=== PATIENT | female | born 1950 | race Caucasian/White ===

== ENCOUNTER 2021-05-03 21:38 | Emergency (ER) | payer MEDICARE, BC, SELFPAY ==
--- NOTE | ~2021-05-03 | CT_ITS ---
EXAMINATION: CT lumbar spine wo con DATE: 05/03/2021 22:33 INDICATION: Low back pain. Leg weakness. TECHNIQUE: Computed tomography (CT) of the lumbar spine was performed without intravenous contrast. A utomated exposure control and iterative reconstruction technique were employed. Exam dose: 1327.49 m Gy-cm total exam DLP. COMPARISON: None FINDINGS: Thoracic spinal leads are noted. Diffuse osteopenia. There is dextroscoliosis of the lumbar spine. There is prominent anterior wedge burst fracture deformity of L1. No other lumbar spine fracture is evident. There is moderately severe to severe degenerative disc disease throughout the lumbar and lumbosacral spine, particularly severe at L2-3, L3-4, L4-5, with associated mild retrolisthesis at L2-3 and L3-4 and to a greater extent up to 5 mm retrolisthesis at L4-5. No spondylolysis or anterolisthesis. Prominent degenerative change at the apophyseal joints. The sacroiliac joints are intact. IMPRESSION: Diffuse osteopenia Dextroscoliosis Prominent anterior wedge burst fracture deformity of L1 Moderately severe to severe degenerative disc disease of the lumbar and lumbosacral spine with retrol isthesis at several levels, measuring up to 5 mm at L4-5 Reviewed, dictated and finalized at [facility]. Reviewed, dictated and finalized at [facility]. IMPRESSION: Diffuse osteopenia Dextroscoliosis Prominent anterior wedge burst fracture deformity of L1 Moderately severe to severe degenerative disc disease of the lumbar and lumbosa cral spine with retrolisthesis at several levels, measuring up to 5 mm at L4-5
--- NOTE | ~2021-05-03 | XR_ITS ---
XR chest 2V DATE: 05/03/2021 22:01 INDICATION: Fall. Weakness. TECHNIQUE: AP and lateral views COMPARISON: 04/10/2017 AP chest FINDINGS: There is mild infiltrate or atelectasis at the lung bases. The lungs otherwise appear clear . Cardiac megaly. Aortic calcification. Central pulmonary arteries appear prominent suggesting pulmonary hypertension. Lungs appear mildly hy perinflated. Again noted are electrodes in the lower thoracic spinal canal. Diffuse osteopenia. There is severe anterior wedge fracture deformity of an upper lumbar vertebral body approximately. IMPRESSION: Bibasilar infiltrate or atelectasis; consider atelectasis, aspiration pneumonitis or biba silar pneumonia COPD and pulmonary hypertension are suggested Aortic atherosclerosis Very prominent loss of height and anterior wedging of an upper lumbar vertebral body Thoracic spinal electrodes again noted Reviewed, dictated and finalized at [facility]. IMPRESSION: Bibasilar infiltrate or atelectasis; consider atelectasis, aspirati on pneumonitis or bibasilar pneumonia COPD and pulmonary hypertension are suggested Aortic atherosclerosis Very prominent loss of height and anterior wedging of an upper lumbar vertebral body Thoracic spinal electrodes again noted
[2021-05-03 21:37] VITALS: BP 112/55; PULSE 107; RESP 20; TEMP 36.6; O2SAT 97
--- NOTE | 2021-05-03 21:45 | ECG_ITS ---
Measurements Intervals [place] Rate: 106 P: 76 MA: 169 QRS: 19 QRSD: 117 T: 72 QT: 351 QTc: 466 Interpretive Statements SINUS TACHYCARDIA INCOMPLETE LEFT BUNDLE BRANCH BLOCK DELAYED PRECORDIAL R/S TRANSITION LOW QRS VOLTAGE IN LIMB LEADS MINIMAL Q WAVES- INFERIOR LEADS BASELINE ARTIFACT- V6 ABNORMAL ECG Electronically Signed On 05-04-2021 6:56:58 CDT by Sylvester Frye D.O.
[2021-05-03 22:18] LABS: Basophils Percent Auto 0.2 % (0.2-1.2); Eosinophils Percent Auto 0.5 % (0-4.4); Hematocrit 36.5 % (37.0-47.0); Hemoglobin 11.4 g/dL (12.0-15.0); Immature Granulocyte Absolute 0.04 K/mm3 (0.00-0.031); Immature Granulocyte Percent A 0.5 % (0-0.5); Immature Platelet Fraction Pct 8.4 % (0.9-11.2); Lymphocytes Absolute Auto 0.44 K/mm3 (0.9-3.2); Lymphocytes Percent Auto 5.1 % (18.3-44.2); Mean Corpuscular HGB Conc 31.2 g/dl (32-36); Mean Corpuscular Hemoglobin 31.4 pg (26-34); Mean Corpuscular Volume 100.6 fl (80-100); Mean Platelet Volume 11.2 fl (7.4-10.4); Monocytes Percent Auto 11.1 % (2.6-8.5); Neutrophils Absolute Auto 7.2 K/mm3 (1.3-6.7); Neutrophils Percent Auto 82.6 % (45.5-73.1); Platelet Count Result 123 k/mm3 (150-375); Red Blood Count 3.63 M/mm3 (4.2-5.4); Red Cell Distribution Width 11.9 % (11.5-14.5); White Blood Count 8.7 K/mm3 (4.5-10.0)
[2021-05-03] MEDS: HYDROmorphone HCL INJ (*CRX) 1 MG/ML SYR 0.5 MG IV PUSH (22:22)
[2021-05-03 22:27] LABS: Alanine Aminotransferase 12 U/L (4-35); Albumin Level 3.5 g/dL (3.5-5.1); Alkaline Phosphatase 108 U/L (38-126); Anion Gap 5 mmol/L (8-16); Aspartate Amino Transferase 20 U/L (14-36); Bilirubin,Total 0.9 mg/dL (0.2-1.3); Blood Urea Nitrogen 21 mg/dL (7-17); Calcium 9.2 mg/dL (8.4-10.2); Carbon Dioxide 34 mmol/L (22-30); Chloride 97 mmol/L (98-107); Estimated CRCL calculation 55 ml/min; Estimated Glomerular Filt Rate 55; Glucose 379 mg/dL (65-105); Potassium 4.4 mmol/L (3.4-5.0); Sodium 136 mmol/L (137-145)
[2021-05-03 22:31] LABS: Add Urine Microscopic? YES; Appearance Urine Cloudy (Clear); Bacteria Urine Trace /hpf; Bilirubin Urine Negative (Negative); Blood Urine 1+ (Negative); Color Urine Yellow (Yellow); Glucose Urine UA 3+ mg/dL (Negative); Ketones Urine Negative (Negative); Leukocyte Esterase Ur Trace LEU/UL (Negative); Mucus Urine Rare /lpf; Nitrate Urine Negative (Negative); Protein Urine 2+ mg/dL (Negative); Specific Grav Ur 1.016 (1.001-1.035); Squamous Epithelial Cell Urine Many /hpf (Few); WBC Urine 16-20 /hpf
--- NOTE | 2021-05-03 23:42 | ED.GENADULT ---
HPI - General Adult General Chief complaint: Weakness Stated complaint: ground level fall-weakness r leg Time Seen by Provider: 05/03/21 21:54 History of Present Illness HPI narrative: Patient is a 70-year-old female presents the emergency department with chief complaint of weakness. The patient reports she has chronic back pain and has a nerve stimulator in her back and reports over the last several days she has had some worsening pain and sat down on the toilet and felt as though it was very difficult for her to get up. The patient called EMS and normally gets all of her care at [place] [facility] and was transported to our facility. The patient states she has had no bowel or bladder dysfunction denies any paresthesias. Related Data Home Medications Medication Instructions Recorded Confirmed albuterol sulfate 90 mcg/actuation 2 puff INHALATION Q4H PRN gm 10/05/19 09/05/20 aerosol inhaler ascorbate calcium (vitamin C) 500 500 mg PO DAILY 10/05/19 09/05/20 mg tablet aspirin 81 mg tablet,delayed 81 mg PO DAILY 10/05/19 09/05/20 release atorvastatin 80 mg tablet 80 mg PO DAILY 10/05/19 09/05/20 clopidogrel 75 mg tablet 75 mg PO DAILY 10/05/19 09/05/20 cyanocobalamin (vitamin B-12) 500 500 mcg PO DAILY 10/05/19 09/05/20 mcg tablet estradiol 1 gm VAGINAL WEEKLY 10/05/19 09/05/20 fentanyl 75 mcg/hr transdermal 1 patch TRANSDERM Q72H 10/05/19 09/05/20 patch hydrocodone 10 mg-acetaminophen 1 tablet PO Q6H PRN 10/05/19 09/05/20 325 mg tablet metoprolol succinate 25 mg 25 mg PO DAILY 10/05/19 09/05/20 tablet,extended release 24 hr mupirocin 2 % topical ointment 1 applic TOPICAL BID 10/05/19 09/05/20 omeprazole 20 mg capsule,delayed 20 mg PO DAILY 10/05/19 09/05/20 release sennosides 8.6 mg capsule 8.6 mg PO BID PRN 10/05/19 09/05/20 zinc 50 mg tablet 50 mg PO DAILY 10/05/19 09/05/20 furosemide 20 mg tablet 20 mg PO QAM 05/24/20 09/05/20 potassium chloride 20 mEq 20 meq PO DAILY 05/24/20 09/05/20 tablet,extended release Allergies Allergy/AdvReac Type Severity Reaction Status Date / Time cefaclor Allergy Unknown Difficulty Verified 04/07/19 15:22 breathing cephalexin Allergy Unknown Difficulty Verified 04/07/19 15:22 breathing Cephalosporins Allergy Unknown Verified 03/23/12 16:19 clarithromycin Allergy Unknown Verified 03/23/12 16:19 clindamycin Allergy Unknown Verified 03/23/12 16:19 morphine Allergy Unknown Difficulty Verified 04/07/19 15:23 breathing Review of Systems Review of Systems: Narrative: A 10 system review of systems was completed on the patient and is negative except for what is stated in the HPI. Nursing and ancillary documentation was reviewed. [facility] Past Medical History Medical History CHF (congestive heart failure) Decubitus ulcer, buttock Edema, peripheral Peripheral arterial disease Family History Family History Father Family history of arthritis Family history of diabetes mellitus in first degree relative Patient's father is , Onset Age: 78 Diabetes mellitus Mother Family history of coronary artery disease Family history of heart disease in male family member before age 55 Patient's mother is Family history of cardiovascular disease, Onset Age: 60 Grandparent Family history of cardiovascular disease, Onset Age: 88 Sibling Family history of cardiovascular disease, Onset Age: 88 Social History Social History Smoking packs per day: 0.5 Smoking cigarettes per day: 10.0 Years smoked: 50 Smoking pack-years: 25.00 Smoking status: Current every day smoker Tobacco type: cigarettes Smoking end date: 06/12/19 Alcohol intake: never Substance use: never Exam Narrative: Exam Narrative: GENERAL: W
[2021-05-04] MEDS: HYDROmorphone HCL INJ (*CRX) 1 MG/ML SYR 0.5 MG IV PUSH (01:08)
[2021-05-04] MEDS: ONDANSETRON INJ 4 MG/2 ML VIAL IV PUSH (01:08)
[2021-05-04 01:17] VITALS: BP 114/62; PULSE 79; RESP 16; TEMP 36.3; O2SAT 95
== END 2021-05-04 01:19 | disposition home or self-care (01) ==
PROVIDERS: Emergency Provider Emergency Medicine; PCP Family Medicine
DX: M54.5 Low back pain (principal); Z96.82 Presence of neurostimulator; I50.9 Heart failure, unspecified; I73.9 Peripheral vascular disease, unspecified; G89.29 Other chronic pain; F17.210 Nicotine dependence, cigarettes, uncomplicated; Z79.82 Long term (current) use of aspirin; R00.0 Tachycardia, unspecified; I44.7 Left bundle-branch block, unspecified; R94.31 Abnormal electrocardiogram [ECG] [EKG]
CPT/HCPCS: 36415; 71046; 72131; 80053; 81001; 85025; 85055; 87077; 87086; 87088; 87186; 93005; 96374; 96376; 99284; J1170; J2405

== ENCOUNTER 2022-05-21 22:25 | Observation (INO) | payer MEDICARE, BC, SELFPAY ==
--- NOTE | ~2022-05-21 | CT_ITS ---
EXAMINATION: CT hip LT wo con DATE: 05/22/2022 00:52 INDICATION: Left hip pain after fall TECHNIQUE: Computed tomography (CT) of the left hip was performed without intravenous contrast. The d ose-length product was 556.42 mGy-cm. Automated exposure control and iterative reconstruction technCasentric ue were employed. COMPARISON: CT dated 10/15/2017 FINDINGS: There is an acute minimally displaced fracture proximal aspect of the left femur surroundin g the prosthesis. There is a left total hip arthroplasty. No significant soft tissue abnormality. The re is a radiopaque device in the pelvis, possibly a pessary. IMPRESSION: 1. Acute minimally displaced proximal left periprosthetic femoral fracture. Reviewed, dictated and finalized at [facility].
--- NOTE | ~2022-05-21 | CT_ITS ---
EXAMINATION: CT facial bones wo con DATE: 05/22/2022 00:06 INDICATION: Status post fall. Left facial pain. TECHNIQUE: Computed tomography (CT) of the facial bones was performed without intravenous contrast. T he dose-length product was 329.52 mGy-cm. Automated exposure control and iterative reconstruction rosie hnique were employed. COMPARISON: None FINDINGS: No acute maxillofacial fracture. There is left periorbital/frontal scalp hematoma. The pineda ible, pterygoid plates, zygomatic arches, nasal bones and orbits are intact. No evidence for blowout fracture. Lamina papyracea is intact bilaterally. Rightward nasal septal deviation. Temporal mandibul ar joints are symmetric. There is atherosclerosis of the aorta. IMPRESSION: 1. No acute facial fracture. Reviewed, dictated and finalized at [facility].
--- NOTE | ~2022-05-21 | CT_ITS ---
EXAMINATION: CT brain wo con DATE: 05/22/2022 00:05 INDICATION: Status post fall. Altered mental status. TECHNIQUE: Computed tomography (CT) of the head was performed without intravenous contrast. The dose- length product was 605.33 mGy-cm. Automated exposure control and iterative reconstruction technique w ere employed. COMPARISON: No prior studies for comparison. FINDINGS: Mild generalized atrophy. There are scattered mild periventricular and subcortical white ma tter changes, most likely related to small vessel ischemic disease (microangiopathy). There is left p eriorbital/frontal scalp hematoma. No ventriculomegaly or midline shift. Basilar cisterns are patent. No acute intracranial hemorrhage, infarction, mass or mass effect. Paranasal sinuses and mastoids ar e pneumatized. No depressed skull fractures. IMPRESSION: 1. No acute intracranial abnormality. Reviewed, dictated and finalized at location [facility].
--- NOTE | ~2022-05-21 | XR_ITS ---
EXAMINATION: XR hip BI 2V w AP pelvis DATE: 05/22/2022 00:16 INDICATION: Hip pain after fall TECHNIQUE: AP view the pelvis and two views of each hip were obtained. COMPARISON: 04/10/2017 FINDINGS: There are changes of left hip arthroplasty. There is a transverse lucency of the proximal l eft femur at the level of the lesser trochanter. No additional fracture is identified. There is mild osteoarthritis of the right hip. A neurostimulator device projects over the left mid abdomen. IMPRESSION: 1. Acute, nondisplaced periprosthetic fracture of the left femur. Reviewed, dictated and finalized at [facility].
--- NOTE | ~2022-05-21 | XR_ITS ---
EXAMINATION: XR chest 1V portable Exam Date/Time: 05/21/2022 22:36 CDT HISTORY: hypoxia, weakness Comparison: None available. RESULT: Lines, tubes, and devices: Epidural stimulator leads project over the lower thoracic spine. Lungs and pleura: Bibasilar linear scar/atelectasis and senescent change. Cardiomediastinal silhouette: Stable cardiomediastinal silhouette. Other: No acute osseous or upper abdominal finding. IMPRESSION: No acute cardiopulmonary process. Reviewed, dictated and finalized at [facility].
[2022-05-21 22:27] VITALS: BP 97/70; PULSE 86; RESP 20; TEMP 37.3; O2SAT 4
--- NOTE | 2022-05-21 22:30 | ECG_ITS ---
Measurements Intervals [place] Rate: 86 P: 73 LA: 144 QRS: 19 QRSD: 120 T: 78 QT: 397 QTc: 475 Interpretive Statements SINUS RHYTHM CONSIDER LEFT ATRIAL ABNORMALITY INTRAVENTRICULAR CONDUCTION DELAY BORDERLINE ECG Electronically Signed On 05-22-2022 6:15:45 CDT by Sylvester Frye D.O.
[2022-05-21 22:54] LABS: Basophils Percent Auto 0.4 % (0.2-1.2); Eosinophils Absolute Auto 0.1 K/mm3 (0-0.3); Eosinophils Percent Auto 1.5 % (0-4.4); Hematocrit 38.8 % (37.0-47.0); Hemoglobin 11.8 g/dL (12.0-15.0); Immature Granulocyte Absolute 0.02 K/mm3 (0.00-0.031); Immature Granulocyte Percent A 0.3 % (0-0.5); Immature Platelet Fraction Pct 9.3 % (0.9-11.2); Lymphocytes Absolute Auto 1.41 K/mm3 (0.9-3.2); Lymphocytes Percent Auto 20.7 % (18.3-44.2); Mean Corpuscular HGB Conc 30.4 g/dl (32-36); Mean Corpuscular Hemoglobin 30.8 pg (26-34); Mean Corpuscular Volume 101.3 fl (80-100); Monocytes Absolute Auto 0.5 K/mm3 (0.1-0.6); Monocytes Percent Auto 7.4 % (2.6-8.5); Neutrophils Absolute Auto 4.7 K/mm3 (1.3-6.7); Neutrophils Percent Auto 69.7 % (45.5-73.1); Platelet Count Result 121 k/mm3 (150-375); Red Blood Count 3.83 M/mm3 (4.2-5.4); Red Cell Distribution Width 12.6 % (11.5-14.5); White Blood Count 6.8 K/mm3 (4.5-10.0)
[2022-05-21 23:17] VITALS: BP 98/74; PULSE 80; RESP 14; O2SAT 96
[2022-05-21 23:18] LABS: Alanine Aminotransferase 10 U/L (6-35); Albumin Level 3.5 g/dL (3.5-5.1); Alkaline Phosphatase 75 U/L (38-126); Aspartate Amino Transferase 14 U/L (14-36); Bilirubin,Total 0.5 mg/dL (0.2-1.3); Blood Urea Nitrogen 13 mg/dL (7-17); Calcium 8.7 mg/dL (8.4-10.2); Carbon Dioxide > 40 mmol/L (22-30); Chloride 98 mmol/L (98-107); Estimated CRCL calculation 73 ml/min; Estimated Glomerular Filt Rate > 60; Glucose 243 mg/dL (65-110); Potassium 3.9 mmol/L (3.4-5.0); Sodium 138 mmol/L (137-145)
[2022-05-21 23:20] VITALS: O2SAT 93
--- NOTE | 2022-05-21 23:34 | ED.GENADULT ---
HPI - General Adult General Chief complaint: Weakness Stated complaint: WEAKNESS/FALLS Time Seen by Provider: 05/21/22 22:33 History of Present Illness HPI narrative: 71-year-old female presenting to the emergency department for evaluation of worsening generalized weakness and worsening pain after having a ground-level fall last night. Patient is normally on 4 L of oxygen by nasal cannula. Patient does take [place] and fentanyl for chronic pain. states over the course of the last few months that she has had worsening weakness. Patient states that she does not ambulate very much due to her chronic pain. Patient states that she has been sitting more during the days. Patient was walking to the bathroom last night when she tripped over her oxygen cord and fell striking her face. Patient denies any loss of consciousness. Patient states since the fall she still has the same chronic pain but the chronic pain has worsened. Patient 5 [place] daily but has not had pain medications today since being in the emergency room. Patient does have a fentanyl patch in place. Patient has a prior history of left hip arthroplasty. Patient reports he always has pain in left hip but that the pain in left hip is worsened. states due to her increased weakness he is unable to take care of her at home. Patient and family are not opposed to group home placement at this time. Related Data Home Medications Medication Instructions Recorded Confirmed albuterol sulfate 90 mcg/actuation 2 puff inhalation Q4H PRN 10/05/19 05/16/21 aerosol inhaler (Proventil HFA) ascorbate calcium (vitamin C) 500 500 mg PO DAILY 10/05/19 05/16/21 mg tablet aspirin 81 mg tablet,delayed 81 mg PO DAILY 10/05/19 05/16/21 release (Adult Low Dose Aspirin) atorvastatin 80 mg tablet 80 mg PO DAILY 10/05/19 05/16/21 clopidogrel 75 mg tablet 75 mg PO DAILY 10/05/19 05/16/21 cyanocobalamin (vitamin B-12) 500 500 mcg PO DAILY 10/05/19 05/16/21 mcg tablet (Vitamin B-12) estradiol 0.01% (0.1 mg/gram) 1 gm vaginal WEEKLY 10/05/19 05/16/21 vaginal cream fentanyl 75 mcg/hr transdermal 1 patch transdermal Q72H 10/05/19 05/16/21 patch hydrocodone 10 mg-acetaminophen 1 tablet PO Q6H PRN pain 10/05/19 05/16/21 325 mg tablet metoprolol succinate 25 mg 25 mg PO DAILY 10/05/19 05/16/21 tablet,extended release 24 hr mupirocin 2 % topical ointment 1 applic topical BID 10/05/19 05/16/21 sennosides 8.6 mg capsule (senna) 8.6 mg PO BID PRN 10/05/19 05/16/21 zinc 50 mg tablet (Chelated Zinc) 50 mg PO DAILY 10/05/19 05/16/21 potassium chloride 20 mEq 20 meq PO DAILY 05/24/20 05/16/21 tablet,extended release furosemide 20 mg tablet 20 mg PO QAM PRN edema 05/16/21 05/16/21 Allergies Allergy/AdvReac Type Severity Reaction Status Date / Time cefaclor Allergy Unknown Difficulty Verified 04/07/19 15:22 breathing cephalexin Allergy Unknown Difficulty Verified 04/07/19 15:22 breathing Cephalosporins Allergy Unknown Verified 03/23/12 16:19 clarithromycin Allergy Unknown Verified 03/23/12 16:19 clindamycin Allergy Unknown Verified 03/23/12 16:19 morphine Allergy Unknown Difficulty Verified 04/07/19 15:23 breathing Review of Systems Review of Systems: CONSTITUTIONAL: Increased generalized weakness EYES: Denies visual changes, redness, or discharge. ENT: Denies rhinorrhea, congestion, sore throat, or otalgia. CARDIOVASCULAR: Denies chest pain, palpitations, or edema. RESPIRATORY: Denies cough or dyspnea. GASTROINTESTINAL: Denies abdominal pain, nausea, vomiting, or diarrhea. GENITOURINARY: Denies dysuria or hematuria. SKIN: Denies rash or itching. MUSCULOSKELETAL: See HPI NEUROLOGIC: Denies headache, numbness, or weakness. [facility] Past Medical History Medical History (Updated 05/22/22 @ 06:56 by Destin Pacheco MD) BMI 31.0-31.9,adult BMI 32.0-32.9,adult CHF (congestive heart failure) Controlled diabetes mellitus with hyperglycemia, without long-term
[2022-05-22] VITALS (9 sets, daily range): BP systolic 93–113; BP diastolic 52–79; PULSE 85–93; RESP 14–18; TEMP 35.6–36.9; O2SAT 90–94
[2022-05-22 00:29] LABS: Alveolar/Arterial O2 Gradient 115.7 mmHg; Base Excess ABG 8.4 mEq/l (+/-2.0); Fractional Inspired Oxygen 36 %; HCO3 ABG 36.1 mEq/l (22.0-26.0); Oxygen Saturation ABG 90.9 % (95.0-100.0); Oxyhemoglobin 90.2 % THb (90.0-100.0); PO2 ABG 64.2 mmHg (80.0-100.0); PO2 FiO2 Ratio Arterial Blood 1.78 %; Total Hemoglobin 12.6 g/dL (12.0-18.0); pH ABG 7.355 (7.350-7.450)
[2022-05-22 00:30] LABS: Device NASAL CANNULA; Modified Allen's Test Pass; PCO2 ABG 66.2 mmHg (35.0-45.0); Site Drawn RIGHT BRACHIAL
[2022-05-22 01:35] LABS: Appearance Urine Cloudy (Clear); Bilirubin Urine Negative (Negative); Blood Urine Negative (Negative); Color Urine Yellow (Yellow); Glucose Urine UA Trace mg/dL (Negative); Ketones Urine Trace mg/dL (Negative); Leukocyte Esterase Ur 1+ LEU/UL (Negative); Nitrate Urine Positive (Negative); Protein Urine Trace mg/dL (Negative); pH Urine 5.5 (5.0-9.0)
[2022-05-22 01:40] LABS: Bacteria Urine 4+ /hpf; Squamous Epithelial Cell Urine Rare /hpf (Few); WBC Urine 21-30 /hpf
[2022-05-22 01:41] LABS: Add Urine Microscopic? YES
[2022-05-22] MEDS: HYDROcodone/acetaminophen (*CRX) 5-325 MG TABLET 1 TAB PO ×3 (04:07→16:08)
--- NOTE | 2022-05-22 04:15 | PC.NURSE ---
Pt has Fentanyl patch to right upper back used for chronic pain. Pt is aox4 patch will be left on. Per pt and they change patch every 2 1/2 days and it is to be changed this am. Ok per md to keep patch on at this time.
[2022-05-22 04:16] LABS: SARS-CoV-2 RNA PCR Negative
--- NOTE | 2022-05-22 06:08 | ADMGEN ---
0522 This patient, Vanita Parker, was admitted to 3 [facility] Surg Room 322-02. Patient/family oriented to hospital policies and general routines including ID bracelet, bed and alarms, visiting hours, pain management, procedures, bathroom and other care routines, personal items, smoking policy, room service/diet, and visiting hours. Information on how to activate the Rapid Response Team has been discussed. Patient/Family are encouraged to report perceived risks to care and to ask questions if they do not understand what they are told or what they should do.
--- NOTE | 2022-05-22 06:17 | PM.IMHP ---
H&P: HPI History of Present Illness Date/Time: 05/22/22 06:17 Chief Complaint: Fall and weakness Narrative: 71-year-old female with a past medical history of COPD with chronic hypoxic hypercapnic respiratory failure, coronary artery disease, peripheral vascular disease, and chronic pain who presented to the ER via EMS due to weakness and falls. The patient has chronic pain and does not move around very much but this is been more so over the last week. Her reported that the patient's mobility is actually decreased over the last few months. She has been sitting more. She stated that the power when out a couple of days ago. She was trying to ambulate to the bathroom that night and tripped and fell over her oxygen cord and fell striking her face. She did not lose consciousness and did not have any syncopal or near syncopal symptoms. Her pain is aching in nature and worse with activity. She reports that her pain is currently a 6/10 in intensity. Her pain is in the same leg that she has had prior hip arthroplasty. Her pain was worsened. X-ray in the ER demonstrated possible fracture so CT was performed which demonstrated a nondisplaced fracture around the prosthetic. The patient reports chronic shortness of breath. Her shortness of breath is unchanged from baseline. She denies any increased cough. She reports that she quit smoking 3 days ago. She has chronic constipation but denies any recent changes in her bowel movements. She does have a pessary in place but states that she can hold her urine if she concentrates. She thinks that her pessary needs to be adjusted as she is urinating more frequently. She denies any dysuria but is having foul-smelling urine. She thinks that she has foul-smelling urine because she does not know ?what is growing down there.? She denies having any fevers per temperature was slightly elevated when she arrived to the floor at 99.1. She denies any nausea or vomiting. The patient does not know her home medications. Home medication reconciliation is not available for my review at this time. Review of Systems Review of Systems: 12 systems were reviewed with pertinent positives and negatives per HPI. Except as documented in the HPI, all other systems were reviewed and are negative. [facility] Past Medical History Medical History (Updated 05/22/22 @ 08:04 by Maura Velazquez DO) Acquired female bladder prolapse With pessary in place B12 deficiency BMI 31.0-31.9,adult CHF (congestive heart failure) Chronic anxiety Chronic bilateral low back pain Chronic respiratory failure with hypoxia and hypercapnia On home O2 4 L COPD mixed type Coronary artery disease involving iroquois coronary artery of iroquois heart without angina pectoris Decubitus ulcer, buttock Gastro-esophageal reflux disease without esophagitis Major depression, recurrent, chronic Mixed hyperlipidemia Obstructive sleep apnea Peripheral arterial disease Peripheral neuropathy Therapeutic opioid induced constipation Tobacco abuse disorder Type 2 diabetes mellitus without complication, without long-term current use of insulin Vitamin D deficiency Surgical History Surgical History (Updated 05/22/22 @ 07:59 by Maura Velazquez DO) History of carpal tunnel surgery of right wrist History of heart artery stent X4 History of tonsillectomy and adenoidectomy History of total hysterectomy with bilateral salpingo-oophorectomy (BSO) S/P right rotator cuff repair Status post insertion of spinal cord stimulator Status post open reduction with internal fixation of fracture Inter medullary nailing 2016 with subsequent revision with hip replacement in June [address] Whyte at [place] Family History Family History (Updated 05/22/22 @ 07:27 by Maura Velazquez DO) Father Family history of arthritis Family history of diabetes mellitus in first degree relative Diabetes mellitus Mother Family history of coronary artery dise
[2022-05-22] MEDS: CIPROFLOXACIN 400 MG/D5W 200ML 200 ML 200 MG IVPB ×2 (09:48→20:32)
[2022-05-22] MEDS: fentaNYL (*CRX) 50 MCG PATCH TRANSDERM (09:52)
--- NOTE | 2022-05-22 11:12 | PCOTNOTE ---
Needs ortho consult prior to completing OT evaluation.
[2022-05-22 12:41] LABS: Hemoglobin A1C 8.6 % (<5.7)
--- NOTE | 2022-05-22 15:50 | PM.IMPN ---
Progress Note: A&P Assessment and Plan (1) Closed left hip fracture: Code(s): S72.002A - Fracture of unspecified part of neck of left femur, initial encounter for closed fracture Status: Acute Assessment and Plan: Nondisplaced periprosthetic fracture noted on imaging. The on-call surgeon at [place] felt the patient could be treated non operatively and recommended follow-up with Dr. Whyte in 4-6 weeks. He recommended weight-bearing status as tolerated with no active hip abduction. PT/OT consulted Patient will need rehab SNF placement. Care Coordination consulted. Continue fentanyl patch and [place] PRN for pain. (2) Physical deconditioning: Code(s): R53.81 - Other malaise Status: Acute Assessment and Plan: PT and OT consult as discussed above. (3) Contusion of face: Qualifiers: Encounter type: initial encounter Qualified Code(s): S00.83XA - Contusion of other part of head, initial encounter Code(s): S00.83XA - Contusion of other part of head, initial encounter Status: Acute Assessment and Plan: Neuro at baseline. CT head negative. Fall precautions avoid further falls (4) Tobacco abuse disorder: Code(s): Z72.0 - Tobacco use Status: Acute Assessment and Plan: The patient states that she is taking Wellbutrin at home. She quit smoking 3 days ago. Continue to reinforce tobacco cessation. (5) Bacteriuria with pyuria: Code(s): R82.71 - Bacteriuria; R82.81 - Pyuria Status: Acute Assessment and Plan: UA concerning for infection. +suprapubic tenderness. Continue Ciprofloxacin IV BID. Transition to oral if afebrile >48 hours and adjust per urine cultures results. (6) Chronic respiratory failure with hypoxia and hypercapnia: Code(s): J96.11 - Chronic respiratory failure with hypoxia; J96.12 - Chronic respiratory failure with hypercapnia Status: Acute Assessment and Plan: stable. She does have hypercapnia but her pH is compensated. No evidence of acute exacerbation. Continue supplemental home O2 of 4 L. Resume home inhalers. Plan CODE STATUS: FULL CODE Disposition: SNF rehab placement. Estimated LOS: 2 days. Subjective Date/time seen: 05/22/22 15:50 Patient found sleeping. She reports her hip pain is tolerable. No shortness of breath, chest pain, abd pain, N/V/D, or pain with urination. She has chronic lower back pain and constipation. No BM in several days, she reports. Review of Systems Review of Systems: All systems reviewed & are unremarkable except as noted in HPI and below Exam Narrative: Constitutional:? No distress. Well-developed older adult female lying in bed. Mental status/Neuro: Sleeping, arouses easily to voice. Alert. Oriented x3. Follows intermittent commands. Speech clear, unpressured. Pleasant and cooperative. Full strength all extremities 5/5. No focal deficits. No facial droop. Tongue midline. No pronator drift. CN 2-12 grossly intact. HEENT:? Normocephalic. Left temporal hematoma. PERRL 3 mm bilaterally brisk. Moist mucous membranes.? No scleral icterus.? No lymphadenopathy. Neck:?Supple. No carotid bruits or JVD noted Lungs:? Lung sounds clear to auscultation bilaterally. RR regular and unlabored.? No accessory muscle use.?Speaking in full sentences Cardiovascular:? Normal S1-S2 regular rate and rhythm. No murmurs, gallops or rubs. Abdomen:? Soft, obese, and +suprapubic tenderness to palpation.? No palpable masses. Normoactive bowel sounds. Extremities:? Right hip ROM limited due to pain. Moves all other extremities equally with equal strength. No erythema, edema or ecchymosis. Radial and dorsalis pedis pulses +2 bilaterally. Skin:? Fair, warm & dry. No open wounds or rashes. Objective Data Vital Signs Vital Signs: Vital Signs - 24 hr 05/21/22 22:27 05/21/22 23:17 05/21/22 23:17 Temperature 99.1 F Pulse Rate 86 80 80
[2022-05-22 16:35] LABS: Glucose Point of Care 328 mg/dl (65-105)
[2022-05-22] MEDS: TOLNAFTATE 1% POWDER 45 GM BTL 1 APPLIC TOPICAL ×2 (16:55→20:35)
[2022-05-22] MEDS: INSULIN ASPART (*BKC) 100 UNITS/ML SUB-Q (16:57)
[2022-05-23 06:00] VITALS: BP 116/66; PULSE 87; RESP 18; TEMP 36.7; O2SAT 95
[2022-05-23 06:38] LABS: Hematocrit 35.6 % (37.0-47.0); Hemoglobin 10.8 g/dL (12.0-15.0); Immature Platelet Fraction Pct 9.8 % (0.9-11.2); Mean Corpuscular HGB Conc 30.3 g/dl (32-36); Mean Corpuscular Hemoglobin 31.2 pg (26-34); Mean Corpuscular Volume 102.9 fl (80-100); Mean Platelet Volume 11.3 fl (7.4-10.4); Platelet Count Result 101 k/mm3 (150-375); Red Blood Count 3.46 M/mm3 (4.2-5.4); Red Cell Distribution Width 12.6 % (11.5-14.5); White Blood Count 5.9 K/mm3 (4.5-10.0)
[2022-05-23 06:57] LABS: Blood Urea Nitrogen 19 mg/dL (7-17); Calcium 8.4 mg/dL (8.4-10.2); Carbon Dioxide > 40 mmol/L (22-30); Chloride 96 mmol/L (98-107); Estimated CRCL calculation 52 ml/min; Estimated Glomerular Filt Rate 55; Glucose 255 mg/dL (65-110); Sodium 137 mmol/L (137-145)
[2022-05-23 08:00] VITALS: O2SAT 92
[2022-05-23 08:19] LABS: Glucose Point of Care 239 mg/dl (65-105)
[2022-05-23] MEDS: INSULIN ASPART (*BKC) 100 UNITS/ML SUB-Q ×3 (09:02→17:33)
[2022-05-23] MEDS: INSULIN GLARGINE (*BKC) 100 UNITS/ML 10 UNITS SUB-Q (09:02)
[2022-05-23] MEDS: TOLNAFTATE 1% POWDER 45 GM BTL 1 APPLIC TOPICAL (09:08)
[2022-05-23] MEDS: SENNOSIDES 8.6 MG TABLET PO (09:11)
[2022-05-23] MEDS: FAMOTIDINE 20 MG TABLET 40 MG PO (09:11)
[2022-05-23] MEDS: CYANOCOBALAMIN 500 MCG TABLET PO (09:11)
[2022-05-23] MEDS: CLOPIDOGREL BISULFATE 75 MG TABLET PO (09:11)
[2022-05-23] MEDS: ASCORBIC ACID 500 MG TABLET PO (09:11)
[2022-05-23 09:13] VITALS: PULSE 85
[2022-05-23] MEDS: ASPIRIN 81 MG ENTERIC TABLET PO (09:13)
[2022-05-23] MEDS: ESCITALOPRAM OXALATE 10 MG TABLET PO (09:13)
[2022-05-23] MEDS: buPROPion HCL XL (24 HR) 150 MG TABCR 300 MG PO (09:13)
[2022-05-23] MEDS: ATORVASTATIN 40 MG TABLET 80 MG PO (09:13)
[2022-05-23] MEDS: METOPROLOL SUCCINATE EXT REL 25 MG TABCR PO (09:13)
[2022-05-23] MEDS: CIPROFLOXACIN 400 MG/D5W 200ML 200 ML 200 MG IVPB (09:14)
[2022-05-23] MEDS: HYDROcodone/acetaminophen (*CRX) 5-325 MG TABLET 1 TAB PO ×2 (09:26→17:35)
[2022-05-23 11:27] VITALS: O2SAT 94
[2022-05-23 12:04] LABS: Glucose Point of Care 348 mg/dl (65-105)
--- NOTE | 2022-05-23 13:16 | PCOTNOTE ---
Attempted OT treatment, patient declined at this time, despite education and encouragement to participate. Will follow, RN notified.
[2022-05-23 14:00] VITALS: BP 102/68; PULSE 84; RESP 16; TEMP 36.1; O2SAT 94
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
[2022-05-23 17:28] LABS: Glucose Point of Care 280 mg/dl (65-105)
== END 2022-05-23 20:00 ==
LOC: ANHED 23:05 → ANH3MEDSUR 05-22 05:35
PROVIDERS: Admitting Provider Internal Medicine; Emergency Provider Emergency Medicine; PCP Family Medicine; Visit Provider Nurse Practitioner Family
DX: M97.02XA Periprosthetic fracture around internal prosthetic left hip joint, initial encounter (principal); S00.83XA Contusion of other part of head, initial encounter; R53.1 Weakness; W01.0XXA Fall on same level from slipping, tripping and stumbling without subsequent striking against object, initial encounter; N39.0 Urinary tract infection, site not specified; J96.12 Chronic respiratory failure with hypercapnia; J96.11 Chronic respiratory failure with hypoxia; E11.65 Type 2 diabetes mellitus with hyperglycemia; R53.81 Other malaise; E11.51 Type 2 diabetes mellitus with diabetic peripheral angiopathy without gangrene; I25.10 Atherosclerotic heart disease of native coronary artery without angina pectoris; I50.9 Heart failure, unspecified; N81.10 Cystocele, unspecified; Z99.81 Dependence on supplemental oxygen; G89.29 Other chronic pain; M54.50 Low back pain, unspecified; F33.9 Major depressive disorder, recurrent, unspecified; G47.33 Obstructive sleep apnea (adult) (pediatric); E11.42 Type 2 diabetes mellitus with diabetic polyneuropathy; E55.9 Vitamin D deficiency, unspecified; E53.8 Deficiency of other specified B group vitamins; K21.9 Gastro-esophageal reflux disease without esophagitis; F17.210 Nicotine dependence, cigarettes, uncomplicated; Z20.822 Contact with and (suspected) exposure to COVID-19; Z79.891 Long term (current) use of opiate analgesic; Z96.642 Presence of left artificial hip joint; Z79.51 Long term (current) use of inhaled steroids; Z79.82 Long term (current) use of aspirin; Z79.02 Long term (current) use of antithrombotics/antiplatelets; Z95.5 Presence of coronary angioplasty implant and graft; Z96.89 Presence of other specified functional implants; E66.9 Obesity, unspecified; Z68.31 Body mass index [BMI] 31.0-31.9, adult
CPT/HCPCS: 36415; 36600; 51701; 70450; 70486; 71045; 73521; 73700; 80048; 80053; 81001; 82805; 82948; 83036; 85025; 85027; 85055; 87077; 87086; 87186; 93005; 96365; 96366; 97110; 97116; 97161; 97165; 97530; 99285; A9270; C9803; G0378; J0744; J1815; U0003; U0005

== ENCOUNTER 2022-09-04 20:17 | Observation (INO) | payer MEDICARE, BC, SELFPAY ==
[2022-09-04] VITALS (14 sets, daily range): BP systolic 95–110; BP diastolic 48–90; PULSE 104–113; RESP 7–29; TEMP 36.8; O2SAT 88–100
--- NOTE | ~2022-09-04 | XR_ITS ---
EXAMINATION: XR chest 1V portable Exam Date/Time: 09/04/2022 20:43 CDT HISTORY: dyspnea;hx of COPD,4L O2 home use,CHF, smoker Comparison: 05/21/2022. RESULT: Lines, tubes, and devices: Epidural stimulator leads terminating over the mid thoracic spine. Lungs and pleura: Ill-defined patchy areas of groundglass opacity in the mid and lower lungs. Cardiomediastinal silhouette: Stable. Other: No acute osseous or upper abdominal finding. IMPRESSION: Patchy mid and lower lung opacities may reflect edema or infection, including atypical variants. Reviewed, dictated and finalized at location K. IMPRESSION: Patchy mid and lower lung opacities may reflect edema or infection, including a typical variants.
--- NOTE | ~2022-09-04 | CT_ITS ---
EXAMINATION: CT soft tissue neck w con DATE: 09/04/2022 22:40 INDICATION: TECHNIQUE: Computed tomography (CT) of the neck was performed with 75 mL Omnipaque-350 intravenous co ntrast. The dose-length product was 506.31 mGy-cm. COMPARISON: X-ray chest, same date and 05/21/2022 FINDINGS: The thyroid gland is unremarkable. The submandibular and parotid glands are symmetric. There is n o cervical lymphadenopathy. There are no masses identified. The superior mediastinum is unremarka ble. The airway is unremarkable. Parapharyngeal and pre-glottic fat planes are preserved. Calci fied plaque in the bilateral common carotids and carotid bifurcations, without significant stenosis. The orbits are unremarkable. Visualized sinuses and mastoid air cells are well aerated. Calcifie d left upper lobe granuloma. There is cervical spondylosis. IMPRESSION: Unremarkable CT soft tissue neck. Reviewed, dictated and finalized at location K.
--- NOTE | 2022-09-04 20:36 | ECG_ITS ---
Measurements Intervals [place] Rate: 110 P: 62 CO: 145 QRS: -11 QRSD: 117 T: 77 QT: 365 QTc: 496 Interpretive Statements SINUS TACHYCARDIA WITH OCCASIONAL VENTRICULAR PREMATURE COMPLEXES LOW QRS VOLTAGE [QRS DEFLECTION < 0.5/1.0 mV IN LIMB/CHEST LEADS] PATTERN CONSISTENT WITH PULMONARY DISEASE PROBABLE INFERIOR MYOCARDIAL INFARCTION , PROBABLY OLD [35 ms Q WAVE IN II/aVF] ABNORMAL ECG COMPARED TO ECG 05/21/2022 22:36:11 SINUS TACHYCARDIA NOW PRESENT Electronically Signed On 09-05-2022 9:31:33 CDT by Chris Verdugo M.D.
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
[2022-09-04 21:24] LABS: Basophils Percent Auto 0.4 % (0.2-1.2); Eosinophils Absolute Auto 0.1 K/mm3 (0-0.3); Hemoglobin 13.2 g/dL (12.0-15.0); Immature Granulocyte Absolute 0.01 K/mm3 (0.00-0.031); Immature Granulocyte Percent A 0.1 % (0-0.5); Lymphocytes Absolute Auto 1.33 K/mm3 (0.9-3.2); Lymphocytes Percent Auto 19.3 % (18.3-44.2); Mean Corpuscular HGB Conc 30.7 g/dl (32-36); Mean Corpuscular Hemoglobin 31.2 pg (26-34); Mean Corpuscular Volume 101.7 fl (80-100); Mean Platelet Volume 10.4 fl (7.4-10.4); Monocytes Absolute Auto 0.5 K/mm3 (0.1-0.6); Monocytes Percent Auto 7.5 % (2.6-8.5); Neutrophils Absolute Auto 4.9 K/mm3 (1.3-6.7); Neutrophils Percent Auto 71.7 % (45.5-73.1); Platelet Count Result 168 k/mm3 (150-375); Red Blood Count 4.23 M/mm3 (4.2-5.4); Red Cell Distribution Width 12.4 % (11.5-14.5); White Blood Count 6.9 K/mm3 (4.5-10.0)
[2022-09-04] MEDS: SODIUM CHLORIDE 0.9% IV 1,000 ML 999 ML IV CONT (21:39)
[2022-09-04 22:01] LABS: Lactic Acid Reflex 0.8 mmol/L (0.7-2.0)
[2022-09-04 22:20] LABS: Alanine Aminotransferase 12 U/L (6-35); Albumin Level 3.6 g/dL (3.5-5.1); Alkaline Phosphatase 107 U/L (38-126); Anion Gap 6 mmol/L (8-16); Aspartate Amino Transferase 28 U/L (14-36); Bilirubin,Total 0.3 mg/dL (0.2-1.3); Blood Urea Nitrogen 10 mg/dL (7-17); Calcium 9.5 mg/dL (8.4-10.2); Carbon Dioxide 38 mmol/L (22-30); Chloride 94 mmol/L (98-107); Estimated CRCL calculation 85 ml/min; Estimated Glomerular Filt Rate > 60; Glucose 351 mg/dL (65-110); Sodium 138 mmol/L (137-145)
[2022-09-04 22:28] LABS: SARS-CoV-2 RNA PCR Negative
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
[2022-09-05] VITALS (26 sets, daily range): BP systolic 92–144; BP diastolic 46–95; PULSE 86–121; RESP 10–20; TEMP 36.1–36.7; O2SAT 90–100; BMI 36.8
[2022-09-05] MEDS: ALBUTEROL SULFATE NEB 2.5 MG/3 ML INH 5 MG INHALATION ×2 (02:08→08:14)
[2022-09-05] MEDS: IPRATROPIUM BR 0.02% INH SOLN 0.5 MG/2.5 ML VIAL INHALATION ×2 (02:08→08:14)
[2022-09-05] MEDS: AMOXICILLIN/CLAVULANATE K 875-125 MG TAB 1 TABLET PO (02:29)
--- NOTE | 2022-09-05 03:11 | ADMGEN ---
This patient, Vanita Parker, was admitted to 2 Medical Room 260-. Patient/family oriented to hospital policies and general routines including ID bracelet, bed and alarms, visiting hours, pain management, procedures, bathroom and other care routines, personal items, smoking policy, room service/diet, and visiting hours. Information on how to activate the Rapid Response Team has been discussed. Patient/Family are encouraged to report perceived risks to care and to ask questions if they do not understand what they are told or what they should do.
[2022-09-05 08:12] LABS: Glucose Point of Care 321 mg/dl (65-105)
[2022-09-05] MEDS: ENOXAPARIN 40 MG/0.4 ML SYRINGE SUB-Q (08:44)
[2022-09-05] MEDS: NEOMYCIN/POLYMYXIN/BACITRACIN OINTMENT 15 GM TUBE 1 APPLIC TOPICAL ×2 (08:44→12:46)
[2022-09-05] MEDS: METOPROLOL SUCCINATE EXT REL 25 MG TABCR PO (08:45)
[2022-09-05] MEDS: ASCORBIC ACID 500 MG TABLET PO (08:45)
[2022-09-05] MEDS: ATORVASTATIN 40 MG TABLET 80 MG PO (08:45)
[2022-09-05] MEDS: ESCITALOPRAM OXALATE 10 MG TABLET PO (08:45)
[2022-09-05] MEDS: CLOPIDOGREL BISULFATE 75 MG TABLET PO (08:45)
[2022-09-05] MEDS: buPROPion HCL XL (24 HR) 150 MG TABCR 300 MG PO (08:45)
[2022-09-05] MEDS: ASPIRIN 81 MG ENTERIC TABLET PO (08:45)
[2022-09-05] MEDS: INSULIN ASPART (*BKC) 100 UNITS/ML SUB-Q ×3 (08:46→12:44)
[2022-09-05 09:18] LABS: Erythrocyte Sedimentation Rate 22 mm/hr (0-20)
[2022-09-05 11:02] LABS: Glucose Point of Care 193 mg/dl (65-105)
[2022-09-05] MEDS: HYDROcodone/acetaminophen (*CRX) 7.5-325 MG TABLET 1 TAB PO (11:24)
[2022-09-05] MEDS: fentaNYL (*CRX) 75 MCG PATCH TRANSDERM (11:24)
[2022-09-05 12:26] LABS: Glucose Point of Care 173 mg/dl (65-105)
[2022-09-05] MEDS: NICOTINE (*PBKC) 21 MG PATCH 1 PATCH TRANSDERM (12:46)
--- NOTE | 2022-09-05 13:40 | PC.NURSE ---
On 09/05/22, the student, [Rasheeda Almodovar], provided care and completed [facility] documentation on this patient. I have reviewed the student's documentation and agree with the findings.
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
--- NOTE | 2022-09-05 15:23 | PCRCNOTE ---
Window of time for administration has passed. See next scheduled administration.
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
[2022-09-08 21:32] LABS: Pneumococcal Antigen Urine Not Detected (Not Detected)
[2022-09-10 22:54] LABS: Legionella pneumophila Ag Ur Not Detected (Not Detected)
== END 2022-09-05 17:22 | disposition home or self-care (01) ==
LOC: ANHED 23:35 → ANH2MED 09-05 02:35
PROVIDERS: Preventive Medicine Aerospace Medicine; Admitting Provider Internal Medicine; Emergency Provider Emergency Medicine; PCP Family Medicine; Visit Provider Physician Assistant
DX: T20.20XA Burn of second degree of head, face, and neck, unspecified site, initial encounter (principal); T20.24XA Burn of second degree of nose (septum), initial encounter; T20.30XA Burn of third degree of head, face, and neck, unspecified site, initial encounter; W40.1XXA Explosion of explosive gases, initial encounter; I50.9 Heart failure, unspecified; J96.12 Chronic respiratory failure with hypercapnia; J96.11 Chronic respiratory failure with hypoxia; Z99.81 Dependence on supplemental oxygen; J44.9 Chronic obstructive pulmonary disease, unspecified; I25.10 Atherosclerotic heart disease of native coronary artery without angina pectoris; E78.5 Hyperlipidemia, unspecified; Z79.82 Long term (current) use of aspirin; E53.8 Deficiency of other specified B group vitamins; E55.9 Vitamin D deficiency, unspecified; K21.9 Gastro-esophageal reflux disease without esophagitis; I11.0 Hypertensive heart disease with heart failure; F17.210 Nicotine dependence, cigarettes, uncomplicated; M54.50 Low back pain, unspecified; G89.29 Other chronic pain; G47.33 Obstructive sleep apnea (adult) (pediatric); E11.65 Type 2 diabetes mellitus with hyperglycemia; Z20.822 Contact with and (suspected) exposure to COVID-19
CPT/HCPCS: 36415; 70491; 71045; 80053; 82948; 83036; 83605; 85025; 85055; 85652; 86140; 87040; 87147; 87181; 87186; 87449; 87899; 93005; 94640; 96361; 96365; 96366; 96372; 96375; 99285; A9270; C9803; G0378; J1650; J1815; J1956; J3370; J7030; Q9967; U0003; U0005

== ENCOUNTER 2022-09-07 13:33 | Inpatient (IN) | payer MEDICARE, BC, SELFPAY ==
[2022-09-07] VITALS (29 sets, daily range): BP systolic 91–160; BP diastolic 63–105; PULSE 91–110; RESP 11–19; TEMP 36.2–36.6; O2SAT 85–99; BMI 32.7
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
[2022-09-07 15:09] LABS: Basophils Percent Auto 0.4 % (0.2-1.2); Eosinophils Absolute Auto 0.1 K/mm3 (0-0.3); Eosinophils Percent Auto 2.4 % (0-4.4); Hematocrit 41.1 % (37.0-47.0); Hemoglobin 12.4 g/dL (12.0-15.0); Immature Granulocyte Absolute 0.01 K/mm3 (0.00-0.031); Immature Granulocyte Percent A 0.2 % (0-0.5); Immature Platelet Fraction Pct 6.4 % (0.9-11.2); Lymphocytes Absolute Auto 1.05 K/mm3 (0.9-3.2); Lymphocytes Percent Auto 20.6 % (18.3-44.2); Mean Corpuscular HGB Conc 30.2 g/dl (32-36); Mean Corpuscular Hemoglobin 30.8 pg (26-34); Mean Platelet Volume 10.3 fl (7.4-10.4); Monocytes Absolute Auto 0.4 K/mm3 (0.1-0.6); Monocytes Percent Auto 7.5 % (2.6-8.5); Neutrophils Absolute Auto 3.5 K/mm3 (1.3-6.7); Neutrophils Percent Auto 68.9 % (45.5-73.1); Platelet Count Result 164 k/mm3 (150-375); Red Blood Count 4.03 M/mm3 (4.2-5.4); Red Cell Distribution Width 12.7 % (11.5-14.5); White Blood Count 5.1 K/mm3 (4.5-10.0)
[2022-09-07] MEDS: SODIUM CHLORIDE 0.9% IV 1,000 ML 999 ML IV CONT (15:17)
[2022-09-07 15:18] LABS: Alanine Aminotransferase 12 U/L (6-35); Albumin Level 3.6 g/dL (3.5-5.1); Alkaline Phosphatase 87 U/L (38-126); Anion Gap 11 mmol/L (8-16); Aspartate Amino Transferase 17 U/L (14-36); Bilirubin,Total 0.3 mg/dL (0.2-1.3); Blood Urea Nitrogen 8 mg/dL (7-17); Carbon Dioxide 39 mmol/L (22-30); Chloride 93 mmol/L (98-107); Estimated CRCL calculation 85 ml/min; Estimated Glomerular Filt Rate > 60; Glucose 315 mg/dL (65-110); Potassium 3.6 mmol/L (3.4-5.0); Sodium 143 mmol/L (137-145)
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
--- NOTE | 2022-09-07 17:25 | ADMGEN ---
This patient, Vanita Parker, was admitted to Medical Room 251-. Patient/family oriented to hospital policies and general routines including ID bracelet, bed and alarms, visiting hours, pain management, procedures, bathroom and other care routines, personal items, smoking policy, room service/diet, and visiting hours. Information on how to activate the Rapid Response Team has been discussed. Patient/Family are encouraged to report perceived risks to care and to ask questions if they do not understand what they are told or what they should do.
[2022-09-07] MEDS: NICOTINE (*PBKC) 7 MG PATCH 1 PATCH TRANSDERM (20:12)
[2022-09-07] MEDS: ESTRADIOL VAGINAL CREAM 42.5 GM VAGINAL (20:16)
[2022-09-07] MEDS: ERGOCALCIFEROL 50,000 UNITS CAPSULE 50000 UNITS PO (20:18)
[2022-09-07 20:37] LABS: Glucose Point of Care 424 mg/dl (65-105)
[2022-09-07 20:37] LABS: Glucose Point of Care 393 mg/dl (65-105)
[2022-09-07] MEDS: HYDROcodone/acetaminophen (*CRX) 7.5-325 MG TABLET 1 TAB PO (21:23)
[2022-09-07] MEDS: SILVER SULFADIAZINE 1% CR 50 GM JAR (*BKC) 1 APPLIC TOPICAL (22:00)
[2022-09-08] MEDS: HYDROcodone/acetaminophen (*CRX) 7.5-325 MG TABLET 1 TAB PO ×3 (03:05→16:55)
[2022-09-08 05:13] VITALS: BP 124/81; PULSE 101; RESP 18; TEMP 37; O2SAT 91
[2022-09-08 05:29] LABS: Basophils Percent Auto 0.6 % (0.2-1.2); Eosinophils Absolute Auto 0.1 K/mm3 (0-0.3); Eosinophils Percent Auto 2.2 % (0-4.4); Hemoglobin 11.9 g/dL (12.0-15.0); Immature Granulocyte Absolute 0.01 K/mm3 (0.00-0.031); Immature Granulocyte Percent A 0.2 % (0-0.5); Immature Platelet Fraction Pct 7.6 % (0.9-11.2); Lymphocytes Absolute Auto 1.62 K/mm3 (0.9-3.2); Lymphocytes Percent Auto 32.5 % (18.3-44.2); Mean Corpuscular HGB Conc 29.8 g/dl (32-36); Mean Corpuscular Hemoglobin 30.6 pg (26-34); Mean Corpuscular Volume 102.8 fl (80-100); Mean Platelet Volume 10.7 fl (7.4-10.4); Monocytes Absolute Auto 0.4 K/mm3 (0.1-0.6); Monocytes Percent Auto 8.8 % (2.6-8.5); Neutrophils Absolute Auto 2.8 K/mm3 (1.3-6.7); Neutrophils Percent Auto 55.7 % (45.5-73.1); Platelet Count Result 153 k/mm3 (150-375); Red Blood Count 3.89 M/mm3 (4.2-5.4); Red Cell Distribution Width 12.7 % (11.5-14.5)
[2022-09-08 05:35] LABS: Lactic Acid Reflex 0.6 mmol/L (0.7-2.0)
[2022-09-08 05:45] LABS: Alanine Aminotransferase 13 U/L (6-35); Albumin Level 3.2 g/dL (3.5-5.1); Alkaline Phosphatase 85 U/L (38-126); Anion Gap 6 mmol/L (8-16); Aspartate Amino Transferase 20 U/L (14-36); Bilirubin,Total 0.3 mg/dL (0.2-1.3); Blood Urea Nitrogen 10 mg/dL (7-17); Calcium 8.7 mg/dL (8.4-10.2); Carbon Dioxide 38 mmol/L (22-30); Chloride 94 mmol/L (98-107); Estimated CRCL calculation 86 ml/min; Estimated Glomerular Filt Rate > 60; Glucose 301 mg/dL (65-110); Magnesium 1.2 mg/dL (1.6-2.3); Potassium 3.6 mmol/L (3.4-5.0); Sodium 138 mmol/L (137-145)
[2022-09-08 08:00] VITALS: RESP 18; O2SAT 91
[2022-09-08] MEDS: MAGNESIUM SULFATE 3GM/D5W100ML 3 GM/100 ML BAG IVPB (08:13)
[2022-09-08] MEDS: NICOTINE (*PBKC) 7 MG PATCH 1 PATCH TRANSDERM (08:19)
[2022-09-08] MEDS: CLOPIDOGREL BISULFATE 75 MG TABLET PO (08:19)
[2022-09-08 08:20] VITALS: PULSE 66
[2022-09-08] MEDS: METOPROLOL SUCCINATE EXT REL 25 MG TABCR PO (08:20)
[2022-09-08] MEDS: ATORVASTATIN 40 MG TABLET 80 MG PO (08:20)
[2022-09-08] MEDS: ASPIRIN 81 MG ENTERIC TABLET PO (08:22)
[2022-09-08] MEDS: ESCITALOPRAM OXALATE 10 MG TABLET PO (08:22)
[2022-09-08] MEDS: ASCORBIC ACID 500 MG TABLET PO (08:22)
[2022-09-08] MEDS: buPROPion HCL XL (24 HR) 150 MG TABCR 300 MG PO (08:24)
[2022-09-08] MEDS: SILVER SULFADIAZINE 1% CR 50 GM JAR (*BKC) 1 APPLIC TOPICAL ×2 (08:25→20:45)
[2022-09-08 08:34] LABS: Glucose Point of Care 272 mg/dl (65-105)
[2022-09-08] MEDS: INSULIN ASPART (*BKC) 100 UNITS/ML SUB-Q ×5 (08:49→16:54)
[2022-09-08 11:56] LABS: Glucose Point of Care 319 mg/dl (65-105)
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
[2022-09-08 14:29] VITALS: BP 118/49; PULSE 81; RESP 16; TEMP 36.2; O2SAT 91
[2022-09-08 16:52] LABS: Glucose Point of Care 187 mg/dl (65-105)
[2022-09-08 19:17] VITALS: BP 106/51; PULSE 71; RESP 17; TEMP 36; O2SAT 98
[2022-09-08 20:00] VITALS: O2SAT 98
[2022-09-08] MEDS: INSULIN GLARGINE (*BKC) 100 UNITS/ML 14 UNITS SUB-Q (20:45)
[2022-09-08 21:28] LABS: Glucose Point of Care 222 mg/dl (65-105)
--- NOTE | 2022-09-09 | ECHO_ITS ---
Patient Info Name: Vanita Parker Age: 71 years : 1950 Gender: Female Ht: 66 in Wt: 202 lbs BSA: 2.10 m2 HR: 91 bpm BP: 117 / 68 mmHg Heart Rhythm: Sinus Rhythm Technical Quality: Fair Exam Date: 09/09/2022 3:38 PM Exam Location: [facility] Pulmonary Exam Room: [facility] Patient Status: Inpatient Admit Date: 09/07/2022 Staff Ordering Physician: Marietta Jenkins PA-C Attending Provider: Marietta Jenkins PA-C Referring Physician: Alice HOOKS; Exam Type: CA echo doppler color flow Study Info Indications - gram positive bacteremia Complete two-dimensional, color flow and Doppler transthoracic echocardiogram is performed. Summary 1. Complete two-dimensional, color flow and Doppler transthoracic echocardiogram is performed. 2. Technically difficult study with limited views. Regional wall motion assessment limited due to poor endomyocardial border definition in several views. However, suspect inferolateral hypokinesis. 3. Left ventricular chamber dimension is mildly enlarged. 4. Left ventricular systolic function is mildly reduced, estimated at 45-50%. 5. There is mildly increased left ventricular wall thickness. 6. Left ventricular septal wall motion is abnormal with septal motion related to bundle branch block. 7. The left ventricular diastolic function is grade I diastolic dysfunction. 8. There is trace mitral valve regurgitation. 9. There is no aortic valve stenosis. 10. There is trace tricuspid valve regurgitation. 11. Moderate pulmonary hypertension, estimated pulmonary arterial systolic pressure is 49 mmHg. Recommendations * Consider transesophageal echocardiogram if clinically indicated. Left Ventricle Left ventricular chamber dimension is mildly enlarged. Left ventricular systolic function is mildly reduced, estimated at 45-50%. There is mildly increased left ventricular wall thickness. Left ventricular septal wall motion is abnormal with septal motion related to bundle branch block. The left ventricular diastolic function is grade I diastolic dysfunction. Technically difficult study with limited views. Regional wall motion assessment limited due to poor endomyocardial border definition in several views. However, suspect inferolateral hypokinesis. Right Ventricle Right ventricular chamber dimension is normal. Right ventricular systolic function is normal. Left Atria Left atrial chamber dimension is mildly enlarged. Right Atria Right atrial chamber dimension is mildly enlarged. Aortic Valve The aortic valve is not well visualized. There is no aortic valve stenosis. There is no aortic valve regurgitation. Pulmonic Valve The pulmonic valve is not well visualized. Mitral Valve The mitral valve has thickened leaflets. There is trace mitral valve regurgitation. The mitral valve annulus is mildly calcified. Tricuspid Valve The tricuspid valve leaflets are normal. There is trace tricuspid valve regurgitation. Moderate pulmonary hypertension, estimated pulmonary arterial systolic pressure is 49 mmHg. Pericardium/Pleural The pericardium appears normal. There is trivial pericardial effusion. Inferior Vena Cava Normal inferior vena cava with >50% collapse upon inspiration consistent with normal right atrial pressure, 5 mmHg. Aorta The aortic root size at the sinus of Valsalva is normal. There is mild aortic atherosclerosis. Left Ventricular Outflow Tract
[2022-09-09 03:04] VITALS: BP 117/68; PULSE 88; RESP 16; TEMP 36.2; O2SAT 92
[2022-09-09] MEDS: HYDROcodone/acetaminophen (*CRX) 7.5-325 MG TABLET 1 TAB PO ×2 (04:25→10:53)
[2022-09-09 05:54] LABS: Hemoglobin 12.3 g/dL (12.0-15.0); Mean Corpuscular Hemoglobin 31.1 pg (26-34); Mean Corpuscular Volume 103.8 fl (80-100); Mean Platelet Volume 10.3 fl (7.4-10.4); Platelet Count Result 144 k/mm3 (150-375); Red Blood Count 3.95 M/mm3 (4.2-5.4); Red Cell Distribution Width 12.8 % (11.5-14.5); White Blood Count 6.3 K/mm3 (4.5-10.0)
[2022-09-09 06:14] LABS: Blood Urea Nitrogen 11 mg/dL (7-17); Calcium 8.9 mg/dL (8.4-10.2); Carbon Dioxide > 40 mmol/L (22-30); Chloride 92 mmol/L (98-107); Estimated CRCL calculation 66 ml/min; Estimated Glomerular Filt Rate > 60; Glucose 304 mg/dL (65-110); Potassium 4.1 mmol/L (3.4-5.0); Sodium 139 mmol/L (137-145)
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
[2022-09-09 09:21] LABS: Glucose Point of Care 286 mg/dl (65-105)
[2022-09-09 09:30] VITALS: O2SAT 92
[2022-09-09] MEDS: INSULIN ASPART (*BKC) 100 UNITS/ML SUB-Q ×4 (09:30→12:49)
[2022-09-09] MEDS: ATORVASTATIN 40 MG TABLET 80 MG PO (09:31)
[2022-09-09] MEDS: buPROPion HCL XL (24 HR) 150 MG TABCR 300 MG PO (09:31)
[2022-09-09] MEDS: ASCORBIC ACID 500 MG TABLET PO (09:31)
[2022-09-09] MEDS: NICOTINE (*PBKC) 7 MG PATCH 1 PATCH TRANSDERM (09:31)
[2022-09-09 09:32] VITALS: PULSE 77
[2022-09-09] MEDS: METOPROLOL SUCCINATE EXT REL 25 MG TABCR PO (09:32)
[2022-09-09] MEDS: CLOPIDOGREL BISULFATE 75 MG TABLET PO (09:32)
[2022-09-09] MEDS: ASPIRIN 81 MG ENTERIC TABLET PO (09:32)
[2022-09-09] MEDS: SILVER SULFADIAZINE 1% CR 50 GM JAR (*BKC) 1 APPLIC TOPICAL (09:37)
[2022-09-09] MEDS: ESCITALOPRAM OXALATE 10 MG TABLET PO (09:37)
[2022-09-09 12:36] LABS: Glucose Point of Care 276 mg/dl (65-105)
== END 2022-09-09 16:25 | disposition home or self-care (01) | DRG 872 ==
LOC: ANHED 14:27 → ANH2MED 16:42
PROVIDERS: Internal Medicine; Nurse Practitioner; Physician Assistant; Admitting Provider Chiropractor; Emergency Provider Emergency Medicine; PCP Family Medicine; Visit Provider Nurse Practitioner
DX: R78.81 Bacteremia (principal); T20.30XA Burn of third degree of head, face, and neck, unspecified site, initial encounter; F33.9 Major depressive disorder, recurrent, unspecified; J96.11 Chronic respiratory failure with hypoxia; J96.12 Chronic respiratory failure with hypercapnia; L08.89 Other specified local infections of the skin and subcutaneous tissue; T20.24XA Burn of second degree of nose (septum), initial encounter; B95.4 Other streptococcus as the cause of diseases classified elsewhere; X08.8XXD Exposure to other specified smoke, fire and flames, subsequent encounter; E11.65 Type 2 diabetes mellitus with hyperglycemia; M54.42 Lumbago with sciatica, left side; M54.41 Lumbago with sciatica, right side; G89.29 Other chronic pain; J44.9 Chronic obstructive pulmonary disease, unspecified; I25.10 Atherosclerotic heart disease of native coronary artery without angina pectoris; E11.42 Type 2 diabetes mellitus with diabetic polyneuropathy; G47.33 Obstructive sleep apnea (adult) (pediatric); E53.8 Deficiency of other specified B group vitamins; E78.2 Mixed hyperlipidemia; F41.9 Anxiety disorder, unspecified; I50.9 Heart failure, unspecified; K21.9 Gastro-esophageal reflux disease without esophagitis; I73.9 Peripheral vascular disease, unspecified; G25.81 Restless legs syndrome; F17.210 Nicotine dependence, cigarettes, uncomplicated; Z99.81 Dependence on supplemental oxygen; Z79.82 Long term (current) use of aspirin; Z95.5 Presence of coronary angioplasty implant and graft; Z90.710 Acquired absence of both cervix and uterus; Z90.722 Acquired absence of ovaries, bilateral
CPT/HCPCS: 36415; 70491; 71045; 80048; 80053; 82948; 83036; 83605; 83735; 84443; 85025; 85027; 85055; 85652; 86140; 87040; 87086; 87147; 87181; 87186; 87449; 87899; 93005; 93306; 94640; 96361; 96365; 96366; 96372; 96374; 96375; 99285; A9270; C9803; G0378; J1650; J1815; J1956; J3370; J3475; J7030; Q9967; U0003; U0005

== ENCOUNTER 2022-12-01 20:33 | Emergency (ER) | payer MEDICARE, BC, SELFPAY ==
--- NOTE | ~2022-12-01 | XR_ITS ---
EXAMINATION: XR knee LT min 4V DATE: 12/01/2022 21:12 INDICATION: Fall onto the left knee TECHNIQUE: Anteroposterior, 2 oblique and crosstable lateral views of the left knee were obtained COMPARISON: None. FINDINGS: Diffuse osteopenia. Alignment is normal. No fracture. Joint spaces appear normal. Minimal left knee joint effusion without layering lipohemarthrosis. Atherosclerotic calcifications along the popliteal artery. Soft tissues are unremarkable. IMPRESSION: 1. Minimal left knee joint effusion without layering lipohemarthrosis or acute osseous abnormality. Reviewed, dictated and finalized at location [facility]. [employer]
[2022-12-01 20:34] VITALS: BP 160/59; PULSE 81; RESP 18; TEMP 36.4; O2SAT 100
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
== END 2022-12-01 22:28 | disposition home or self-care (01) ==
PROVIDERS: Emergency Provider Physician Assistant; PCP Family Medicine
DX: S89.92XA Unspecified injury of left lower leg, initial encounter (principal); I50.9 Heart failure, unspecified; J96.11 Chronic respiratory failure with hypoxia; J96.12 Chronic respiratory failure with hypercapnia; J44.9 Chronic obstructive pulmonary disease, unspecified; I25.10 Atherosclerotic heart disease of native coronary artery without angina pectoris; E11.51 Type 2 diabetes mellitus with diabetic peripheral angiopathy without gangrene; I73.9 Peripheral vascular disease, unspecified; E11.42 Type 2 diabetes mellitus with diabetic polyneuropathy; E78.2 Mixed hyperlipidemia; K21.9 Gastro-esophageal reflux disease without esophagitis; E53.8 Deficiency of other specified B group vitamins; G25.81 Restless legs syndrome; G47.33 Obstructive sleep apnea (adult) (pediatric); F33.9 Major depressive disorder, recurrent, unspecified; Z95.5 Presence of coronary angioplasty implant and graft; Z96.82 Presence of neurostimulator; Z90.710 Acquired absence of both cervix and uterus; Z90.722 Acquired absence of ovaries, bilateral; Z90.79 Acquired absence of other genital organ(s); F17.210 Nicotine dependence, cigarettes, uncomplicated; Z79.82 Long term (current) use of aspirin; Z79.84 Long term (current) use of oral hypoglycemic drugs; W18.09XA Striking against other object with subsequent fall, initial encounter
CPT/HCPCS: 73564; 99283

== ENCOUNTER 2023-08-06 21:08 | Observation (INO) | payer MEDICARE, BC, SELFPAY ==
--- NOTE | ~2023-08-06 | XR_ITS ---
XR chest 2V DATE: 08/06/2023 23:44 INDICATION: Cough. Weakness. TECHNIQUE: 2 views COMPARISON: 09/04/2022 portable AP chest FINDINGS: Cardiomegaly. Aortic calcification, ectasia. There is mild discoid atelectasis or scarring in the left mid lung. There is mild infiltrate or atele ctasis in the lower lung zones, right greater than left. There is minimal if any pleural effusion. Pulmonary vascularity appears within normal limits. No pneu mothorax. Diffuse osteopenia. Thoracic spinal electrodes. IMPRESSION: Cardiomegaly, aortic atherosclerosis Discoid atelectasis or scarring, left midlung Bilateral lower lung infiltrate or atelectasis, right greater than left Diffuse osteopenia Reviewed, dictated and finalized at location [facility].
--- NOTE | ~2023-08-06 | CT_ITS ---
Non-contrast Head CT History: Debility COMPARISON: 05/22/2022 Technique: Axial non-contrast imaging of the brain was performed. Dose reduction technique was used on this scan by utilizing automated exposure control and iterative reconstruction technique. The dose -length product (DLP) was 605.33 mGy-cm. Findings: There is no evidence of intracranial hemorrhage, mass lesion, or acute infarct. Brain par enchyma appears normal. The ventricles and subarachnoid spaces are normal in size. The calvarium ap pears normal. The visualized paranasal sinuses and mastoid air cells are clear. Impression: No significant abnormality seen. Reviewed, dictated and finalized at location . Impression: No significant abnormality seen.
--- NOTE | ~2023-08-06 | CT_ITS ---
Noncontrast CT scan of the thoracolumbar spine CLINICAL HISTORY: Pain, status post fall TECHNIQUE: Axial noncontrast imaging of the thoracolumbar spine was performed. Sagittal and coronal r eformatted images were constructed. Dose reduction technique was used on this scan by utilizing autom ated exposure control and iterative reconstruction technique. The dose-length product (DLP) was 1579. 34 mGy-cm. COMPARISON: 05/03/2021 Thoracic spine findings: No fracture or subluxation seen in the thoracic spine. Vertebral bodies main tain normal height and alignment. Intervertebral disc spaces in the thoracic spine are relatively wel l-preserved. Intrathecal wire enters at the T11-T12 level, tip at the T9 level. There is focal disc osteophyte complex centrally at the T6-T7 level. Possible mild cord compression a t this level related to this finding. No other areas of canal stenosis or cord compression identified . Paravertebral soft tissues are unremarkable. There is focal consolidation the left lower lobe. There is a 5 mm left upper lobe pulmonary nodule with probable focal central calcification. Lumbar spine findings: Moderate to severe compression fracture deformity of L1 is stable from prior e xam. No acute fracture identified. Grade 1 retrolisthesis of L3 over L4, and of L4 over L5 are presen t, similar to prior exam. There is severe degenerative disc narrowing at L3-L4 and L4-L5. At L1-L2, there is facet arthropathy and probable disc bulge, with probable mild central canal stenos is. Neural foramina are probably preserved. At L2-L3, there is moderate degenerative disc narrowing. There is probable disc bulge and facet arthr opathy. Possible mild central canal stenosis. There is probable moderate left neural foraminal narrow ing. At L3-L4, there is disc bulge and facet arthropathy, with probable moderate to severe spinal canal st enosis. There is probable severe bilateral neural foraminal compromise. At L4-L5, disc bulge and facet arthropathy are present with probable at least moderate central canal stenosis. There is severe bilateral neural foraminal narrowing. At L5-S1, there is disc bulge and facet arthropathy, probable mild central canal stenosis. There is m oderate to severe bilateral neural foraminal narrowing. Paravertebral soft tissues are unremarkable. Impression: No acute fracture or subluxation in the thoracolumbar spine. Chronic moderate to severe compression fracture of L1, unchanged. Grade 1 retrolistheses of L3 over L4, and of L4 over L5, stable from prior exam. Severe degenerative spondylosis of the lumbar spine. Focal central disc ossify complex at T6-T7, with possible mild cord compression at this level. Focal consolidation left lower lobe. Correlate for atelectasis or scarring versus pneumonia. Reviewed, dictated and finalized at [facility]. Impression: No acute fracture or subluxation in the thoracolumbar spine. Chronic moderate to severe compression fracture of L1, unchanged. Grade 1 retrolistheses of L3 over L4, and of L4 over L5, stable from prior exam . Severe degenerative spondylosis of the lumbar spine. Focal central disc ossify complex at T6-T7, with possible mild cord compression at this level. Focal consolidation left lower lobe. Correlate for atelectasis or scarring vers us pneumonia.
--- NOTE | ~2023-08-06 | CT_ITS ---
EXAMINATION: CTA chest PE protocol DATE: 08/07/2023 18:35 INDICATION: Elevated d-dimer. Weakness. History of COPD. TECHNIQUE: Computed tomography angiography (CTA) of the chest was performed with 100 mL Omnipaque-350 intravenous contrast timed to evaluate the pulmonary arteries. Coronal maximum intensity projection 3D-reconstructions were created by the technologist. Automated exposure control and iterative reconst ruction technique were employed. Exam dose: 867.81 mGy-cm total exam DLP. COMPARISON: 08/06/2023 AP and lateral chest FINDINGS: There is diagnostic contrast enhancement of the pulmonary arteries and no evidence of pulmo nary embolism. Cardiomegaly. Coronary artery calcification. There is thoracic aortic and great vessel calcification. No thoracic aortic aneurysm or dissection is detected. No pericardial or pleural effusion. 4.9 mm left apical upper lobe calcified nodule consistent with old granulomatous disease. Approximately 7.8 mm anteromedial right upper lobe lung nodule with attenuation up to 160 Hounsfield units, likely a calcified pulmonary granuloma. Mild to moderate emphysematous changes of the lungs. Prominent discoid atelectasis and/or scarring right upper and to a greater extent right lower lobes. Mild discoid atelectasis or scarring at the lingula. There is patchy consolidating left lower lobe infiltrate and prominent dependent left lower lobe disc oid atelectasis or scarring. Prominent degenerative disc disease in the lower cervical spine. There is osteopenia. Prominent burst fracture of L1. IMPRESSION: No evidence of pulmonary embolism Mild to moderate emphysematous changes of the lungs Patchy left lower lobe consolidating infiltrates suggesting pneumonia. Scattered bilateral discoid atelectasis and/or scarring Reviewed, dictated and finalized at Location [facility]. Reviewed, dictated and finalized at location A.
--- NOTE | ~2023-08-06 | CT_ITS ---
Noncontrast CT scan of the cervical spine Technique: Multiple contiguous axial [address] images of the cervical spine were obtained and rec onstructed in 2D sagittal and coronal planes on the acquisition scanner. Dose reduction technique was used on this scan by utilizing automated exposure control, adjustment of the mA and/or kV according to patient size. The dose-length product (DLP) was 357.75 mGy-cm. Clinical History: Pain Findings: No fractures or dislocations. There are moderate to advanced degenerative disc changes at C5-C6 and C6-C7, with mild degenerative disc changes in the remaining cervical levels. There is proba ble left neural foraminal narrowing at C3-C4, small left foraminal disc osteophyte complex present. T here is mild disc osteophyte complex and mild facet hypertrophy at C4-C5, with probable bilateral el ral foraminal narrowing. Probable mild canal stenosis at this level. At C5-C6, there is disc osteophyte complex with mild canal stenosis and bilateral neural foraminal na rrowing. At C6-C7, there is disc osteophyte complex. Neural foramina are probably preserved. No prevertebral soft tissue swelling. Impression: No fracture or subluxation of the cervical spine. Moderate degenerative spondylosis, as above. Reviewed, dictated and finalized at location . Impression: No fracture or subluxation of the cervical spine. Moderate degenerative spondylosis, as above.
--- NOTE | ~2023-08-06 | XR_ITS ---
AP views of the pelvis Clinical history: Pain COMPARISON: 05/21/2022 Findings: No acute fracture or dislocation is seen. Osseous alignment is anatomic. Left hip arthropla sty is in place. No hardware complication is evident. Right hip joint space is preserved. Neurostimul ator device noted. Soft tissues are unremarkable. Impression: No acute abnormality. Left hip arthroplasty in place. Reviewed, dictated and finalized at location . Impression: No acute abnormality. Left hip arthroplasty in place.
[2023-08-06 21:08] VITALS: BP 140/63; PULSE 86; RESP 18; TEMP 36.9; O2SAT 94
--- NOTE | 2023-08-06 23:28 | ECG_ITS ---
Measurements Intervals [place] Rate: 87 P: 86 ME: 169 QRS: -21 QRSD: 124 T: 71 QT: 390 QTc: 469 Interpretive Statements SINUS RHYTHM INCOMPLETE LEFT BUNDLE BRANCH BLOCK INFERIOR INFARCT, AGE INDETERMINATE BORDERLINE ST-T WAVE ABNORMALITY- HIGH LATERAL LEADS BASELINE ARTIFACT- I, II, AVR, AVL, V5 ABNORMAL ECG COMPARED TO ECG 09/04/2022 20:43:50 SINUS RHYTHM NOW PRESENT Electronically Signed On 08-07-2023 6:39:32 CDT by Sylvester Frye D.O.
[2023-08-07] VITALS (28 sets, daily range): BP systolic 106–146; BP diastolic 45–102; PULSE 77–97; RESP 15–19; TEMP 35.6–36.4; O2SAT 90–99; BMI 32.3
[2023-08-07 00:20] LABS: Basophils Percent Auto 0.3 % (0.2-1.2); Eosinophils Absolute Auto 0.1 K/mm3 (0-0.3); Eosinophils Percent Auto 1.7 % (0-4.4); Hematocrit 38.6 % (37.0-47.0); Hemoglobin 11.9 g/dL (12.0-15.0); Immature Granulocyte Absolute 0.03 K/mm3 (0.00-0.031); Immature Granulocyte Percent A 0.4 % (0-0.5); Immature Platelet Fraction Pct 9.5 % (0.9-11.2); Lymphocytes Absolute Auto 1.29 K/mm3 (0.9-3.2); Lymphocytes Percent Auto 18.6 % (18.3-44.2); Mean Corpuscular HGB Conc 30.8 g/dl (32-36); Mean Corpuscular Hemoglobin 31.3 pg (26-34); Mean Corpuscular Volume 101.6 fl (80-100); Mean Platelet Volume 11.3 fl (7.4-10.4); Monocytes Absolute Auto 0.5 K/mm3 (0.1-0.6); Monocytes Percent Auto 7.6 % (2.6-8.5); Neutrophils Percent Auto 71.4 % (45.5-73.1); Platelet Count Result 132 k/mm3 (150-375)
--- NOTE | 2023-08-07 00:25 | ED.FALL ---
HPI - Fall General Chief Complaint: Fall Stated Complaint: FALLS, WEAKNESS, HIP & SHOULDER PAIN Time Seen by Provider: 08/06/23 23:37 Source: patient and family () Limitations: no limitations History of Present Illness HPI Narrative: Patient is a 72-year-old female present to the emergency department accompanied by her for a fall that occurred 4 to 5 days ago. Patient notes that she was walking back to her bed after going to the bathroom in the morning time and is unsure as to what occurred but she hit her buttocks and has been having pain in her mid and lower back ever since in addition to a drastic decline in her functional ability including decreased balance, decreased ambulation, inability to dress herself or cook for herself or perform all of her actives of daily living. Patient notes that she typically uses a walker or cane to ambulate. Patient states that she has had frequent falls over the past couple months. Patient denies having any evaluation since the injury and notes that nothing drastically got worse rather was getting better prompting her to seek evaluation. Patient has not tried thing for the pain outside of her home medications. Patient is doing extensive history of multiple fractures of her left hip for which she has had a prosthetic placed and again had another fracture which is being managed medically. Patient denies history of blood clots patient denies urinary incontinence, stool incontinence, shortness of breath, focal numbness or weakness, headache, confusion, abdominal pain, nausea, vomiting, diarrhea, constipation, melena, hematochezia, cough, fever, history of IV drug use. Patient does admit to some left-sided chest discomfort that radiates to her left arm has been ongoing since the fall as well. Patient does not know how she fell but admits to tripping over her oxygen in the past for which she wears 4 L nasal cannula at all times of the day. Patient is unsure if she had a loss of consciousness. Related Data Home Medications Medication Instructions Recorded Confirmed aspirin 81 mg tablet,delayed 81 mg PO DAILY 10/05/19 02/17/23 release (Adult Low Dose Aspirin) atorvastatin 80 mg tablet 80 mg PO DAILY 10/05/19 02/17/23 clopidogrel 75 mg tablet 75 mg PO DAILY 10/05/19 02/17/23 estradiol 0.01% (0.1 mg/gram) 1 gm vaginal WEEKLY 10/05/19 02/17/23 vaginal cream fentanyl 75 mcg/hr transdermal 1 patch transdermal Q72H 10/05/19 02/17/23 patch metoprolol succinate 25 mg 25 mg PO DAILY 10/05/19 02/17/23 tablet,extended release 24 hr calcium carbonate 750 1 tablet PO Q2-4H PRN 03/05/23 mg-simethicone 80 mg chewable tablet ([facility] [facility]) hydrochlorothiazide 12.5 mg capsule 12.5 mg PO DAILY 03/05/23 naloxone 4 mg/actuation nasal 4 mg intranasal Q2M 03/05/23 spray (Narcan) nystatin 100,000 unit/mL oral 1 ml PO DAILY 03/05/23 suspension potassium chloride 20 mEq 20 meq PO DAILY 03/05/23 tablet,extended release sennosides 8.6 mg-docusate sodium 1 tab-cap PO QHS 03/05/23 50 mg tablet (Senna with Docusate Sodium) tiotropium bromide 2.5 2 inh inhalation QAM 03/05/23 mcg/actuation mist for inhalation (Spiriva Respimat) tolnaftate 1 % topical spray powder 1 spray topical DAILY 03/05/23 turmeric 450 mg-turmeric root cap PO 03/05/23 extract 50 mg capsule varenicline 1 mg tablet (Chantix) 1 mg PO BID 03/05/23 Allergies Allergy/AdvReac Type Severity Reaction Status Date / Time cefaclor Allergy Unknown Difficulty Verified 12/01/22 20:38 breathing cephalexin Allergy Unknown Difficulty Verified 12/01/22 20:38 breathing Cephalosporins Allergy Unknown Difficulty Verified 12/01/22 20:38 Breathing clarithromycin Allergy Unknown Difficulty Verified 12/01/22 20:38 Breathing clindamycin Allergy Unknown Difficulty Verified 12/01/22 20:38 Breathing morphine Allergy Unknown Difficulty Verified 12/01/22 20:38 breathing Review of Sy
[2023-08-07 00:37] LABS: Alanine Aminotransferase 12 U/L (6-35); Albumin Level 3.8 g/dL (3.5-5.1); Alkaline Phosphatase 65 U/L (38-126); Aspartate Amino Transferase 17 U/L (14-36); Bilirubin,Total 0.7 mg/dL (0.2-1.3); Blood Urea Nitrogen 15 mg/dL (7-17); Calcium 9.4 mg/dL (8.4-10.2); Carbon Dioxide > 40 mmol/L (22-30); Chloride 95 mmol/L (98-107); Estimated CRCL calculation 58 ml/min; Estimated Glomerular Filt Rate > 60; Glucose 200 mg/dL (65-110); Sodium 137 mmol/L (137-145)
[2023-08-07 00:45] LABS: Appearance Urine Turbid (Clear); Bacteria Urine 4+ /hpf; Bilirubin Urine Negative (Negative); Blood Urine Negative (Negative); Color Urine Yellow (Yellow); Glucose Urine UA 2+ mg/dL (Negative); Ketones Urine Trace mg/dL (Negative); Leukocyte Esterase Ur Negative LEU/UL (Negative); Nitrate Urine Negative (Negative); Non Pathogenic Casts 0-2; Protein Urine Trace mg/dL (Negative); Specific Grav Ur 1.022 (1.001-1.035); Squamous Epithelial Cell Urine Moderate /hpf (Few); WBC Urine 0-5 /hpf; pH Urine 5.5 (5.0-9.0)
[2023-08-07 00:55] LABS: INR 0.9; Prothrombin Time 12.5 Seconds (11.1-14.7)
[2023-08-07 00:56] LABS: Add Urine Microscopic? YES
[2023-08-07 00:56] LABS: Partial Thromboplastin Time 32.5 SECONDS (22.3-36.8)
[2023-08-07 01:01] LABS: Creatine Kinase 36 U/L (30-135); Lipase 25 U/L (23-300); Magnesium 1.3 mg/dL (1.6-2.3)
[2023-08-07 01:02] LABS: D Dimer 1.89 ug/mL (<0.48)
[2023-08-07 01:14] LABS: NT Pro B Type Natriuretic Pept 3590 pg/mL (19.9-100); Troponin I 0.032 ng/mL (0.000-0.034)
[2023-08-07] MEDS: LACTATED RINGERS 1,000 ML 999 ML IV CONT (01:40)
[2023-08-07] MEDS: ACETAMINOPHEN 500 MG TABLET 1000 MG PO (01:41)
[2023-08-07] MEDS: fentaNYL CITRATE INJ (*CRX) 100 MCG/2 ML VIAL 50 MCG IV PUSH (02:34)
[2023-08-07] MEDS: MAGNESIUM SULF 2 GM/WATER 50ML 2 GM/50 ML BAG IVPB (02:35)
[2023-08-07 04:12] LABS: Troponin I 0.034 ng/mL (0.000-0.034)
[2023-08-07] MEDS: fentaNYL CITRATE INJ (*CRX) 100 MCG/2 ML VIAL (04:57)
--- NOTE | 2023-08-07 04:57 | PC.NURSE ---
This RN gave 50mcg of fentanyl per Dr. Pritchard's verbal order read back in order to finish CT scan.
[2023-08-07 05:35] LABS: Thyroid Stimulating Hormone Reflex 0.433 uIU/mL (0.465-4.68)
[2023-08-07 06:07] LABS: Free T4 Free Thyroxine Reflex 1.25 ng/dL (0.78-2.19)
[2023-08-07 07:39] LABS: Total Triiodothyronine (T3) 1.15 NG/ML (0.97-1.69)
[2023-08-07] MEDS: LACTATED RINGERS 1,000 ML 125 ML IV CONT (07:49)
--- NOTE | 2023-08-07 08:11 | PC.NURSE ---
[address] Howell, pt was complaining of 9/[address] Howell ordered PRN Morphine. [address] Howell, stated to him pt has an allergy to Morphine. Fentanyl PRN ordered.
--- NOTE | 2023-08-07 09:48 | ADMGEN ---
This patient, Vanita Parker, was admitted to [facility] Surg Room 306-01. Patient/family oriented to hospital policies and general routines including ID bracelet, bed and alarms, visiting hours, pain management, procedures, bathroom and other care routines, personal items, smoking policy, room service/diet, and visiting hours. Information on how to activate the Rapid Response Team has been discussed. Patient/Family are encouraged to report perceived risks to care and to ask questions if they do not understand what they are told or what they should do.
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
[2023-08-07] MEDS: ATORVASTATIN 40 MG TABLET 80 MG PO (13:52)
[2023-08-07] MEDS: ASPIRIN 81 MG ENTERIC TABLET PO (13:52)
[2023-08-07] MEDS: buPROPion HCL XL (24 HR) 150 MG TABCR 300 MG PO (13:52)
[2023-08-07] MEDS: ESCITALOPRAM OXALATE 10 MG TABLET PO (13:53)
[2023-08-07] MEDS: HYDROcodone/acetaminophen (*CRX) 7.5-325 MG TABLET 1 TAB PO ×2 (13:53→21:37)
[2023-08-07] MEDS: POTASSIUM CHLORIDE 20 MEQ ER TABLET PO (13:53)
[2023-08-07] MEDS: CLOPIDOGREL BISULFATE 75 MG TABLET PO (13:53)
[2023-08-07] MEDS: hydroCHLOROthiazide 12.5 MG CAPSULE PO (13:53)
[2023-08-07] MEDS: METOPROLOL SUCCINATE EXT REL 25 MG TABCR PO (13:54)
[2023-08-07 14:01] LABS: Glucose Point of Care 488 mg/dl (65-105)
--- NOTE | 2023-08-07 14:05 | PC.NURSE ---
Dr Mae notified of glucose 488, will give novolog 15 units sub q x 1
[2023-08-07] MEDS: INSULIN ASPART (*BKC) 100 UNITS/ML 15 UNITS SUB-Q (14:08)
[2023-08-07] MEDS: IPRATROPIUM BR 0.02% INH SOLN 0.5 MG/2.5 ML VIAL INHALATION ×2 (14:45→20:42)
[2023-08-07] MEDS: ALBUTEROL SULFATE NEB 2.5 MG/3 ML INH INHALATION ×2 (14:45→20:42)
--- NOTE | 2023-08-07 15:06 | PCPTNOTE ---
Attempted PT evaluation, pt getting a breathing treatment. Will follow.
--- NOTE | 2023-08-07 15:16 | PCPTNOTE ---
Attempted PT evaluation, pt refused stating she was too tired. Will follow.
--- NOTE | 2023-08-07 16:03 | PCOTNOTE ---
Attempted to see pt. for occupational therapy evaluation. Pt. stated she was too sleepy and has no plans to get out of bed today . Nursing aware. All needs met.
[2023-08-07 17:32] LABS: Glucose Point of Care 120 mg/dl (65-105)
[2023-08-07] MEDS: INSULIN ASPART (*BKC) 100 UNITS/ML 7 UNITS SUB-Q (18:43)
[2023-08-07 20:16] LABS: Glucose Point of Care 146 mg/dl (65-105)
[2023-08-07] MEDS: SENNA/DOCUSATE SODIUM TABLET 1 TAB PO (21:34)
[2023-08-07] MEDS: rOPINIRole HCL 0.5 MG TABLET PO (21:34)
[2023-08-08] VITALS (14 sets, daily range): BP systolic 100–144; BP diastolic 42–67; PULSE 76–88; RESP 16–18; TEMP 36.2–36.6; O2SAT 90–95
[2023-08-08] MEDS: fentaNYL CITRATE INJ (*CRX) 100 MCG/2 ML VIAL 25 MCG IV PUSH (02:00)
[2023-08-08] MEDS: ALBUTEROL SULFATE NEB 2.5 MG/3 ML INH INHALATION ×4 (02:41→21:13)
[2023-08-08] MEDS: IPRATROPIUM BR 0.02% INH SOLN 0.5 MG/2.5 ML VIAL INHALATION ×4 (02:41→21:15)
[2023-08-08] MEDS: HYDROcodone/acetaminophen (*CRX) 7.5-325 MG TABLET 1 TAB PO ×3 (05:53→22:02)
[2023-08-08 07:44] LABS: Glucose Point of Care 243 mg/dl (65-105)
[2023-08-08] MEDS: UMECLIDINIUM BROMIDE 62.5 MCG ELLIPTA 1 PUFF INHALATION (08:19)
[2023-08-08] MEDS: INSULIN ASPART (*BKC) 100 UNITS/ML SUB-Q (08:30)
[2023-08-08] MEDS: INSULIN ASPART (*BKC) 100 UNITS/ML 7 UNITS SUB-Q ×3 (08:30→17:25)
[2023-08-08] MEDS: fentaNYL (*CRX) 75 MCG PATCH TRANSDERM (08:55)
[2023-08-08] MEDS: hydroCHLOROthiazide 12.5 MG CAPSULE PO (08:57)
[2023-08-08] MEDS: metFORMIN HCL XR 500 MG TAB.SR.24H PO (08:58)
[2023-08-08] MEDS: buPROPion HCL XL (24 HR) 150 MG TABCR 300 MG PO (08:58)
[2023-08-08] MEDS: CLOPIDOGREL BISULFATE 75 MG TABLET PO (08:58)
[2023-08-08] MEDS: ESCITALOPRAM OXALATE 10 MG TABLET PO (08:58)
[2023-08-08] MEDS: METOPROLOL SUCCINATE EXT REL 25 MG TABCR PO (08:58)
[2023-08-08] MEDS: ASPIRIN 81 MG ENTERIC TABLET PO (08:58)
[2023-08-08] MEDS: ATORVASTATIN 40 MG TABLET 80 MG PO (08:58)
[2023-08-08] MEDS: POTASSIUM CHLORIDE 20 MEQ ER TABLET PO (08:59)
[2023-08-08] MEDS: DOXYCYCLINE 100 MG/NS 100 ML 100 MG/100 ML BAG IVPB ×2 (10:29→22:03)
[2023-08-08] MEDS: FLUCONAZOLE 150 MG TABLET PO (10:30)
[2023-08-08 11:43] LABS: Glucose Point of Care 180 mg/dl (65-105)
--- NOTE | 2023-08-08 16:21 | PM.IMPN ---
Progress Note: A&P Assessment and Plan (1) Frequent falls: Code(s): R29.6 - Repeated falls Status: Acute (2) Back pain due to injury: Code(s): M54.9 - Dorsalgia, unspecified Status: Acute (3) Chronic bilateral low back pain: Qualifiers: Sciatica presence: with sciatica Sciatica laterality: bilateral sciatica Qualified Code(s): M54.42 - Lumbago with sciatica, left side; M54.41 - Lumbago with sciatica, right side; G89.29 - Other chronic pain Code(s): M54.5 - Low back pain; G89.29 - Other chronic pain Status: Chronic (4) Major depression, recurrent, chronic: Code(s): F33.9 - Major depressive disorder, recurrent, unspecified Status: Acute (5) Restless legs syndrome: Onset Date: ~07/04/22 Code(s): G25.81 - Restless legs syndrome Status: Acute (6) Diabetes mellitus with hyperglycemia, without long-term current use of insulin: Code(s): E11.65 - Type 2 diabetes mellitus with hyperglycemia Status: Chronic (7) Peripheral arterial disease: Code(s): I73.9 - Peripheral vascular disease, unspecified Status: Acute (8) Chronic constipation: Code(s): K59.09 - Other constipation Status: Chronic (9) Vitamin B12 deficiency anemia, unspecified: Qualifiers: Vitamin B12 deficiency anemia type: unspecified B12 deficiency Qualified Code(s): D51.9 - Vitamin B12 deficiency anemia, unspecified Code(s): D51.9 - Vitamin B12 deficiency anemia, unspecified Status: Acute (10) Vitamin D deficiency, unspecified: Code(s): E55.9 - Vitamin D deficiency, unspecified Status: Acute Plan Fall injury 4-5 days prior to presentation sounds mechanical PT OT to see Recurrent falls Chronic respiratory failure home oxygen 4 L 24x7 Chronic low back pain with degenerative disc disease Hypo magnesiumia Type 2 diabetes on insulin Chronic moderate to severe compression fracture of L1 with severe degenerative spondylosis of the lumbar spine Bilateral lower lung infiltrate versus atelectasis WBC count is normal. Will continue with pulmonary toilet as ordered. CTA negative for PE but shows left lower lobe pneumonia doxycycline started Chronic recurrent depression/anxiety Chronic opiate prescription use B12 deficiency Congestive heart failure combined systolic diastolic EF 45-50% with grade 1 diastolic dysfunction 09/07 trace MR and TR with moderate pulmonary hypertension COPD Coronary artery disease status post stents in place History of hip fracture status post hip replacement surgery Restless leg syndrome Peripheral neuropathy Peripheral arterial disease All obstructive sleep apnea DVT prophylaxis Lovenox Code status full code Subjective Date/time seen: 08/08/23 16:21 Interval history: No overnight events working with therapy feeling better as chronic cough Review of Systems Review of Systems: All systems reviewed & are unremarkable except as noted in HPI and below Exam Narrative: CONST: No acute distress. A bit sleepy however able to answer all my questions HENMT: Head is normocephalic and atraumatic. Tacky mucous membranes. No posterior oropharynx erythema. EYES: No conjunctival icterus, injection, or pallor. PERRL. NECK: No meningeal signs. RESP: Able to speak in full sentences. Normal respiratory effort. Coarse breath sound with occasional wheezing CARDIO: Regular rate. Regular rhythm. 2+ DP and radial pulses bilaterally. GI: Nondistended. No tenderness to palpation. Soft. : No CVA tenderness to palpation. SKIN: No rashes or lesions noted on exposed skin. NEURO: Oriented x3. Moves all extremities.? No focal strength deficits.? Sensation intact to light touch throughout. EXTREM/MSK: No pedal edema.? Midline tenderness to palpation of the thoracic and lumbar vertebrae without obvious step-offs or deformities.? No tenderness to palpation of the extremities or obvious deformities. PSYCH:
[2023-08-08 16:31] LABS: Glucose Point of Care 161 mg/dl (65-105)
[2023-08-08] MEDS: SENNA/DOCUSATE SODIUM TABLET 1 TAB PO (22:03)
[2023-08-08] MEDS: rOPINIRole HCL 0.5 MG TABLET PO (22:03)
[2023-08-08 22:08] LABS: Glucose Point of Care 166 mg/dl (65-105)
[2023-08-09] VITALS (10 sets, daily range): BP systolic 122–124; BP diastolic 52–61; PULSE 76–84; RESP 18–20; TEMP 35.7–36.6; O2SAT 90–96
[2023-08-09] MEDS: ALBUTEROL SULFATE NEB 2.5 MG/3 ML INH INHALATION ×3 (03:05→13:40)
[2023-08-09] MEDS: IPRATROPIUM BR 0.02% INH SOLN 0.5 MG/2.5 ML VIAL INHALATION ×3 (03:17→13:40)
[2023-08-09] MEDS: HYDROcodone/acetaminophen (*CRX) 7.5-325 MG TABLET 1 TAB PO ×2 (03:52→12:45)
[2023-08-09 08:17] LABS: Glucose Point of Care 163 mg/dl (65-105)
[2023-08-09] MEDS: UMECLIDINIUM BROMIDE 62.5 MCG ELLIPTA 1 PUFF INHALATION (08:17)
[2023-08-09] MEDS: INSULIN ASPART (*BKC) 100 UNITS/ML 7 UNITS SUB-Q ×2 (08:30→12:28)
[2023-08-09] MEDS: DOXYCYCLINE 100 MG/NS 100 ML 100 MG/100 ML BAG IVPB (08:32)
[2023-08-09] MEDS: buPROPion HCL XL (24 HR) 150 MG TABCR 300 MG PO (08:33)
[2023-08-09] MEDS: CLOPIDOGREL BISULFATE 75 MG TABLET PO (08:33)
[2023-08-09] MEDS: ATORVASTATIN 40 MG TABLET 80 MG PO (08:33)
[2023-08-09] MEDS: POTASSIUM CHLORIDE 20 MEQ ER TABLET PO (08:33)
[2023-08-09] MEDS: metFORMIN HCL XR 500 MG TAB.SR.24H PO (08:33)
[2023-08-09] MEDS: hydroCHLOROthiazide 12.5 MG CAPSULE PO (08:33)
[2023-08-09] MEDS: METOPROLOL SUCCINATE EXT REL 25 MG TABCR PO (08:34)
[2023-08-09] MEDS: ESCITALOPRAM OXALATE 10 MG TABLET PO (08:34)
[2023-08-09] MEDS: ASPIRIN 81 MG ENTERIC TABLET PO (08:34)
[2023-08-09] MEDS: ERGOCALCIFEROL 50,000 UNITS CAPSULE 50000 UNITS PO (08:36)
[2023-08-09 12:02] LABS: Glucose Point of Care 127 mg/dl (65-105)
--- NOTE | 2023-08-09 13:10 | PM.IMPN ---
Progress Note: A&P Assessment and Plan (1) Frequent falls: Code(s): R29.6 - Repeated falls Status: Acute (2) Back pain due to injury: Code(s): M54.9 - Dorsalgia, unspecified Status: Acute (3) Chronic bilateral low back pain: Qualifiers: Sciatica presence: with sciatica Sciatica laterality: bilateral sciatica Qualified Code(s): M54.42 - Lumbago with sciatica, left side; M54.41 - Lumbago with sciatica, right side; G89.29 - Other chronic pain Code(s): M54.5 - Low back pain; G89.29 - Other chronic pain Status: Chronic (4) Major depression, recurrent, chronic: Code(s): F33.9 - Major depressive disorder, recurrent, unspecified Status: Acute (5) Restless legs syndrome: Onset Date: ~07/04/22 Code(s): G25.81 - Restless legs syndrome Status: Acute (6) Diabetes mellitus with hyperglycemia, without long-term current use of insulin: Code(s): E11.65 - Type 2 diabetes mellitus with hyperglycemia Status: Chronic (7) Peripheral arterial disease: Code(s): I73.9 - Peripheral vascular disease, unspecified Status: Acute (8) Chronic constipation: Code(s): K59.09 - Other constipation Status: Chronic (9) Vitamin B12 deficiency anemia, unspecified: Qualifiers: Vitamin B12 deficiency anemia type: unspecified B12 deficiency Qualified Code(s): D51.9 - Vitamin B12 deficiency anemia, unspecified Code(s): D51.9 - Vitamin B12 deficiency anemia, unspecified Status: Acute (10) Vitamin D deficiency, unspecified: Code(s): E55.9 - Vitamin D deficiency, unspecified Status: Acute Plan Fall injury 4-5 days prior to presentation sounds mechanical PT OT to see Recurrent falls Chronic respiratory failure home oxygen 4 L 24x7 Chronic low back pain with degenerative disc disease Hypo magnesiumia Type 2 diabetes on insulin Chronic moderate to severe compression fracture of L1 with severe degenerative spondylosis of the lumbar spine Bilateral lower lung infiltrate versus atelectasis WBC count is normal. Will continue with pulmonary toilet as ordered. CTA negative for PE but shows left lower lobe pneumonia doxycycline started Chronic recurrent depression/anxiety Chronic opiate prescription use B12 deficiency Congestive heart failure combined systolic diastolic EF 45-50% with grade 1 diastolic dysfunction 09/07 trace MR and TR with moderate pulmonary hypertension COPD Coronary artery disease status post stents in place History of hip fracture status post hip replacement surgery Restless leg syndrome Peripheral neuropathy Peripheral arterial disease All obstructive sleep apnea DVT prophylaxis Lovenox Code status full code Subjective Date/time seen: 08/09/23 13:10 Interval history: Feeling better every day cough is getting better. Still weak. Work with therapy. Review of Systems Review of Systems: All systems reviewed & are unremarkable except as noted in HPI and below Exam Narrative: CONST: No acute distress. A bit sleepy however able to answer all my questions HENMT: Head is normocephalic and atraumatic. Tacky mucous membranes. No posterior oropharynx erythema. EYES: No conjunctival icterus, injection, or pallor. PERRL. NECK: No meningeal signs. RESP: Able to speak in full sentences. Normal respiratory effort. Coarse breath sound with occasional wheezing CARDIO: Regular rate. Regular rhythm. 2+ DP and radial pulses bilaterally. GI: Nondistended. No tenderness to palpation. Soft. : No CVA tenderness to palpation. SKIN: No rashes or lesions noted on exposed skin. NEURO: Oriented x3. Moves all extremities.? No focal strength deficits.? Sensation intact to light touch throughout. EXTREM/MSK: No pedal edema.? Midline tenderness to palpation of the thoracic and lumbar vertebrae without obvious step-offs or deformities.? No tenderness to palpation of the extremities or obvious deformities
--- NOTE | 2023-08-09 13:53 | PM.DS ---
DS: Admitting Diagnosis Discharge Date 08/08/2023 Admitting Diagnosis Fall DS: Discharge Diagnosis Discharge Diagnosis (1) Frequent falls: Code(s): R29.6 - Repeated falls Status: Acute (2) Back pain due to injury: Code(s): M54.9 - Dorsalgia, unspecified Status: Acute (3) Chronic bilateral low back pain: Qualifiers: Sciatica presence: with sciatica Sciatica laterality: bilateral sciatica Qualified Code(s): M54.42 - Lumbago with sciatica, left side; M54.41 - Lumbago with sciatica, right side; G89.29 - Other chronic pain Code(s): M54.5 - Low back pain; G89.29 - Other chronic pain Status: Chronic (4) Major depression, recurrent, chronic: Code(s): F33.9 - Major depressive disorder, recurrent, unspecified Status: Acute (5) Restless legs syndrome: Onset Date: ~07/04/22 Code(s): G25.81 - Restless legs syndrome Status: Acute (6) Diabetes mellitus with hyperglycemia, without long-term current use of insulin: Code(s): E11.65 - Type 2 diabetes mellitus with hyperglycemia Status: Chronic (7) Peripheral arterial disease: Code(s): I73.9 - Peripheral vascular disease, unspecified Status: Acute (8) Chronic constipation: Code(s): K59.09 - Other constipation Status: Chronic (9) Vitamin B12 deficiency anemia, unspecified: Qualifiers: Vitamin B12 deficiency anemia type: unspecified B12 deficiency Qualified Code(s): D51.9 - Vitamin B12 deficiency anemia, unspecified Code(s): D51.9 - Vitamin B12 deficiency anemia, unspecified Status: Acute (10) Vitamin D deficiency, unspecified: Code(s): E55.9 - Vitamin D deficiency, unspecified Status: Acute DS: Summary Hospital Course Hospital Course: Fall injury 4-5 days prior to presentation sounds mechanical PT OT to see. Did fairly well. Has chronic back pain. Arrange for home health at discharge Recurrent falls Chronic respiratory failure home oxygen 4 L 24x7 Chronic low back pain with degenerative disc disease Hypomagnesemia Type 2 diabetes on insulin on home doses of insulin Chronic moderate to severe compression fracture of L1 with severe degenerative spondylosis of the lumbar spine Bilateral lower lung infiltrate versus atelectasis WBC count is normal.? Will continue with pulmonary toilet as ordered. CTA is negative for PE but tap positive for left lower lobe pneumonia doxycycline started for pneumonia Chronic recurrent depression/anxiety Chronic opiate prescription use B12 deficiency Congestive heart failure combined systolic diastolic EF 45-50% with grade 1 diastolic dysfunction 09/07 trace MR and TR with moderate pulmonary hypertension COPD Coronary artery disease status post stents in place History of hip fracture status post hip replacement surgery Restless leg syndrome Peripheral neuropathy Peripheral arterial disease All obstructive sleep apnea DVT prophylaxis Lovenox Code status full code Time Spent with Patient Time attestation: Total time spent providing and/or coordinating discharge services: 35 minutes Exam Narrative: CONST: No acute distress. A bit sleepy however able to answer all my questions HENMT: Head is normocephalic and atraumatic. Tacky mucous membranes. No posterior oropharynx erythema. EYES: No conjunctival icterus, injection, or pallor. PERRL. NECK: No meningeal signs. RESP: Able to speak in full sentences. Normal respiratory effort. Coarse breath sound with occasional wheezing CARDIO: Regular rate. Regular rhythm. 2+ DP and radial pulses bilaterally. GI: Nondistended. No tenderness to palpation. Soft. : No CVA tenderness to palpation. SKIN: No rashes or lesions noted on exposed skin. NEURO: Oriented x3. Moves all extremities.? No focal strength deficits.? Sensation intact to light touch throughout. EXTREM/MSK: No pedal edema.? Midline tenderness to palpation of the thoracic and lumbar vertebrae without ob
== END 2023-08-09 16:25 | disposition home health service (06) ==
LOC: ANHED 08-07 06:30 → ANH3MEDSUR 08-07 09:42
PROVIDERS: Family Medicine; Physician Assistant; Admitting Provider Internal Medicine; Emergency Provider Student in an Organized Health Care Education/Training Program; PCP Family Medicine; Visit Provider Internal Medicine
DX: M54.41 Lumbago with sciatica, right side (principal); M54.42 Lumbago with sciatica, left side; W19.XXXA Unspecified fall, initial encounter; K59.09 Other constipation; Z79.82 Long term (current) use of aspirin; I50.9 Heart failure, unspecified; J44.9 Chronic obstructive pulmonary disease, unspecified; I25.10 Atherosclerotic heart disease of native coronary artery without angina pectoris; K21.9 Gastro-esophageal reflux disease without esophagitis; E78.5 Hyperlipidemia, unspecified; E55.9 Vitamin D deficiency, unspecified; F17.210 Nicotine dependence, cigarettes, uncomplicated; E53.8 Deficiency of other specified B group vitamins; G89.29 Other chronic pain; F33.9 Major depressive disorder, recurrent, unspecified; G25.81 Restless legs syndrome; E11.65 Type 2 diabetes mellitus with hyperglycemia; I73.9 Peripheral vascular disease, unspecified; R29.6 Repeated falls; Z79.4 Long term (current) use of insulin
CPT/HCPCS: 36415; 70450; 71046; 71275; 72125; 72128; 72131; 72170; 80053; 81001; 82550; 82948; 83690; 83735; 83880; 84439; 84443; 84480; 84484; 85025; 85055; 85380; 85610; 85730; 93005; 94640; 96361; 96365; 96375; 96376; 97161; 97165; 97530; 99285; A9270; G0378; J1815; J3010; J3475; J7120; Q9967

== ENCOUNTER 2024-01-03 12:52 | Inpatient (IN) | payer MEDICARE, BC, SELFPAY ==
[2024-01-03] VITALS (63 sets, daily range): BP systolic 78–159; BP diastolic 43–126; PULSE 110–226; RESP 10–33; TEMP 36.5–38; O2SAT 86–100
--- NOTE | ~2024-01-03 | XR_ITS ---
EXAMINATION: XR chest 1V portable INDICATION: Respiratory failure TECHNIQUE: Portable AP chest at 0910 hours COMPARISON: 01/06/2024 FINDINGS: Cardiomegaly is noted. There is a mild diffuse interstitial pattern with no significant jay nge. There is a small right pleural effusion. No pneumothorax is identified. Bibasilar airspace opaci ties persist without significant change. IMPRESSION: 1. Cardiomegaly with stable pulmonary edema. 2. Stable bibasilar airspace opacities, consistent with atelectasis versus pneumonia. 3. Small right pleural effusion, stable. Reviewed, dictated and finalized at location B. IMINER IMPRESSION: 1. Cardiomegaly with stable pulmonary edema. 2. Stable bibasilar airspace opacities, consistent with atelectasis versus pneu monia. 3. Small right pleural effusion, stable.
--- NOTE | ~2024-01-03 | CT_ITS ---
EXAMINATION: CT brain wo con DATE: 01/03/2024 14:45 INDICATION: trauma . TECHNIQUE: Computed tomography (CT) of the head was performed without intravenous contrast. The mA wa s adjusted according to patient size. Iterative reconstruction technique was employed. The dose-lengt h product was 605.33 mGy-cm. COMPARISON: 08/07/2023. FINDINGS: No acute intracranial hemorrhage or extra-axial fluid collection. No hydrocephalus, mass, or herniation. No acute ischemic infarct. Unremarkable dural venous sinus attenuation. No acute osseous abnormality. The aerated spaces are clear. Mild atrophy and chronic white matter change. Atherosclerotic intracranial calcification. IMPRESSION: No acute intracranial process. Reviewed, dictated and finalized at location K. GROUND MONITOR
--- NOTE | ~2024-01-03 | CT_ITS ---
CT OF right ankle EXAMINATION: CT ankle RT wo con DATE: 01/03/2024 18:23 INDICATION: Ankle fracture TECHNIQUE: Computed tomography (CT) of the right ankle was performed without intravenous contrast. Au tomated exposure control and iterative reconstruction technique were employed. The dose-length produc t was 412.71 mGy-cm. COMPARISON: X-ray right ankle, same date FINDINGS: Temporary cast material in place. The tibiotalar joint is normally aligned. Oblique nondisplaced [place] r B type fibular fracture. Oblique posterior malleolar fracture, now essentially in anatomic position . Focal 4 mm articular surface gap over the mid tibial plafond, the majority of the gap measures 2 mm . Nondisplaced transverse medial malleolus fracture. Severely decreased mineralization. 2 mm ossific fragment in the posterior and lateral aspect of the tibiotalar joint space. Ankle joint effusion. Ank le soft tissue swelling. The major flexor and extensor tendons are intact. IMPRESSION: Trimalleolar right ankle fracture, likely status post reduction. The tibiotalar joint is aligned. No additional fracture detected. No tibial plafond and articular surface step-off, residual articular surface gap ranging between 2-4 mm. Reviewed, dictated and finalized at location K. URETOR SPECIALIST IMPRESSION: Trimalleolar right ankle fracture, likely status post reduction. The tibiotalar joint is aligned. No additional fracture detected. No tibial plafond and articular surface step-off, residual articular surface ga p ranging between 2-4 mm.
--- NOTE | ~2024-01-03 | XR_ITS ---
EXAMINATION: XR chest 1V portable INDICATION: Respiratory failure TECHNIQUE: Portable AP chest at 0947 hours COMPARISON: 01/03/2024 FINDINGS: Left basilar airspace opacities persist but have improved. There is a small right pleural e ffusion. There are stable airspace opacities of the right lung base. Diffuse interstitial opacities p ersist but have improved. No pneumothorax is identified. Cardiomegaly is noted. IMPRESSION: 1. Stable right and improved left basilar airspace opacities, consistent with atelectasis versus pneu monia. 2. Small right pleural effusion. 3. Cardiomegaly with improving pulmonary edema. Reviewed, dictated and finalized at location L. GRAPH INSPECTOR IMPRESSION: 1. Stable right and improved left basilar airspace opacities, consistent with a telectasis versus pneumonia. 2. Small right pleural effusion. 3. Cardiomegaly with improving pulmonary edema.
--- NOTE | ~2024-01-03 | XR_ITS ---
EXAMINATION: XR surgery orthopedic DATE: 01/05/2024 14:40 DIRECTOR PERIOPERATIVE INDICATION: ORIF RT ANKLE . TECHNIQUE: 5 fluoroscopic images of the right ankle were obtained during ORIF right ankle performed b y the surgeon. I was not present in the operating room. Fluoroscopy exposure time was 1 minute 47.9 s econds. Air Kerma 4.0412 mGy. DAP 0.0801 mGym2. COMPARISON: CT right ankle 01/03/2024 FINDINGS: Screw and plate fixation of the distal fibula and distal posterior tibia. Cannulated screws fix a med ial malleolar fracture. No unexpected radiopaque foreign body. IMPRESSION: Fluoroscopic documentation of right ankle ORIF. Please refer to the operative note for complete proce dural details . Reviewed, dictated and finalized at location K. CTOR PERIOPERATIVE IMPRESSION: Fluoroscopic documentation of right ankle ORIF. Please refer to the operative n ote for complete procedural details .
--- NOTE | ~2024-01-03 | XR_ITS ---
EXAMINATION: XR chest 1V portable Exam Date/Time: 01/03/2024 15:01 DIRECTOR CARDIAC HISTORY: hypoxia, ON BIPAP Comparison: 08/06/2023. RESULT: Lines, tubes, and devices: Stimulator leads project over the lower thoracic spine. Lungs and pleura: Lordotic positioning with leftward rotation. Mild diffuse reticular opacities. Str eaky and patchy bilateral lower lung airspace disease. Cardiomediastinal silhouette: Stable. Other: No acute osseous or upper abdominal finding. IMPRESSION: Mild interstitial edema. Subsegmental bibasilar atelectasis or consolidation. Reviewed, dictated and finalized at location K. CTOR CARDIAC
--- NOTE | ~2024-01-03 | XR_ITS ---
EXAM: XR ankle RT min 3V DATE: 01/03/2024 15:12 HISTORY: ankle pain, FALL . COMPARISON: None available. FINDINGS: Decreased mineralization. Oblique distal fibular fracture extending to the level of the gilbert int line, with posterior angulation. Transverse medial malleolar fracture, possibly also with posteri or angulation. Oblique posterior malleolar fracture with superior displacement resulting in a 5 mm ar ticular surface step-off. The talus is posteriorly displaced relative to the anterior portions of the tibial plafond. Mild plantar enthesopathy. IMPRESSION: Trimalleolar right ankle fracture, with tibiotalar subluxation versus mild posterior disl ocation. The posterior malleolus fragment is superiorly displaced, resulting in an articular surface step-off. Reviewed, dictated and finalized at location K. RAL HISTORY COLLECTIONS CURATOR IMPRESSION: Trimalleolar right ankle fracture, with tibiotalar subluxation vers us mild posterior dislocation. The posterior malleolus fragment is superiorly d isplaced, resulting in an articular surface step-off.
--- NOTE | 2024-01-03 13:07 | ECG_ITS ---
Measurements Intervals [place] Rate: 120 P: 85 MS: 127 QRS: 30 QRSD: 143 T: -62 QT: 399 QTc: 565 Interpretive Statements SINUS TACHYCARDIA INDETERMINATE AXIS RIGHT BUNDLE BRANCH BLOCK [120+ ms QRS DURATION, UPRIGHT V1, 40+ ms S IN I/aVL/V4/V5/V6] NONSPECIFIC T-WAVE ABNORMALITY ABNORMAL ECG COMPARED TO ECG 08/06/2023 23:54:44 INFERIOR Q-WAVES ARE NO LONGER DEMONSTRATED, RIGHT BUNDLE BRANCH BLOCK IS NEW Electronically Signed On 01-03-2024 19:23:36 RECREATION CLERK by Edil Marcelo M.D.
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
[2024-01-03] MEDS: ALBUTEROL SULFATE NEB 2.5 MG/3 ML INH INHALATION (13:15)
--- NOTE | 2024-01-03 13:25 | PCRCNOTE ---
HOLD OFF ON ABG FOR AWHILE DUE TO LOW BLOOD PRESSURE PER DR. PAYTON.
[2024-01-03 13:26] LABS: Basophils Percent Auto 0.5 % (0.2-1.2); Eosinophils Percent Auto 0.3 % (0-4.4); Hematocrit 42.2 % (37.0-47.0); Hemoglobin 11.7 g/dL (12.0-15.0); Immature Granulocyte Absolute 0.05 K/mm3 (0.00-0.031); Immature Granulocyte Percent A 0.6 % (0-0.5); Immature Platelet Fraction Pct 14.7 % (0.9-11.2); Lymphocytes Absolute Auto 1.06 K/mm3 (0.9-3.2); Lymphocytes Percent Auto 13.6 % (18.3-44.2); Mean Corpuscular HGB Conc 27.7 g/dl (32-36); Mean Corpuscular Hemoglobin 30.9 pg (26-34); Mean Corpuscular Volume 111.3 fl (80-100); Monocytes Absolute Auto 0.5 K/mm3 (0.1-0.6); Monocytes Percent Auto 6.4 % (2.6-8.5); Neutrophils Absolute Auto 6.1 K/mm3 (1.3-6.7); Neutrophils Percent Auto 78.6 % (45.5-73.1); Platelet Count Result 146 k/mm3 (150-375); Red Blood Count 3.79 M/mm3 (4.2-5.4); Red Cell Distribution Width 13.8 % (11.5-14.5); White Blood Count 7.8 K/mm3 (4.5-10.0)
[2024-01-03] MEDS: SODIUM CHLORIDE 0.9% IV 1,000 ML 999 ML IV CONT (13:34)
--- NOTE | 2024-01-03 13:36 | PC.NURSE ---
unable to get accurate ekg due to pt having tremors. attempting to warm pt and MD notified
[2024-01-03 13:38] LABS: Alanine Aminotransferase 14 U/L (6-35); Albumin Level 3.9 g/dL (3.5-5.1); Alkaline Phosphatase 101 U/L (38-126); Aspartate Amino Transferase 18 U/L (14-36); Bilirubin,Total 0.9 mg/dL (0.2-1.3); Blood Urea Nitrogen 34 mg/dL (7-17); Calcium 9.5 mg/dL (8.4-10.2); Carbon Dioxide > 40 mmol/L (22-30); Chloride 91 mmol/L (98-107); Estimated CRCL calculation 35 ml/min; Estimated Glomerular Filt Rate 32; Glucose 265 mg/dL (65-110); Potassium 4.8 mmol/L (3.4-5.0); Prothrombin Time 13.1 Seconds (11.1-14.7); Sodium 137 mmol/L (137-145)
[2024-01-03 13:39] LABS: Creatine Kinase 33 U/L (30-135)
[2024-01-03 13:41] LABS: Anisocytosis 1+ (NORMAL); Hypochromasia 1+ (NORMAL)
[2024-01-03 13:42] LABS: Schistocytes None Seen (NORMAL)
[2024-01-03 13:48] LABS: NT Pro B Type Natriuretic Pept 18900 pg/mL (19.9-100)
[2024-01-03 14:02] LABS: Influenza A QL RT-PCR Negative (Negative); Influenza B QL RT-PCR Negative (Negative); RSV RNA, RT-PCR Negative (Negative); SARS-CoV-2 RNA PCR Negative (Negative)
--- NOTE | 2024-01-03 14:56 | PC.NURSE ---
2 more attempts at getting ekg, however the pt still has tremors that is causing artifact. notified
[2024-01-03] MEDS: fentaNYL CITRATE INJ (*CRX) 100 MCG/2 ML VIAL 50 MCG IV PUSH (16:03)
[2024-01-03 16:10] LABS: Appearance Urine Cloudy (Clear); Bacteria Urine 4+ /hpf; Bilirubin Urine Negative (Negative); Blood Urine Negative (Negative); Color Urine Dark Yellow (Yellow); Glucose Urine UA Negative (Negative); Hyaline Casts Urine Present /lpf; Ketones Urine Trace mg/dL (Negative); Leukocyte Esterase Ur 1+ LEU/UL (Negative); Nitrate Urine Negative (Negative); Non Pathogenic Casts >20; Protein Urine 1+ mg/dL (Negative); RBC Urine >100 /hpf (0-2); Specific Grav Ur 1.019 (1.001-1.035); Squamous Epithelial Cell Urine Occasional /hpf (Few); WBC Urine 21-50 /hpf
[2024-01-03 16:14] LABS: Add Urine Microscopic? YES
[2024-01-03] MEDS: FUROSEMIDE INJ 40 MG/4 ML VIAL IV PUSH (17:40)
[2024-01-03] MEDS: levoFLOXacin 750 MG/D5W 150 ML 750 MG/150 ML BAG 100 MG IVPB (17:41)
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
--- NOTE | 2024-01-03 19:20 | PC.NURSE ---
attempted to ween pt off bipap with nasal cannula and pt O2 was 83-87% so MD ordered Bipap back on. pt is now 93% on bipap
[2024-01-03 20:32] LABS: Alveolar/Arterial O2 Gradient 216.8 mmHg; Base Excess ABG 12.4 mEq/l (+/-2.0); Fractional Inspired Oxygen 50 %; HCO3 ABG 40.3 mEq/l (22.0-26.0); Oxygen Content ABG 14.2 %vol (16.0-22.0); Oxygen Saturation ABG 88.8 % (95.0-100.0); Oxyhemoglobin 88.7 % THb (90.0-100.0); PO2 ABG 59.4 mmHg (80.0-100.0); PO2 FiO2 Ratio Arterial Blood 1.19 %; Total Hemoglobin 11.4 g/dL (12.0-18.0); pH ABG 7.369 (7.350-7.450)
[2024-01-03 20:34] LABS: Device BIPAP; Modified Allen's Test Pass; PCO2 ABG 71.4 mmHg (35.0-45.0); Site Drawn RIGHT RADIAL
[2024-01-03 20:35] LABS: Expiratory Pressure 7 cmH2O; Inspiratory Pressure 14 cmH2O
[2024-01-03] MEDS: HYDROcodone/acetaminophen (*CRX) 5-325 MG TABLET 1 TAB PO (20:40)
--- NOTE | 2024-01-03 20:53 | PM.IMHP ---
H&P: HPI History of Present Illness Date/Time: 01/03/24 20:53 Chief Complaint: FALL Narrative: This is a 73-year-old female with past medical history significant for chronic hypoxic and hypercarbic respiratory failure, COPD/emphysema, tobacco dependence, chronic bilateral lower back pain, coronary artery disease, gastroesophageal reflux disease, obstructive sleep apnea patient is on 4 L of oxygen by nasal cannula at home was brought today for evaluation to the emergency room after having a fall most of the history has been obtained from who is at bedside patient is currently on BiPAP. Preliminary workup was significant for ABG pH of 7.4 pCO2 71 PO2 59 EXAMINATION: CT brain wo con DATE: 01/03/2024 14:45 INDICATION: trauma . TECHNIQUE: Computed tomography (CT) of the head was performed without intravenous contrast. The mA was adjusted according to patient size. Iterative reconstruction technique was employed. The dose-length product was 605.33 mGy-cm. COMPARISON: 08/07/2023. FINDINGS: No acute intracranial hemorrhage or extra-axial fluid collection. No hydrocephalus, mass, or herniation. No acute ischemic infarct. Unremarkable dural venous sinus attenuation. No acute osseous abnormality. The? aerated spaces are clear. Mild atrophy and chronic white matter change. Atherosclerotic intracranial calcification. IMPRESSION:? No acute intracranial process. EXAMINATION:? XR chest 1V portable Exam Date/Time:? 01/03/2024 15:01 COCOA ROASTER HISTORY: hypoxia, ON BIPAP ? Comparison:? 08/06/2023. RESULT: Lines, tubes, and devices:? Stimulator leads project over the lower thoracic spine. Lungs and pleura:? Lordotic positioning with leftward rotation. Mild diffuse reticular opacities. Streaky and patchy bilateral lower lung airspace disease. Cardiomediastinal silhouette:? Stable. Other:? No acute osseous or upper abdominal finding. ? IMPRESSION: Mild interstitial edema. Subsegmental bibasilar atelectasis or consolidation. CT OF? right ankle EXAMINATION: CT ankle RT wo con DATE: 01/03/2024 18:23 INDICATION: Ankle fracture TECHNIQUE: Computed tomography (CT) of the right ankle was performed without intravenous contrast. Automated exposure control and iterative reconstruction technique were employed. The dose-length product was 412.71 mGy-cm. COMPARISON: X-ray right ankle, same date FINDINGS: Temporary cast material in place. The tibiotalar joint is normally aligned. Oblique nondisplaced [place] B type fibular fracture. Oblique posterior malleolar fracture, now essentially in anatomic position. Focal 4 mm articular surface gap over the mid tibial plafond, the majority of the gap measures 2 mm. Nondisplaced transverse medial malleolus fracture. Severely decreased mineralization. 2 mm ossific fragment in the posterior and lateral aspect of the tibiotalar joint space. Ankle joint effusion. Ankle soft tissue swelling. The major flexor and extensor tendons are intact. IMPRESSION: Trimalleolar right ankle fracture, likely status post reduction. The tibiotalar joint is aligned. No additional fracture detected. No tibial plafond and articular surface step-off, residual articular surface gap ranging between 2-4 mm. Review of Systems Review of Systems: ROS unobtainable: Yes unobtainable due to medical condition ( on BiPAP) [facility] Past Medical History Medical History (Updated 01/05/24 @ 05:10 by Sg Newell MD) Acquired female bladder prolapse With pessary in place B12 deficiency Bacteriuria with pyuria BMI 31.0-31.9,adult Breast cancer screening by mammogram CHF (congestive heart failure) echo on 09/07/2022 with ejection fraction 45-50% with grade 1 diastolic dysfunction and trace mitral valve regurgitation and tricuspid valve regurgitation with moderate pulmonary hypertension. Chronic anxiety Chronic bilateral low back pain Chronic respiratory failure with hypoxia and hypercapnia On home
[2024-01-03] MEDS: ACETAMINOPHEN 500 MG TABLET 1000 MG PO (22:40)
--- NOTE | 2024-01-03 23:28 | PC.NURSE ---
care and report given to KIRSTEN Castaneda. all questions answered.
[2024-01-04] VITALS (25 sets, daily range): BP systolic 90–132; BP diastolic 58–87; PULSE 110–124; RESP 14–23; TEMP 37.6–37.9; O2SAT 89–100; BMI 38.4
[2024-01-04] MEDS: fentaNYL CITRATE INJ (*CRX) 100 MCG/2 ML VIAL 50 MCG IV PUSH ×2 (00:23→01:55)
--- NOTE | 2024-01-04 00:45 | PC.NURSE ---
This Rn took over care of pt @2176.
[2024-01-04 01:52] LABS: Glucose Point of Care 238 mg/dl (65-105)
--- NOTE | 2024-01-04 02:46 | ADMIMU ---
This patient, Vanita Parker, was admitted to IMU status, and placed in Intensive Care Unit-8. Patient/family oriented to hospital policies and general routines including ID bracelet, bed and alarms, visiting hours, pain management, procedures, bathroom and other care routines, personal items, smoking policy, room service/diet, and visiting hours. Valuables list has been completed. Information on how to activate the Rapid Response Team has been discussed. Patient/Family are encouraged to report perceived risks to care and to ask questions if they do not understand what they are told or what they should do.
[2024-01-04] MEDS: HYDROmorphone HCL INJ (*CRX) 1 MG/ML SYR IV PUSH (05:32)
--- NOTE | 2024-01-04 10:22 | P.PNIM_ITS ---
Progress Note: A&P Assessment and Plan (1) Chronic respiratory failure with hypoxia and hypercapnia: Code(s): J96.11 - Chronic respiratory failure with hypoxia; J96.12 - Chronic respiratory failure with hypercapnia Status: Acute Assessment and Plan: 01/04/24: * Acute on chronic respiratory failure with hypoxia and hypercapnia * Initial pCO2 was 71.4, patient was started on BiPAP * SpO2 86-89 (2) Ankle fracture: Code(s): S82.899A - Other fracture of unspecified lower leg, initial encounter for closed fracture Status: Acute Assessment and Plan: 01/04/24: * Ankle x-ray showing trimalleolar right ankle fracture with tibiotalar subluxation versus mild posterior dislocation, posterior malleolus fragment is superiorly displaced, resulting in an articular surface step off. * Ankle was reduced in the emergency room and splinted * Ankle CT shown trimalleolar right ankle fracture status post reduction, tibiotalar joint is in alignment, no additional fracture detected. No tibial plafond found and articular surface step-off, residual articular step-off gap ranging between 2-4 mm. * Orthopedic surgery was consulted and patient will require an ORIF, will likely go to the OR tomorrow. * Continue with pain control * Continue to ice and elevate as needed (3) UTI (urinary tract infection): Code(s): N39.0 - Urinary tract infection, site not specified Status: Acute Assessment and Plan: 01/04/24: * UA showing 1+ protein, trace ketones, 1+ leukocytes, greater than 100 urine RBCs, 21-50 urine wbc's, 4+ bacteria * Urine culture was obtained and is pending * Currently on Levaquin (4) Acute kidney injury: Code(s): N17.9 - Acute kidney failure, unspecified Status: Acute Assessment and Plan: 01/04/24: * BUN 34, creatinine 1.6, EGFR 32 * Baseline creatinine 0.6-0.8 * Continue to hold nephrotoxic medication * Monitor labs (5) Frequent falls: Code(s): R29.6 - Repeated falls Status: Chronic Assessment and Plan: 01/04/24: * Status post ground level fall the ankle fracture * PT and OT will be ordered (6) CHF (congestive heart failure): Code(s): I50.9 - Heart failure, unspecified Status: Chronic Assessment and Plan: 01/04/24: * ProBNP 53021 * Patient given 40 of Lasix IV in the ER * Medications on hold due to low blood pressure with systolics in the 90s (7) Major depression, recurrent, chronic: Code(s): F33.9 - Major depressive disorder, recurrent, unspecified Status: Chronic Assessment and Plan: 01/04/24: * Restarted on Lexapro (8) Controlled diabetes mellitus with hyperglycemia, without long-term current use of insulin: Qualifiers: Diabetes mellitus type: type 2 Qualified Code(s): E11.65 - Type 2 diabetes mellitus with hyperglycemia Code(s): E11.65 - Type 2 diabetes mellitus with hyperglycemia Status: Acute Assessment and Plan: 01/04/24: * Blood sugars ranging 238-265 * Accu-Cheks ordered a.c. and HS * Low-dose sliding scale insulin ordered * Insulin aspart 15 units subQ t.i.d. with meals ordered * Last hemoglobin A1c was 09/04/2022 and was 11.0, will obtain another hemoglobin A1c today (9) Tobacco use disorder, continuous: Code(s): F17.209 - Nicotine dependence, unspecified, with unspecified nicotine-induced disorders Status: Acute Assessment and Plan: 01/04/24: * Ordered nicotine patch (10) Mixed hyperlipidemia: Code(s): E78.2 - Mixed hyperlipidemia Status: C
--- NOTE | 2024-01-04 10:22 | PM.IMPN ---
Progress Note: A&P Assessment and Plan (1) Chronic respiratory failure with hypoxia and hypercapnia: Code(s): J96.11 - Chronic respiratory failure with hypoxia; J96.12 - Chronic respiratory failure with hypercapnia Status: Acute Assessment and Plan: 01/04/24: Acute on chronic respiratory failure with hypoxia and hypercapnia Initial pCO2 was 71.4, patient was started on BiPAP SpO2 86-89 (2) Ankle fracture: Code(s): S82.899A - Other fracture of unspecified lower leg, initial encounter for closed fracture Status: Acute Assessment and Plan: 01/04/24: Ankle x-ray showing trimalleolar right ankle fracture with tibiotalar subluxation versus mild posterior dislocation, posterior malleolus fragment is superiorly displaced, resulting in an articular surface step off. Ankle was reduced in the emergency room and splinted Ankle CT shown trimalleolar right ankle fracture status post reduction, tibiotalar joint is in alignment, no additional fracture detected. No tibial plafond found and articular surface step-off, residual articular step-off gap ranging between 2-4 mm. Orthopedic surgery was consulted and patient will require an ORIF, will likely go to the OR tomorrow. Continue with pain control Continue to ice and elevate as needed (3) UTI (urinary tract infection): Code(s): N39.0 - Urinary tract infection, site not specified Status: Acute Assessment and Plan: 01/04/24: UA showing 1+ protein, trace ketones, 1+ leukocytes, greater than 100 urine RBCs, 21-50 urine wbc's, 4+ bacteria Urine culture was obtained and is pending Currently on Levaquin (4) Acute kidney injury: Code(s): N17.9 - Acute kidney failure, unspecified Status: Acute Assessment and Plan: 01/04/24: BUN 34, creatinine 1.6, EGFR 32 Baseline creatinine 0.6-0.8 Continue to hold nephrotoxic medication Monitor labs (5) Frequent falls: Code(s): R29.6 - Repeated falls Status: Chronic Assessment and Plan: 01/04/24: Status post ground level fall the ankle fracture PT and OT will be ordered (6) CHF (congestive heart failure): Code(s): I50.9 - Heart failure, unspecified Status: Chronic Assessment and Plan: 01/04/24: ProBNP 52142 Patient given 40 of Lasix IV in the ER Medications on hold due to low blood pressure with systolics in the 90s (7) Major depression, recurrent, chronic: Code(s): F33.9 - Major depressive disorder, recurrent, unspecified Status: Chronic Assessment and Plan: 01/04/24: Restarted on Lexapro (8) Controlled diabetes mellitus with hyperglycemia, without long-term current use of insulin: Qualifiers: Diabetes mellitus type: type 2 Qualified Code(s): E11.65 - Type 2 diabetes mellitus with hyperglycemia Code(s): E11.65 - Type 2 diabetes mellitus with hyperglycemia Status: Acute Assessment and Plan: 01/04/24: Blood sugars ranging 238-265 Accu-Cheks ordered a.c. and HS Low-dose sliding scale insulin ordered Insulin aspart 15 units subQ t.i.d. with meals ordered Last hemoglobin A1c was 09/04/2022 and was 11.0, will obtain another hemoglobin A1c today (9) Tobacco use disorder, continuous: Code(s): F17.209 - Nicotine dependence, unspecified, with unspecified nicotine-induced disorders Status: Acute Assessment and Plan: 01/04/24: Ordered nicotine patch (10) Mixed hyperlipidemia: Code(s): E78.2 - Mixed hyperlipidemia Status: Chronic Assessment and Plan: 01/04/24: Holding aspirin, Plavix, and atorvastatin Time Spent With Patient Time with patient: Greater than 35 minutes Subjective Date/time seen: 01/04/24 10:23 Interval history: This is a 73-year-old female who presented to the hospital on 01/03/2024 for evaluation after a fall. Workup in the hospital included head CT which shown no acute intracranial process. Chest x-ray was done which
[2024-01-04 11:08] LABS: Basophils Percent Auto 0.1 % (0.2-1.2); Eosinophils Percent Auto 0.1 % (0-4.4); Hematocrit 33.9 % (37.0-47.0); Immature Granulocyte Absolute 0.04 K/mm3 (0.00-0.031); Immature Granulocyte Percent A 0.5 % (0-0.5); Immature Platelet Fraction Pct 12.7 % (0.9-11.2); Lymphocytes Absolute Auto 0.64 K/mm3 (0.9-3.2); Lymphocytes Percent Auto 8.3 % (18.3-44.2); Mean Corpuscular HGB Conc 29.5 g/dl (32-36); Mean Corpuscular Hemoglobin 30.8 pg (26-34); Mean Corpuscular Volume 104.3 fl (80-100); Mean Platelet Volume 11.9 fl (7.4-10.4); Monocytes Absolute Auto 0.8 K/mm3 (0.1-0.6); Monocytes Percent Auto 9.8 % (2.6-8.5); Neutrophils Absolute Auto 6.2 K/mm3 (1.3-6.7); Neutrophils Percent Auto 81.2 % (45.5-73.1); Platelet Count Result 116 k/mm3 (150-375); Red Blood Count 3.25 M/mm3 (4.2-5.4); Red Cell Distribution Width 13.9 % (11.5-14.5); White Blood Count 7.7 K/mm3 (4.5-10.0)
[2024-01-04 11:19] LABS: Hemoglobin A1C 6.5 % (<5.7)
[2024-01-04 11:27] LABS: Alanine Aminotransferase 11 U/L (6-35); Albumin Level 3.3 g/dL (3.5-5.1); Alkaline Phosphatase 77 U/L (38-126); Aspartate Amino Transferase 24 U/L (14-36); Bilirubin,Total 0.9 mg/dL (0.2-1.3); Blood Urea Nitrogen 35 mg/dL (7-17); Calcium 9.4 mg/dL (8.4-10.2); Carbon Dioxide > 40 mmol/L (22-30); Chloride 89 mmol/L (98-107); Estimated CRCL calculation 45 ml/min; Estimated Glomerular Filt Rate 49; Glucose 223 mg/dL (65-110); Potassium 4.6 mmol/L (3.4-5.0); Sodium 134 mmol/L (137-145)
[2024-01-04] MEDS: UMECLIDINIUM BROMIDE 62.5 MCG ELLIPTA 1 PUFF INHALATION (11:51)
[2024-01-04] MEDS: NICOTINE (*PBKC) 14 MG PATCH 1 PATCH TRANSDERM (12:36)
[2024-01-04 12:39] LABS: Glucose Point of Care 215 mg/dl (65-105)
[2024-01-04 14:08] LABS: Alveolar/Arterial O2 Gradient 94.9 mmHg; Fractional Inspired Oxygen 30 %; HCO3 ABG 35.3 mEq/l (22.0-26.0); Oxygen Content ABG 14.1 %vol (16.0-22.0); Oxygen Saturation ABG 91.4 % (95.0-100.0); Oxyhemoglobin 90.2 % THb (90.0-100.0); PCO2 ABG 51.1 mmHg (35.0-45.0); PO2 FiO2 Ratio Arterial Blood 1.97 %; Total Hemoglobin 11.1 g/dL (12.0-18.0); pH ABG 7.457 (7.350-7.450)
[2024-01-04 14:10] LABS: Device NON-INVASIVE VENT; Site Drawn LEFT BRACHIAL
[2024-01-04 14:11] LABS: Non-Invasive Expiratory Pressure 7 CMH2O; Non-Invasive Inspiratory Pressure 17 CMH2O; Non-Invasive Vent Rate 18 /MIN
--- NOTE | 2024-01-04 14:51 | PM.PNORT ---
Progress Note: A&P Assessment and Plan (1) Ankle fracture: Code(s): S82.899A - Other fracture of unspecified lower leg, initial encounter for closed fracture Status: Acute Plan Ankle Fracture Right For ORIF tomorrow Subjective Subjective Date/Time Seen: 01/04/24 14:51 Principal diagnosis: Ankle Fracture Right Review of Systems Review of Systems: ROS unobtainable: Yes unobtainable due to medical condition ( on BiPAP) and unobtainable due to mental status Exam Narrative: Splinted Objective Data Vital Signs Vital Signs: Vital Signs - 24 hr 01/03/24 17:15 01/03/24 18:20 01/03/24 15:01 Temperature Pulse Rate 123 H 120 H 112 H Respiratory Rate 19 30 H 18 Blood Pressure 141/89 H Pulse Oximetry 92 93 91 Oxygen Delivery BiPAP BiPAP Oxygen Flow Rate Fraction of Inspired Oxygen 01/03/24 15:06 01/03/24 15:16 01/03/24 15:36 Temperature 98.1 F Pulse Rate 138 H 136 H 121 H Respiratory Rate 16 13 15 Blood Pressure 127/80 157/80 H 146/79 H Pulse Oximetry 93 92 93 Oxygen Delivery Oxygen Flow Rate Fraction of Inspired Oxygen 01/03/24 15:41 01/03/24 15:45 01/03/24 15:57 Temperature 98.2 F 98.3 F 98.4 F Pulse Rate 123 H Respiratory Rate 18 Blood Pressure 130/63 109/97 H Pulse Oximetry Oxygen Delivery Oxygen Flow Rate Fraction of Inspired Oxygen 01/03/24 16:01 01/03/24 16:21 01/03/24 16:27 Temperature 98.4 F 98.6 F 98.7 F Pulse Rate 162 H 124 H Respiratory Rate 27 H 16 16 Blood Pressure 113/74 133/45 L 143/76 H Pulse Oximetry 92 89 L 90 Oxygen Delivery Oxygen Flow Rate Fraction of Inspired Oxygen 01/03/24 17:06 01/03/24 17:17 01/03/24 17:30 Temperature 99.1 F 99.2 F 99.2 F Pulse Rate 120 H 226 H 121 H Respiratory Rate 13 33 H 15 Blood Pressure 108/92 H 114/94 H Pulse Oximetry 88 L 90 92 Oxygen Delivery Oxygen Flow Rate Fraction of Inspired Oxygen 01/03/24 17:36 01/03/24 17:45 02/17/24 18:28 Temperature 99.2 F 99.3 F 99.4 F Pulse Rate 120 H 121 H Respiratory Rate 20 15 Blood Pressure 105/85 Pulse Oximetry 94 91 95 Oxygen Delivery Oxygen Flow Rate Fraction of Inspired Oxygen 01/03/24 18:30 01/03/24 18:45 01/03/24 19:16 Temperature 99.4 F 99.3 F 99.1 F Pulse Rate 119 H 120 H 118 H Respiratory Rate 16 14 15 Blood Pressure 139/71 Pulse Oximetry 93 94 86 L Oxygen Delivery Oxygen Flow Rate Fraction of Inspired Oxygen 01/03/24 19:21 01/03/24 19:31 01/03/24 19:45 Temperature 99.2 F 99.2 F 99.3 F Pulse Rate 117 H 115 H 116 H Respiratory Rate 14 15 16 Blood Pressure 147/66 H 129/98 H Pulse Oximetry 91 92 94 Oxygen Delivery Oxygen Flow Rate Fraction of Inspired Oxygen 01/03/24 19:51 01/03/24 20:00 01/03/24 20:01 Temperature 99.3 F 99.4 F 99.4 F Pulse Rate 117 H 116 H 117 H Respiratory Rate 14 17 19 Blood Pressure Pulse Oximetry 93 90 94 Oxygen Delivery Oxygen Flow Rate Fraction of Inspired Oxygen 01/03/24 20:11 01/03/24 20:15 01/03/24 20:22 Temperature 99.5 F 99.5 F 99.6 F Pulse Rate 116 H 116 H 122 H Respiratory Rate 17 14 Blood Pressure 144/126 H Pulse Oximetry 92 93 90 Oxygen Delivery Oxygen Flow Rate Fraction of Inspired Oxygen 01/03/24 20:30 01/03/24 20:39 01/03/24 21:00 Temperature 99.6 F 99.9 F H Pulse Rate 116 H 117 H 118 H Respiratory Rate 18 20 Blood Pressure Pulse Oximetry 96 96 98 Oxygen Delivery BiPAP Oxygen Flow Rate Fraction of Inspired Oxygen 01/03/24 21:11 01/03/24 21:45 01/03/24 21:59 Temperature 100.0 F H 100.2 F H 100.2 F H Pulse Rate 141 H 115 H 118 H Respiratory Rate 10 L 15 20 Blood Pressure 101/76 110/90 Pulse Oximetry 98 98 100 Oxygen Delivery Oxygen Flow Rate Fraction of Inspired Oxygen 01/03/24 22:11 01/03/24 22:40 01/03/24 22:12 Temperature 100.2 F H 100.2 F H 100.2 F H Pulse Rate 119 H 119 H Respiratory Rate 18 17 Blood Pressure 151/73 H Pulse
[2024-01-04] MEDS: NYSTATIN 100,000 UNITS/ML SUSP 5 ML ORAL.SUSP PO ×2 (17:10→21:10)
[2024-01-04] MEDS: HYDROcodone/acetaminophen (*CRX) 7.5-325 MG TABLET 1 TAB PO (17:10)
[2024-01-04] MEDS: buPROPion HCL XL (24 HR) 150 MG TABCR 300 MG PO (17:12)
[2024-01-04] MEDS: ESCITALOPRAM OXALATE 10 MG TABLET PO (17:12)
[2024-01-04 17:17] LABS: Glucose Point of Care 192 mg/dl (65-105)
[2024-01-04] MEDS: INSULIN ASPART (*BKC) 100 UNITS/ML 15 UNITS SUB-Q (17:19)
[2024-01-04 21:09] LABS: Glucose Point of Care 75 mg/dl (65-105)
[2024-01-04] MEDS: TOLNAFTATE 1% POWDER 45 GM BTL 1 APPLIC TOPICAL (21:10)
[2024-01-05] VITALS (25 sets, daily range): BP systolic 78–97; BP diastolic 55–82; PULSE 97–119; RESP 16–24; TEMP 36.5–37.9; O2SAT 89–100
[2024-01-05 04:01] LABS: Basophils Percent Auto 0.1 % (0.2-1.2); Eosinophils Percent Auto 0.4 % (0-4.4); Hematocrit 35.1 % (37.0-47.0); Hemoglobin 10.5 g/dL (12.0-15.0); Immature Granulocyte Absolute 0.03 K/mm3 (0.00-0.031); Immature Granulocyte Percent A 0.4 % (0-0.5); Immature Platelet Fraction Pct 11.8 % (0.9-11.2); Lymphocytes Absolute Auto 1.03 K/mm3 (0.9-3.2); Lymphocytes Percent Auto 13.3 % (18.3-44.2); Mean Corpuscular HGB Conc 29.9 g/dl (32-36); Mean Corpuscular Hemoglobin 30.4 pg (26-34); Mean Corpuscular Volume 101.7 fl (80-100); Mean Platelet Volume 11.7 fl (7.4-10.4); Monocytes Absolute Auto 0.8 K/mm3 (0.1-0.6); Monocytes Percent Auto 9.7 % (2.6-8.5); Neutrophils Absolute Auto 5.9 K/mm3 (1.3-6.7); Neutrophils Percent Auto 76.1 % (45.5-73.1); Platelet Count Result 129 k/mm3 (150-375); Red Blood Count 3.45 M/mm3 (4.2-5.4); White Blood Count 7.8 K/mm3 (4.5-10.0)
[2024-01-05 04:12] LABS: Alanine Aminotransferase 11 U/L (6-35); Albumin Level 3.2 g/dL (3.5-5.1); Alkaline Phosphatase 78 U/L (38-126); Aspartate Amino Transferase 30 U/L (14-36); Blood Urea Nitrogen 26 mg/dL (7-17); Calcium 9.3 mg/dL (8.4-10.2); Carbon Dioxide > 40 mmol/L (22-30); Chloride 92 mmol/L (98-107); Estimated CRCL calculation 44 ml/min; Estimated Glomerular Filt Rate 49; Glucose 108 mg/dL (65-110); Potassium 3.7 mmol/L (3.4-5.0); Sodium 135 mmol/L (137-145)
--- NOTE | 2024-01-05 07:05 | PM.PNORT ---
Progress Note: A&P Assessment and Plan (1) Bimalleolar fracture of right ankle: Code(s): S82.841A - Displaced bimalleolar fracture of right lower leg, initial encounter for closed fracture Status: Acute Assessment and Plan: Patient has a fairly severely comminuted unstable ankle fracture right. She would benefit from open reduction internal fixation. She is well aware the risks of surgery including the fact of the she is a reasonable chance she will develop arthritis. Fixation will be difficult because location of the fracture particularly posteriorly. I have discussed all these things with her in detail risks benefits limitations and alternatives. Subjective Subjective Date/Time Seen: 01/05/24 07:05 Principal diagnosis: Comminuted right ankle fracture Review of Systems Review of Systems: ROS unobtainable: Yes unobtainable due to medical condition ( on BiPAP) and unobtainable due to mental status Exam Narrative: Patient is in a splint can wiggle her toes. Objective Data Vital Signs Vital Signs: Vital Signs - 24 hr 01/04/24 09:05 01/04/24 08:00 01/04/24 08:00 Temperature 100.1 F H Pulse Rate 116 H 117 H 116 H Respiratory Rate 22 H 20 Blood Pressure 92/63 L Pulse Oximetry 92 92 Oxygen Delivery BiPAP Oxygen Flow Rate Fraction of Inspired Oxygen 01/04/24 10:00 01/04/24 11:41 01/04/24 08:00 Temperature Pulse Rate 113 H 115 H 117 H Respiratory Rate 19 16 Blood Pressure Pulse Oximetry 97 93 Oxygen Delivery BiPAP BiPAP Oxygen Flow Rate 18 Fraction of Inspired Oxygen 40 01/04/24 12:00 01/04/24 12:00 01/04/24 12:00 Temperature 99.8 F H Pulse Rate 110 H 110 H 110 H Respiratory Rate 19 19 Blood Pressure 90/73 L Pulse Oximetry 89 L 89 L Oxygen Delivery BiPAP Oxygen Flow Rate 18 Fraction of Inspired Oxygen 30 01/04/24 14:00 01/04/24 15:25 01/04/24 16:00 Temperature Pulse Rate 112 H 116 H 116 H Respiratory Rate 23 H 16 Blood Pressure Pulse Oximetry 96 94 Oxygen Delivery BiPAP BiPAP Oxygen Flow Rate 18 Fraction of Inspired Oxygen 30 01/04/24 17:00 01/04/24 16:00 01/04/24 16:00 Temperature 100.2 F H Pulse Rate 116 H 118 H Respiratory Rate 16 Blood Pressure 94/66 L Pulse Oximetry 94 94 Oxygen Delivery Nasal Cannula Oxygen Flow Rate 4 Fraction of Inspired Oxygen 01/04/24 17:34 01/04/24 18:00 01/04/24 19:58 Temperature Pulse Rate 112 H 112 H Respiratory Rate 19 Blood Pressure Pulse Oximetry 94 93 Oxygen Delivery Nasal Cannula BiPAP Oxygen Flow Rate 4 Fraction of Inspired Oxygen 01/04/24 20:00 01/04/24 20:00 01/04/24 20:00 Temperature 99.6 F Pulse Rate 110 H 118 H Respiratory Rate 14 Blood Pressure 90/68 L Pulse Oximetry 93 Oxygen Delivery BiPAP Oxygen Flow Rate Fraction of Inspired Oxygen 30 01/04/24 22:00 01/04/24 23:17 01/04/24 23:46 Temperature Pulse Rate 117 H 111 H Respiratory Rate 21 H Blood Pressure Pulse Oximetry 92 Oxygen Delivery BiPAP BiPAP Oxygen Flow Rate Fraction of Inspired Oxygen 30 01/05/24 00:00 01/05/24 00:00 01/05/24 02:00 Temperature 99.9 F H Pulse Rate 102 H 102 H 106 H Respiratory Rate 18 Blood Pressure 93/71 L Pulse Oximetry 93 Oxygen Delivery Oxygen Flow Rate Fraction of Inspired Oxygen 01/05/24 04:00 01/05/24 04:00 01/05/24 04:00 Temperature 100.2 F H Pulse Rate 110 H 110 H Respiratory Rate 24 H Blood Pressure 91/76 L Pulse Oximetry 94 Oxygen Delivery BiPAP Oxygen Flow Rate Fraction of Inspired Oxygen 30 01/05/24 04:00 01/05/24 06:00 Temperature Pulse Rate 118 H 117 H Respiratory Rate 21 H Blood Pressure Pulse Oximetry 92 Oxygen Delivery BiPAP Oxygen Flow Rate Fraction of Inspired Oxygen Intake/Output Intake/Output: Intake & Output 01/02/24 01/03/24 01/04/24 01/05/24 23:59 23:59 23:59 23:59 Intake Total 1150 240 11
[2024-01-05] MEDS: UMECLIDINIUM BROMIDE 62.5 MCG ELLIPTA 1 PUFF INHALATION (07:20)
[2024-01-05 07:36] LABS: Glucose Point of Care 112 mg/dl (65-105)
[2024-01-05] MEDS: NICOTINE (*PBKC) 14 MG PATCH 1 PATCH TRANSDERM (08:46)
[2024-01-05] MEDS: levoFLOXacin 750 MG/D5W 150 ML 750 MG/150 ML BAG 100 MG IVPB (08:46)
[2024-01-05] MEDS: TOLNAFTATE 1% POWDER 45 GM BTL 1 APPLIC TOPICAL ×2 (08:51→20:22)
--- NOTE | 2024-01-05 09:48 | P.PNIM_ITS ---
Progress Note: A&P Assessment and Plan (1) Chronic respiratory failure with hypoxia and hypercapnia: Code(s): J96.11 - Chronic respiratory failure with hypoxia; J96.12 - Chronic respiratory failure with hypercapnia Status: Acute Assessment and Plan: 01/04/24: * Acute on chronic respiratory failure with hypoxia and hypercapnia * Initial pCO2 was 71.4, patient was started on BiPAP * SpO2 86-89 01/05/24: * pCO2 yesterday 51.1 * Continue with Bipap at night due to hypercapnia * Patient normally wears 4L NC at home at all times (2) Ankle fracture: Code(s): S82.899A - Other fracture of unspecified lower leg, initial encounter for closed fracture Status: Acute Assessment and Plan: 01/04/24: * Ankle x-ray showing trimalleolar right ankle fracture with tibiotalar subluxation versus mild posterior dislocation, posterior malleolus fragment is superiorly displaced, resulting in an articular surface step off. * Ankle was reduced in the emergency room and splinted * Ankle CT shown trimalleolar right ankle fracture status post reduction, tibiotalar joint is in alignment, no additional fracture detected. No tibial plafond found and articular surface step-off, residual articular step-off gap ranging between 2-4 mm. * Orthopedic surgery was consulted and patient will require an ORIF, will likely go to the OR tomorrow. * Continue with pain control * Continue to ice and elevate as needed 01/05/24: * Plan for ORIF today at 3 pm, may require vent wean in ICU post op * Continue pain control, tylenol ordered considering low borderline blood pressure. * Continue to ICE and elevate * Ortho following (3) UTI (urinary tract infection): Code(s): N39.0 - Urinary tract infection, site not specified Status: Acute Assessment and Plan: 01/04/24: * UA showing 1+ protein, trace ketones, 1+ leukocytes, greater than 100 urine RBCs, 21-50 urine wbc's, 4+ bacteria * Urine culture was obtained and is pending * Currently on Levaquin 01/05/24: * Urine culture showing E coli on preliminary read * Blood cultures showing no growth to date on preliminary read * Continue with IV Levaquin for today, may switch to oral Levaquin tomorrow after her surgery pending oxygen requirements. (4) Acute kidney injury: Code(s): N17.9 - Acute kidney failure, unspecified Status: Acute Assessment and Plan: 01/04/24: * BUN 34, creatinine 1.6, EGFR 32 * Baseline creatinine 0.6-0.8 * Continue to hold nephrotoxic medication * Monitor labs 01/05/24: * bun 26, Creatinine 1.10 * Continue to trend labs (5) Frequent falls: Code(s): R29.6 - Repeated falls Status: Chronic Assessment and Plan: 01/04/24: * Status post ground level fall the ankle fracture * PT and OT will be ordered 01/05/24: * Continue with current treatment plan * Case management on board for potential discharge needs (6) CHF (congestive heart failure): Code(s): I50.9 - Heart failure, unspecified Status: Chronic Assessment and Plan: 01/04/24: * ProBNP 18519 * Patient given 40 of Lasix IV in the ER * Medications on hold due to low blood pressure with systolics in the 90s 01/05/24: * Blood pressures still running low, continue to hold blood pressure medications at this time. (7) Major depression, recurrent, chronic: Code(s): F33.9 - Major depressive disorder, recurrent, unspecified Status: Chronic Assessment and Plan: 01/04/24: * Restarted on Lexapro 01/05/24: * No cord[place]
--- NOTE | 2024-01-05 09:48 | PM.IMPN ---
Progress Note: A&P Assessment and Plan (1) Chronic respiratory failure with hypoxia and hypercapnia: Code(s): J96.11 - Chronic respiratory failure with hypoxia; J96.12 - Chronic respiratory failure with hypercapnia Status: Acute Assessment and Plan: 01/04/24: Acute on chronic respiratory failure with hypoxia and hypercapnia Initial pCO2 was 71.4, patient was started on BiPAP SpO2 86-89 01/05/24: pCO2 yesterday 51.1 Continue with Bipap at night due to hypercapnia Patient normally wears 4L NC at home at all times (2) Ankle fracture: Code(s): S82.899A - Other fracture of unspecified lower leg, initial encounter for closed fracture Status: Acute Assessment and Plan: 01/04/24: Ankle x-ray showing trimalleolar right ankle fracture with tibiotalar subluxation versus mild posterior dislocation, posterior malleolus fragment is superiorly displaced, resulting in an articular surface step off. Ankle was reduced in the emergency room and splinted Ankle CT shown trimalleolar right ankle fracture status post reduction, tibiotalar joint is in alignment, no additional fracture detected. No tibial plafond found and articular surface step-off, residual articular step-off gap ranging between 2-4 mm. Orthopedic surgery was consulted and patient will require an ORIF, will likely go to the OR tomorrow. Continue with pain control Continue to ice and elevate as needed 01/05/24: Plan for ORIF today at 3 pm, may require vent wean in ICU post op Continue pain control, tylenol ordered considering low borderline blood pressure. Continue to ICE and elevate Ortho following (3) UTI (urinary tract infection): Code(s): N39.0 - Urinary tract infection, site not specified Status: Acute Assessment and Plan: 01/04/24: UA showing 1+ protein, trace ketones, 1+ leukocytes, greater than 100 urine RBCs, 21-50 urine wbc's, 4+ bacteria Urine culture was obtained and is pending Currently on Levaquin 01/05/24: Urine culture showing E coli on preliminary read Blood cultures showing no growth to date on preliminary read Continue with IV Levaquin for today, may switch to oral Levaquin tomorrow after her surgery pending oxygen requirements. (4) Acute kidney injury: Code(s): N17.9 - Acute kidney failure, unspecified Status: Acute Assessment and Plan: 01/04/24: BUN 34, creatinine 1.6, EGFR 32 Baseline creatinine 0.6-0.8 Continue to hold nephrotoxic medication Monitor labs 01/05/24: bun 26, Creatinine 1.10 Continue to trend labs (5) Frequent falls: Code(s): R29.6 - Repeated falls Status: Chronic Assessment and Plan: 01/04/24: Status post ground level fall the ankle fracture PT and OT will be ordered 01/05/24: Continue with current treatment plan Case management on board for potential discharge needs (6) CHF (congestive heart failure): Code(s): I50.9 - Heart failure, unspecified Status: Chronic Assessment and Plan: 01/04/24: ProBNP 16753 Patient given 40 of Lasix IV in the ER Medications on hold due to low blood pressure with systolics in the 90s 01/05/24: Blood pressures still running low, continue to hold blood pressure medications at this time. (7) Major depression, recurrent, chronic: Code(s): F33.9 - Major depressive disorder, recurrent, unspecified Status: Chronic Assessment and Plan: 01/04/24: Restarted on Lexapro 01/05/24: No change to current treatment plan (8) Controlled diabetes mellitus with hyperglycemia, without long-term current use of insulin: Qualifiers: Diabetes mellitus type: type 2 Qualified Code(s): E11.65 - Type 2 diabetes mellitus with hyperglycemia Code(s): E11.65 - Type 2 diabetes mellitus with hyperglycemia Status: Acute Assessment and Plan: 01/04/24: Blood sugars ranging 238-265 Accu-Cheks ordered a.c. and HS Low-dose sliding scale insu
[2024-01-05] MEDS: ACETAMINOPHEN 325 MG TABLET 650 MG PO ×2 (10:24→22:56)
[2024-01-05] MEDS: buPROPion HCL XL (24 HR) 150 MG TABCR 300 MG PO (10:24)
[2024-01-05] MEDS: ESCITALOPRAM OXALATE 10 MG TABLET PO (10:24)
[2024-01-05 11:37] LABS: Glucose Point of Care 142 mg/dl (65-105)
--- NOTE | 2024-01-05 13:15 | PC.NURSE ---
patient to Pre-op via bed with RT and bipap
[2024-01-05] MEDS: LACTATED RINGERS 1,000 ML 30 ML IV CONT ×2 (13:30→16:39)
--- NOTE | 2024-01-05 13:35 | WPDANESEPPF ---
Anes - Initial Pre Proc Eval Procedure: Operation Date: 01/05/24 15:00 Proposed Procedures p Open Reduction Internal Fixation Right Ankle Fracture - Cyrus Qureshi MD Date/Time: 01/05/24 13:35 Surgeon: Galo Amaral MD Pre Op Diagnosis: Ankle Fracture, CHF Patient Data Age: 73 Gender: F Height: 1.57 m Weight: 92.9 kg Last Vital Signs Temp 37.9 C H 01/05/24 04:00 Pulse 106 H 01/05/24 10:10 Resp 24 H 01/05/24 10:10 BP 91/76 L 01/05/24 04:00 Pulse Ox 94 01/05/24 10:10 O2 Del Method BiPAP 01/05/24 10:10 O2 Flow Rate 4 01/04/24 17:34 FiO2 30 01/05/24 04:00 Allergies Allergy/AdvReac Type Severity Reaction Status Date / Time cefaclor Allergy Unknown Difficulty Verified 08/07/23 09:51 breathing cephalexin Allergy Unknown Difficulty Verified 08/07/23 09:51 breathing Cephalosporins Allergy Unknown Difficulty Verified 08/07/23 09:51 Breathing clarithromycin Allergy Unknown Difficulty Verified 08/07/23 09:51 Breathing clindamycin Allergy Unknown Difficulty Verified 08/07/23 09:51 Breathing morphine Allergy Unknown Difficulty Verified 08/07/23 09:51 breathing Home Medications Medication Instructions Recorded Confirmed Type aspirin 81 mg tablet,delayed 81 mg PO DAILY 10/05/19 01/04/24 History release (Adult Low Dose Aspirin) atorvastatin 80 mg tablet 80 mg PO DAILY 10/05/19 01/04/24 History clopidogrel 75 mg tablet 75 mg PO DAILY 10/05/19 01/04/24 History estradiol 0.01% (0.1 mg/gram) 1 gm vaginal WEEKLY 10/05/19 01/04/24 History vaginal cream fentanyl 75 mcg/hr transdermal 1 patch transdermal Q72H 10/05/19 01/04/24 History patch metoprolol succinate 25 mg 25 mg PO DAILY 10/05/19 01/04/24 History tablet,extended release 24 hr hydrocodone 7.5 mg-acetaminophen 1 tablet PO Q6H PRN Pain (Scale 05/23/22 01/04/24 Rx 325 mg tablet Score 7-10) #7 tabs metformin 500 mg tablet,extended 500 mg PO DAILY #10 tabs 05/23/22 01/04/24 Rx release 24 hr cholecalciferol (vitamin D3) 1,250 50,000 unit PO WEEKLY #12 caps 11/29/22 01/04/24 Rx mcg (50,000 unit) capsule hydrochlorothiazide 12.5 mg capsule 12.5 mg PO DAILY 03/05/23 01/04/24 History naloxone 4 mg/actuation nasal 4 mg intranasal PRN PRN (Drug) 03/05/23 01/04/24 History spray (Narcan) Ingestion nystatin 100,000 unit/mL oral 5 ml PO QID 03/05/23 01/04/24 History suspension sennosides 8.6 mg-docusate sodium 1 tab-cap PO QHS PRN Diaper Rash 03/05/23 01/04/24 History 50 mg tablet (Senna with Docusate Sodium) tiotropium bromide 2.5 2 inh inhalation QAM 03/05/23 01/04/24 History mcg/actuation mist for inhalation (Spiriva Respimat) turmeric 450 mg-turmeric root 1 cap PO DAILY 03/05/23 01/04/24 History extract 50 mg capsule varenicline 1 mg tablet (Chantix) 1 mg PO BID 03/05/23 01/04/24 History blood-glucose meter #1 ea 03/26/23 01/04/24 Rx bupropion HCl 300 mg 24 hr tablet, 300 mg PO QAM #90 tabs 03/26/23 01/04/24 Rx extended release (Wellbutrin XL) insulin aspart U-100 100 unit/mL 15 unit (0.15 mL) subcut TID #15 mL 04/16/23 01/04/24 Rx (3 mL) subcutaneous pen (Novolog FlexPen U-100 Insulin aspart) escitalopram oxalate 10 mg tablet 10 mg PO DAILY #90 tabs 04/18/23 01/04/24 Rx ondansetron HCl 4 mg tablet 4 mg PO Q8H PRN nausea and 05/05/23 01/04/24 Rx vomiting #60 tabs fluconazole 150 mg tablet 150 mg PO WEEKLY PRN infection 08/07/23 01/04/24 History doxycycline hyclate 100 mg capsule 100 mg PO BID #14 caps 08/08/23 01/04/24 Rx albuterol sulfate 90 mcg/actuation 2 puff inhalation Q4H PRN Dyspnea 12/31/23 01/04/24 Rx aerosol inhaler #8.5 grams Laboratory Tests 01/04/24 01/04/24 01/04/24 14:02 17:15 21:05 WBC RBC Hgb Hct MCV MCH MCHC RDW Plt Count MPV Immature Gran % (Auto) Neut % (Auto) Lymph
--- NOTE | 2024-01-05 14:08 | WPDHPUPDATE1 ---
History and Physical Update Update Date/Time: 01/05/24 14:08 History and Physical has been reviewed, including an updated exam of the patient. There are NO changes in the patient's condition. Risks, benefits, and alternatives have been discussed and questions answered. Patient agrees to proceed with procedure.
[2024-01-05] MEDS: ceFAZolin 2 GM/D5W 50 ML 2 GM/50 ML BAG IVPB (14:34)
--- NOTE | 2024-01-05 15:44 | SUR.OPER ---
MEDIAL ANKLE START 15:44.
--- NOTE | 2024-01-05 16:05 | W.PM.PROC2 ---
Procedure Note - Detailed Date of Procedure 01/05/24 Pre-op Diagnosis Trimalleolar Ankle Fracture, CHF Post-op Diagnosis Same Procedure Performed Open Reduction, Internal Fixation all 3 componenets Surgeon Cyrus Qureshi MD Anesthesia General Indications Fracture Displaced Description of Procedure Patient brought to operating room #5. A general anesthetic was administered. She was placed prone is fairly prepped and draped in usual manner. Posterolateral portal incision was made. Dissection carried down through the skin. Patient attempting protect the sural nerve blunt dissection was carried down between the flexor hallucis longus peroneal tendons. The posterior tibia was exposed and a T-plate was placed. This gave excellent fixation of the fracture in the joint was placed this seemed to be restored. At this point went over to the lateral malleolus fracture was identified reduced and held with this the 5 hole plate. This gave good alignment and fixation. Hemostasis obtained, and the wound closed with 2-0 Vicryl and bibi. I then proceeded medially. Longitudinal incision made over the medial malleolus. This dissection carried down to the fracture. The fracture reduced and held with 2 screws 40 millimeters in length 4-0 screws x-rays in the mortise lateral plane demonstrate good alignment the fracture. Screws fasting to be out of the joint. Splint was gently applied after was closed. Patient left the operating room fair condition. Estimated Blood Loss 20 Urine Output 1,000 Drains No Packing No Condition Other (Fair. Patient is an ASA 4 anesthesia risk) Disposition PACU [facility] Billing Surgery - Charge Forward: Surgery Billing (Trimalleolar Ankle Fracture [id number])
--- NOTE | 2024-01-05 16:28 | SUR.OPER ---
PER SURGEON DO NOT TOUCH RIGHT FOOT/MOVE ONLY BY LEG SUPPORT. KEEP RIGHT FOOT ELEVATED. NOTE PLACED ON PATIENT BED IV POLE, NOTE ATTACHED TO ANTERIOR ASPECT OF RIGHT FOOT HARRIS WITH TAPE STATING THE PREVIOUS. [employer] INFORMED ALSO AND AWARE.
[2024-01-05 16:30] LABS: Glucose Point of Care 147 mg/dl (65-105)
[2024-01-05] MEDS: fentaNYL CITRATE INJ (*CRX) 100 MCG/2 ML VIAL 25 MCG IV PUSH (16:40)
[2024-01-05] MEDS: ONDANSETRON INJ 4 MG/2 ML VIAL IV PUSH (16:52)
--- NOTE | 2024-01-05 17:15 | PC.NURSE ---
patient back from surgery on bipap; awake and alert
[2024-01-05] MEDS: ASPIRIN 325 MG ENTERIC TABLET PO (20:22)
[2024-01-05] MEDS: NYSTATIN 100,000 UNITS/ML SUSP 5 ML ORAL.SUSP PO (20:22)
[2024-01-05 20:32] LABS: Glucose Point of Care 194 mg/dl (65-105)
[2024-01-05] MEDS: ceFAZolin 1 GM/NS 50 ML 1 GM/50 ML BAG IVPB (21:14)
[2024-01-06] VITALS (36 sets, daily range): BP systolic 63–116; BP diastolic 46–98; PULSE 85–111; RESP 14–24; TEMP 37.1–37.8; O2SAT 92–100
[2024-01-06 04:38] LABS: Basophils Percent Auto 0.1 % (0.2-1.2); Eosinophils Percent Auto 0.1 % (0-4.4); Hematocrit 36.5 % (37.0-47.0); Immature Granulocyte Absolute 0.04 K/mm3 (0.00-0.031); Immature Granulocyte Percent A 0.5 % (0-0.5); Immature Platelet Fraction Pct 12.3 % (0.9-11.2); Lymphocytes Absolute Auto 0.75 K/mm3 (0.9-3.2); Lymphocytes Percent Auto 9.1 % (18.3-44.2); Mean Corpuscular HGB Conc 30.1 g/dl (32-36); Mean Corpuscular Hemoglobin 30.9 pg (26-34); Mean Corpuscular Volume 102.5 fl (80-100); Mean Platelet Volume 11.5 fl (7.4-10.4); Monocytes Absolute Auto 0.9 K/mm3 (0.1-0.6); Monocytes Percent Auto 10.5 % (2.6-8.5); Neutrophils Absolute Auto 6.6 K/mm3 (1.3-6.7); Neutrophils Percent Auto 79.7 % (45.5-73.1); Platelet Count Result 132 k/mm3 (150-375); Red Blood Count 3.56 M/mm3 (4.2-5.4); White Blood Count 8.2 K/mm3 (4.5-10.0)
[2024-01-06 04:51] LABS: Alanine Aminotransferase 12 U/L (6-35); Albumin Level 3.2 g/dL (3.5-5.1); Alkaline Phosphatase 71 U/L (38-126); Anion Gap 2 mmol/L (8-16); Aspartate Amino Transferase 29 U/L (14-36); Bilirubin,Total 0.9 mg/dL (0.2-1.3); Blood Urea Nitrogen 21 mg/dL (7-17); Calcium 9.2 mg/dL (8.4-10.2); Carbon Dioxide 39 mmol/L (22-30); Chloride 93 mmol/L (98-107); Estimated CRCL calculation 48 ml/min; Estimated Glomerular Filt Rate 55; Glucose 179 mg/dL (65-110); Potassium 4.3 mmol/L (3.4-5.0); Sodium 134 mmol/L (137-145)
[2024-01-06] MEDS: ACETAMINOPHEN 325 MG TABLET 650 MG PO ×2 (05:20→18:58)
[2024-01-06] MEDS: ceFAZolin 1 GM/NS 50 ML 1 GM/50 ML BAG IVPB ×3 (05:22→21:41)
--- NOTE | 2024-01-06 06:49 | PM.PNORT ---
Progress Note: A&P Assessment and Plan (1) Trimalleolar fracture of right ankle: Code(s): S82.851A - Displaced trimalleolar fracture of right lower leg, initial encounter for closed fracture Status: Acute Assessment and Plan: Patient underwent open reduction internal fixation trimalleolar fracture right. This necessitated a posterior exposure because of the subluxation and comminution of the tibia. She is comfortable in the splint at this time. We will mobilize her. She is to be nonweightbearing. Subjective Subjective Date/Time Seen: 01/06/24 06:49 Post Op day: 1 Principal diagnosis: Right trimalleolar ankle fracture. Review of Systems Review of Systems: ROS unobtainable: Yes unobtainable due to medical condition ( on BiPAP) and unobtainable due to mental status Exam Narrative: Comfortable in his splint. Objective Data Vital Signs Vital Signs: Vital Signs - 24 hr 01/05/24 07:20 01/05/24 07:20 01/05/24 10:10 Temperature Pulse Rate 109 H 109 H 106 H Respiratory Rate 20 20 24 H Blood Pressure Pulse Oximetry 92 94 Oxygen Delivery BiPAP BiPAP Oxygen Flow Rate Fraction of Inspired Oxygen 01/05/24 13:15 01/05/24 08:00 01/05/24 13:00 Temperature 100.1 F H 97.7 F Pulse Rate 104 H 110 H 114 H Respiratory Rate 20 17 22 H Blood Pressure 95/75 L 97/65 L Pulse Oximetry 93 92 95 Oxygen Delivery BiPAP BiPAP Oxygen Flow Rate Fraction of Inspired Oxygen 01/05/24 12:00 01/05/24 08:00 01/05/24 08:00 Temperature 100.2 F H Pulse Rate 119 H 107 H Respiratory Rate 20 Blood Pressure 96/70 L Pulse Oximetry 94 92 Oxygen Delivery BiPAP Oxygen Flow Rate Fraction of Inspired Oxygen 01/05/24 10:00 01/05/24 12:00 01/05/24 12:00 Temperature Pulse Rate 118 H 110 H Respiratory Rate Blood Pressure Pulse Oximetry 92 Oxygen Delivery BiPAP Oxygen Flow Rate Fraction of Inspired Oxygen 01/05/24 16:16 01/05/24 16:30 01/05/24 16:45 Temperature 99.5 F Pulse Rate 110 H 109 H 109 H Respiratory Rate 18 20 18 Blood Pressure 84/55 L 78/65 L 95/82 L Pulse Oximetry 92 89 L 96 Oxygen Delivery BiPAP BiPAP BiPAP Oxygen Flow Rate Fraction of Inspired Oxygen 30 30 50 01/05/24 16:25 01/05/24 17:19 01/05/24 17:15 Temperature 99.1 F Pulse Rate 101 H 97 97 Respiratory Rate 22 H 20 Blood Pressure 87/74 L Pulse Oximetry 94 99 Oxygen Delivery BiPAP Oxygen Flow Rate Fraction of Inspired Oxygen 01/05/24 17:15 01/05/24 17:40 01/05/24 18:00 Temperature 97.7 F Pulse Rate 109 H 109 H Respiratory Rate 16 Blood Pressure 85/71 L Pulse Oximetry 100 98 Oxygen Delivery BiPAP Oxygen Flow Rate Fraction of Inspired Oxygen 40 01/05/24 18:40 01/05/24 19:48 01/05/24 20:00 Temperature 98.2 F Pulse Rate 99 102 H Respiratory Rate 16 18 Blood Pressure 92/68 L Pulse Oximetry 98 97 Oxygen Delivery BiPAP BiPAP Oxygen Flow Rate Fraction of Inspired Oxygen 40 01/05/24 20:00 01/05/24 22:00 01/05/24 23:15 Temperature Pulse Rate 101 H 102 H 103 H Respiratory Rate 18 Blood Pressure Pulse Oximetry 98 Oxygen Delivery BiPAP Oxygen Flow Rate Fraction of Inspired Oxygen 01/06/24 00:00 01/06/24 00:00 01/06/24 02:00 Temperature Pulse Rate 102 H 98 Respiratory Rate Blood Pressure Pulse Oximetry 98 Oxygen Delivery BiPAP Oxygen Flow Rate Fraction of Inspired Oxygen 40 01/05/24 22:40 01/06/24 02:26 01/06/24 02:40 Temperature 98.8 F 99.4 F Pulse Rate 101 H 97 101 H Respiratory Rate 19 18 19 Blood Pressure 89/59 L 88/67 L Pulse Oximetry 98 100 97 Oxygen Delivery BiPAP Oxygen Flow Rate Fraction of Inspired Oxygen 01/06/24 04:00 01/06/24 05:40 01/06/24 04:00 Temperature 99.5 F Pulse Rate 96 95 Respiratory Rate 18 Blood Pressure 96/70 L Pulse Oximetry 99 96 Oxygen Delivery Nasal Cannula Oxygen Flow Rate 4 Fraction of Insp
[2024-01-06 07:51] LABS: Glucose Point of Care 147 mg/dl (65-105)
[2024-01-06] MEDS: ASPIRIN 325 MG ENTERIC TABLET PO ×2 (08:45→20:25)
[2024-01-06] MEDS: buPROPion HCL XL (24 HR) 150 MG TABCR 300 MG PO (08:45)
[2024-01-06] MEDS: ESCITALOPRAM OXALATE 10 MG TABLET PO (08:45)
[2024-01-06] MEDS: SENNA/DOCUSATE SODIUM TABLET 2 TAB PO ×2 (08:46→17:27)
[2024-01-06] MEDS: INSULIN ASPART (*BKC) 100 UNITS/ML 15 UNITS SUB-Q ×2 (08:49→16:50)
[2024-01-06] MEDS: TOLNAFTATE 1% POWDER 45 GM BTL 1 APPLIC TOPICAL ×2 (08:49→20:26)
[2024-01-06] MEDS: NICOTINE (*PBKC) 14 MG PATCH 1 PATCH TRANSDERM (08:54)
[2024-01-06] MEDS: NYSTATIN 100,000 UNITS/ML SUSP 5 ML ORAL.SUSP PO ×2 (08:54→20:34)
[2024-01-06] MEDS: UMECLIDINIUM BROMIDE 62.5 MCG ELLIPTA 1 PUFF INHALATION (09:20)
--- NOTE | 2024-01-06 09:25 | P.PNIM_ITS ---
Progress Note: A&P Assessment and Plan (1) UTI (urinary tract infection): Code(s): N39.0 - Urinary tract infection, site not specified Status: Acute (2) Acute kidney injury: Code(s): N17.9 - Acute kidney failure, unspecified Status: Acute (3) Ankle fracture: Code(s): S82.899A - Other fracture of unspecified lower leg, initial encounter for closed fracture Status: Acute (4) Acute on chronic respiratory failure with hypoxia and hypercapnia: Code(s): J96.21 - Acute and chronic respiratory failure with hypoxia; J96.22 - Acute and chronic respiratory failure with hypercapnia Status: Acute Plan (1) Chronic respiratory failure with hypoxia and hypercapnia: ?Code(s): J96.11 - Chronic respiratory failure with hypoxia; J96.12 - Chronic respiratory failure with hypercapnia ?Status:?Acute ?Assessment and Plan: 01/04/24: * Acute on chronic respiratory failure with hypoxia and hypercapnia * Initial pCO2 was 71.4, patient was started on BiPAP * SpO2 86-89 01/05/24: * pCO2 yesterday 51.1 * Continue with Bipap at night due to hypercapnia * Patient normally wears 4L NC at home at all times 01/06 possible due to narcotic meds, superimposed with COPD exacerbation Patient took prednisone at home, given hypotension that is possible secondary to acute adrenal crisis, start hydrocortisone 100 mg q.6 hours IV (2) Ankle fracture: ?Code(s): S82.899A - Other fracture of unspecified lower leg, initial encounter for closed fracture ?Status:?Acute ?Assessment and Plan: 01/04/24: * Ankle x-ray showing trimalleolar right ankle fracture with tibiotalar subluxation versus mild posterior dislocation, posterior malleolus fragment is superiorly displaced, resulting in an articular surface step off. * Ankle was reduced in the emergency room and splinted * Ankle CT shown trimalleolar right ankle fracture status post reduction, tibiotalar joint is in alignment, no additional fracture detected.? No tibial plafond found and articular surface step-off, residual articular step-off gap ranging between 2-4 mm. * Orthopedic surgery was consulted and patient will require an ORIF, will likely go to the OR tomorrow. * Continue with pain control * Continue to ice and elevate as needed 01/05/24: ORIF may require vent wean in ICU post op * Continue pain control, tylenol ordered considering low borderline blood pressure. * Continue to ICE and elevate * Ortho following (3) UTI (urinary tract infection): ?Code(s): N39.0 - Urinary tract infection, site not specified ?Status:?Acute ?Assessment and Plan: 01/04/24: * UA showing 1+ protein, trace ketones, 1+ leukocytes, greater than 100 urine RBCs, 21-50 urine wbc's, 4+ bacteria * Urine culture was obtained and is pending * Currently on Levaquin 01/05/24: * Urine culture showing E coli on preliminary read * Blood cultures showing no growth to date on preliminary read * Continue with IV Levaquin for today, may switch to oral Levaquin tomorrow after her surgery pending oxygen requirements. * (4) Acute kidney injury: ?Code(s): N17.9 - Acute kidney failure, unspecified ?Status:?Acute ?Assessment and Plan: 01/04/24: * BUN 34, creatinine 1.6, EGFR 32 * Baseline creatinine 0.6-0.8 * Continue to hold nephrotoxic medication * Monitor labs 01/05/24: * bun 26, Creatinine 1.10 08/06 continue normal saline IV 100 mL/hour Hypotension Possible acute adrenal crisis superimposed with hypovolemia hypotension Continue normal saline IV, start hy
--- NOTE | 2024-01-06 09:25 | PM.IMPN ---
Progress Note: A&P Assessment and Plan (1) UTI (urinary tract infection): Code(s): N39.0 - Urinary tract infection, site not specified Status: Acute (2) Acute kidney injury: Code(s): N17.9 - Acute kidney failure, unspecified Status: Acute (3) Ankle fracture: Code(s): S82.899A - Other fracture of unspecified lower leg, initial encounter for closed fracture Status: Acute (4) Acute on chronic respiratory failure with hypoxia and hypercapnia: Code(s): J96.21 - Acute and chronic respiratory failure with hypoxia; J96.22 - Acute and chronic respiratory failure with hypercapnia Status: Acute Plan (1) Chronic respiratory failure with hypoxia and hypercapnia: ?Code(s): J96.11 - Chronic respiratory failure with hypoxia; J96.12 - Chronic respiratory failure with hypercapnia ?Status:?Acute ?Assessment and Plan: 01/04/24: Acute on chronic respiratory failure with hypoxia and hypercapnia Initial pCO2 was 71.4, patient was started on BiPAP SpO2 86-89 01/05/24: pCO2 yesterday 51.1 Continue with Bipap at night due to hypercapnia Patient normally wears 4L NC at home at all times 01/06 possible due to narcotic meds, superimposed with COPD exacerbation Patient took prednisone at home, given hypotension that is possible secondary to acute adrenal crisis, start hydrocortisone 100 mg q.6 hours IV (2) Ankle fracture: ?Code(s): S82.899A - Other fracture of unspecified lower leg, initial encounter for closed fracture ?Status:?Acute ?Assessment and Plan: 01/04/24: Ankle x-ray showing trimalleolar right ankle fracture with tibiotalar subluxation versus mild posterior dislocation, posterior malleolus fragment is superiorly displaced, resulting in an articular surface step off. Ankle was reduced in the emergency room and splinted Ankle CT shown trimalleolar right ankle fracture status post reduction, tibiotalar joint is in alignment, no additional fracture detected.? No tibial plafond found and articular surface step-off, residual articular step-off gap ranging between 2-4 mm. Orthopedic surgery was consulted and patient will require an ORIF, will likely go to the OR tomorrow. Continue with pain control Continue to ice and elevate as needed 01/05/24: ORIF may require vent wean in ICU post op Continue pain control, tylenol ordered considering low borderline blood pressure. Continue to ICE and elevate Ortho following (3) UTI (urinary tract infection): ?Code(s): N39.0 - Urinary tract infection, site not specified ?Status:?Acute ?Assessment and Plan: 01/04/24: UA showing 1+ protein, trace ketones, 1+ leukocytes, greater than 100 urine RBCs, 21-50 urine wbc's, 4+ bacteria Urine culture was obtained and is pending Currently on Levaquin 01/05/24: Urine culture showing E coli on preliminary read Blood cultures showing no growth to date on preliminary read Continue with IV Levaquin for today, may switch to oral Levaquin tomorrow after her surgery pending oxygen requirements. (4) Acute kidney injury: ?Code(s): N17.9 - Acute kidney failure, unspecified ?Status:?Acute ?Assessment and Plan: 01/04/24: BUN 34, creatinine 1.6, EGFR 32 Baseline creatinine 0.6-0.8 Continue to hold nephrotoxic medication Monitor labs 01/05/24: bun 26, Creatinine 1.10 08/06 continue normal saline IV 100 mL/hour Hypotension Possible acute adrenal crisis superimposed with hypovolemia hypotension Continue normal saline IV, start hydrocortisone 100 mg q.6 hours IV (5) Frequent falls: ?Code(s): Case management on board for potential discharge needs (6) CHF (congestive heart failure): ?Code(s): I50.9 - Heart failure, unspecified ?Status:?Chronic ?Assessment and Plan: 01/04/24: ProBNP 47726 Patient given 40 of Lasix IV in the ER Medications on hold due to low blood pressure with systolics in the 90s 01/05/24: Blood pressures still
--- NOTE | 2024-01-06 10:29 | WPDANESPN ---
Anes - Prog Note Post-Op Date/Time: 01/06/24 10:29 Cardiovascular status: other (hypotensive) Respiratory status: normal Airway patency: baseline Mental status: baseline Post-Op hydration status: normal Vital Signs: Last Vital Signs Temp 37.6 C H 01/06/24 06:40 Pulse 99 01/06/24 09:21 Resp 14 01/06/24 09:21 BP 89/73 L 01/06/24 06:40 Pulse Ox 97 01/06/24 06:40 O2 Del Method Nasal Cannula 01/06/24 08:30 O2 Flow Rate 4 01/06/24 08:30 FiO2 40 01/06/24 00:00 Pain Score (VAS): 05/26 I/O: Intake & Output 01/05/24 01/06/24 01/06/24 23:59 07:59 15:59 Intake Total 350 200 Output Total 1075 900 Balance -725 -700 Laboratory Tests 01/06/24 04:29 01/06/24 04:29 01/05/24 01/05/24 01/05/24 11:33 16:26 20:18 WBC RBC Hgb Hct MCV MCH MCHC RDW Plt Count MPV Immature Gran % (Auto) Neut % (Auto) Lymph % (Auto) [place] % (Auto) Eos % (Auto) Baso % (Auto) Lymph # (Auto) [place] # (Auto) Eos # (Auto) Baso # (Auto) Abs Immat Gran (auto) Absolute Neuts (auto) Absolute Nucleated RBC Nucleated RBC % % Immature Plt Fraction Sodium Potassium Chloride Carbon Dioxide Anion Gap BUN Creatinine Estim Creat Clear Calc Estimated GFR Glucose POC Capillary Glucose 142 H 147 H 194 H Calcium Total Bilirubin AST ALT Alkaline Phosphatase Total Protein Albumin 01/06/24 01/06/24 04:29 07:49 WBC 8.2 RBC 3.56 L Hgb 11.0 L Hct 36.5 L MCV 102.5 H MCH 30.9 MCHC 30.1 L RDW 14.0 Plt Count 132 L MPV 11.5 H Immature Gran % (Auto) 0.5 Neut % (Auto) 79.7 H Lymph % (Auto) 9.1 L [place] % (Auto) 10.5 H Eos % (Auto) 0.1 Baso % (Auto) 0.1 L Lymph # (Auto) 0.75 L [place] # (Auto) 0.9 H Eos # (Auto) 0.0 Baso # (Auto) 0.0 Abs Immat Gran (auto) 0.04 H Absolute Neuts (auto) 6.6 Absolute Nucleated RBC 0.0 Nucleated RBC % 0.0 % Immature Plt Fraction 12.3 H Sodium 134 L Potassium 4.3 Chloride 93 L Carbon Dioxide 39 H Anion Gap 2 L BUN 21 H Creatinine 1.00 Estim Creat Clear Calc 48 Estimated GFR 55 L Glucose 179 H POC Capillary Glucose 147 H Calcium 9.2 Total Bilirubin 0.9 AST 29 ALT 12 Alkaline Phosphatase 71 Total Protein 6.0 L Albumin 3.2 L Microbiology 01/03/24 15:25 Urine Clean Catch Urine Culture - Final Escherichia Coli Post-procedural complaints: none Patient Feedback: Patient satisfied with anesthetic care.
[2024-01-06] MEDS: SODIUM CHLORIDE 0.9% IV 1,000 ML 100 ML IV CONT ×2 (10:46→22:38)
[2024-01-06] MEDS: HYDROcodone/acetaminophen (*CRX) 5-325 MG TABLET 1 TAB PO (11:11)
[2024-01-06 11:58] LABS: Glucose Point of Care 100 mg/dl (65-105)
[2024-01-06] MEDS: INSULIN ASPART (*BKC) 100 UNITS/ML SUB-Q (16:49)
[2024-01-06 16:59] LABS: Glucose Point of Care 227 mg/dl (65-105)
[2024-01-06] MEDS: HYDROCORTISONE SODIUM SUCCINATE 100 MG/2 ML VIAL IV PUSH ×2 (17:45→22:38)
--- NOTE | 2024-01-06 17:55 | PC.NURSE ---
Pt hypotensive. Asymptomatic. BP 65/47, 58/38 and 78/[address] Srivastava. would like to continue to monitor BP after dose of hydrocortisone just given
[2024-01-06] MEDS: SODIUM CHLORIDE 0.9% IV 1,000 ML 999 ML IV CONT ×2 (20:01→21:00)
[2024-01-06 22:32] LABS: Glucose Point of Care 108 mg/dl (65-105)
[2024-01-07] VITALS (45 sets, daily range): BP systolic 105–150; BP diastolic 58–127; PULSE 88–102; RESP 11–27; TEMP 37.1–37.5; O2SAT 90–100
[2024-01-07] MEDS: ACETAMINOPHEN 325 MG TABLET 650 MG PO (00:47)
[2024-01-07] MEDS: ONDANSETRON INJ 4 MG/2 ML VIAL IV PUSH ×2 (03:23→16:56)
[2024-01-07 04:30] LABS: Basophils Percent Auto 0.1 % (0.2-1.2); Eosinophils Percent Auto 0.1 % (0-4.4); Hematocrit 35.9 % (37.0-47.0); Hemoglobin 10.5 g/dL (12.0-15.0); Immature Granulocyte Absolute 0.05 K/mm3 (0.00-0.031); Immature Granulocyte Percent A 0.7 % (0-0.5); Immature Platelet Fraction Pct 12.7 % (0.9-11.2); Lymphocytes Absolute Auto 0.27 K/mm3 (0.9-3.2); Lymphocytes Percent Auto 3.8 % (18.3-44.2); Mean Corpuscular HGB Conc 29.2 g/dl (32-36); Mean Corpuscular Hemoglobin 30.9 pg (26-34); Mean Corpuscular Volume 105.6 fl (80-100); Mean Platelet Volume 12.2 fl (7.4-10.4); Monocytes Absolute Auto 0.3 K/mm3 (0.1-0.6); Monocytes Percent Auto 4.5 % (2.6-8.5); Neutrophils Absolute Auto 6.4 K/mm3 (1.3-6.7); Neutrophils Percent Auto 90.8 % (45.5-73.1); Platelet Count Result 120 k/mm3 (150-375); Red Cell Distribution Width 14.4 % (11.5-14.5); White Blood Count 7.1 K/mm3 (4.5-10.0)
[2024-01-07 04:40] LABS: Alanine Aminotransferase 9 U/L (6-35); Albumin Level 3.1 g/dL (3.5-5.1); Alkaline Phosphatase 76 U/L (38-126); Anion Gap 3 mmol/L (8-16); Aspartate Amino Transferase 23 U/L (14-36); Bilirubin,Total 0.7 mg/dL (0.2-1.3); Blood Urea Nitrogen 18 mg/dL (7-17); Calcium 8.4 mg/dL (8.4-10.2); Carbon Dioxide 35 mmol/L (22-30); Chloride 98 mmol/L (98-107); Estimated CRCL calculation 53 ml/min; Estimated Glomerular Filt Rate > 60; Glucose 274 mg/dL (65-110); Potassium 3.9 mmol/L (3.4-5.0); Sodium 136 mmol/L (137-145)
[2024-01-07] MEDS: ceFAZolin 1 GM/NS 50 ML 1 GM/50 ML BAG IVPB ×3 (05:12→21:17)
[2024-01-07] MEDS: HYDROCORTISONE SODIUM SUCCINATE 100 MG/2 ML VIAL IV PUSH ×4 (05:12→22:45)
[2024-01-07] MEDS: HYDROcodone/acetaminophen (*CRX) 5-325 MG TABLET 1 TAB PO ×2 (05:27→12:37)
--- NOTE | 2024-01-07 07:45 | P.PNIM_ITS ---
Progress Note: A&P Assessment and Plan (1) UTI (urinary tract infection): Code(s): N39.0 - Urinary tract infection, site not specified Status: Acute (2) Acute kidney injury: Code(s): N17.9 - Acute kidney failure, unspecified Status: Acute (3) Ankle fracture: Code(s): S82.899A - Other fracture of unspecified lower leg, initial encounter for closed fracture Status: Acute (4) Acute on chronic respiratory failure with hypoxia and hypercapnia: Code(s): J96.21 - Acute and chronic respiratory failure with hypoxia; J96.22 - Acute and chronic respiratory failure with hypercapnia Status: Acute Plan Acute on chronic respiratory failure with hypoxia and hypercapnia History of chronic respiratory failure with hypoxia; J96.12 - Chronic respiratory failure with hypercapnia * Initial pCO2 was 71.4, patient was started on BiPAP * SpO2 86-89 01/05/24: * pCO2 yesterday 51.1 * Continue with Bipap at night due to hypercapnia * Patient normally wears 4L NC at home at all times 01/06 possible due to narcotic meds, superimposed with COPD exacerbation Repeat chest x-ray COPD exacerbation Continue home medications Spiriva 1 puff daily Continue umeclidimum 1 puff daily Start DuoNeb scheduled q.6 hours, albuterol nebulizer q.6 hours p.r.n. Hypotension Patient took prednisone at home, given hypotension that is possible secondary to acute adrenal crisis, start hydrocortisone 100 mg q.6 hours IV 01/06 Add midodrine 100 mg t.i.d. p.o. 01/07 (2) Ankle fracture: ?Code(s): S82.899A - Other fracture of unspecified lower leg, initial encounter for closed fracture ?Status:?Acute ?Assessment and Plan: 01/04/24: * Ankle x-ray showing trimalleolar right ankle fracture with tibiotalar subluxation versus mild posterior dislocation, posterior malleolus fragment is superiorly displaced, resulting in an articular surface step off. * Ankle was reduced in the emergency room and splinted * Ankle CT shown trimalleolar right ankle fracture status post reduction, tibiotalar joint is in alignment, no additional fracture detected.? No tibial plafond found and articular surface step-off, residual articular step-off gap ranging between 2-4 mm. * Orthopedic surgery was consulted and patient will require an ORIF, will likely go to the OR tomorrow. * Continue with pain control * Continue to ice and elevate as needed 01/05/24: ORIF may require vent wean in ICU post op * Continue pain control, tylenol ordered considering low borderline blood pressure. * Continue to ICE and elevate * Ortho following (3) UTI (urinary tract infection): ?Code(s): N39.0 - Urinary tract infection, site not specified ?Status:?Acute ?Assessment and Plan: 01/04/24: * UA showing 1+ protein, trace ketones, 1+ leukocytes, greater than 100 urine RBCs, 21-50 urine wbc's, 4+ bacteria * Urine culture was obtained and is pending * Currently on Levaquin 01/05/24: * Urine culture showing E coli on preliminary read * Blood cultures showing no growth to date on preliminary read * Continue with IV Levaquin for today, may switch to oral Levaquin tomorrow after her surgery pending oxygen requirements. 01/06, Levaquin was stopped, patient is on cefazolin 1 g q.8 hours, urine culture grows E coli, resistant to Levaquin (4) Acute kidney injury: ?Code(s): N17.9 - Acute kidney failure, unspecified ?Status:?Acute ?Assessment and Plan: 01/04/24: * BUN 34, creatinine 1.6, EGFR 32 * Baseline creatinine 0.6-0.8 * Continue to hold nephrotoxic m
--- NOTE | 2024-01-07 07:45 | PM.IMPN ---
Progress Note: A&P Assessment and Plan (1) UTI (urinary tract infection): Code(s): N39.0 - Urinary tract infection, site not specified Status: Acute (2) Acute kidney injury: Code(s): N17.9 - Acute kidney failure, unspecified Status: Acute (3) Ankle fracture: Code(s): S82.899A - Other fracture of unspecified lower leg, initial encounter for closed fracture Status: Acute (4) Acute on chronic respiratory failure with hypoxia and hypercapnia: Code(s): J96.21 - Acute and chronic respiratory failure with hypoxia; J96.22 - Acute and chronic respiratory failure with hypercapnia Status: Acute Plan Acute on chronic respiratory failure with hypoxia and hypercapnia History of chronic respiratory failure with hypoxia; J96.12 - Chronic respiratory failure with hypercapnia Initial pCO2 was 71.4, patient was started on BiPAP SpO2 86-89 01/05/24: pCO2 yesterday 51.1 Continue with Bipap at night due to hypercapnia Patient normally wears 4L NC at home at all times 01/06 possible due to narcotic meds, superimposed with COPD exacerbation Repeat chest x-ray COPD exacerbation Continue home medications Spiriva 1 puff daily Continue umeclidimum 1 puff daily Start DuoNeb scheduled q.6 hours, albuterol nebulizer q.6 hours p.r.n. Hypotension Patient took prednisone at home, given hypotension that is possible secondary to acute adrenal crisis, start hydrocortisone 100 mg q.6 hours IV 01/06 Add midodrine 100 mg t.i.d. p.o. 01/07 (2) Ankle fracture: ?Code(s): S82.899A - Other fracture of unspecified lower leg, initial encounter for closed fracture ?Status:?Acute ?Assessment and Plan: 01/04/24: Ankle x-ray showing trimalleolar right ankle fracture with tibiotalar subluxation versus mild posterior dislocation, posterior malleolus fragment is superiorly displaced, resulting in an articular surface step off. Ankle was reduced in the emergency room and splinted Ankle CT shown trimalleolar right ankle fracture status post reduction, tibiotalar joint is in alignment, no additional fracture detected.? No tibial plafond found and articular surface step-off, residual articular step-off gap ranging between 2-4 mm. Orthopedic surgery was consulted and patient will require an ORIF, will likely go to the OR tomorrow. Continue with pain control Continue to ice and elevate as needed 01/05/24: ORIF may require vent wean in ICU post op Continue pain control, tylenol ordered considering low borderline blood pressure. Continue to ICE and elevate Ortho following (3) UTI (urinary tract infection): ?Code(s): N39.0 - Urinary tract infection, site not specified ?Status:?Acute ?Assessment and Plan: 01/04/24: UA showing 1+ protein, trace ketones, 1+ leukocytes, greater than 100 urine RBCs, 21-50 urine wbc's, 4+ bacteria Urine culture was obtained and is pending Currently on Levaquin 01/05/24: Urine culture showing E coli on preliminary read Blood cultures showing no growth to date on preliminary read Continue with IV Levaquin for today, may switch to oral Levaquin tomorrow after her surgery pending oxygen requirements. 01/06, Levaquin was stopped, patient is on cefazolin 1 g q.8 hours, urine culture grows E coli, resistant to Levaquin (4) Acute kidney injury: ?Code(s): N17.9 - Acute kidney failure, unspecified ?Status:?Acute ?Assessment and Plan: 01/04/24: BUN 34, creatinine 1.6, EGFR 32 Baseline creatinine 0.6-0.8 Continue to hold nephrotoxic medication Monitor labs 01/05/24: bun 26, Creatinine 1.10 08/06 continue normal saline IV 100 mL/hour Not resolved (5) Frequent falls: ?Code(s): Case management on board for potential discharge needs (6) CHF (congestive heart failure): ?Code(s): I50.9 - Heart failure, unspecified ?Status:?Chronic ?Assessment and Plan: 01/04/24: ProBNP 39263 Patient given 40 of Lasix IV in the ER Medication
[2024-01-07 07:56] LABS: Glucose Point of Care 265 mg/dl (65-105)
[2024-01-07] MEDS: IPRATROPIUM 0.5 MG/ALBUTEROL SULFATE 2.5 MG AMPUL.NEB 3 ML INHALATION ×3 (08:13→21:00)
[2024-01-07] MEDS: FLUTICASONE/SALMETEROL 45-21 MCG INHALER 1 PUFF 2 PUFF INHALATION ×2 (08:14→21:05)
[2024-01-07] MEDS: UMECLIDINIUM BROMIDE 62.5 MCG ELLIPTA 1 PUFF INHALATION (08:14)
[2024-01-07] MEDS: MIDODRINE HCL 10 MG TABLET PO ×3 (08:26→17:22)
[2024-01-07] MEDS: ESCITALOPRAM OXALATE 10 MG TABLET PO (08:26)
[2024-01-07] MEDS: NICOTINE (*PBKC) 14 MG PATCH 1 PATCH TRANSDERM (08:26)
[2024-01-07] MEDS: NYSTATIN 100,000 UNITS/ML SUSP 5 ML ORAL.SUSP PO ×4 (08:26→21:17)
[2024-01-07] MEDS: ASPIRIN 325 MG ENTERIC TABLET PO ×2 (08:26→21:16)
[2024-01-07] MEDS: HYDROcodone/acetaminophen (*CRX) 7.5-325 MG TABLET 1 TAB PO ×3 (08:26→21:16)
[2024-01-07] MEDS: INSULIN ASPART (*BKC) 100 UNITS/ML 15 UNITS SUB-Q ×3 (08:28→17:25)
[2024-01-07] MEDS: INSULIN ASPART (*BKC) 100 UNITS/ML SUB-Q ×2 (08:29→12:39)
[2024-01-07] MEDS: TOLNAFTATE 1% POWDER 45 GM BTL 1 APPLIC TOPICAL ×2 (08:30→21:17)
[2024-01-07] MEDS: SODIUM CHLORIDE 0.9% IV 1,000 ML 100 ML IV CONT (08:40)
--- NOTE | 2024-01-07 11:41 | P.CDI_ITS ---
CDI Query Clarification Request Documented history of CHF. CHF noted on the assessment and plan. Elevated BNP on 01/03/24 lab work. Patient received Lasix. 01/06/24 chest xray notes pulmonary edema. Please specify type and acuity of heart failure if known. * Acute * Chronic * Acute on Chronic * Unknown * Systolic * Diastolic * Combined Systolic and Diastolic * Unknown <Amelia Ledezma RN - Last Filed: 01/07/24 11:43> Documented history of CHF. CHF noted on the assessment and plan. Elevated BNP on 01/03/24 lab work. Patient received Lasix. 01/06/24 chest xray notes pulmonary edema. Please specify type and acuity of heart failure if known. * Acute * Chronic * Acute on Chronic * Unknown * Systolic * Diastolic * Combined Systolic and Diastolic * Unknown <Joshua Srivastava MD - Last Filed: 01/07/24 17:05> Clarified Diagnosis Clarified Diagnosis: Unknown will order an echo <Joshua Srivastava MD - Last Filed: 01/07/24 17:05>
[2024-01-07 12:36] LABS: Glucose Point of Care 319 mg/dl (65-105)
[2024-01-07] MEDS: SENNA/DOCUSATE SODIUM TABLET 2 TAB PO ×2 (12:36→17:22)
[2024-01-07 16:42] LABS: Glucose Point of Care 186 mg/dl (65-105)
--- NOTE | 2024-01-07 21:49 | ECG_ITS ---
Measurements Intervals [place] Rate: 99 P: 98 [place]: 153 QRS: 74 QRSD: 159 T: 149 QT: 411 QTc: 529 Interpretive Statements SINUS RHYTHM WITH OCCASIONAL VENTRICULAR PREMATURE COMPLEXES WITH OCCASIONAL SUPRAVENTRICULAR PREMATURE COMPLEXES RIGHT BUNDLE BRANCH BLOCK [120+ ms QRS DURATION, UPRIGHT V1, 40+ ms S IN I/aVL/V4/V5/V6] MODERATE T-WAVE ABNORMALITY, CONSIDER LATERAL ISCHEMIA [-0.1+ mV T WAVE IN I/aVL/V5/V6] ABNORMAL ECG COMPARED TO ECG 01/03/2024 18:03:38 HEART RATE HAS DECREASED Electronically Signed On 01-08-2024 12:22:04 AIRPLANE CAPTAIN by Ruslan Pinzon M.D.
[2024-01-07 22:02] LABS: Glucose Point of Care 161 mg/dl (65-105)
[2024-01-07] MEDS: ESTRADIOL VAGINAL CREAM 42.5 GM 1 APPLIC VAGINAL (22:16)
[2024-01-08] VITALS (14 sets, daily range): BP systolic 120–137; BP diastolic 49–97; PULSE 90–108; RESP 12–23; TEMP 37.3–37.4; O2SAT 93–100
--- NOTE | 2024-01-08 | ECHO_ITS ---
Patient Info Name: Vanita Parker Age: 73 years : 1950 Gender: Female Ht: 62 in Wt: 200 lbs BSA: 2.04 m2 HR: 98 bpm Heart Rhythm: Tachycardia, Sinus Rhythm Technical Quality: Good Exam Date: 01/08/2024 9:26 AM Exam Location: Echo Lab Patient Status: Inpatient Admit Date: 01/04/2024 BP unable to obtain due to: IV Staff Ordering Physician: Joshua Srivastava MD Blower Installer: Geeta Tolentino RDCS Attending Provider: Alexsander Amaral MD Exam Type: CA echo doppler color flow Study Info Indications - dizziness Complete two-dimensional, color flow and Doppler transthoracic echocardiogram is performed. Summary 1. Complete two-dimensional, color flow and Doppler transthoracic echocardiogram is performed. 2. Technically difficult study with limited views. 3. Left ventricular chamber dimension is normal. 4. Left ventricular systolic function is mildly reduced, estimated at 45-50% with hypokinesis of the mid and basal inferolateral wall. 5. There is mildly increased left ventricular wall thickness. 6. Left ventricular septal wall motion is abnormal with septal motion related to bundle branch block. 7. The left ventricular diastolic function is grade I diastolic dysfunction. 8. Left atrial chamber dimension is moderately enlarged. 9. There is no aortic valve stenosis. 10. There is trace aortic valve regurgitation. 11. There is mild to moderate mitral valve regurgitation. 12. There is mild tricuspid valve regurgitation. 13. Moderate pulmonary hypertension, estimated pulmonary arterial systolic pressure is 49 mmHg. Left Ventricle Left ventricular chamber dimension is normal. Left ventricular systolic function is mildly reduced, estimated at 45-50% with hypokinesis of the mid and basal inferolateral wall. There is mildly increased left ventricular wall thickness. Left ventricular septal wall motion is abnormal with septal motion related to bundle branch block. The left ventricular diastolic function is grade I diastolic dysfunction. Technically difficult study with limited views. Right Ventricle Right ventricular chamber dimension is normal. Right ventricular systolic function is normal. Left Atria Left atrial chamber dimension is moderately enlarged. Right Atria Right atrial chamber dimension is mildly enlarged. Aortic Valve The aortic valve is probable trileaflet. There is moderate aortic valve sclerosis. There is no aortic valve stenosis. There is trace aortic valve regurgitation. Pulmonic Valve The pulmonic valve is not well visualized. There is trace pulmonic regurgitation. Mitral Valve The mitral valve has thickened leaflets. There is mild to moderate mitral valve regurgitation. The mitral valve annulus is mildly calcified. Tricuspid Valve The tricuspid valve leaflets are normal. There is mild tricuspid valve regurgitation. Moderate pulmonary hypertension, estimated pulmonary arterial systolic pressure is 49 mmHg. Pericardium/Pleural The pericardium appears normal. There is no pericardial effusion. Aorta The aortic root size at the sinus of Valsalva is normal. There is mild aortic atherosclerosis. Left Ventricular Outflow Tract Name Value Normal LVOT 2D LVOT Diameter 2.2 cm LVOT Doppler
[2024-01-08] MEDS: HYDROcodone/acetaminophen (*CRX) 7.5-325 MG TABLET 1 TAB PO ×3 (02:41→20:40)
[2024-01-08] MEDS: IPRATROPIUM 0.5 MG/ALBUTEROL SULFATE 2.5 MG AMPUL.NEB 3 ML INHALATION ×2 (03:08→08:41)
[2024-01-08 04:07] LABS: Basophils Percent Auto 0.1 % (0.2-1.2); Eosinophils Percent Auto 0.1 % (0-4.4); Hematocrit 33.3 % (37.0-47.0); Hemoglobin 9.8 g/dL (12.0-15.0); Immature Granulocyte Absolute 0.08 K/mm3 (0.00-0.031); Immature Granulocyte Percent A 0.9 % (0-0.5); Lymphocytes Percent Auto 2.4 % (18.3-44.2); Mean Corpuscular HGB Conc 29.4 g/dl (32-36); Mean Corpuscular Hemoglobin 30.6 pg (26-34); Mean Corpuscular Volume 104.1 fl (80-100); Mean Platelet Volume 12.1 fl (7.4-10.4); Monocytes Absolute Auto 0.3 K/mm3 (0.1-0.6); Monocytes Percent Auto 3.9 % (2.6-8.5); Neutrophils Absolute Auto 7.9 K/mm3 (1.3-6.7); Neutrophils Percent Auto 92.6 % (45.5-73.1); Platelet Count Result 125 k/mm3 (150-375); Red Cell Distribution Width 14.4 % (11.5-14.5); White Blood Count 8.5 K/mm3 (4.5-10.0)
[2024-01-08 04:30] LABS: Alanine Aminotransferase 8 U/L (6-35); Albumin Level 2.9 g/dL (3.5-5.1); Alkaline Phosphatase 83 U/L (38-126); Anion Gap 3 mmol/L (8-16); Aspartate Amino Transferase 17 U/L (14-36); Bilirubin,Total 0.3 mg/dL (0.2-1.3); Blood Urea Nitrogen 22 mg/dL (7-17); Calcium 8.4 mg/dL (8.4-10.2); Carbon Dioxide 36 mmol/L (22-30); Chloride 96 mmol/L (98-107); Estimated CRCL calculation 53 ml/min; Estimated Glomerular Filt Rate > 60; Glucose 332 mg/dL (65-110); Sodium 135 mmol/L (137-145)
[2024-01-08] MEDS: HYDROCORTISONE SODIUM SUCCINATE 100 MG/2 ML VIAL IV PUSH (05:04)
[2024-01-08] MEDS: ceFAZolin 1 GM/NS 50 ML 1 GM/50 ML BAG IVPB ×2 (05:04→15:57)
[2024-01-08] MEDS: ONDANSETRON INJ 4 MG/2 ML VIAL IV PUSH ×3 (05:54→20:41)
[2024-01-08 07:54] LABS: Glucose Point of Care 339 mg/dl (65-105)
[2024-01-08] MEDS: ESCITALOPRAM OXALATE 10 MG TABLET PO (08:25)
[2024-01-08] MEDS: ASPIRIN 325 MG ENTERIC TABLET PO ×2 (08:25→20:40)
[2024-01-08] MEDS: MIDODRINE HCL 10 MG TABLET PO ×3 (08:25→16:53)
[2024-01-08] MEDS: SENNA/DOCUSATE SODIUM TABLET 2 TAB PO ×2 (08:25→16:53)
[2024-01-08] MEDS: polyethylene glycoL 3350 17 GM POWD.PACK PO (08:25)
[2024-01-08] MEDS: INSULIN ASPART (*BKC) 100 UNITS/ML 15 UNITS SUB-Q ×3 (08:26→16:54)
[2024-01-08] MEDS: NICOTINE (*PBKC) 14 MG PATCH 1 PATCH TRANSDERM (08:26)
[2024-01-08] MEDS: INSULIN ASPART (*BKC) 100 UNITS/ML SUB-Q ×2 (08:26→11:54)
[2024-01-08] MEDS: TOLNAFTATE 1% POWDER 45 GM BTL 1 APPLIC TOPICAL ×2 (08:27→20:49)
[2024-01-08] MEDS: HYDROcodone/acetaminophen (*CRX) 5-325 MG TABLET 2 TAB PO ×2 (08:28→17:02)
[2024-01-08] MEDS: UMECLIDINIUM BROMIDE 62.5 MCG ELLIPTA 1 PUFF INHALATION (08:39)
[2024-01-08] MEDS: FLUTICASONE/SALMETEROL 45-21 MCG INHALER 1 PUFF 2 PUFF INHALATION (08:39)
--- NOTE | 2024-01-08 09:45 | P.PNIM_ITS ---
Progress Note: A&P Assessment and Plan (1) UTI (urinary tract infection): Code(s): N39.0 - Urinary tract infection, site not specified Status: Acute (2) Acute kidney injury: Code(s): N17.9 - Acute kidney failure, unspecified Status: Acute (3) Ankle fracture: Code(s): S82.899A - Other fracture of unspecified lower leg, initial encounter for closed fracture Status: Acute (4) Acute on chronic respiratory failure with hypoxia and hypercapnia: Code(s): J96.21 - Acute and chronic respiratory failure with hypoxia; J96.22 - Acute and chronic respiratory failure with hypercapnia Status: Acute Plan Acute on chronic respiratory failure with hypoxia and hypercapnia History of chronic respiratory failure with hypoxia; J96.12 - Chronic respiratory failure with hypercapnia * Initial pCO2 was 71.4, patient was started on BiPAP * SpO2 86-89 01/05/24: * pCO2 yesterday 51.1 * Continue with Bipap at night due to hypercapnia * Patient normally wears 4L NC at home at all times 01/06 possible due to narcotic meds, superimposed with COPD exacerbation Repeat chest x-ray now on 4 l baselin consult tax director for evaluation treatment, appreciate tax director input COPD exacerbation Continue home medications Spiriva 1 puff daily Continue umeclidimum 1 puff daily Start DuoNeb scheduled q.6 hours, albuterol nebulizer q.6 hours p.r.n. now on 4 l resolved Hypotension Patient took prednisone at home, given hypotension that is possible secondary to acute adrenal crisis, start hydrocortisone 100 mg q.6 hours IV 01/06 Add midodrine 100 mg t.i.d. p.o. 01/07 BP stable dc hydrocortisone today, start fludrocortisone 0.1 mg daily p.o. tomorrow acute chronic systolic heart failure: 01/04/24 * ProBNP 15250 * Patient given 40 of Lasix IV in the ER * Medications on hold due to low blood pressure with systolics in the 90s 01/05/24: * Blood pressures still running low, continue to hold blood pressure medications at this time. 01/08echo report reduced EF 45-50%, hypokinesis of the mid and basal inferior wall CXR suggests cardiomegaly and pulmonary edema, start Lasix 40 mg IV push b.i.d. Consult medical records field technician for evaluation treatment Ankle fracture: ?Code(s): S82.899A - Other fracture of unspecified lower leg, initial encounter for closed fracture ?Status:?Acute ?Assessment and Plan: 01/04/24: * Ankle x-ray showing trimalleolar right ankle fracture with tibiotalar subluxation versus mild posterior dislocation, posterior malleolus fragment is superiorly displaced, resulting in an articular surface step off. * Ankle was reduced in the emergency room and splinted * Ankle CT shown trimalleolar right ankle fracture status post reduction, tibiotalar joint is in alignment, no additional fracture detected.? No tibial plafond found and articular surface step-off, residual articular step-off gap ranging between 2-4 mm. * Orthopedic surgery was consulted and patient will require an ORIF, will likely go to the OR tomorrow. * Continue with pain control * Continue to ice and elevate as needed 01/05/24: ORIF may require vent wean in ICU post op * Continue pain control, tylenol ordered considering low borderline blood pressure. * Continue to ICE and elevate * Ortho following (3) UTI (urinary tract infection): ?Code(s): N39.0 - Urinary tract infection, site not specified ?Status:?Acute ?Assessment and Plan: 01/04/24: * UA showing 1+ protein, trace ketones, 1+ leukocytes, greater than 100 urine
--- NOTE | 2024-01-08 09:45 | PM.IMPN ---
Progress Note: A&P Assessment and Plan (1) UTI (urinary tract infection): Code(s): N39.0 - Urinary tract infection, site not specified Status: Acute (2) Acute kidney injury: Code(s): N17.9 - Acute kidney failure, unspecified Status: Acute (3) Ankle fracture: Code(s): S82.899A - Other fracture of unspecified lower leg, initial encounter for closed fracture Status: Acute (4) Acute on chronic respiratory failure with hypoxia and hypercapnia: Code(s): J96.21 - Acute and chronic respiratory failure with hypoxia; J96.22 - Acute and chronic respiratory failure with hypercapnia Status: Acute Plan Acute on chronic respiratory failure with hypoxia and hypercapnia History of chronic respiratory failure with hypoxia; J96.12 - Chronic respiratory failure with hypercapnia Initial pCO2 was 71.4, patient was started on BiPAP SpO2 86-89 01/05/24: pCO2 yesterday 51.1 Continue with Bipap at night due to hypercapnia Patient normally wears 4L NC at home at all times 01/06 possible due to narcotic meds, superimposed with COPD exacerbation Repeat chest x-ray now on 4 l baselin consult ski tow operator for evaluation treatment, appreciate ski tow operator input COPD exacerbation Continue home medications Spiriva 1 puff daily Continue umeclidimum 1 puff daily Start DuoNeb scheduled q.6 hours, albuterol nebulizer q.6 hours p.r.n. now on 4 l resolved Hypotension Patient took prednisone at home, given hypotension that is possible secondary to acute adrenal crisis, start hydrocortisone 100 mg q.6 hours IV 01/06 Add midodrine 100 mg t.i.d. p.o. 01/07 BP stable dc hydrocortisone today, start fludrocortisone 0.1 mg daily p.o. tomorrow acute chronic systolic heart failure: 01/04/24 ProBNP 54574 Patient given 40 of Lasix IV in the ER Medications on hold due to low blood pressure with systolics in the 90s 01/05/24: Blood pressures still running low, continue to hold blood pressure medications at this time. 01/08echo report reduced EF 45-50%, hypokinesis of the mid and basal inferior wall CXR suggests cardiomegaly and pulmonary edema, start Lasix 40 mg IV push b.i.d. Consult sas developer analyst for evaluation treatment Ankle fracture: ?Code(s): S82.899A - Other fracture of unspecified lower leg, initial encounter for closed fracture ?Status:?Acute ?Assessment and Plan: 01/04/24: Ankle x-ray showing trimalleolar right ankle fracture with tibiotalar subluxation versus mild posterior dislocation, posterior malleolus fragment is superiorly displaced, resulting in an articular surface step off. Ankle was reduced in the emergency room and splinted Ankle CT shown trimalleolar right ankle fracture status post reduction, tibiotalar joint is in alignment, no additional fracture detected.? No tibial plafond found and articular surface step-off, residual articular step-off gap ranging between 2-4 mm. Orthopedic surgery was consulted and patient will require an ORIF, will likely go to the OR tomorrow. Continue with pain control Continue to ice and elevate as needed 01/05/24: ORIF may require vent wean in ICU post op Continue pain control, tylenol ordered considering low borderline blood pressure. Continue to ICE and elevate Ortho following (3) UTI (urinary tract infection): ?Code(s): N39.0 - Urinary tract infection, site not specified ?Status:?Acute ?Assessment and Plan: 01/04/24: UA showing 1+ protein, trace ketones, 1+ leukocytes, greater than 100 urine RBCs, 21-50 urine wbc's, 4+ bacteria Urine culture was obtained and is pending Currently on Levaquin 01/05/24: Urine culture showing E coli on preliminary read Blood cultures showing no growth to date on preliminary read Continue with IV Levaquin for today, may switch to oral Levaquin tomorrow after her surgery pending oxygen requirements. 01/06, Levaquin was stopped, patient is on cefazolin 1 g q.8 hours, urine culture grows E
[2024-01-08 10:32] LABS: Procalcitonin 0.2 ng/mL
[2024-01-08 11:28] LABS: NT Pro B Type Natriuretic Pept 25900 pg/mL (19.9-100)
--- NOTE | 2024-01-08 11:49 | PM.CNPUL ---
Assessment and Plan Assessment and plan (1) COPD (chronic obstructive pulmonary disease): Code(s): J44.9 - Chronic obstructive pulmonary disease, unspecified Status: Acute Assessment and Plan: gold grade 3 group B COPD patient with a history of 108 pack year tobacco use, quit 4 days ago when she was hospitalized, spirometry on 04/10/2021 with an FEV1 is 0.96, 40% predicted, ratio 49%, CT scan on 08/07/2023 with mild to moderate apical predominant centrilobular emphysema. Patient is a been on 4 L nasal cannula oxygen 247 for the last 5 years. Prior to her fall she could walk 100 ft. She has been maintained on Spiriva Respimat. Currently the patient has no wheezing, no change in her phlegm and no change in her shortness of breath and I do not believe she has an active COPD exacerbation. She remains hypoxic but is on her baseline 4 L nasal cannula. The patient has chronic hypercarbic respiratory failure with an admission bicarbonate of greater than 40 and a blood gas on BiPAP 7.37/71/59. Patient has a chest [place] [address]. Echocardiogram has been ordered. Patient is attempting to be diuresed aggressively with Lasix 40 IV b.i.d. but this has been limited by low blood pressure. Agree with as aggressive diuresis as tolerated by patient's cardiac and renal systems per the hospitalist team. Currently she is on Lasix 40 IV b.i.d.. Her weight today is 92.4 with admission weight of 92.9. Plan: Patient is currently on Incruse and Advair. I will discontinue the inhaled corticosteroids an continue the long-acting muscarinic antagonist and long-acting beta agonist and prescribed Anoro Ellipta. She has no evidence of an active COPD exacerbation and I do not see a need for systemic steroids or antibiotics from a pulmonary perspective. Goal saturation 90-94% and wean oxygen accordingly. discussed with Dr. Srivastava, will follow with you (2) Acute on chronic respiratory failure with hypoxia and hypercapnia: Code(s): J96.21 - Acute and chronic respiratory failure with hypoxia; J96.22 - Acute and chronic respiratory failure with hypercapnia Status: Acute Assessment and Plan: Patient with gold grade 3 COPD by PFTs and chronic hypercarbic respiratory failure with a previous blood gas on 05/21/2022 with a pH of 7.36/66/64 on 4 L. Patient is currently admitted with acute on chronic hypercarbic respiratory failure on BiPAP with a pH of 7.37/71/59. Her serum bicarbonate was greater than 40 when she is admitted. The patient has chronic hypercarbic respiratory failure from her COPD and would benefit from noninvasive ventilation to prevent further hospitalization and subsequent durations. The patient could not tolerate BiPAP because the pressure was uncomfortable for her and she has refused BiPAP during this hospitalization. 01/08/24: I placed the patient on BiPAP rate of 18, pressures 14/7 with the inspiratory time of 0.9 and rise of 2 in 40% and she said that this was uncomfortable she could not tolerate the pressures. I then placed her on an AVAPS mode and adjusted the settings to comfort resulting in a rate of 20, tidal volume 500, EPAP 5, minimal inspiratory pressure 6, maximal inspiratory pressure 25, inspiratory time 1.2, rise of 5 and 40% with saturations 100, minute ventilation 10.8 and a peak inspiratory pressure of 9. Plan: The patient will wear noninvasive ventilation with the AVAPS mode and the settings listed above tonight and I will perform an overnight oximetry on 32% and a blood gas prior to removal of the machine in the morning. Plan History of Present Illness History of Present Illness Consult date: 01/08/24 Chief complaint: Ankle Fracture, CHF Narrative: 73-year-old with a history of CHF, hyperlipidemia, peripheral arterial disease, diabetes, depression, chronic back pain with a stimulator, frequent falls, COPD on 4 L nasal cannula oxygen for 5 years. Patient was f
[2024-01-08 12:01] LABS: Glucose Point of Care 279 mg/dl (65-105)
--- NOTE | 2024-01-08 15:37 | PCRCNOTE ---
FAXED NOTES, ORDER, ABG, FACE SHEET TO [facility] AT [facility]. HE WILL DROP OFF ORDER FORM FOR TRILOGY UNIT TO BE SIGNED BY DR LYMAN TODAY. [facility]. AND WILL BE ABLE TO PROVIDE TRILOGY UNIT IF D/C TO FACILITY.
[2024-01-08] MEDS: FUROSEMIDE INJ 40 MG/4 ML VIAL IV PUSH (16:53)
[2024-01-08] MEDS: NITROFURANTOIN MONOHYD MACROCR 100 MG CAP PO (20:41)
[2024-01-08] MEDS: NYSTATIN 100,000 UNITS/ML SUSP 5 ML ORAL.SUSP PO (20:49)
[2024-01-08] MEDS: DEXTROSE 50% 25 GM/50 ML SYRINGE IV PUSH (21:08)
[2024-01-08 22:01] LABS: Hepatitis B Surface Antigen Negative (Negative)
[2024-01-08 22:18] LABS: HIV 1/2 Ab P24 Ag Result Negative (Negative); Hepatitis C Virus Antibody Negative (Negative)
[2024-01-09] VITALS (10 sets, daily range): BP systolic 96–127; BP diastolic 47–99; PULSE 83–102; RESP 11–21; TEMP 37.1–37.7; O2SAT 90–98
[2024-01-09] MEDS: HYDROcodone/acetaminophen (*CRX) 5-325 MG TABLET 2 TAB PO ×3 (02:34→17:56)
[2024-01-09] MEDS: ONDANSETRON INJ 4 MG/2 ML VIAL IV PUSH ×2 (02:35→13:49)
[2024-01-09 02:40] LABS: Glucose Point of Care 40 mg/dl (65-105)
[2024-01-09 02:40] LABS: Glucose Point of Care 49 mg/dl (65-105)
[2024-01-09 02:40] LABS: Glucose Point of Care 73 mg/dl (65-105)
[2024-01-09 02:40] LABS: Glucose Point of Care 191 mg/dl (65-105)
[2024-01-09 02:40] LABS: Glucose Point of Care 131 mg/dl (65-105)
[2024-01-09 05:08] LABS: Alveolar/Arterial O2 Gradient 91.7 mmHg; Base Excess ABG 13.6 mEq/l (+/-2.0); Fractional Inspired Oxygen 32 %; Oxygen Content ABG 15.1 %vol (16.0-22.0); Oxygen Saturation ABG 93.3 % (95.0-100.0); Oxyhemoglobin 92.2 % THb (90.0-100.0); PCO2 ABG 59.8 mmHg (35.0-45.0); PO2 ABG 66.5 mmHg (80.0-100.0); PO2 FiO2 Ratio Arterial Blood 2.08 %; Total Hemoglobin 11.6 g/dL (12.0-18.0); pH ABG 7.443 (7.350-7.450)
[2024-01-09] MEDS: HYDROcodone/acetaminophen (*CRX) 7.5-325 MG TABLET 1 TAB PO ×3 (06:50→20:15)
[2024-01-09 07:07] LABS: Basophils Percent Auto 0.1 % (0.2-1.2); Eosinophils Absolute Auto 0.1 K/mm3 (0-0.3); Eosinophils Percent Auto 1.1 % (0-4.4); Hematocrit 35.7 % (37.0-47.0); Hemoglobin 10.4 g/dL (12.0-15.0); Immature Granulocyte Absolute 0.04 K/mm3 (0.00-0.031); Immature Granulocyte Percent A 0.5 % (0-0.5); Lymphocytes Absolute Auto 1.61 K/mm3 (0.9-3.2); Lymphocytes Percent Auto 18.2 % (18.3-44.2); Mean Corpuscular HGB Conc 29.1 g/dl (32-36); Mean Corpuscular Hemoglobin 30.9 pg (26-34); Mean Corpuscular Volume 105.9 fl (80-100); Mean Platelet Volume 11.6 fl (7.4-10.4); Monocytes Absolute Auto 0.8 K/mm3 (0.1-0.6); Monocytes Percent Auto 8.6 % (2.6-8.5); Neutrophils Absolute Auto 6.3 K/mm3 (1.3-6.7); Neutrophils Percent Auto 71.5 % (45.5-73.1); Platelet Count Result 167 k/mm3 (150-375); Red Blood Count 3.37 M/mm3 (4.2-5.4); Red Cell Distribution Width 14.4 % (11.5-14.5); White Blood Count 8.8 K/mm3 (4.5-10.0)
[2024-01-09] MEDS: UMECLIDINIUM/VILANTEROL 62.5-25 MCG ELLIPTA 1 PUFF INHALATION (07:13)
[2024-01-09 07:18] LABS: Alanine Aminotransferase 6 U/L (6-35); Alkaline Phosphatase 82 U/L (38-126); Aspartate Amino Transferase 16 U/L (14-36); Bilirubin,Total 0.4 mg/dL (0.2-1.3); Blood Urea Nitrogen 23 mg/dL (7-17); Calcium 8.9 mg/dL (8.4-10.2); Carbon Dioxide > 40 mmol/L (22-30); Chloride 97 mmol/L (98-107); Estimated CRCL calculation 49 ml/min; Estimated Glomerular Filt Rate 55; Glucose 208 mg/dL (65-110); Potassium 4.2 mmol/L (3.4-5.0); Sodium 137 mmol/L (137-145)
[2024-01-09 07:31] LABS: Procalcitonin 0.1 ng/mL
[2024-01-09 07:44] LABS: Device NON-INVASIVE VENT
[2024-01-09 07:45] LABS: Non-Invasive Expiratory Pressure 5 CMH2O; Non-Invasive Vent Rate 20 /MIN
--- NOTE | 2024-01-09 07:45 | PM.CNCAR ---
Assessment and Plan Assessment and plan (1) Coronary artery disease: Code(s): I25.10 - Atherosclerotic heart disease of [place] coronary artery without angina pectoris Status: Acute Plan This is a 73-year-old lady reports a history of ischemic heart disease with previous percutaneous revascularization about 9 years ago at [facility]. She apparently follows with a warp picker elsewhere since then but she cannot recall the identity of that physician. We are asked to see her now apparently because of concern about congestive heart failure. She does have mildly reduced LV systolic function by recent echo but is not reporting any symptoms consistent with decompensated heart failure nor does she have any physical exam findings of this. At this time my recommendation would be to gradually wean off her main midodrine which is a truck to be avoided with systolic left ventricular dysfunction. If we can wean off her midodrine we can start some guideline directed medical therapy for systolic LV dysfunction. She was on a modest dose of metoprolol succinate upon admission that plus an ARB hopefully can be started as minimum guideline directed medical therapy for this. I do not believe we are seeing an acute clinical decompensation of heart failure at this time Edil Marcelo MD [facility] History of Present Illness History of Present Illness Consult date/time: 01/09/24 07:45 Reason For Visit: Ankle Fracture, CHF Narrative: This is a 73-year-old woman I am seeing at the request of the hospitalist for the stated reason of congestive heart failure. The patient is unknown to me prior to this encounter. She was admitted to [facility] a week ago after she fell in her home sustaining a ankle fracture. She says that she fell because she tripped over oxygen hoses. She has chronic COPD and is on home oxygen. She was seen by the hospitalist and orthopedic consultants and she had her ankle fracture repaired operatively. She still in the hospital and from what I can see in the chart her chest x-ray has been interpreted as showing some mild interstitial edema and presumably for this reason we are consulted to see her for the diagnosis of congestive heart failure. She is not reporting any orthopnea PND or edema. She is not having any recent ischemic sounding chest pain. She tells me that she has a history of coronary artery disease and about 9 years ago had a percutaneous revascularization procedure with stenting performed at [facility]. She has a warp picker somewhere that follows her case but she at this moment cannot recall the name of that position. In any event she is not reporting any clear-cut cardiac symptoms she was sleeping in bed when I came in the room to see her upon awakening she does not voice any cardiac complaints. Upon admission to the hospital she was on aspirin and a small dose of metoprolol for her coronary disease. She was also on high-dose atorvastatin. Presumably because of problematic hypotension during this hospitalization the beta-alda is not being given and she is now on a rather high dose of midodrine. Her electrocardiogram shows sinus rhythm with atrial ectopics and a right bundle branch block. A recent echocardiogram apparently demonstrates mildly reduced left ventricular systolic function with an estimated ejection fraction of 40-45% and no significant valvular dysfunction. Her COPD seems to be rather severe she has a more than 100 pack-year history of smoking and follows actively with industrial engineering intern as well. Review of Systems Constitutional: Constitutional: Reports body ache(s) Eyes: Eyes: Reports no additional eye complaints ENT: Reports system reviewed and no additional complaints, except as documented Cardiovascular: Cardiovascular: Reports no additional cardiovascular complaints Respiratory: Respiratory: Reports dyspnea Gastrointestinal: Gastrointestinal: Reports no additional gastrointestinal compl
[2024-01-09 07:54] LABS: Glucose Point of Care 201 mg/dl (65-105)
[2024-01-09] MEDS: NITROFURANTOIN MONOHYD MACROCR 100 MG CAP PO ×2 (08:04→20:15)
[2024-01-09] MEDS: ASPIRIN 325 MG ENTERIC TABLET PO ×2 (08:04→20:15)
[2024-01-09] MEDS: FUROSEMIDE INJ 40 MG/4 ML VIAL IV PUSH ×2 (08:04→16:42)
[2024-01-09] MEDS: SENNA/DOCUSATE SODIUM TABLET 2 TAB PO ×2 (08:04→16:42)
[2024-01-09] MEDS: FLUDROCORTISONE ACETATE 0.1 MG TABLET PO (08:04)
[2024-01-09] MEDS: NICOTINE (*PBKC) 14 MG PATCH 1 PATCH TRANSDERM (08:05)
[2024-01-09] MEDS: polyethylene glycoL 3350 17 GM POWD.PACK PO (08:05)
[2024-01-09] MEDS: ESCITALOPRAM OXALATE 10 MG TABLET PO (08:05)
[2024-01-09] MEDS: TOLNAFTATE 1% POWDER 45 GM BTL 1 APPLIC TOPICAL ×2 (08:06→20:15)
[2024-01-09] MEDS: NYSTATIN 100,000 UNITS/ML SUSP 5 ML ORAL.SUSP PO ×4 (08:09→20:15)
[2024-01-09] MEDS: MIDODRINE HCL 2.5 MG TABLET 5 MG PO ×3 (08:09→16:41)
[2024-01-09] MEDS: INSULIN ASPART (*BKC) 100 UNITS/ML 15 UNITS SUB-Q (08:10)
--- NOTE | 2024-01-09 09:10 | P.PNIM_ITS ---
Progress Note: A&P Assessment and Plan (1) UTI (urinary tract infection): Code(s): N39.0 - Urinary tract infection, site not specified Status: Acute (2) Acute kidney injury: Code(s): N17.9 - Acute kidney failure, unspecified Status: Acute (3) Ankle fracture: Code(s): S82.899A - Other fracture of unspecified lower leg, initial encounter for closed fracture Status: Acute (4) Acute on chronic respiratory failure with hypoxia and hypercapnia: Code(s): J96.21 - Acute and chronic respiratory failure with hypoxia; J96.22 - Acute and chronic respiratory failure with hypercapnia Status: Acute Plan Acute on chronic respiratory failure with hypoxia and hypercapnia History of chronic respiratory failure with hypoxia; J96.12 - Chronic respiratory failure with hypercapnia * Initial pCO2 was 71.4, patient was started on BiPAP * SpO2 86-89 01/05/24: * pCO2 yesterday 51.1 * Continue with Bipap at night due to hypercapnia * Patient normally wears 4L NC at home at all times 01/06 possible due to narcotic meds, superimposed with COPD exacerbation Repeat chest x-ray now on 4 l baselin consult tape machine tailer for evaluation treatment, appreciate tape machine tailer input COPD exacerbation Continue home medications Spiriva 1 puff daily Continue umeclidimum 1 puff daily Start DuoNeb scheduled q.6 hours, albuterol nebulizer q.6 hours p.r.n. now on 4 l resolved Hypotension Patient took prednisone at home, given hypotension that is possible secondary to acute adrenal crisis, start hydrocortisone 100 mg q.6 hours IV 01/06 Add midodrine 100 mg t.i.d. p.o. 01/07 BP stable dc hydrocortisone today, start fludrocortisone 0.1 mg daily p.o. tomorrow BP stable decrease midodrine to 5 mg t.i.d. p.o. per development eng acute chronic systolic heart failure: 01/04/24 * ProBNP 13022 * Patient given 40 of Lasix IV in the ER * Medications on hold due to low blood pressure with systolics in the 90s 01/05/24: * Blood pressures still running low, continue to hold blood pressure medications at this time. 01/08echo report reduced EF 45-50%, hypokinesis of the mid and basal inferior wall CXR suggests cardiomegaly and pulmonary edema, start Lasix 40 mg IV push b.i.d. Consult development eng for evaluation treatment Appreciate cardiology consultation, will continue furosemide IV 40 mg b.i.d. today, Ankle fracture: ?Code(s): S82.899A - Other fracture of unspecified lower leg, initial encounter for closed fracture ?Status:?Acute ?Assessment and Plan: 01/04/24: * Ankle x-ray showing trimalleolar right ankle fracture with tibiotalar subluxation versus mild posterior dislocation, posterior malleolus fragment is superiorly displaced, resulting in an articular surface step off. * Ankle was reduced in the emergency room and splinted * Ankle CT shown trimalleolar right ankle fracture status post reduction, tibiotalar joint is in alignment, no additional fracture detected.? No tibial plafond found and articular surface step-off, residual articular step-off gap ranging between 2-4 mm. * Orthopedic surgery was consulted and patient will require an ORIF, will likely go to the OR tomorrow. * Continue with pain control * Continue to ice and elevate as needed 01/05/24: ORIF may require vent wean in ICU post op * Continue pain control, tylenol ordered considering low borderline blood pressure. * Continue to ICE and elevate * Ortho following (3) UTI (urinary tract infection): ?Code(s): N39.0 - Urinary tract infection, site not specif
--- NOTE | 2024-01-09 09:10 | PM.IMPN ---
Progress Note: A&P Assessment and Plan (1) UTI (urinary tract infection): Code(s): N39.0 - Urinary tract infection, site not specified Status: Acute (2) Acute kidney injury: Code(s): N17.9 - Acute kidney failure, unspecified Status: Acute (3) Ankle fracture: Code(s): S82.899A - Other fracture of unspecified lower leg, initial encounter for closed fracture Status: Acute (4) Acute on chronic respiratory failure with hypoxia and hypercapnia: Code(s): J96.21 - Acute and chronic respiratory failure with hypoxia; J96.22 - Acute and chronic respiratory failure with hypercapnia Status: Acute Plan Acute on chronic respiratory failure with hypoxia and hypercapnia History of chronic respiratory failure with hypoxia; J96.12 - Chronic respiratory failure with hypercapnia Initial pCO2 was 71.4, patient was started on BiPAP SpO2 86-89 01/05/24: pCO2 yesterday 51.1 Continue with Bipap at night due to hypercapnia Patient normally wears 4L NC at home at all times 01/06 possible due to narcotic meds, superimposed with COPD exacerbation Repeat chest x-ray now on 4 l baselin consult furnace firer for evaluation treatment, appreciate furnace firer input COPD exacerbation Continue home medications Spiriva 1 puff daily Continue umeclidimum 1 puff daily Start DuoNeb scheduled q.6 hours, albuterol nebulizer q.6 hours p.r.n. now on 4 l resolved Hypotension Patient took prednisone at home, given hypotension that is possible secondary to acute adrenal crisis, start hydrocortisone 100 mg q.6 hours IV 01/06 Add midodrine 100 mg t.i.d. p.o. 01/07 BP stable dc hydrocortisone today, start fludrocortisone 0.1 mg daily p.o. tomorrow BP stable decrease midodrine to 5 mg t.i.d. p.o. per furnace helper acute chronic systolic heart failure: 01/04/24 ProBNP 78257 Patient given 40 of Lasix IV in the ER Medications on hold due to low blood pressure with systolics in the 90s 01/05/24: Blood pressures still running low, continue to hold blood pressure medications at this time. 01/08echo report reduced EF 45-50%, hypokinesis of the mid and basal inferior wall CXR suggests cardiomegaly and pulmonary edema, start Lasix 40 mg IV push b.i.d. Consult furnace helper for evaluation treatment Appreciate cardiology consultation, will continue furosemide IV 40 mg b.i.d. today, Ankle fracture: ?Code(s): S82.899A - Other fracture of unspecified lower leg, initial encounter for closed fracture ?Status:?Acute ?Assessment and Plan: 01/04/24: Ankle x-ray showing trimalleolar right ankle fracture with tibiotalar subluxation versus mild posterior dislocation, posterior malleolus fragment is superiorly displaced, resulting in an articular surface step off. Ankle was reduced in the emergency room and splinted Ankle CT shown trimalleolar right ankle fracture status post reduction, tibiotalar joint is in alignment, no additional fracture detected.? No tibial plafond found and articular surface step-off, residual articular step-off gap ranging between 2-4 mm. Orthopedic surgery was consulted and patient will require an ORIF, will likely go to the OR tomorrow. Continue with pain control Continue to ice and elevate as needed 01/05/24: ORIF may require vent wean in ICU post op Continue pain control, tylenol ordered considering low borderline blood pressure. Continue to ICE and elevate Ortho following (3) UTI (urinary tract infection): ?Code(s): N39.0 - Urinary tract infection, site not specified ?Status:?Acute ?Assessment and Plan: 01/04/24: UA showing 1+ protein, trace ketones, 1+ leukocytes, greater than 100 urine RBCs, 21-50 urine wbc's, 4+ bacteria Urine culture was obtained and is pending Currently on Levaquin 01/05/24: Urine culture showing E coli on preliminary read Blood cultures showing no growth to date on preliminary read Continue with IV Levaquin for today, may switch to oral Le
--- NOTE | 2024-01-09 09:31 | PM.PNPUL ---
Progress Note: A&P Assessment and Plan (1) COPD (chronic obstructive pulmonary disease): Code(s): J44.9 - Chronic obstructive pulmonary disease, unspecified Status: Acute Assessment and Plan: Gold grade 3 group B COPD patient with a history of 108 pack year tobacco use, quit 4 days ago when she was hospitalized, spirometry on 04/10/2021 with an FEV1 is 0.96, 40% predicted, ratio 49%, CT scan on 08/07/2023 with mild to moderate apical predominant centrilobular emphysema. Patient is a been on 4 L nasal cannula oxygen 247 for the last 5 years. Prior to her fall she could walk 100 ft. She has been maintained on Spiriva Respimat. Currently the patient has no wheezing, no change in her phlegm and no change in her shortness of breath and I do not believe she has an active COPD exacerbation. She remains hypoxic but is on her baseline 4 L nasal cannula. The patient has chronic hypercarbic respiratory failure with an admission bicarbonate of greater than 40 and a blood gas on BiPAP 7.37/71/59. Patient has a chest [place] [address]. Echocardiogram has been ordered. Patient is attempting to be diuresed aggressively with Lasix 40 IV b.i.d. but this has been limited by low blood pressure. Agree with as aggressive diuresis as tolerated by patient's cardiac and renal systems per the hospitalist team. Currently she is on Lasix 40 IV b.i.d.. Her weight today is 92.4 with admission weight of 92.9. Plan: Patient is currently on Incruse and Advair. I will discontinue the inhaled corticosteroids an continue the long-acting muscarinic antagonist and long-acting beta agonist and prescribed Anoro Ellipta. She has no evidence of an active COPD exacerbation and I do not see a need for systemic steroids or antibiotics from a pulmonary perspective. Goal saturation 90-94% and wean oxygen accordingly. 01/09/24: overall the patient states she is breathing at her baseline. She has baseline minimal cough and phlegm production. She has no hemoptysis. when I entered the room she was on 4 L nasal cannula she was awake and alert in no respiratory distress and saturations 96%. I decreased her to 3 L nasal cannula and after 6 minutes her saturation was 94%. White blood cell count 8.8, creatinine 1.0. Plan: No wheezing on exam, she is stable on Anoro Ellipta 1 puff q.day. goal saturation 90-94%. From a pulmonary perspective patient is ready to be discharged on these pulmonary medicines: Anoro Ellipta 62.5-25 at 1 puff q.day Rescue albuterol 2 puffs q.4 hours p.r.n. shortness of breath or wheezing. Oxygen at rest and with activity per rehab centers protocol. Currently she is on 3 L nasal cannula at rest with saturations 94%. When she naps or sleeps noninvasive ventilation with AVAPS AE through via med with a rate of 20, tidal volume 500, EPAP minimum 5, EPAP maximum 15, pressure support minimum 6, pressure support maximum 25, maximum pressure 40 and 3 L bleed in. Diuretics per hospitalist team Patient follow-up in the Pulmonary Clinic in 3-4 weeks. I gave her our business card and informed our neurologist. Discussed with Dr. Srivastava, Will sign off, call with questions. (2) Acute on chronic respiratory failure with hypoxia and hypercapnia: Code(s): J96.21 - Acute and chronic respiratory failure with hypoxia; J96.22 - Acute and chronic respiratory failure with hypercapnia Status: Acute Assessment and Plan: Patient with gold grade 3 COPD by PFTs and chronic hypercarbic respiratory failure with a previous blood gas on 05/21/2022 with a pH of 7.36/66/64 on 4 L. Patient is currently admitted with acute on chronic hypercarbic respiratory failure on BiPAP with a pH of 7.37/71/59. Her serum bicarbonate was greater than 40 when she is admitted. The patient has chronic hypercarbic respiratory failure from her COPD and would benefit from noninvasive ventilation to prevent further hospitalization and subsequent durations.
--- NOTE | 2024-01-09 09:46 | PCPTNOTE ---
Attempted PT treatment, pt refused therapy until spouse can be present. RN aware. Will follow.
[2024-01-09 11:37] LABS: Glucose Point of Care 93 mg/dl (65-105)
[2024-01-09 16:53] LABS: Glucose Point of Care 118 mg/dl (65-105)
--- NOTE | 2024-01-09 18:15 | PC.NURSE ---
Received from ICU/8 via bed. Disla draining clear yellow urine.
--- NOTE | 2024-01-09 18:25 | PC.NURSE ---
This patient, Vanita Parker, [facility] at 1810. Personal belongings sent with patient. Report given to Veronica. Appropriate documentation sent with patient.
[2024-01-09] MEDS: CYCLOBENZAPRINE HCL 10 MG TABLET PO (18:45)
[2024-01-09] MEDS: INSULIN ASPART (*BKC) 100 UNITS/ML SUB-Q (20:18)
[2024-01-10] MEDS: HYDROcodone/acetaminophen (*CRX) 5-325 MG TABLET 2 TAB PO ×2 (01:29→08:54)
[2024-01-10] MEDS: HYDROcodone/acetaminophen (*CRX) 5-325 MG TABLET 1 TAB PO ×3 (05:11→16:07)
[2024-01-10 05:24] LABS: Basophils Percent Auto 0.1 % (0.2-1.2); Eosinophils Absolute Auto 0.2 K/mm3 (0-0.3); Eosinophils Percent Auto 2.6 % (0-4.4); Hematocrit 36.1 % (37.0-47.0); Hemoglobin 10.4 g/dL (12.0-15.0); Immature Granulocyte Absolute 0.02 K/mm3 (0.00-0.031); Immature Granulocyte Percent A 0.3 % (0-0.5); Lymphocytes Absolute Auto 1.97 K/mm3 (0.9-3.2); Lymphocytes Percent Auto 27.4 % (18.3-44.2); Mean Corpuscular HGB Conc 28.8 g/dl (32-36); Mean Corpuscular Hemoglobin 30.2 pg (26-34); Mean Corpuscular Volume 104.9 fl (80-100); Mean Platelet Volume 11.6 fl (7.4-10.4); Monocytes Absolute Auto 0.6 K/mm3 (0.1-0.6); Monocytes Percent Auto 8.4 % (2.6-8.5); Neutrophils Absolute Auto 4.4 K/mm3 (1.3-6.7); Neutrophils Percent Auto 61.2 % (45.5-73.1); Platelet Count Result 150 k/mm3 (150-375); Red Blood Count 3.44 M/mm3 (4.2-5.4); Red Cell Distribution Width 13.8 % (11.5-14.5); White Blood Count 7.2 K/mm3 (4.5-10.0)
[2024-01-10 06:00] VITALS: BP 113/52; PULSE 88; RESP 18; TEMP 36.7; O2SAT 96
[2024-01-10 06:19] LABS: Alanine Aminotransferase 6 U/L (6-35); Albumin Level 2.8 g/dL (3.5-5.1); Alkaline Phosphatase 84 U/L (38-126); Aspartate Amino Transferase 17 U/L (14-36); Bilirubin,Total 0.5 mg/dL (0.2-1.3); Blood Urea Nitrogen 27 mg/dL (7-17); Calcium 8.7 mg/dL (8.4-10.2); Carbon Dioxide > 40 mmol/L (22-30); Chloride 92 mmol/L (98-107); Estimated CRCL calculation 45 ml/min; Estimated Glomerular Filt Rate 49; Glucose 196 mg/dL (65-110); Potassium 3.8 mmol/L (3.4-5.0); Sodium 134 mmol/L (137-145)
[2024-01-10 06:25] LABS: Procalcitonin 0.1 ng/mL
[2024-01-10 07:41] LABS: Glucose Point of Care 226 mg/dl (65-105)
--- NOTE | 2024-01-10 08:14 | PM.IMPN ---
Progress Note: A&P Assessment and Plan (1) UTI (urinary tract infection): Code(s): N39.0 - Urinary tract infection, site not specified Status: Acute (2) Acute kidney injury: Code(s): N17.9 - Acute kidney failure, unspecified Status: Acute (3) Ankle fracture: Code(s): S82.899A - Other fracture of unspecified lower leg, initial encounter for closed fracture Status: Acute (4) Acute on chronic respiratory failure with hypoxia and hypercapnia: Code(s): J96.21 - Acute and chronic respiratory failure with hypoxia; J96.22 - Acute and chronic respiratory failure with hypercapnia Status: Acute Plan Acute on chronic respiratory failure with hypoxia and hypercapnia History of chronic respiratory failure with hypoxia; J96.12 - Chronic respiratory failure with hypercapnia Initial pCO2 was 71.4, patient was started on BiPAP SpO2 86-89 01/05/24: pCO2 yesterday 51.1 Continue with Bipap at night due to hypercapnia Patient normally wears 4L NC at home at all times 01/06 possible due to narcotic meds, superimposed with COPD exacerbation Repeat chest x-ray now on 4 l baselin consult pattern generator operator for evaluation treatment, appreciate pattern generator operator input COPD exacerbation Continue home medications Spiriva 1 puff daily Continue umeclidimum 1 puff daily Start DuoNeb scheduled q.6 hours, albuterol nebulizer q.6 hours p.r.n. now on 4 l resolved Hypotension Patient took prednisone at home, given hypotension that is possible secondary to acute adrenal crisis, start hydrocortisone 100 mg q.6 hours IV 01/06 Add midodrine 100 mg t.i.d. p.o. 01/07 BP stable dc hydrocortisone today, start fludrocortisone 0.1 mg daily p.o. tomorrow BP stable decrease midodrine to 5 mg t.i.d. p.o. per steam press tender acute chronic systolic heart failure: 01/04/24 ProBNP 50735 Patient given 40 of Lasix IV in the ER Medications on hold due to low blood pressure with systolics in the 90s 01/05/24: Blood pressures still running low, continue to hold blood pressure medications at this time. 01/08echo report reduced EF 45-50%, hypokinesis of the mid and basal inferior wall CXR suggests cardiomegaly and pulmonary edema, start Lasix 40 mg IV push b.i.d. Consult steam press tender for evaluation treatment Appreciate cardiology consultation, will continue furosemide IV 40 mg b.i.d. today, negative input output 2450 mL in 24 hours, May transition to oral furosemide in 1-2 days Monitor BMP, correct electrolyte disorder accordingly Ankle fracture: ?Code(s): S82.899A - Other fracture of unspecified lower leg, initial encounter for closed fracture ?Status:?Acute ?Assessment and Plan: 01/04/24: Ankle x-ray showing trimalleolar right ankle fracture with tibiotalar subluxation versus mild posterior dislocation, posterior malleolus fragment is superiorly displaced, resulting in an articular surface step off. Ankle was reduced in the emergency room and splinted Ankle CT shown trimalleolar right ankle fracture status post reduction, tibiotalar joint is in alignment, no additional fracture detected.? No tibial plafond found and articular surface step-off, residual articular step-off gap ranging between 2-4 mm. Orthopedic surgery was consulted and patient will require an ORIF, will likely go to the OR tomorrow. Continue with pain control Continue to ice and elevate as needed 01/05/24: ORIF may require vent wean in ICU post op Continue pain control, tylenol ordered considering low borderline blood pressure. Continue to ICE and elevate Ortho following (3) UTI (urinary tract infection): ?Code(s): N39.0 - Urinary tract infection, site not specified ?Status:?Acute ?Assessment and Plan: 01/04/24: UA showing 1+ protein, trace ketones, 1+ leukocytes, greater than 100 urine RBCs, 21-50 urine wbc's, 4+ bacteria Urine culture was obtained and is pending Currently on Levaquin 01/05/24: Urine culture showing E col
[2024-01-10 08:27] LABS: Glucose Point of Care 194 mg/dl (65-105)
[2024-01-10] MEDS: UMECLIDINIUM/VILANTEROL 62.5-25 MCG ELLIPTA 1 PUFF INHALATION (08:28)
[2024-01-10 08:29] VITALS: PULSE 92; RESP 18; O2SAT 94
[2024-01-10] MEDS: SENNA/DOCUSATE SODIUM TABLET 2 TAB PO ×2 (08:53→16:07)
[2024-01-10] MEDS: FLUDROCORTISONE ACETATE 0.1 MG TABLET PO (08:54)
[2024-01-10] MEDS: ESCITALOPRAM OXALATE 10 MG TABLET PO (08:54)
[2024-01-10 08:55] VITALS: O2SAT 72
[2024-01-10] MEDS: MIDODRINE HCL 2.5 MG TABLET 5 MG PO ×3 (08:56→16:07)
[2024-01-10] MEDS: NITROFURANTOIN MONOHYD MACROCR 100 MG CAP PO ×2 (08:56→20:11)
[2024-01-10] MEDS: NICOTINE (*PBKC) 14 MG PATCH 1 PATCH TRANSDERM (08:56)
[2024-01-10] MEDS: ASPIRIN 325 MG ENTERIC TABLET PO ×2 (08:57→20:10)
[2024-01-10] MEDS: polyethylene glycoL 3350 17 GM POWD.PACK PO (08:57)
[2024-01-10] MEDS: FUROSEMIDE INJ 40 MG/4 ML VIAL IV PUSH ×2 (08:57→16:06)
[2024-01-10] MEDS: TOLNAFTATE 1% POWDER 45 GM BTL 1 APPLIC TOPICAL ×2 (09:00→20:11)
[2024-01-10] MEDS: NYSTATIN 100,000 UNITS/ML SUSP 5 ML ORAL.SUSP PO ×4 (09:42→20:10)
[2024-01-10] MEDS: ERGOCALCIFEROL 50,000 UNITS CAPSULE 50000 UNITS PO (09:45)
[2024-01-10 12:46] LABS: Glucose Point of Care 334 mg/dl (65-105)
[2024-01-10] MEDS: ONDANSETRON INJ 4 MG/2 ML VIAL IV PUSH (12:55)
[2024-01-10] MEDS: INSULIN ASPART (*BKC) 100 UNITS/ML SUB-Q ×3 (12:57→21:42)
[2024-01-10 15:09] VITALS: BP 92/80; PULSE 72; RESP 20; TEMP 36.4; O2SAT 98
[2024-01-10 17:29] LABS: Glucose Point of Care 228 mg/dl (65-105)
[2024-01-10 20:09] VITALS: BP 114/64; PULSE 87; RESP 20; TEMP 36.8; O2SAT 95
[2024-01-10] MEDS: HYDROcodone/acetaminophen (*CRX) 7.5-325 MG TABLET 1 TAB PO (20:10)
[2024-01-10] MEDS: CYCLOBENZAPRINE HCL 10 MG TABLET PO (20:11)
[2024-01-10 23:07] LABS: Glucose Point of Care 248 mg/dl (65-105)
[2024-01-11] MEDS: HYDROcodone/acetaminophen (*CRX) 7.5-325 MG TABLET 1 TAB PO ×2 (03:02→12:39)
[2024-01-11 06:06] LABS: Basophils Percent Auto 0.1 % (0.2-1.2); Eosinophils Absolute Auto 0.2 K/mm3 (0-0.3); Eosinophils Percent Auto 2.9 % (0-4.4); Hematocrit 36.2 % (37.0-47.0); Hemoglobin 10.6 g/dL (12.0-15.0); Immature Granulocyte Absolute 0.05 K/mm3 (0.00-0.031); Immature Granulocyte Percent A 0.7 % (0-0.5); Lymphocytes Absolute Auto 1.38 K/mm3 (0.9-3.2); Lymphocytes Percent Auto 19.9 % (18.3-44.2); Mean Corpuscular HGB Conc 29.3 g/dl (32-36); Mean Corpuscular Hemoglobin 30.5 pg (26-34); Mean Corpuscular Volume 104.3 fl (80-100); Mean Platelet Volume 11.4 fl (7.4-10.4); Monocytes Absolute Auto 0.6 K/mm3 (0.1-0.6); Monocytes Percent Auto 8.8 % (2.6-8.5); Neutrophils Absolute Auto 4.7 K/mm3 (1.3-6.7); Neutrophils Percent Auto 67.6 % (45.5-73.1); Platelet Count Result 158 k/mm3 (150-375); Red Blood Count 3.47 M/mm3 (4.2-5.4); Red Cell Distribution Width 13.5 % (11.5-14.5); White Blood Count 6.9 K/mm3 (4.5-10.0)
[2024-01-11 06:26] LABS: Alanine Aminotransferase 6 U/L (6-35); Albumin Level 2.7 g/dL (3.5-5.1); Alkaline Phosphatase 81 U/L (38-126); Aspartate Amino Transferase 14 U/L (14-36); Bilirubin,Total 0.5 mg/dL (0.2-1.3); Blood Urea Nitrogen 22 mg/dL (7-17); Calcium 8.5 mg/dL (8.4-10.2); Carbon Dioxide > 40 mmol/L (22-30); Chloride 89 mmol/L (98-107); Estimated CRCL calculation 55 ml/min; Estimated Glomerular Filt Rate > 60; Glucose 231 mg/dL (65-110); Sodium 135 mmol/L (137-145)
[2024-01-11] MEDS: UMECLIDINIUM/VILANTEROL 62.5-25 MCG ELLIPTA 1 PUFF INHALATION (07:51)
[2024-01-11 07:52] VITALS: PULSE 84; RESP 18; O2SAT 92
[2024-01-11 08:11] LABS: Glucose Point of Care 203 mg/dl (65-105)
[2024-01-11] MEDS: NYSTATIN 100,000 UNITS/ML SUSP 5 ML ORAL.SUSP PO ×4 (08:49→20:26)
[2024-01-11] MEDS: FUROSEMIDE INJ 40 MG/4 ML VIAL IV PUSH (08:49)
[2024-01-11] MEDS: polyethylene glycoL 3350 17 GM POWD.PACK PO (08:49)
[2024-01-11] MEDS: SENNA/DOCUSATE SODIUM TABLET 2 TAB PO ×2 (08:50→16:54)
[2024-01-11] MEDS: MIDODRINE HCL 2.5 MG TABLET 5 MG PO ×2 (08:50→16:53)
[2024-01-11] MEDS: FLUDROCORTISONE ACETATE 0.1 MG TABLET PO (08:50)
[2024-01-11] MEDS: ESCITALOPRAM OXALATE 10 MG TABLET PO (08:51)
[2024-01-11] MEDS: NICOTINE (*PBKC) 14 MG PATCH 1 PATCH TRANSDERM (08:51)
[2024-01-11] MEDS: TOLNAFTATE 1% POWDER 45 GM BTL 1 APPLIC TOPICAL ×2 (08:52→20:25)
[2024-01-11] MEDS: ASPIRIN 325 MG ENTERIC TABLET PO ×2 (08:52→20:26)
[2024-01-11] MEDS: INSULIN ASPART (*BKC) 100 UNITS/ML SUB-Q ×4 (08:54→22:20)
[2024-01-11 08:55] VITALS: O2SAT 94
--- NOTE | 2024-01-11 09:32 | PM.PNCARD ---
Progress Note: A&P Assessment and Plan (1) Labile hypertension: Code(s): R09.89 - Other specified symptoms and signs involving the circulatory and respiratory systems Status: Acute Assessment and Plan: Check orthostatic vital signs which have not been documented. Ambulate with caution to avoid risk for falls and injuries. Patient is asymptomatic. The be cautious with initiating guideline directed medical therapy to ensure BP tolerates without significant orthostasis which would increase risk for falls and injuries could be catastrophic. -PT OT -DVT prophylaxis (2) Cardiomyopathy: Qualifiers: Cardiomyopathy type: ischemic Qualified Code(s): I25.5 - Ischemic cardiomyopathy Code(s): I42.9 - Cardiomyopathy, unspecified Status: Acute Assessment and Plan: EF mildly reduced 45-50%. Clinically, patient is not volume overloaded at this time. Fludrocortisone was added yesterday presumably for hypotension ? Orthostasis, however, orthostatic bowel sounds not been documented. Discontinue fludrocortisone. I would not recommend use of this medication in light of LV dysfunction and attempts with hospitalist service to aggressively diurese as this will only increased risk for heart failure exacerbations of forward. All attempts will be made to reduce and discontinue midodrine continue for now. We need to establish orthostasis for further guidance in this regard. Patient is asymptomatic otherwise. -when able as BP permits, resume Toprol XL 25 mg daily and low-dose ARB losartan 25 mg daily for cardiovascular support. -stop IV Lasix. Change to oral Lasix 40 mg once daily. (3) Acute on chronic respiratory failure with hypoxia and hypercapnia: Code(s): J96.21 - Acute and chronic respiratory failure with hypoxia; J96.22 - Acute and chronic respiratory failure with hypercapnia Status: Acute Assessment and Plan: Appreciate pulmonology involvement and recommendations. Continue supportive care with noninvasive positive-pressure ventilation, bronchodilators with Anoro. (4) Hypokalemia: Code(s): E87.6 - Hypokalemia Status: Acute Assessment and Plan: Potassium reduced 3.0 today. Replete keep ideally around 4.0. Will provide potassium chloride 40 mEq p.o. x1 now. She will likely require additional supplementation but will repeat BMP in a.m.. (5) Coronary artery disease: Qualifiers: Coronary Disease-Associated Artery/Lesion type: [place] artery [place] vs. transplanted heart: [place] heart Associated angina: without angina Qualified Code(s): I25.10 - Atherosclerotic heart disease of [place] coronary artery without angina pectoris Code(s): I25.10 - Atherosclerotic heart disease of [place] coronary artery without angina pectoris Status: Acute Assessment and Plan: Asymptomatic. Continue medical therapy. Continue aspirin 81 mg daily, resume atorvastatin 80 mg daily which she was taking as an outpatient. Ideally resume Toprol XL 25 mg daily with BP permits. Although on her list it is unclear if she was actually taking clopidogrel as an outpatient prior to admission. Subjective Date/time seen: Date of service: 01/11/24 09:32 Follow-up for cardiomyopathy, hypertension Interval history: Patient denies shortness of breath, chest pain, palpitations or dizziness. Patient complained of feeling cold requesting more blankets, wanting to be repositioned. Nursing reports patient planes of feeling hot and cold lower the temperature in the room in increase in the temperature. Review of Systems Constitutional: Constitutional: Reports body ache(s) Eyes: Eyes: Reports no additional eye complaints ENT: Reports system reviewed and no additional complaints, except as documented Cardiovascular: Cardiovascular: Reports no additional cardiovascular complaints and Reports dyspnea Respiratory: Respiratory: Reports dyspnea Gastrointestinal: Gastrointesti
[2024-01-11 10:15] VITALS: PULSE 90; RESP 19; TEMP 36.3; O2SAT 93
[2024-01-11 10:26] LABS: Hypochromasia 1+ (NORMAL); Platelet Estimate Adequate (Adequate); Schistocytes None Seen (NORMAL)
[2024-01-11 11:32] LABS: Glucose Point of Care 290 mg/dl (65-105)
[2024-01-11] MEDS: POTASSIUM CHLORIDE 20 MEQ PACKET (FOR LIQUID) 40 MEQ PO (12:38)
[2024-01-11 13:42] VITALS: BP 119/56; PULSE 80; RESP 18; TEMP 36.9; O2SAT 91
--- NOTE | 2024-01-11 16:39 | PCPTNOTE ---
Patient physical therapy session was not completed on 01/11, will continue per plan of care 01/12.
[2024-01-11] MEDS: HYDROcodone/acetaminophen (*CRX) 5-325 MG TABLET 1 TAB PO ×3 (16:55→23:47)
[2024-01-11 17:23] LABS: Glucose Point of Care 260 mg/dl (65-105)
--- NOTE | 2024-01-11 18:15 | PM.IMPN ---
Progress Note: A&P Assessment and Plan (1) UTI (urinary tract infection): Code(s): N39.0 - Urinary tract infection, site not specified Status: Acute (2) Acute kidney injury: Code(s): N17.9 - Acute kidney failure, unspecified Status: Acute (3) Ankle fracture: Code(s): S82.899A - Other fracture of unspecified lower leg, initial encounter for closed fracture Status: Acute (4) Acute on chronic respiratory failure with hypoxia and hypercapnia: Code(s): J96.21 - Acute and chronic respiratory failure with hypoxia; J96.22 - Acute and chronic respiratory failure with hypercapnia Status: Acute Plan Acute on chronic respiratory failure with hypoxia and hypercapnia History of chronic respiratory failure with hypoxia; J96.12 - Chronic respiratory failure with hypercapnia Initial pCO2 was 71.4, patient was started on BiPAP SpO2 86-89 01/05/24: pCO2 yesterday 51.1 Continue with Bipap at night due to hypercapnia Patient normally wears 4L NC at home at all times 01/06 possible due to narcotic meds, superimposed with COPD exacerbation Repeat chest x-ray now on 4 l baselin consult auto dealer for evaluation treatment, appreciate auto dealer input COPD exacerbation Continue home medications Spiriva 1 puff daily Continue umeclidimum 1 puff daily Start DuoNeb scheduled q.6 hours, albuterol nebulizer q.6 hours p.r.n. now on 4 l resolved Hypotension Patient took prednisone at home, given hypotension that is possible secondary to acute adrenal crisis, start hydrocortisone 100 mg q.6 hours IV 01/06 Added midodrine 10 mg t.i.d. p.o. 01/07 BP stable dc hydrocortisone, started fludrocortisone 0.1 mg daily p.o. tomorrow BP stable decrease midodrine to 5 mg t.i.d. p.o. per bee rancher ... To be slowly tapered down to start cardiac meds Ordered midodrine 5 mg po bid ... Monitor blood pressures and vitals closely acute chronic systolic heart failure: 01/04/24 ProBNP 84565 Patient given 40 of Lasix IV in the ER Medications on hold due to low blood pressure with systolics in the 90s 01/05/24: Blood pressures still running low, continue to hold blood pressure medications at this time. 01/08echo report reduced EF 45-50%, hypokinesis of the mid and basal inferior wall CXR suggests cardiomegaly and pulmonary edema, Appreciate cardiology consultation, will continue furosemide IV 40 mg b.i.d. today, negative input output 2450 mL in 24 hours Cut down to Lasix 40 mg IV daily May transition to oral furosemide in 1-2 days Monitor BMP, correct electrolyte disorder accordingly Ankle fracture: ?Code(s): S82.899A - Other fracture of unspecified lower leg, initial encounter for closed fracture ?Status:?Acute ?Assessment and Plan: 01/04/24: Ankle x-ray showing trimalleolar right ankle fracture with tibiotalar subluxation versus mild posterior dislocation, posterior malleolus fragment is superiorly displaced, resulting in an articular surface step off. Ankle was reduced in the emergency room and splinted Ankle CT shown trimalleolar right ankle fracture status post reduction, tibiotalar joint is in alignment, no additional fracture detected.? No tibial plafond found and articular surface step-off, residual articular step-off gap ranging between 2-4 mm. Orthopedic surgery was consulted and patient will require an ORIF, will likely go to the OR tomorrow. Continue with pain control Continue to ice and elevate as needed 01/05/24: ORIF may require vent wean in ICU post op Continue pain control, tylenol ordered considering low borderline blood pressure. Continue to ICE and elevate Ortho following (3) UTI (urinary tract infection): ?Code(s): N39.0 - Urinary tract infection, site not specified ?Status:?Acute ?Assessment and Plan: 01/04/24: UA showing 1+ protein, trace ketones, 1+ leukocytes, greater than 100 urine RBCs, 21-50 urine wbc's, 4+ bacteria Urine culture was obtai
[2024-01-11 21:23] VITALS: BP 136/65; PULSE 96; RESP 18; TEMP 37.2; O2SAT 91
[2024-01-11] MEDS: ONDANSETRON INJ 4 MG/2 ML VIAL IV PUSH (21:58)
[2024-01-11 22:38] LABS: Glucose Point of Care 301 mg/dl (65-105)
[2024-01-12] MEDS: HYDROmorphone HCL INJ (*CRX) 1 MG/ML SYR 0.5 MG IV PUSH (01:17)
[2024-01-12] MEDS: HYDROcodone/acetaminophen (*CRX) 5-325 MG TABLET 1 TAB PO ×3 (03:18→16:22)
[2024-01-12 04:04] VITALS: BP 110/51; PULSE 90; RESP 20; TEMP 36.9; O2SAT 93
[2024-01-12 05:33] LABS: Basophils Percent Auto 0.1 % (0.2-1.2); Eosinophils Absolute Auto 0.2 K/mm3 (0-0.3); Eosinophils Percent Auto 2.9 % (0-4.4); Hematocrit 34.6 % (37.0-47.0); Hemoglobin 10.1 g/dL (12.0-15.0); Immature Granulocyte Absolute 0.03 K/mm3 (0.00-0.031); Immature Granulocyte Percent A 0.4 % (0-0.5); Lymphocytes Absolute Auto 1.56 K/mm3 (0.9-3.2); Lymphocytes Percent Auto 22.6 % (18.3-44.2); Mean Corpuscular HGB Conc 29.2 g/dl (32-36); Mean Corpuscular Hemoglobin 30.2 pg (26-34); Mean Corpuscular Volume 103.6 fl (80-100); Mean Platelet Volume 11.2 fl (7.4-10.4); Monocytes Absolute Auto 0.7 K/mm3 (0.1-0.6); Monocytes Percent Auto 10.7 % (2.6-8.5); Neutrophils Absolute Auto 4.4 K/mm3 (1.3-6.7); Neutrophils Percent Auto 63.3 % (45.5-73.1); Platelet Count Result 172 k/mm3 (150-375); Red Blood Count 3.34 M/mm3 (4.2-5.4); Red Cell Distribution Width 13.4 % (11.5-14.5); White Blood Count 6.9 K/mm3 (4.5-10.0)
[2024-01-12 05:56] LABS: Albumin Level 2.7 g/dL (3.5-5.1); Alkaline Phosphatase 87 U/L (38-126); Aspartate Amino Transferase 17 U/L (14-36); Bilirubin,Total 0.5 mg/dL (0.2-1.3); Blood Urea Nitrogen 20 mg/dL (7-17); Calcium 8.5 mg/dL (8.4-10.2); Carbon Dioxide > 40 mmol/L (22-30); Chloride 90 mmol/L (98-107); Estimated CRCL calculation 59 ml/min; Estimated Glomerular Filt Rate > 60; Glucose 275 mg/dL (65-110); Sodium 135 mmol/L (137-145)
[2024-01-12 06:01] LABS: Platelet Estimate Adequate (Adequate)
[2024-01-12 06:02] LABS: Anisocytosis 1+ (NORMAL); Hypochromasia 1+ (NORMAL); Macrocytosis 1+ (NORMAL); Schistocytes None Seen (NORMAL)
[2024-01-12 06:12] LABS: Alanine Aminotransferase < 6 U/L (6-35)
--- NOTE | 2024-01-12 07:02 | PM.PNORT ---
Progress Note: A&P Assessment and Plan (1) Trimalleolar fracture of right ankle: Code(s): S82.851A - Displaced trimalleolar fracture of right lower leg, initial encounter for closed fracture Status: Acute Assessment and Plan: Patient is status post open reduction internal fixation right trimalleolar ankle fracture. She is in a splint at this time and is reasonably comfortable. She is having some pain issues particularly with moving. She had very thin bone and a severely comminuted fracture. This puts her at high risk for failure and complications. I have discussed this with her risks benefits limitations and alternatives. I told her we could like to change her to a cast and see how she is progressing. Subjective Subjective Date/Time Seen: 01/12/24 07:02 Principal diagnosis: Trimalleolar Ankle Fx RIGHT Interval history: One week status postop reduction internal fixation of a trimalleolar ankle fracture. Review of Systems Review of Systems: ROS unobtainable: Yes unobtainable due to medical condition ( on BiPAP) and unobtainable due to mental status Exam Narrative: Patient is reasonably comfortable in a splint can wiggle her toes without difficulty. Objective Data Vital Signs Vital Signs: Vital Signs - 24 hr 01/11/24 07:52 01/11/24 07:52 01/11/24 10:15 Temperature 97.3 F L Pulse Rate 84 90 Respiratory Rate 18 19 Blood Pressure Pulse Oximetry 92 93 Oxygen Delivery Nasal Cannula Oxygen Flow Rate 4 01/11/24 13:42 01/11/24 08:55 01/11/24 21:23 Temperature 98.4 F 99 F Pulse Rate 80 96 Respiratory Rate 18 18 Blood Pressure 119/56 L 136/65 Pulse Oximetry 91 94 91 Oxygen Delivery Nasal Cannula Oxygen Flow Rate 4 01/12/24 04:04 Temperature 98.4 F Pulse Rate 90 Respiratory Rate 20 Blood Pressure 110/51 L Pulse Oximetry 93 Oxygen Delivery Oxygen Flow Rate Intake/Output Intake/Output: Intake & Output 01/09/24 01/10/24 01/11/24 01/12/24 23:59 23:59 23:59 23:59 Intake Total 1060 1150 640 350 Output Total 3150 3250 1600 700 Balance -2090 -2100 -960 -350 Meds/Results Medications: Active Medications Generic Name Dose Route Start Last Admin Trade Name Freq PRN Reason Stop Dose Admin Acetaminophen 650 mg 01/05/24 16:55 01/07/24 00:47 Acetaminophen 325 Mg Tablet PO 650 mg Q6H PRN Administration Mild Pain (1-3) or Fever Hydrocodone Bitart/Acetaminophen 1 tab 01/04/24 10:32 01/11/24 12:39 Hydrocodone/Acetaminophen (*Crx) 7.5-325 Mg Tablet PO 1 tab Q6H PRN Administration Pain (Scale Score 7-10) Hydrocodone Bitart/Acetaminophen 1 tab 01/05/24 16:55 01/12/24 06:39 Hydrocodone/Acetaminophen (*Crx) 5-325 Mg Tablet PO 1 tab Q3H PRN Administration Pain Rated 4-6 Hydrocodone Bitart/Acetaminophen 2 tab 01/05/24 16:55 01/10/24 08:54 Hydrocodone/Acetaminophen (*Crx) 5-325 Mg Tablet PO 2 tab Q6H PRN Administration Pain Rated 7-10 Albuterol 2.5 mg 01/07/24 08:01 Albuterol Sulfate Neb 2.5 Mg/3 Ml Inh INHALATION Q6HRT PRN Shortness Of Breath Aspirin 325 mg 01/05/24 21:00 01/11/24 20:26 Aspirin 325 Mg Enteric Tablet PO 325 mg Q12HR BRII Administration Atorvastatin Calcium 80 mg 01/12/24 09:00 Atorvastatin 40 Mg Tablet PO DAILY BRII Bupropion HCl 300 mg 01/04/24 11:00 01/06/24 08:45 Bupropion Hcl Xl (24 Hr) 150 Mg Tabcr PO 300 mg QAM BRII Administration Cyclobenzaprine HCl 10 mg 01/09/24 18:26 01/10/24 20:11 Cyclobenzaprine Hcl 10 Mg Tablet PO 10 mg Q8H PRN Administration Muscle Spasm Dextrose 12.5 gm 01/04/24 10:35 01/08/24 21:08 Dextrose 50% 25 Gm/50 Ml Syringe IV PUSH 12.5 gm PRN PRN Administration Hypoglycemia Protocol Enoxaparin Sodium 40 mg 01/12/24 09:00 Enoxaparin 40 Mg/0.4 Ml Syringe SUB-Q DAILY BRII Ergocalciferol 50,000 units 01/10/24 09:00 01/10/24 09:45 Ergocalciferol 50,000 Units Capsu
[2024-01-12 07:53] VITALS: O2SAT 92
[2024-01-12] MEDS: UMECLIDINIUM/VILANTEROL 62.5-25 MCG ELLIPTA 1 PUFF INHALATION (07:53)
[2024-01-12 08:00] VITALS: O2SAT 92
[2024-01-12 08:35] LABS: Glucose Point of Care 276 mg/dl (65-105)
--- NOTE | 2024-01-12 09:18 | PCNWS ---
Weekly nutritional screen. Patient is tolerating current Heart healthy diet with adequate intake, 25-200% with intakes of Ensure Compact for additional 220 kcal and 9 g protein each. No weight loss reported. No nutritional needs at this time.
--- NOTE | 2024-01-12 09:22 | PCPTNOTE ---
Attempted to see patient for PT, however patient was eating breakfast.
[2024-01-12] MEDS: polyethylene glycoL 3350 17 GM POWD.PACK PO (10:21)
[2024-01-12] MEDS: POTASSIUM CHLORIDE 20 MEQ ER TABLET 40 MEQ PO (10:21)
[2024-01-12] MEDS: KCL 20 MEQ/SW 100 ML 100 ML 50 MEQ IVPB (10:21)
[2024-01-12] MEDS: FUROSEMIDE 40 MG TABLET PO (10:21)
[2024-01-12] MEDS: ENOXAPARIN 40 MG/0.4 ML SYRINGE SUB-Q (10:21)
[2024-01-12] MEDS: NICOTINE (*PBKC) 14 MG PATCH 1 PATCH TRANSDERM (10:21)
[2024-01-12] MEDS: ATORVASTATIN 40 MG TABLET 80 MG PO (10:22)
[2024-01-12] MEDS: MIDODRINE HCL 2.5 MG TABLET 5 MG PO ×2 (10:22→16:23)
[2024-01-12] MEDS: SENNA/DOCUSATE SODIUM TABLET 2 TAB PO ×2 (10:22→16:23)
[2024-01-12] MEDS: ESCITALOPRAM OXALATE 10 MG TABLET PO (10:22)
[2024-01-12] MEDS: ASPIRIN 325 MG ENTERIC TABLET PO ×2 (10:23→20:27)
[2024-01-12] MEDS: INSULIN ASPART (*BKC) 100 UNITS/ML SUB-Q ×3 (10:23→21:35)
[2024-01-12] MEDS: TOLNAFTATE 1% POWDER 45 GM BTL 1 APPLIC TOPICAL ×2 (10:23→20:28)
[2024-01-12] MEDS: HYDROcodone/acetaminophen (*CRX) 7.5-325 MG TABLET 1 TAB PO (10:30)
[2024-01-12] MEDS: SODIUM CHLORIDE 0.9% IV 50 ML BAG IVPB (11:53)
[2024-01-12] MEDS: SODIUM CHLORIDE 0.9% IV 250 ML 40 ML (12:03)
[2024-01-12 12:32] LABS: Glucose Point of Care 262 mg/dl (65-105)
[2024-01-12] MEDS: CYCLOBENZAPRINE HCL 10 MG TABLET PO ×2 (12:40→20:27)
[2024-01-12] MEDS: NYSTATIN 100,000 UNITS/ML SUSP 5 ML ORAL.SUSP PO ×3 (12:48→20:27)
--- NOTE | 2024-01-12 13:07 | PCPTNOTE ---
Attempted to see patient for PT, however patient was eating lunch.
[2024-01-12 14:00] VITALS: BP 94/58; PULSE 102; RESP 16; TEMP 36.6; O2SAT 96
[2024-01-12] MEDS: rOPINIRole HCL 0.5 MG TABLET PO (16:22)
[2024-01-12 17:42] LABS: Glucose Point of Care 167 mg/dl (65-105)
--- NOTE | 2024-01-12 18:30 | PM.IMPN ---
Progress Note: A&P Assessment and Plan (1) UTI (urinary tract infection): Code(s): N39.0 - Urinary tract infection, site not specified Status: Acute (2) Acute kidney injury: Code(s): N17.9 - Acute kidney failure, unspecified Status: Acute (3) Ankle fracture: Code(s): S82.899A - Other fracture of unspecified lower leg, initial encounter for closed fracture Status: Acute (4) Acute on chronic respiratory failure with hypoxia and hypercapnia: Code(s): J96.21 - Acute and chronic respiratory failure with hypoxia; J96.22 - Acute and chronic respiratory failure with hypercapnia Status: Acute Plan Acute on chronic respiratory failure with hypoxia and hypercapnia History of chronic respiratory failure with hypoxia; J96.12 - Chronic respiratory failure with hypercapnia Initial pCO2 was 71.4, patient was started on BiPAP SpO2 86-89 01/05/24: pCO2 yesterday 51.1 Continue with Bipap at night due to hypercapnia Patient normally wears 4L NC at home at all times 01/06 possible due to narcotic meds, superimposed with COPD exacerbation Repeat chest x-ray now on 4 l baselin consult ship mate for evaluation treatment, appreciate ship mate input COPD exacerbation Continue home medications Spiriva 1 puff daily Continue umeclidimum 1 puff daily Start DuoNeb scheduled q.6 hours, albuterol nebulizer q.6 hours p.r.n. now on 4 l resolved Hypotension Patient took prednisone at home, given hypotension that is possible secondary to acute adrenal crisis, start hydrocortisone 100 mg q.6 hours IV 01/06 Added midodrine 10 mg t.i.d. p.o. 01/07 BP stable dc hydrocortisone, started fludrocortisone 0.1 mg daily p.o. tomorrow BP stable decrease midodrine to 5 mg t.i.d. p.o. per control panel assembler ... To be slowly tapered down to start cardiac meds Ordered midodrine 5 mg po bid ... Monitor blood pressures and vitals closely acute chronic systolic heart failure: 01/04/24 ProBNP 77439 Patient given 40 of Lasix IV in the ER Medications on hold due to low blood pressure with systolics in the 90s 01/05/24: Blood pressures still running low, continue to hold blood pressure medications at this time. 01/08echo report reduced EF 45-50%, hypokinesis of the mid and basal inferior wall CXR suggests cardiomegaly and pulmonary edema, Appreciate cardiology consultation, will continue furosemide IV 40 mg b.i.d. today, negative input output 2450 mL in 24 hours 01/11/2024: Cut down to Lasix 40 mg IV daily 01/12/2024: DC IV, switch to Lasix 40 mg oral daily from today Monitor BMP, correct electrolyte disorder accordingly Ankle fracture: ?Code(s): S82.899A - Other fracture of unspecified lower leg, initial encounter for closed fracture ?Status:?Acute ?Assessment and Plan: 01/04/24: Ankle x-ray showing trimalleolar right ankle fracture with tibiotalar subluxation versus mild posterior dislocation, posterior malleolus fragment is superiorly displaced, resulting in an articular surface step off. Ankle was reduced in the emergency room and splinted Ankle CT shown trimalleolar right ankle fracture status post reduction, tibiotalar joint is in alignment, no additional fracture detected.? No tibial plafond found and articular surface step-off, residual articular step-off gap ranging between 2-4 mm. Orthopedic surgery was consulted and patient will require an ORIF, will likely go to the OR tomorrow. Continue with pain control Continue to ice and elevate as needed 01/05/24: ORIF may require vent wean in ICU post op Continue pain control, tylenol ordered considering low borderline blood pressure. Continue to ICE and elevate Ortho following (3) UTI (urinary tract infection): ?Code(s): N39.0 - Urinary tract infection, site not specified ?Status:?Acute ?Assessment and Plan: 01/04/24: UA showing 1+ protein, trace ketones, 1+ leukocytes, greater than 100 urine RBCs, 21-50 urine wbc's, 4+ morena
[2024-01-12] MEDS: HYDROcodone/acetaminophen (*CRX) 5-325 MG TABLET 2 TAB PO (20:27)
[2024-01-12] MEDS: ONDANSETRON INJ 4 MG/2 ML VIAL IV PUSH (20:31)
[2024-01-12 20:53] LABS: Glucose Point of Care 276 mg/dl (65-105)
[2024-01-12 21:08] VITALS: BP 112/60; PULSE 100; RESP 18; TEMP 36.7; O2SAT 96
[2024-01-12 23:09] VITALS: PULSE 96; RESP 22; O2SAT 91
[2024-01-13] MEDS: HYDROcodone/acetaminophen (*CRX) 5-325 MG TABLET 2 TAB PO ×2 (03:09→08:43)
[2024-01-13 05:51] LABS: Basophils Percent Auto 0.2 % (0.2-1.2); Eosinophils Absolute Auto 0.2 K/mm3 (0-0.3); Eosinophils Percent Auto 2.8 % (0-4.4); Hematocrit 35.6 % (37.0-47.0); Hemoglobin 10.1 g/dL (12.0-15.0); Immature Granulocyte Absolute 0.03 K/mm3 (0.00-0.031); Immature Granulocyte Percent A 0.5 % (0-0.5); Lymphocytes Absolute Auto 1.17 K/mm3 (0.9-3.2); Lymphocytes Percent Auto 18.1 % (18.3-44.2); Mean Corpuscular HGB Conc 28.4 g/dl (32-36); Mean Corpuscular Hemoglobin 30.2 pg (26-34); Mean Corpuscular Volume 106.6 fl (80-100); Monocytes Absolute Auto 0.8 K/mm3 (0.1-0.6); Monocytes Percent Auto 11.8 % (2.6-8.5); Neutrophils Absolute Auto 4.3 K/mm3 (1.3-6.7); Neutrophils Percent Auto 66.6 % (45.5-73.1); Platelet Count Result 161 k/mm3 (150-375); Red Blood Count 3.34 M/mm3 (4.2-5.4); Red Cell Distribution Width 13.6 % (11.5-14.5); White Blood Count 6.5 K/mm3 (4.5-10.0)
[2024-01-13 05:58] LABS: Alkaline Phosphatase 92 U/L (38-126); Aspartate Amino Transferase 20 U/L (14-36); Bilirubin,Total 0.5 mg/dL (0.2-1.3); Blood Urea Nitrogen 17 mg/dL (7-17); Calcium 8.7 mg/dL (8.4-10.2); Carbon Dioxide > 40 mmol/L (22-30); Chloride 94 mmol/L (98-107); Estimated CRCL calculation 66 ml/min; Estimated Glomerular Filt Rate > 60; Glucose 291 mg/dL (65-110); Potassium 3.9 mmol/L (3.4-5.0); Sodium 135 mmol/L (137-145)
[2024-01-13 06:09] LABS: Alanine Aminotransferase < 6 U/L (6-35)
[2024-01-13 06:18] VITALS: BP 91/61; PULSE 106; RESP 20; TEMP 36.8; O2SAT 92
[2024-01-13 07:11] LABS: Anisocytosis 1+ (NORMAL); Macrocytosis 1+ (NORMAL); Platelet Estimate Adequate (Adequate); Schistocytes None Seen (NORMAL)
[2024-01-13 07:12] LABS: Hypochromasia 1+ (NORMAL)
[2024-01-13 08:19] LABS: Glucose Point of Care 284 mg/dl (65-105)
[2024-01-13 08:43] VITALS: O2SAT 93
[2024-01-13] MEDS: NICOTINE (*PBKC) 14 MG PATCH 1 PATCH TRANSDERM (08:44)
[2024-01-13] MEDS: ATORVASTATIN 40 MG TABLET 80 MG PO (08:45)
[2024-01-13] MEDS: NYSTATIN 100,000 UNITS/ML SUSP 5 ML ORAL.SUSP PO ×3 (08:45→16:16)
[2024-01-13] MEDS: SENNA/DOCUSATE SODIUM TABLET 2 TAB PO ×2 (08:45→16:16)
[2024-01-13] MEDS: MIDODRINE HCL 2.5 MG TABLET 5 MG PO (08:45)
[2024-01-13] MEDS: ESCITALOPRAM OXALATE 10 MG TABLET PO (08:46)
[2024-01-13] MEDS: polyethylene glycoL 3350 17 GM POWD.PACK PO (08:46)
[2024-01-13] MEDS: ENOXAPARIN 40 MG/0.4 ML SYRINGE SUB-Q (08:46)
[2024-01-13] MEDS: POTASSIUM CHLORIDE 20 MEQ ER TABLET 40 MEQ PO (08:46)
[2024-01-13] MEDS: FUROSEMIDE 40 MG TABLET PO (08:47)
[2024-01-13] MEDS: ASPIRIN 325 MG ENTERIC TABLET PO (08:47)
[2024-01-13] MEDS: INSULIN ASPART (*BKC) 100 UNITS/ML SUB-Q ×2 (08:48→12:08)
[2024-01-13] MEDS: TOLNAFTATE 1% POWDER 45 GM BTL 1 APPLIC TOPICAL (08:48)
--- NOTE | 2024-01-13 09:17 | PCPTNOTE ---
Attempted to see patient for PT, however patient was eating breakfast and asked PT to come back later today.
[2024-01-13] MEDS: UMECLIDINIUM/VILANTEROL 62.5-25 MCG ELLIPTA 1 PUFF INHALATION (09:59)
[2024-01-13 10:00] VITALS: O2SAT 93
--- NOTE | 2024-01-13 10:32 | PCOTNOTE ---
Patient refused to be seen this A.M. Patient verbalized she hasn't slept all night, just leave me be . Patient stated I need rest . Will check back this afternoon.
[2024-01-13 11:20] LABS: Folic Acid 4.6 ng/mL (2.76->20)
[2024-01-13 12:05] LABS: Glucose Point of Care 305 mg/dl (65-105)
--- NOTE | 2024-01-13 12:50 | PM.DS ---
DS: Admitting Diagnosis Discharge Date 01/13/2024: Admitting Diagnosis (1) Acute on chronic respiratory failure with hypoxia and hypercapnia: ?Code(s): J96.21 - Acute and chronic respiratory failure with hypoxia; J96.22 - Acute and chronic respiratory failure with hypercapnia ?Status:?Acute ?Assessment and Plan: Patient is currently on BiPAP at the time of my visit Continue to monitor Supportive care (2) UTI (urinary tract infection): ?Code(s): N39.0 - Urinary tract infection, site not specified ?Status:?Acute ?Assessment and Plan: Started on broad-spectrum antibiotics Await cultures (3) Ankle fracture: ?Code(s): S82.899A - Other fracture of unspecified lower leg, initial encounter for closed fracture ?Status:?Acute ?Assessment and Plan: Status post reduction Orthopedic surgery consult (4) Fall: ?Code(s): W19.XXXA - Unspecified fall, initial encounter ?Status:?Acute ?Assessment and Plan: Mechanical fall at bedside denies loss of consciousness (5) CHF (congestive heart failure): ?Code(s): I50.9 - Heart failure, unspecified ?Status:?Chronic ?Assessment and Plan: Patient with elevation of brain natriuretic peptide Monitor daily intake and output Disla in Gentle diuresis as needed (6) Frequent falls: ?Code(s): R29.6 - Repeated falls ?Status:?Chronic ?Assessment and Plan: PT OT when clinically able to participate (7) Major depression, recurrent, chronic: ?Code(s): F33.9 - Major depressive disorder, recurrent, unspecified ?Status:?Chronic ?Assessment and Plan: Resume home meds (8) Tobacco abuse disorder: ?Code(s): Z72.0 - Tobacco use ?Status:?Chronic ?Assessment and Plan: Nicotine patches (9) Chronic respiratory failure with hypoxia and hypercapnia: ?Code(s): J96.11 - Chronic respiratory failure with hypoxia; J96.12 - Chronic respiratory failure with hypercapnia ?Status:?Acute ?Assessment and Plan: Currently on BiPAP (10) Controlled diabetes mellitus with hyperglycemia, without long-term current use of insulin: ?Qualifiers: ?Diabetes mellitus type:?type 2? Qualified Code(s):?E11.65 - Type 2 diabetes mellitus with hyperglycemia ?Code(s): E11.65 - Type 2 diabetes mellitus with hyperglycemia ?Status:?Acute ?Assessment and Plan: Insulin sliding scale as needed DS: Discharge Diagnosis Discharge Diagnosis (1) Hypokalemia: Code(s): E87.6 - Hypokalemia Status: Acute (2) Labile hypertension: Code(s): R09.89 - Other specified symptoms and signs involving the circulatory and respiratory systems Status: Acute (3) Cardiomyopathy: Qualifiers: Cardiomyopathy type: ischemic Qualified Code(s): I25.5 - Ischemic cardiomyopathy Code(s): I42.9 - Cardiomyopathy, unspecified Status: Acute (4) Coronary artery disease: Qualifiers: Coronary Disease-Associated Artery/Lesion type: [place] artery [place] vs. transplanted heart: [place] heart Associated angina: without angina Qualified Code(s): I25.10 - Atherosclerotic heart disease of [place] coronary artery without angina pectoris Code(s): I25.10 - Atherosclerotic heart disease of [place] coronary artery without angina pectoris Status: Acute (5) COPD (chronic obstructive pulmonary disease): Code(s): J44.9 - Chronic obstructive pulmonary disease, unspecified Status: Acute (6) Trimalleolar fracture of right ankle: Code(s): S82.851A - Displaced trimalleolar fracture of right lower leg, initial encounter for closed fracture Status: Acute (7) Fall: Code(s): W19.XXXA - Unspecified fall, initial encounter Status: Acute (8) Acute on chronic respiratory failure with hypoxia and hypercapnia: Code(s): J96.21 - Acute and chronic respiratory failure with hypoxia; J96.22 - Acute and chronic respiratory failure with hype
[2024-01-13] MEDS: CYANOCOBALAMIN INJ 1,000 MCG/ML VIAL 1000 MCG IM (14:18)
[2024-01-13] MEDS: FOLIC ACID 1 MG TABLET 4 MG PO (14:20)
[2024-01-13 14:55] VITALS: BP 77/53
[2024-01-13 15:00] VITALS: BP 98/48
--- NOTE | 2024-01-13 15:15 | PCOTNOTE ---
Attempted P.M. session with Patient. As entering the room. Patient sleeping, Patient's family member present. EMS came in for Patient to be discharged. Patient having increased difficulty waking up and having a decrease in blood pressure. RN in room. Patient not seen this date.
[2024-01-13] MEDS: SODIUM CHLORIDE 0.9% IV 500 ML 999 ML IV CONT (15:34)
[2024-01-13] MEDS: MIDODRINE HCL 10 MG TABLET PO (16:18)
[2024-01-13 16:40] VITALS: BP 120/61
[2024-01-13 17:35] LABS: Glucose Point of Care 161 mg/dl (65-105)
== END 2024-01-13 17:55 | DRG 492 ==
LOC: ANHED 13:13 → ANHIMU 19:28 → ANHICU 01-04 01:00 → ANH3MED 01-09 18:21
PROVIDERS: Hospitalist; Internal Medicine Pulmonary Disease; Nurse Practitioner Acute Care; Orthopaedic Surgery; Admitting Provider Internal Medicine; Emergency Provider Emergency Medicine; PCP Family Medicine; Visit Provider Family Medicine
PROC: 0QSJ04Z Reposition Right Fibula with Internal Fixation Device, Open Approach (ICD-10-PCS; principal; 2024-01-05 15:00)
DX: S82.851A Displaced trimalleolar fracture of right lower leg, initial encounter for closed fracture (principal); I50.23 Acute on chronic systolic (congestive) heart failure; J96.21 Acute and chronic respiratory failure with hypoxia; J96.22 Acute and chronic respiratory failure with hypercapnia; N39.0 Urinary tract infection, site not specified; F33.9 Major depressive disorder, recurrent, unspecified; N17.9 Acute kidney failure, unspecified; J44.1 Chronic obstructive pulmonary disease with (acute) exacerbation; I25.10 Atherosclerotic heart disease of native coronary artery without angina pectoris; I95.9 Hypotension, unspecified; E78.5 Hyperlipidemia, unspecified; E53.8 Deficiency of other specified B group vitamins; E55.9 Vitamin D deficiency, unspecified; E87.6 Hypokalemia; E11.42 Type 2 diabetes mellitus with diabetic polyneuropathy; E11.65 Type 2 diabetes mellitus with hyperglycemia; E11.51 Type 2 diabetes mellitus with diabetic peripheral angiopathy without gangrene; K59.03 Drug induced constipation; K21.9 Gastro-esophageal reflux disease without esophagitis; T40.2X5A Adverse effect of other opioids, initial encounter; N81.10 Cystocele, unspecified; Z20.822 Contact with and (suspected) exposure to COVID-19; M54.41 Lumbago with sciatica, right side; M54.42 Lumbago with sciatica, left side; G89.29 Other chronic pain; G25.81 Restless legs syndrome; G47.33 Obstructive sleep apnea (adult) (pediatric); R29.6 Repeated falls; F41.9 Anxiety disorder, unspecified; F17.210 Nicotine dependence, cigarettes, uncomplicated; W19.XXXA Unspecified fall, initial encounter; Z96.649 Presence of unspecified artificial hip joint; Z99.81 Dependence on supplemental oxygen; Z79.02 Long term (current) use of antithrombotics/antiplatelets; Z79.82 Long term (current) use of aspirin; Z95.5 Presence of coronary angioplasty implant and graft; Z96.82 Presence of neurostimulator
CPT/HCPCS: 36415; 36600; 70450; 71045; 73610; 73700; 80053; 81001; 82550; 82607; 82746; 82805; 82948; 83036; 83880; 84145; 85025; 85055; 85610; 85730; 86703; 86803; 87040; 87086; 87186; 87340; 87637; 93005; 93306; 94002; 94003; 94640; 94762; 96361; 96365; 96375; 96376; 97110; 97161; 97166; 97530; 99199; 99285; A9270; C1713; C1769; G0378; G0432; J0330; J0690; J1170; J1650; J1720; J1815; J1940; J1956; J2371; J2405; J2704; J3010; J3420; J3480; J7030; J7040; J7050; J7120

== ENCOUNTER 2024-05-14 18:26 | Inpatient (IN) | payer MEDICARE, BC, SELFPAY ==
[2024-05-14] VITALS (11 sets, daily range): BP systolic 109–118; BP diastolic 51–59; PULSE 102–114; RESP 14–21; TEMP 36.5; O2SAT 90–100; BMI 30.1
--- NOTE | ~2024-05-14 | XR_ITS ---
XR chest 2V Ordering provider: Meghan Crain MD History: 73 years Female with . Increasing SOB . Comparison: January 07, 2024 FINDINGS: MEDIASTINUM: The cardiac silhouette is slightly enlarged. Congestive floyd. LUNGS: No pneumothorax. Bilateral prominent markings with interstitial changes. Opacity is seen in the posterior costophrenic angle which may indicate atelectasis. Minimal pleural e ffusion cannot be excluded. OTHER: No free air under the diaphragm. Spinal stimulator is noted. Degenerative spine. IMPRESSION: Opacity is seen in the posterior costophrenic angle which may indicate atelectasis. Minimal pleural e ffusion cannot be excluded. Highly suggestive cardiac decompensation with pulmonary edema versus pneumonitis. Reviewed, dictated and finalized at location A. IMPRESSION: Opacity is seen in the posterior costophrenic angle which may indicate atelecta sis. Minimal pleural effusion cannot be excluded. Highly suggestive cardiac decompensation with pulmonary edema versus pneumoniti s.
--- NOTE | ~2024-05-14 | XR_ITS ---
XR chest 1V portable Ordering provider: Edil Mercer MD History: 73 years Female with . COPD, CHF . Comparison: May 14, 2024 FINDINGS: MEDIASTINUM: The cardiac silhouette is moderately enlarged. Congestive floyd. LUNGS: No effusion or pneumothorax. Bibasilar opacification more on the right side which may indicate atelectasis versus pneumonia. Prominent markings with interstitial changes are also noted which may indicate cardiac decompensation and pulmonary edema. OTHER: No free air under the diaphragm. IMPRESSION: Bibasilar opacification more on the right side suggestive of atelectasis versus pneumonia. Underlying pulmonary edema is not excluded. Reviewed, dictated and finalized at location A.
--- NOTE | 2024-05-14 18:40 | ECG_ITS ---
Test Date: 2024-05-14 20:31:49 Measurements Intervals [place] Rate: 110 P: 80 DE: 124 QRS: -79 QRSD: 157 T: 87 QT: 421 QTc: 570 Interpretive Statements SINUS TACHYCARDIA POSSIBLE LEFT ATRIAL ENLARGEMENT [-0.1mV P WAVE IN V1/V2] RIGHT BUNDLE BRANCH BLOCK [120+ ms QRS DURATION, UPRIGHT V1, 40+ ms S IN I/aVL/V4/V5/V6] LEFT ANTERIOR FASCICULAR BLOCK [QRS AXIS <= -45, QR IN I, RS IN II] INFERIOR MYOCARDIAL INFARCTION , OF INDETERMINATE AGE [40+ ms Q WAVE AND/OR ST/T ABNORMALITY IN II/aVF] Compared to ECG 05/14/2024 18:32:25 No significant changes Electronically Signed On 05-15-2024 11:19:07 CDT by Vijay Pinedo M.D.
[2024-05-14 18:55] LABS: Basophils Percent Auto 0.4 % (0.2-1.2); Eosinophils Absolute Auto 0.1 K/mm3 (0-0.3); Eosinophils Percent Auto 1.4 % (0-4.4); Hematocrit 37.7 % (37.0-47.0); Hemoglobin 11.2 g/dL (12.0-15.0); Immature Granulocyte Absolute 0.03 K/mm3 (0.00-0.031); Immature Granulocyte Percent A 0.4 % (0-0.5); Lymphocytes Absolute Auto 1.91 K/mm3 (0.9-3.2); Lymphocytes Percent Auto 24.1 % (18.3-44.2); Mean Corpuscular HGB Conc 29.7 g/dl (32-36); Mean Corpuscular Hemoglobin 31.2 pg (26-34); Monocytes Absolute Auto 0.6 K/mm3 (0.1-0.6); Monocytes Percent Auto 7.2 % (2.6-8.5); Neutrophils Absolute Auto 5.3 K/mm3 (1.3-6.7); Neutrophils Percent Auto 66.5 % (45.5-73.1); Platelet Count Result 125 k/mm3 (150-375); Red Blood Count 3.59 M/mm3 (4.2-5.4); Red Cell Distribution Width 13.1 % (11.5-14.5); White Blood Count 7.9 K/mm3 (4.5-10.0)
[2024-05-14 19:08] LABS: Alanine Aminotransferase 10 U/L (6-35); Albumin Level 3.6 g/dL (3.5-5.1); Alkaline Phosphatase 72 U/L (38-126); Aspartate Amino Transferase 19 U/L (14-36); Bilirubin,Total 0.5 mg/dL (0.2-1.3); Blood Urea Nitrogen 18 mg/dL (7-17); Calcium 9.4 mg/dL (8.4-10.2); Carbon Dioxide > 40 mmol/L (22-30); Chloride 94 mmol/L (98-107); Estimated CRCL calculation 80 ml/min; Estimated Glomerular Filt Rate > 60; Glucose 203 mg/dL (65-110); Sodium 140 mmol/L (137-145)
[2024-05-14 19:18] LABS: Hypochromasia 1+; Platelet Estimate Decreased (Adequate); Schistocytes None Seen
[2024-05-14 19:51] LABS: Magnesium 1.2 mg/dL (1.6-2.3)
[2024-05-14 19:59] LABS: Prothrombin Time 13.1 Seconds (11.1-14.7)
[2024-05-14 20:00] LABS: Partial Thromboplastin Time 32.4 Seconds (22.3-36.8)
[2024-05-14 20:02] LABS: Alveolar/Arterial O2 Gradient 110.8 mmHg; Base Excess ABG 7.8 mEq/l (+/-2.0); Fractional Inspired Oxygen 36 %; HCO3 ABG 35.4 mEq/l (22.0-26.0); Oxygen Content ABG 14.6 %vol (16.0-22.0); Oxyhemoglobin 90.3 % THb (90.0-100.0); PO2 ABG 68.3 mmHg (80.0-100.0); Total Hemoglobin 11.5 g/dL (12.0-18.0); pH ABG 7.342 (7.350-7.450)
[2024-05-14 20:04] LABS: Device NASAL CANNULA; Modified Allen's Test Pass; PCO2 ABG 66.9 mmHg (35.0-45.0); Site Drawn RIGHT RADIAL
[2024-05-14 20:06] LABS: NT Pro B Type Natriuretic Pept 7270 pg/mL (19.9-100); Troponin I 0.066 ng/mL (0.000-0.034)
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
[2024-05-14 20:33] LABS: Appearance Urine Clear (Clear); Bacteria Urine 4+ /hpf; Bilirubin Urine Negative (Negative); Blood Urine Negative (Negative); Color Urine Yellow (Yellow); Glucose Urine UA Negative (Negative); Ketones Urine Negative (Negative); Leukocyte Esterase Ur Trace LEU/UL (Negative); Nitrate Urine Positive (Negative); Non Pathogenic Casts 0-2; Protein Urine Trace mg/dL (Negative); RBC Urine 0-2 /hpf (0-2); Specific Grav Ur 1.019 (1.001-1.035); Squamous Epithelial Cell Urine None Seen /hpf (Few); WBC Urine 0-5 /hpf (0-3)
[2024-05-14 20:36] LABS: Add Urine Microscopic? YES
[2024-05-14 20:37] LABS: Lactic Acid Reflex 0.9 mmol/L (0.7-2.0)
[2024-05-14] MEDS: ASPIRIN 81 MG CHEWABLE TABLET 324 MG PO (21:03)
[2024-05-14] MEDS: FUROSEMIDE INJ 40 MG/4 ML VIAL IV PUSH (21:04)
[2024-05-14] MEDS: HYDROcodone/acetaminophen (*CRX) 5-325 MG TABLET 1 TAB PO (21:05)
[2024-05-14] MEDS: methylPREDNISolone SOD SUCC 125 MG VIAL IV PUSH (21:05)
[2024-05-14 21:42] LABS: Influenza A QL RT-PCR Negative (Negative); Influenza B QL RT-PCR Negative (Negative); RSV RNA, RT-PCR Negative (Negative); SARS-CoV-2 RNA PCR Negative (Negative)
--- NOTE | 2024-05-14 21:50 | ECG_ITS ---
Test Date: 2024-05-14 18:32:25 Measurements Intervals [place] Rate: 114 P: 109 CA: 132 QRS: -78 QRSD: 152 T: 82 QT: 418 QTc: 577 Interpretive Statements SINUS TACHYCARDIA POSSIBLE LEFT ATRIAL ENLARGEMENT [-0.1mV P WAVE IN V1/V2] RIGHT BUNDLE BRANCH BLOCK [120+ ms QRS DURATION, UPRIGHT V1, 40+ ms S IN I/aVL/V4/V5/V6] LEFT ANTERIOR FASCICULAR BLOCK [QRS AXIS <= -45, QR IN I, RS IN II] INFERIOR MYOCARDIAL INFARCTION , OF INDETERMINATE AGE [40+ ms Q WAVE AND/OR ST/T ABNORMALITY IN II/aVF] No previous ECG available for comparison Electronically Signed On 05-15-2024 11:08:51 CDT by Vijay Pinedo M.D.
[2024-05-15] VITALS (24 sets, daily range): BP systolic 100–125; BP diastolic 52–65; PULSE 106–123; RESP 20–22; TEMP 36.4–36.8; O2SAT 91–100
[2024-05-15 00:27] LABS: Troponin I 0.079 ng/mL (0.000-0.034)
--- NOTE | 2024-05-15 00:31 | PC.NURSE ---
Patient arrived to 206-2 on Bipap, RN attempted to complete admission process. Patient stated she couldn't do this with the bipap on and wanted a break. RN educated patient on reason why the bipap was ordered and the importance of wearing it continuously. Patient was taken off bipap at put on 4L NC (home amount) while RN went through admission questions... patient became increasingly frustrated with RNs standard questions and asked what do you HAVE to do tonight as she was done with me asking questions. RN did a physical assessment to which the patient asked how many of these do I have to have? to which the RN explained the RNs each need to do their own assessments to determine a baseline of the patient and to see if things improve or decline during a shift. Patient asked for pain medication, RN explained that med list needed to be updated, patient refused to go through med list and stated [facility] gave you a list, just go off of that. Patient has called out numerous times requesting her meds, RN explained that the Dr has not ordered meds yet and as soon as they are available they will be brought to her. Patient responded this is what I hate about this hospital. Patient still also has not put back on the bipap, stating she isn't refusing to wear it but feels fine on the NC.
[2024-05-15] MEDS: buPROPion HCL XL (24 HR) 150 MG TABCR 300 MG PO ×2 (01:06→22:06)
[2024-05-15] MEDS: HYDROcodone/acetaminophen (*CRX) 5-325 MG TABLET 1 TAB PO ×6 (01:07→22:09)
[2024-05-15] MEDS: NICOTINE (*PBKC) 21 MG PATCH 1 PATCH TRANSDERM ×2 (02:56→09:13)
[2024-05-15 04:48] LABS: Troponin I 0.077 ng/mL (0.000-0.034)
[2024-05-15] MEDS: methylPREDNISolone SOD SUCC 125 MG VIAL 60 MG IV PUSH ×3 (05:07→22:07)
[2024-05-15] MEDS: UMECLIDINIUM/VILANTEROL 62.5-25 MCG ELLIPTA 1 PUFF INHALATION (08:39)
[2024-05-15] MEDS: IPRATROPIUM 0.5 MG/ALBUTEROL SULFATE 2.5 MG AMPUL.NEB 3 ML INHALATION ×3 (08:39→19:50)
--- NOTE | 2024-05-15 08:39 | ADMGEN ---
This patient, Vanita Parker, was admitted to IMU Room 206-02 on 05/14/24 at 2235. Patient/family oriented to hospital policies and general routines including ID bracelet, bed and alarms, visiting hours, pain management, procedures, bathroom and other care routines, personal items, smoking policy, room service/diet, and visiting hours. Information on how to activate the Rapid Response Team has been discussed. Patient/Family are encouraged to report perceived risks to care and to ask questions if they do not understand what they are told or what they should do.
[2024-05-15] MEDS: DULoxetine HCL 30 MG CAPSULE.DR PO (09:12)
[2024-05-15] MEDS: DOCUSATE SODIUM 100 MG CAPSULE PO (09:13)
[2024-05-15] MEDS: ATORVASTATIN 40 MG TABLET 80 MG PO (09:13)
[2024-05-15] MEDS: CLOPIDOGREL BISULFATE 75 MG TABLET PO (09:13)
[2024-05-15] MEDS: FUROSEMIDE INJ 40 MG/4 ML VIAL IV PUSH ×2 (09:14→22:06)
[2024-05-15] MEDS: ASPIRIN 325 MG ENTERIC TABLET PO ×2 (09:19→22:06)
[2024-05-15] MEDS: FOLIC ACID 1 MG TABLET PO (09:19)
[2024-05-15] MEDS: MIDODRINE HCL 2.5 MG TABLET 5 MG PO (09:19)
[2024-05-15 13:44] LABS: Alveolar/Arterial O2 Gradient 155.6 mmHg; Base Excess ABG 16.8 mEq/l (+/-2.0); Carboxyhemoglobin 1.4 % THb (0-2.0); Fractional Inspired Oxygen 40 %; HCO3 ABG 43.7 mEq/l (22.0-26.0); Methemoglobin ABG 0.3 %THb (0-1.5); Oxygen Content ABG 14.7 %vol (16.0-22.0); Oxygen Saturation ABG 88.8 % (95.0-100.0); Oxyhemoglobin 89.4 % THb (90.0-100.0); PO2 ABG 55.1 mmHg (80.0-100.0); PO2 FiO2 Ratio Arterial Blood 1.38 %; Reduced Hemoglobin 8.9 %THb (0-5.0); Total Hemoglobin 11.7 g/dL (12.0-18.0); pH ABG 7.447 (7.350-7.450)
[2024-05-15 13:46] LABS: Device NASAL CANNULA; Site Drawn RIGHT BRACHIAL
--- NOTE | 2024-05-15 13:47 | PCRCNOTE ---
ABG late due to patient was a hard stick.
[2024-05-15 13:52] LABS: PCO2 ABG 64.8 mmHg (35.0-45.0)
--- NOTE | 2024-05-15 14:02 | PM.IMPN ---
Progress Note: A&P Assessment and Plan (1) Acute hypercapnic respiratory failure: Code(s): J96.02 - Acute respiratory failure with hypercapnia Status: Acute (2) CHF (congestive heart failure): Code(s): I50.9 - Heart failure, unspecified Status: Acute (3) Elevated troponin: Code(s): R79.89 - Other specified abnormal findings of blood chemistry Status: Acute Plan 73-year-old female with PMH chronic hypoxic and hypercarbic respiratory failure, COPD, active tobacco abuse, chronic bilateral lower back pain dependent on opioid use (has a spinal pain pump but does not work anymore, follows with a pain medicine PA), CAD status post PCI remotely at [place], chronic macrocytic anemia, obstructive sleep apnea noninvasive ventilator at nighttime 4 L of oxygen via nasal cannula. She lives at home with the continues to smoke. History is taken from the [facility] as well. She was recently discharged from [facility] in fall found to have a trimalleolar right ankle fracture, status post open reduction internal fixation of all 3 components. Patient went to [facility] and then [place] and then home with home health and was recently discharged from home therapy. She presents again [place] [facility] with complaint of shortness of breath and also has been noted the patient not to be acting right. ER demonstrated pCO2 66.9 pH is 7.34 along with slightly elevated troponin. Patient was given IV magnesium Solu-Medrol in Lasix as a chest x-ray demonstrated some findings concerning for CHF. Patient was placed on BiPAP and admitted on 05/14/2024. # acute on chronic hypercarbic and hypoxic respiratory failure due to advanced stage COPD and active tobacco abuse # DARRICK -status: Acute on chronic, severe, improved -placed on BiPAP on admission. 05/15 she is back on her usual 4 L and breathing at her baseline. -repeat ABG pH 7.4, pCO2 64.8, bicarb 43.7. She has chronic respiratory acidosis which is now fully compensated with metabolic alkalosis in spite of pCO2 being 65. She is a chronic retainer. - is bringing in her home BiPAP to be used tonight and assess response. Pulmonology consult -patient has not been wearing the BiPAP at night, compliance encouraged. Located on the risk of deterioration with noncompliance. Greater than 3 minutes spent on tobacco cessation Education -received IV magnesium in the ER. Continue Solu-Medrol 60 mg IV t.i.d., scheduled DuoNebs, start azithromycin, she has a new white sputum production. -quad viral screen on 05/14 24 negative # elevated troponin # CAD status post PCI remotely at [place] -status: Mild, resolved -peaked at 0.079. Denies chest pain. Likely demand ischemia due to her respiratory impairment. No acute ischemia identified an EKG. -continue [employer] aspirin and Plavix # congestive heart failure with borderline reduced ejection fraction -status: Acute decompensation, mild. -presented with shortness of breath and pulmonary edema. Have contributed to her acute on chronic respiratory failure. She has also not been wearing the noninvasive ventilator at night. -continue Lasix 40 mg IV b.i.d. started on admission. -low salt diet, strict intake/output, daily weights -she is on midodrine. This was started on the last admission. It was supposed to be weaned off. Will discontinue midodrine and attempt to institute GDMT # chronic back pain with opioid dependence # recent fracture and open reduction and repair right ankle -status: chronic -patient has been on decades of fentanyl, [place], Flexeril. She has a spinal pain pump as well but reports that does not work. Pain medicine team told her to continue oral medications, patient reports fentanyl and [place] has been decreased recently. They would like to stay on the current regimen while understanding the risk of deterioration and cardiac arrest. -patient believe she is not at her baseline. Consult PT OT # [id number] francie
[2024-05-15] MEDS: CYCLOBENZAPRINE HCL 10 MG TABLET PO (16:19)
[2024-05-15 18:00] LABS: Glucose Point of Care 449 mg/dl (65-105)
[2024-05-15] MEDS: acetaZOLAMIDE SODIUM FOR INJ 500 MG VIAL 250 MG IV PUSH (18:17)
[2024-05-15] MEDS: INSULIN ASPART (*BKC) 100 UNITS/ML SUB-Q (18:17)
[2024-05-15 20:00] LABS: Glucose Point of Care 484 mg/dl (65-105)
[2024-05-15 21:39] LABS: Glucose Point of Care 489 mg/dl (65-105)
[2024-05-15] MEDS: rOPINIRole HCL 0.5 MG TABLET PO (22:07)
[2024-05-15] MEDS: SENNA/DOCUSATE SODIUM TABLET 1 TAB PO (22:09)
[2024-05-16] VITALS (27 sets, daily range): BP systolic 110–138; BP diastolic 56–103; PULSE 101–114; RESP 16–22; TEMP 36.2–37.1; O2SAT 94–100
[2024-05-16] MEDS: INSULIN ASPART (*BKC) 100 UNITS/ML 12 UNITS SUB-Q (00:21)
[2024-05-16] MEDS: IPRATROPIUM 0.5 MG/ALBUTEROL SULFATE 2.5 MG AMPUL.NEB 3 ML INHALATION ×4 (02:08→19:55)
[2024-05-16] MEDS: HYDROcodone/acetaminophen (*CRX) 5-325 MG TABLET 1 TAB PO ×3 (02:10→21:02)
[2024-05-16 03:41] LABS: Glucose Point of Care 379 mg/dl (65-105)
[2024-05-16 04:34] LABS: Hematocrit 36.6 % (37.0-47.0); Hemoglobin 11.1 g/dL (12.0-15.0); Mean Corpuscular HGB Conc 30.3 g/dl (32-36); Mean Corpuscular Hemoglobin 30.7 pg (26-34); Mean Corpuscular Volume 101.1 fl (80-100); Mean Platelet Volume 11.9 fl (7.4-10.4); Platelet Count Result 120 k/mm3 (150-375); Red Blood Count 3.62 M/mm3 (4.2-5.4); Red Cell Distribution Width 13.3 % (11.5-14.5); White Blood Count 5.9 K/mm3 (4.5-10.0)
[2024-05-16 04:54] LABS: Hemoglobin A1C 6.9 % (<5.7)
[2024-05-16 05:02] LABS: Blood Urea Nitrogen 24 mg/dL (7-17); Calcium 9.3 mg/dL (8.4-10.2); Carbon Dioxide > 40 mmol/L (22-30); Chloride 90 mmol/L (98-107); Estimated CRCL calculation 44 ml/min; Estimated Glomerular Filt Rate 49; Glucose 390 mg/dL (65-110); Magnesium 1.1 mg/dL (1.6-2.3); Potassium 3.7 mmol/L (3.4-5.0); Sodium 137 mmol/L (137-145)
[2024-05-16 05:11] LABS: Alveolar/Arterial O2 Gradient 78.8 mmHg; Carboxyhemoglobin 1.2 % THb (0-2.0); Fractional Inspired Oxygen 36 %; HCO3 ABG 45.4 mEq/l (22.0-26.0); Methemoglobin ABG 0.3 %THb (0-1.5); Oxygen Content ABG 15.6 %vol (16.0-22.0); Oxygen Saturation ABG 96.1 % (95.0-100.0); Oxyhemoglobin 95.2 % THb (90.0-100.0); PO2 ABG 88.1 mmHg (80.0-100.0); PO2 FiO2 Ratio Arterial Blood 2.45 %; Reduced Hemoglobin 3.3 %THb (0-5.0); Total Hemoglobin 11.6 g/dL (12.0-18.0); pH ABG 7.386 (7.350-7.450)
[2024-05-16 05:13] LABS: Device NASAL CANNULA; Modified Allen's Test Pass; PCO2 ABG 77.4 mmHg (35.0-45.0); Site Drawn RIGHT RADIAL
--- NOTE | 2024-05-16 05:14 | PCRCNOTE ---
Placed Pt on home cpap unit @ 0210 with a 4 L bleed in, pt was off @ 0300. ABG obtain @0500 on a 4L NC.
[2024-05-16] MEDS: methylPREDNISolone SOD SUCC 125 MG VIAL 60 MG IV PUSH (05:56)
[2024-05-16] MEDS: INSULIN ASPART (*BKC) 100 UNITS/ML 10 UNITS SUB-Q (06:00)
[2024-05-16 07:45] LABS: Glucose Point of Care 358 mg/dl (65-105)
[2024-05-16] MEDS: UMECLIDINIUM/VILANTEROL 62.5-25 MCG ELLIPTA 1 PUFF INHALATION (08:26)
[2024-05-16] MEDS: INSULIN ASPART (*BKC) 100 UNITS/ML SUB-Q ×4 (08:48→21:04)
[2024-05-16] MEDS: FOLIC ACID 1 MG TABLET PO (08:50)
[2024-05-16] MEDS: fentaNYL (*CRX) 50 MCG PATCH TRANSDERM (08:50)
[2024-05-16] MEDS: DULoxetine HCL 30 MG CAPSULE.DR PO (08:50)
[2024-05-16] MEDS: DOCUSATE SODIUM 100 MG CAPSULE PO (08:50)
[2024-05-16] MEDS: ATORVASTATIN 40 MG TABLET 80 MG PO (08:50)
[2024-05-16] MEDS: ASPIRIN 325 MG ENTERIC TABLET PO ×2 (08:50→21:03)
[2024-05-16] MEDS: CLOPIDOGREL BISULFATE 75 MG TABLET PO (08:50)
[2024-05-16] MEDS: FUROSEMIDE INJ 40 MG/4 ML VIAL IV PUSH (08:50)
[2024-05-16] MEDS: NICOTINE (*PBKC) 21 MG PATCH 1 PATCH TRANSDERM (08:51)
--- NOTE | 2024-05-16 09:54 | PC.NURSE ---
05/15/242134-Pt states that she is tired and is ready to go on the BIPAP. PT placed on the hospital BIPAP (AVAPS mode). RT called to assess if Pt's home trilogy unit is set up and ready to use. 2141-RT, Pacheco states that her home unit is set up, but is glitching when turned on. Stating that her home unit screen is flickering and would not stay on. 2219-Pt pulled off BIPAP stating, I don't like this and I'm not going to be able to wear it. Pt placed back on her home O2 setting of 4L NC. 0-Pt placed back on hospital unit BIPAP (AVAPS). Per MD reports, Pt to be on home trilogy unit overnight and reassess ABG in AM. This RN assessed Pt's home trilogy unit and was able to turn unit on without any malfunction.0210-Pt placed on her home trilogy unit. SPO2 on trilogy unit ranging 90-91%. 0220-Pt's SPO2 decreasing to 82-84% on trilogy unit. RT called to assess Pt. RT bled in O2 4L to Pt's home trilogy unit w/SPO2 increasing to 92-94%. 0300-Pt pulled off trilogy unit mask and is refusing to put trilogy unit or the hospital issued BIPAP back on. Placed Pt back on O2 4L NC as per her home setting. Risks and benefits explained and Pt re-educated on the importance of the BIPAP/trilogy units, elevated CO2 levels, and the risk of if the CO2 level gets too high. Pt continues to refuse BIPAP. Discussed the option of DNR and hospice care with the Pt if treatment continues to be refused and unwanted. Reiterated on the risk of or possibly needing intubated if CO2 levels become too critical and Pt were to decompensate. Code status remains the same at this time.
--- NOTE | 2024-05-16 11:28 | PM.IMPN ---
Progress Note: A&P Assessment and Plan (1) Acute hypercapnic respiratory failure: Code(s): J96.02 - Acute respiratory failure with hypercapnia Status: Acute (2) CHF (congestive heart failure): Code(s): I50.9 - Heart failure, unspecified Status: Acute (3) Elevated troponin: Code(s): R79.89 - Other specified abnormal findings of blood chemistry Status: Acute (4) Hypomagnesemia: Code(s): E83.42 - Hypomagnesemia Status: Acute Plan 73-year-old female with PMH chronic hypoxic and hypercarbic respiratory failure, COPD, active tobacco abuse, chronic bilateral lower back pain dependent on opioid use (has a spinal pain pump but does not work anymore, follows with a pain medicine PA), CAD status post PCI remotely at [place], chronic macrocytic anemia, obstructive sleep apnea on noninvasive ventilator at nighttime with 4 L of oxygen. She lives at home with the , she continues to smoke. History is taken from the [facility] as well. She was recently discharged from [facility] in December for a fall, found to have a trimalleolar right ankle fracture, status post open reduction internal fixation of all 3 components. Patient went to [facility] and then [place] and then home with home health and was recently discharged from home therapy. She presents again [place] ER with complaint of shortness of breath and also has been noted the patient not to be acting right. ER demonstrated pCO2 66.9 pH is 7.34 along with slightly elevated troponin. Patient was given IV magnesium Solu-Medrol in Lasix as a chest x-ray demonstrated some findings concerning for CHF. Patient was placed on BiPAP and admitted on 05/14/2024. # acute on chronic hypercarbic and hypoxic respiratory failure due to advanced stage COPD and active tobacco abuse # DARRICK # noncompliant -status: Acute on chronic, severe, symptomatology improved, pCO2 worsening -placed on BiPAP on admission. 05/15 she is back on her usual 4 L and breathing at her baseline. On the night of 05/15 there is some question about malfunctioning of her home PAP machine. Patient also reportedly refused oxygen and noninvasive ventilator at night. Repeat ABG now with pCO2 77. Compliance encouraged. Order placed for AVAPS mode throughout the day and night. ABG in the morning. Pulmonology consulted. Of note, she is a chronic retainer. -status post acetazolamide 250 mg x 1 on 05/15/2024 -Educated on the risk of deterioration with noncompliance. Greater than 3 minutes spent on tobacco cessation Education -received IV magnesium in the ER. Solu-Medrol changed to prednisone on 05/16/2024 (blood sugars very high), scheduled DuoNebs -quad viral screen on 05/14 24 negative # hypo magnesemia -replace with 4 g rider, recheck in the a.m. # elevated troponin # CAD status post PCI remotely at [place] -status: Mild, resolved -peaked at 0.079. Denies chest pain. Likely demand ischemia due to her respiratory impairment. No acute ischemia identified an EKG. -continue [employer] aspirin and Plavix # congestive heart failure with borderline reduced ejection fraction -status: Acute decompensation, mild and improving -presented with shortness of breath and pulmonary edema. contributed to her acute on chronic respiratory failure. She has also not been wearing the noninvasive ventilator at night. -Lasix 40 mg IV b.i.d. started on admission, changed to 40 mg IV q.a.m. on 05/16 -low salt diet, strict intake/output, daily weights -she is on midodrine. This was started on the last admission. It was supposed to be weaned off. Discontinued midodrine, continue to monitor blood pressure and institute GDMT if BP allows. # chronic back pain with opioid dependence # recent fracture and open reduction and repair right ankle -status: chronic -patient has been on decades of fentanyl, [place], Flexeril. She has a spinal pain pump as well but reports that does not work. Pain medicine team told her to con
[2024-05-16 12:24] LABS: Glucose Point of Care 336 mg/dl (65-105)
[2024-05-16] MEDS: MAGNESIUM SULF 4 GM/WATER100ML 4 GM/100 ML BAG IVPB (12:26)
[2024-05-16] MEDS: INSULIN GLARGINE (*BKC) 100 UNITS/ML 10 UNITS SUB-Q (12:26)
[2024-05-16 16:43] LABS: Glucose Point of Care 295 mg/dl (65-105)
--- NOTE | 2024-05-16 17:10 | PCRCNOTE ---
At [address] pt on BIPAP. Pt refused and told therapist to go away!
[2024-05-16 20:54] LABS: Glucose Point of Care 255 mg/dl (65-105)
[2024-05-16] MEDS: buPROPion HCL XL (24 HR) 150 MG TABCR 300 MG PO (21:03)
[2024-05-16] MEDS: rOPINIRole HCL 0.5 MG TABLET PO (21:03)
[2024-05-17] VITALS (24 sets, daily range): BP systolic 90–131; BP diastolic 49–90; PULSE 100–113; RESP 18–20; TEMP 36–36.6; O2SAT 92–100
[2024-05-17] MEDS: IPRATROPIUM 0.5 MG/ALBUTEROL SULFATE 2.5 MG AMPUL.NEB 3 ML INHALATION ×4 (01:59→21:12)
[2024-05-17 05:16] LABS: Alveolar/Arterial O2 Gradient 95.2 mmHg; Base Excess ABG 14.2 mEq/l (+/-2.0); Carboxyhemoglobin 0.8 % THb (0-2.0); Fractional Inspired Oxygen 36 %; HCO3 ABG 43.6 mEq/l (22.0-26.0); Methemoglobin ABG 0.3 %THb (0-1.5); Oxygen Content ABG 15.2 %vol (16.0-22.0); Oxygen Saturation ABG 89.5 % (95.0-100.0); Oxyhemoglobin 90.5 % THb (90.0-100.0); PO2 ABG 63.6 mmHg (80.0-100.0); PO2 FiO2 Ratio Arterial Blood 1.77 %; Reduced Hemoglobin 8.4 %THb (0-5.0); Total Hemoglobin 11.9 g/dL (12.0-18.0); pH ABG 7.331 (7.350-7.450)
[2024-05-17 05:18] LABS: Device NASAL CANNULA; Modified Allen's Test Pass; PCO2 ABG 84.4 mmHg (35.0-45.0); Site Drawn RIGHT RADIAL
[2024-05-17 06:13] LABS: Blood Urea Nitrogen 34 mg/dL (7-17); Calcium 9.4 mg/dL (8.4-10.2); Carbon Dioxide > 40 mmol/L (22-30); Chloride 91 mmol/L (98-107); Estimated CRCL calculation 35 ml/min; Estimated Glomerular Filt Rate 37; Glucose 338 mg/dL (65-110); Magnesium 2.1 mg/dL (1.6-2.3); Potassium 3.6 mmol/L (3.4-5.0); Sodium 139 mmol/L (137-145)
--- NOTE | 2024-05-17 06:51 | PM.IMPN ---
Progress Note: A&P Assessment and Plan (1) Acute on chronic respiratory failure with hypoxia and hypercapnia: Code(s): J96.21 - Acute and chronic respiratory failure with hypoxia; J96.22 - Acute and chronic respiratory failure with hypercapnia Status: Acute Assessment and Plan: Chronic hypoxic and hypercarbic respiratory failure on 4L NC baseline throughout the day and BIPAP at night. Of note, she is a chronic retainer. Patient presented to ED for shortness of breath and not acting right. Patient was placed on BiPAP on admission. She received IV mag in the ER. On 05/15 she was back on her usual 4 L and breathing at her baseline. - Patient has reportedly refused oxygen and noninvasive ventilator over night. Repeat ABG this am showed pH 7.331, CO2 84.4, O2 63.6, HCO3 43.6 with patient on NC - Order placed for AVAPS mode throughout the day and night. -status post acetazolamide 250 mg x 1 on 05/15/2024 - Compliance continues to be encouraged. Educated on the risk of deterioration with noncompliance. Greater than 3 minutes spent on tobacco cessation - Solu-Medrol changed to prednisone on 05/16/2024 (blood sugars very high) - Continue scheduled DuoNebs -Quad viral screen on 05/14 24 negative - Pulmonology consulted. (2) CHF (congestive heart failure): Code(s): I50.9 - Heart failure, unspecified Status: Chronic Assessment and Plan: Patient presented with shortness of breath and pulmonary edema on chest XR. Which further contributed to her acute on chronic respiratory failure. - BNP: 7270 - EKG: sinus tach - Chest XR: Opacity is seen in the posterior costophrenic angle which may indicate atelectasis. Highly suggestive cardiac decompensation with pulmonary edema versus pneumonitis. - Echo 01/08/24: LVEF 45-50% with grade I diastolic dysfunction and moderate pulmonary hypertension -Lasix 40 mg IV b.i.d. started on admission, changed to 40 mg IV q.a.m. on 05/16 -She was on midodrine. This was started on the last admission. It was supposed to be weaned off. Discontinued midodrine, continue to monitor blood pressure and institute GDMT if BP allows. - Monitor vital signs, I&Os, BUN/creatinine, daily weights, neuro status and patient is a fall risk - Monitor serum electrolytes, Keep serum Potassium>4 and serum Magnesium>2 and CBC - Continue low salt diet (3) Elevated troponin: Code(s): R79.89 - Other specified abnormal findings of blood chemistry Status: Acute Assessment and Plan: - Peaked at 0.079. - Denies chest pain. Likely demand ischemia due to her respiratory impairment. No acute ischemia identified an EKG. -Continue [employer] aspirin and Plavix (4) Diabetes mellitus with hyperglycemia, without long-term current use of insulin: Code(s): E11.65 - Type 2 diabetes mellitus with hyperglycemia Status: Chronic Assessment and Plan: - hypoglycemia protocol - POC blood glucose ACHS - home medication - metformin - correct regimen ordered - mod dose TIDWM and HS - on 05/16/2024 blood sugars very high. Decrease Solu-Medrol to prednisone. Given 1 time dose insulin Lantus 10 units. - A1C 6.9 Subjective Date/time seen: 05/17/24 06:51 Interval history: 73-year-old female with PMH chronic hypoxic and hypercarbic respiratory failure, COPD, active tobacco abuse, chronic bilateral lower back pain dependent on opioid use (has a spinal pain pump but does not work anymore, follows with a pain medicine PA), CAD status post PCI remotely at [place], chronic macrocytic anemia, obstructive sleep apnea on noninvasive ventilator at nighttime with 4 L of oxygen presents to the hospital for shortness of breath and not acting right. Review of Systems Review of Systems: All systems reviewed & are unremarkable except as noted in HPI and below Exam Narrative: AF General: well nourished, well-developed female in no acute respiratory distress who is nontoxic appearing, lying semi recumbent in be
[2024-05-17] MEDS: HYDROcodone/acetaminophen (*CRX) 5-325 MG TABLET 1 TAB PO ×3 (07:26→21:03)
[2024-05-17] MEDS: UMECLIDINIUM/VILANTEROL 62.5-25 MCG ELLIPTA 1 PUFF INHALATION (08:29)
[2024-05-17 08:48] LABS: Glucose Point of Care 389 mg/dl (65-105)
[2024-05-17] MEDS: INSULIN ASPART (*BKC) 100 UNITS/ML SUB-Q ×3 (08:54→21:14)
[2024-05-17] MEDS: FUROSEMIDE INJ 40 MG/4 ML VIAL IV PUSH (08:55)
[2024-05-17] MEDS: predniSONE 20 MG TABLET 40 MG PO (08:55)
[2024-05-17] MEDS: DULoxetine HCL 30 MG CAPSULE.DR PO (08:55)
[2024-05-17] MEDS: DOCUSATE SODIUM 100 MG CAPSULE PO (08:55)
[2024-05-17] MEDS: FOLIC ACID 1 MG TABLET PO (08:55)
[2024-05-17] MEDS: ATORVASTATIN 40 MG TABLET 80 MG PO (08:55)
[2024-05-17] MEDS: ASPIRIN 325 MG ENTERIC TABLET PO ×2 (08:56→21:03)
[2024-05-17] MEDS: CLOPIDOGREL BISULFATE 75 MG TABLET PO (08:56)
[2024-05-17] MEDS: NICOTINE (*PBKC) 21 MG PATCH 1 PATCH TRANSDERM (08:56)
[2024-05-17 10:28] LABS: NT Pro B Type Natriuretic Pept 8720 pg/mL (19.9-100)
--- NOTE | 2024-05-17 10:49 | PM.CNPUL ---
Assessment and Plan Assessment and plan (1) COPD (chronic obstructive pulmonary disease): Code(s): J44.9 - Chronic obstructive pulmonary disease, unspecified Status: Acute Assessment and Plan: Patient with a history of 108 pack year tobacco use, quit 4 days ago when she was hospitalized, spirometry on 04/10/2021 with an FEV1 is 0.96, 40% predicted, ratio 49%, CT scan on 08/07/2023 with mild to moderate apical predominant centrilobular emphysema. Patient is a been on 4 L nasal cannula oxygen / for the last 5 years. Prior to her fall she could walk 100 ft. she was admitted on 01/08/2024 with chronic hypercarbic respiratory failure and initiated on home noninvasive ventilator with an AVAPS AE mode through via [employer]. She required 3 L bleed in at night. She was called by our staff for follow-up but declined. Currently the patient is mid with COPD exacerbation with increasing shortness of breath, hypoxemia, change in color of her phlegm. 05/17/24: Overall the patient has improved. She states that she has 40% back to her baseline. She still has more shortness of breath, her cough is the same and her phlegm is moeller compared to normal which is clearing moeller. Her creatinine is 1.4. She is afebrile. When I entered the room she was on 4 L nasal cannula saturations 98%. I decreased her to 3 L and her saturation was 93%. BNP today is 8720. Her weight is 79.9 with admission weight of 84.6. Overall she is 290 mL positive since admission on Lasix 40 IV q.day. Plan: Patient has no wheezing today. Continue prednisone, day 4 of steroids. I will discontinue her DuoNebs and place her on her home Anoro Ellipta. She has no infectious complaints and I do not feel a need for antibiotics at this point. Goal saturation 90-94%. Currently she is on [address] Prater, will follow with you. (2) Acute on chronic respiratory failure with hypoxia and hypercapnia: Code(s): J96.21 - Acute and chronic respiratory failure with hypoxia; J96.22 - Acute and chronic respiratory failure with hypercapnia Status: Acute Assessment and Plan: The patient has chronic hypercarbic respiratory failure from her COPD On 01/09/24: Patient wore the hospital noninvasive ventilator with the AVAPS mode with AVAPS AE setting rate of 20, tidal volume 500, EPAP 5, minimal inspiratory pressure 6, maximal inspiratory pressure 25, inspiratory time 1.2, rise of 5 and 40% and did well with a fullface mask. Patient had an overnight oximetry on these settings with recording duration of 6 hours and 30 minutes. Average saturation 94%. Low saturation 88%. Time with saturation less than or equal to 88% was 1 minute. Oxygen desaturation index 4.6. Patient had a blood gas prior to removal of the mask with a pH of 7.44/60/67. These settings provide adequate ventilation and oxygenation Discharge 01/13/2024: When she naps or sleeps noninvasive ventilation with AVAPS AE through via [employer] with a rate of 20, tidal volume 500, EPAP minimum 5, EPAP maximum 15, pressure support minimum 6, pressure support maximum 25, maximum pressure 40 and 3 L bleed in. 05/17/24: The patient tells me she has been noncompliant with her home noninvasive ventilator. The patient states she wore her home noninvasive ventilator TT V -VATS -AE through via [employer] last night but could only tolerate it for few hours. ABG off the ventilator for 3 or 4 hours on 4 L nasal cannula was 7.33/84/64. Plan: I will obtain a download from her [employer], via [employer]. I will continue her home noninvasive ventilator with 3 L bleed in [facility] And check an overnight oximetry and an ABG prior to removal on these settings. History of Present Illness History of Present Illness Consult date: 05/17/24 Chief complaint: acute hypoxic resp failure, chf, copd, hypomagnese Narrative: 05/17/2024: This is a new pulmonary consult for COPD with hypoxemic and hypercarbic respiratory failure.
[2024-05-17 12:38] LABS: Glucose Point of Care 279 mg/dl (65-105)
--- NOTE | 2024-05-17 13:03 | PCOTNOTE ---
Attempted OT evaluation this afternoon. Patient declining any/all activity stating she needs a pain pill and that she's too tired. RN notified and aware. Will continue to attempt.
[2024-05-17] MEDS: CYCLOBENZAPRINE HCL 10 MG TABLET PO (15:26)
[2024-05-17 16:28] LABS: Glucose Point of Care 183 mg/dl (65-105)
--- NOTE | 2024-05-17 18:07 | PM.IMPN ---
Progress Note: A&P Assessment and Plan (1) Acute on chronic respiratory failure with hypoxia and hypercapnia: Code(s): J96.21 - Acute and chronic respiratory failure with hypoxia; J96.22 - Acute and chronic respiratory failure with hypercapnia Status: Acute Assessment and Plan: The patient has chronic hypercarbic respiratory failure from her COPD On 01/09/24: Patient wore the hospital noninvasive ventilator with the AVAPS mode with AVAPS AE setting rate of 20, tidal volume 500, EPAP 5, minimal inspiratory pressure 6, maximal inspiratory pressure 25, inspiratory time 1.2, rise of 5 and 40% and did well with a fullface mask. Patient had an overnight oximetry on these settings with recording duration of 6 hours and 30 minutes. Average saturation 94%. Low saturation 88%. Time with saturation less than or equal to 88% was 1 minute. Oxygen desaturation index 4.6. Patient had a blood gas prior to removal of the mask with a pH of 7.44/60/67. These settings provide adequate ventilation and oxygenation Discharge 01/13/2024: When she naps or sleeps noninvasive ventilation with AVAPS AE through via [employer] with a rate of 20, tidal volume 500, EPAP minimum 5, EPAP maximum 15, pressure support minimum 6, pressure support maximum 25, maximum pressure 40 and 3 L bleed in. 05/17/24: The patient tells me she has been noncompliant with her home noninvasive ventilator. The patient states she wore her home noninvasive ventilator TT V -VATS -AE through via med last night but could only tolerate it for few hours. ABG off the ventilator for 3 or 4 hours on 4 L nasal cannula was 7.33/84/64. Plan: I will obtain a download from her [employer], via [employer]. I will continue her home noninvasive ventilator with 3 L bleed in [facility] And check an overnight oximetry and an ABG prior to removal on these settings. (2) CHF (congestive heart failure): Code(s): I50.9 - Heart failure, unspecified Status: Chronic (3) Elevated troponin: Code(s): R79.89 - Other specified abnormal findings of blood chemistry Status: Acute (4) Diabetes mellitus with hyperglycemia, without long-term current use of insulin: Code(s): E11.65 - Type 2 diabetes mellitus with hyperglycemia Status: Chronic (5) COPD (chronic obstructive pulmonary disease): Code(s): J44.9 - Chronic obstructive pulmonary disease, unspecified Status: Acute Plan Assessment and Plan (1) Acute hypercapnic respiratory failure: Code(s): J96.02 - Acute respiratory failure with hypercapnia Status: Acute (2) CHF (congestive heart failure): Code(s): I50.9 - Heart failure, unspecified Status: Acute (3) Elevated troponin: Code(s): R79.89 - Other specified abnormal findings of blood chemistry Status: Acute (4) Hypomagnesemia: Code(s): E83.42 - Hypomagnesemia Status: Acute Plan 73-year-old female with PMH chronic hypoxic and hypercarbic respiratory failure, COPD, active tobacco abuse, chronic bilateral lower back pain dependent on opioid use (has a spinal pain pump but does not work anymore, follows with a pain medicine PA), CAD status post PCI remotely at [facility], chronic macrocytic anemia, obstructive sleep apnea on noninvasive ventilator at nighttime with 4 L of oxygen. She lives at home with the , she continues to smoke. History is taken from the [facility] as well. She was recently discharged from [facility] in December for a fall, found to have a trimalleolar right ankle fracture, status post open reduction internal fixation of all 3 components. Patient went to [facility] and then [place] and then home with home health and was recently discharged from home therapy. She presents again [place] [facility] with complaint of shortness of breath and also has been noted the patient not to be acting right. ER demonstrated pCO2 66.9 pH is 7.34 along with slightly elevated troponin. Patient was given
[2024-05-17] MEDS: buPROPion HCL XL (24 HR) 150 MG TABCR 300 MG PO (21:03)
[2024-05-17] MEDS: rOPINIRole HCL 0.5 MG TABLET PO (21:03)
--- NOTE | 2024-05-17 21:23 | PCRCNOTE ---
Patient refused Apnea link stated she is not a good candidate she can only where her home cpap unit for an hour at a time and she has to take it off.
[2024-05-17 21:26] LABS: Glucose Point of Care 350 mg/dl (65-105)
[2024-05-17 21:45] LABS: Glucose Point of Care 363 mg/dl (65-105)
[2024-05-18] VITALS (17 sets, daily range): BP systolic 101–114; BP diastolic 44–71; PULSE 97–120; RESP 12–20; TEMP 36.2–36.9; O2SAT 90–98
[2024-05-18] MEDS: IPRATROPIUM 0.5 MG/ALBUTEROL SULFATE 2.5 MG AMPUL.NEB 3 ML INHALATION (01:58)
[2024-05-18 04:41] LABS: Basophils Percent Auto 0.1 % (0.2-1.2); Eosinophils Percent Auto 0.4 % (0-4.4); Hematocrit 36.8 % (37.0-47.0); Immature Granulocyte Absolute 0.03 K/mm3 (0.00-0.031); Immature Granulocyte Percent A 0.4 % (0-0.5); Immature Platelet Fraction Pct 12.9 % (0.9-11.2); Lymphocytes Absolute Auto 0.99 K/mm3 (0.9-3.2); Lymphocytes Percent Auto 13.8 % (18.3-44.2); Mean Corpuscular HGB Conc 29.9 g/dl (32-36); Mean Corpuscular Volume 103.7 fl (80-100); Mean Platelet Volume 12.4 fl (7.4-10.4); Monocytes Absolute Auto 0.4 K/mm3 (0.1-0.6); Monocytes Percent Auto 5.6 % (2.6-8.5); Neutrophils Absolute Auto 5.7 K/mm3 (1.3-6.7); Neutrophils Percent Auto 79.7 % (45.5-73.1); Platelet Count Result 135 k/mm3 (150-375); Red Blood Count 3.55 M/mm3 (4.2-5.4); Red Cell Distribution Width 13.4 % (11.5-14.5); White Blood Count 7.2 K/mm3 (4.5-10.0)
[2024-05-18 05:05] LABS: Alanine Aminotransferase 11 U/L (6-35); Albumin Level 3.5 g/dL (3.5-5.1); Alkaline Phosphatase 87 U/L (38-126); Aspartate Amino Transferase 16 U/L (14-36); Bilirubin,Total 0.5 mg/dL (0.2-1.3); Blood Urea Nitrogen 40 mg/dL (7-17); Calcium 9.5 mg/dL (8.4-10.2); Carbon Dioxide > 40 mmol/L (22-30); Chloride 92 mmol/L (98-107); Estimated CRCL calculation 41 ml/min; Estimated Glomerular Filt Rate 44; Glucose 323 mg/dL (65-110); Potassium 4.2 mmol/L (3.4-5.0); Sodium 135 mmol/L (137-145)
[2024-05-18 05:41] LABS: Ovalocytes 1+; Platelet Estimate Slightly Decreased (Adequate); Stomatocytes 1+
[2024-05-18 05:42] LABS: Schistocytes None Seen
[2024-05-18 05:44] LABS: Base Excess ABG 9.9 mEq/l (+/-2.0); Fractional Inspired Oxygen 36 %; HCO3 ABG 37.8 mEq/l (22.0-26.0); Oxygen Saturation ABG 89.7 % (95.0-100.0); Oxyhemoglobin 90.3 % THb (90.0-100.0); PO2 ABG 61.8 mmHg (80.0-100.0); PO2 FiO2 Ratio Arterial Blood 1.72 %; Total Hemoglobin 11.8 g/dL (12.0-18.0); pH ABG 7.352 (7.350-7.450)
[2024-05-18 05:45] LABS: Device NASAL CANNULA; Modified Allen's Test Pass; PCO2 ABG 69.7 mmHg (35.0-45.0); Site Drawn RIGHT RADIAL
--- NOTE | 2024-05-18 05:46 | PCRCNOTE ---
ABG obtain on 4L, Pt put home cpap unit right before obtain ABG then after collecting ABG pt took off.
[2024-05-18 07:44] LABS: Glucose Point of Care 329 mg/dl (65-105)
[2024-05-18] MEDS: UMECLIDINIUM/VILANTEROL 62.5-25 MCG ELLIPTA 1 PUFF INHALATION (08:20)
[2024-05-18] MEDS: FOLIC ACID 1 MG TABLET PO (09:01)
[2024-05-18] MEDS: predniSONE 20 MG TABLET 40 MG PO (09:01)
[2024-05-18] MEDS: CLOPIDOGREL BISULFATE 75 MG TABLET PO (09:01)
[2024-05-18] MEDS: DOCUSATE SODIUM 100 MG CAPSULE PO (09:01)
[2024-05-18] MEDS: ASPIRIN 325 MG ENTERIC TABLET PO ×2 (09:01→20:07)
[2024-05-18] MEDS: INSULIN ASPART (*BKC) 100 UNITS/ML SUB-Q ×3 (09:01→20:11)
[2024-05-18] MEDS: DULoxetine HCL 30 MG CAPSULE.DR PO (09:01)
[2024-05-18] MEDS: NICOTINE (*PBKC) 21 MG PATCH 1 PATCH TRANSDERM (09:02)
[2024-05-18] MEDS: FUROSEMIDE INJ 40 MG/4 ML VIAL IV PUSH (09:02)
[2024-05-18] MEDS: ATORVASTATIN 40 MG TABLET 80 MG PO (09:02)
--- NOTE | 2024-05-18 09:03 | PM.PNPUL ---
Progress Note: A&P Assessment and Plan (1) COPD (chronic obstructive pulmonary disease): Code(s): J44.9 - Chronic obstructive pulmonary disease, unspecified Status: Acute Assessment and Plan: Patient with a history of 108 pack year tobacco use, quit 4 days ago when she was hospitalized, spirometry on 04/10/2021 with an FEV1 is 0.96, 40% predicted, ratio 49%, CT scan on 08/07/2023 with mild to moderate apical predominant centrilobular emphysema. Patient is a been on 4 L nasal cannula oxygen /7 for the last 5 years. Prior to her fall she could walk 100 ft. she was admitted on 01/08/2024 with chronic hypercarbic respiratory failure and initiated on home noninvasive ventilator with an AVAPS AE mode through via [employer]. She required 3 L bleed in at night. She was called by our staff for follow-up but declined. Currently the patient is with COPD exacerbation with increasing shortness of breath, hypoxemia, change in color of her phlegm. she continues to smoke approximately 1 pack per day. 05/17/24: Overall the patient has improved. She states that she has 40% back to her baseline. She still has more shortness of breath, her cough is the same and her phlegm is moeller compared to normal which is clearing moeller. Her creatinine is 1.4. She is afebrile. When I entered the room she was on 4 L nasal cannula saturations 98%. I decreased her to 3 L and her saturation was 93%. BNP today is 8720. Her weight is 79.9 with admission weight of 84.6. Overall she is 290 mL positive since admission on Lasix 40 IV q.day. Plan: Patient has no wheezing today. Continue prednisone, day 4 of steroids. I will discontinue her DuoNebs and place her on her home Anoro Ellipta. She has no infectious complaints and I do not feel a need for antibiotics at this point. Goal saturation 90-94%. Currently she is on 3 L. 05/18/24: Patient continues to slowly improve. She tells me she is 55% back to her normal. She has no shortness of breath at rest. She is afebrile. White blood cell count 7.2, creatinine 1.20. When I entered the room she was on 1.5 L nasal cannula saturations 88% and I increased her to 2 L nasal cannula her saturations were 91%. Her weight today seems to be an air at 61.5. Cumulative she is +570 mL since admission. ABG was done this morning on 4 L off of the BiPAP with a pH of 7.35/70/62. Plan: She has received 5 days of steroids and will discontinue today. Smoking cessation counseling was provided From a pulmonary perspective patient is ready to be discharged on these pulmonary medications: Anoro Ellipta 62.5-25 at 1 puff q.day Rescue albuterol 2 puffs q.4 hours p.r.n. shortness of breath or wheezing. oxygen at rest and with activity per rehabilitation center. Currently she is on 2 L with saturations 91% at rest. When she naps or sleeps: Noninvasive ventilation through via med with primary settings: breath rate: auto, target volume 400, EPAP minimum 5, EPAP maximum 8, P insp 8, P insp max 20, pressure support 8, maximum pressure 15 and 3 L bleed in. Follow-up in the Pulmonary Clinic in 4 weeks. I gave her our business card and informed our package wrapper. Discussed with Dr. Irwin, will follow with you. (2) Acute on chronic respiratory failure with hypoxia and hypercapnia: Code(s): J96.21 - Acute and chronic respiratory failure with hypoxia; J96.22 - Acute and chronic respiratory failure with hypercapnia Status: Acute Assessment and Plan: The patient has chronic hypercarbic respiratory failure from her COPD On 01/09/24: Patient wore the hospital noninvasive ventilator with the AVAPS mode with AVAPS AE setting rate of 20, tidal volume 500, EPAP 5, minimal inspiratory pressure 6, maximal inspiratory pressure 25, inspiratory time 1.2, rise of 5 and 40% and did well with a fullface mask. Patient had an overnight oximetry on these settings with recording duration of 6 hours and 30 minutes. Average saturation 94
[2024-05-18 11:23] LABS: Glucose Point of Care 218 mg/dl (65-105)
--- NOTE | 2024-05-18 11:48 | PM.IMPN ---
Progress Note: A&P Assessment and Plan (1) Acute on chronic respiratory failure with hypoxia and hypercapnia: Code(s): J96.21 - Acute and chronic respiratory failure with hypoxia; J96.22 - Acute and chronic respiratory failure with hypercapnia Status: Acute Assessment and Plan: The patient has chronic hypercarbic respiratory failure from her COPD will obtain a download from her [employer], via [employer]. I will continue her home noninvasive ventilator with 3 L bleed in tonight And check an overnight oximetry and an ABG prior to removal on these settings. (2) CHF (congestive heart failure): Code(s): I50.9 - Heart failure, unspecified Status: Chronic (3) Elevated troponin: Code(s): R79.89 - Other specified abnormal findings of blood chemistry Status: Acute (4) Diabetes mellitus with hyperglycemia, without long-term current use of insulin: Code(s): E11.65 - Type 2 diabetes mellitus with hyperglycemia Status: Chronic (5) COPD (chronic obstructive pulmonary disease): Code(s): J44.9 - Chronic obstructive pulmonary disease, unspecified Status: Acute Plan Assessment and Plan (1) Acute hypercapnic respiratory failure: Code(s): J96.02 - Acute respiratory failure with hypercapnia Status: Acute (2) CHF (congestive heart failure): Code(s): I50.9 - Heart failure, unspecified Status: Acute (3) Elevated troponin: Code(s): R79.89 - Other specified abnormal findings of blood chemistry Status: Acute (4) Hypomagnesemia: Code(s): E83.42 - Hypomagnesemia Status: Acute Plan Vanita [facility] is a 73-year-old female with PMH chronic hypoxic and hypercarbic respiratory failure, COPD, active tobacco abuse, chronic bilateral lower back pain dependent on opioid use (has a spinal pain pump but does not work anymore, follows with a pain medicine PA), CAD status post PCI remotely at [place], chronic macrocytic anemia, obstructive sleep apnea on noninvasive ventilator at nighttime with 4 L of oxygen. She lives at home with the , she continues to smoke. History is taken from the [facility] as well. She was recently discharged from [facility] in December for a fall, found to have a trimalleolar right ankle fracture, status post open reduction internal fixation of all 3 components. Patient went to [facility] and then [place] and then home with home health and was recently discharged from home therapy. She presents again [place] [facility] with complaint of shortness of breath and also has been noted the patient not to be acting right. ER demonstrated pCO2 66.9 pH is 7.34 along with slightly elevated troponin. Patient was given IV magnesium Solu-Medrol in Lasix as a chest x-ray demonstrated some findings concerning for CHF. Patient was placed on BiPAP and admitted on 05/14/2024. Acute and principal conditions Acute on chronic hypercarbic and hypoxic respiratory failure due to advanced stage COPD and active tobacco abuse DARRICK Noncompliant with nightly CPAP -status: Acute on chronic, severe, symptomatology improved, pCO2 worsening -placed on BiPAP on admission. 05/15 she is back on her usual 4 L and breathing at her baseline. On the night of 05/15 there is some question about malfunctioning of her home PAP machine. Patient also reportedly refused oxygen and noninvasive ventilator at night. Repeat ABG now with pCO2 77. Compliance encouraged. Order placed for AVAPS mode throughout the day and night. ABG in the morning. Pulmonology consulted. Of note, she is a chronic retainer. -status post acetazolamide 250 mg x 1 on 05/15/2024 -Educated on the risk of deterioration with noncompliance. Greater than 3 minutes spent on tobacco cessation Education -received IV magnesium in the ER. Solu-Medrol changed to prednisone on 05/16/2024 (blood sugars very high), scheduled DuoNebs -quad viral screen on 05/14 24 negative 05/17/24: Continue diuresis, DuoNebs
[2024-05-18] MEDS: ENOXAPARIN 40 MG/0.4 ML SYRINGE SUB-Q (12:30)
[2024-05-18 15:40] LABS: Glucose Point of Care 113 mg/dl (65-105)
[2024-05-18] MEDS: HYDROcodone/acetaminophen (*CRX) 5-325 MG TABLET 1 TAB PO (17:42)
[2024-05-18] MEDS: SENNA/DOCUSATE SODIUM TABLET 1 TAB PO (17:43)
--- NOTE | 2024-05-18 17:46 | PC.NURSE ---
This patient, Vanita [facility], was transferred to [facility] on 05/18/24 at 1746. Personal belongings sent with patient. Report given to Amber Caraballo. Appropriate documentation sent with patient.
--- NOTE | 2024-05-18 17:50 | PC.NURSE ---
This patient, Vanita [facility], was received from [[id number]] on 05/18/24 at 1823. Patient/family oriented to unit policies and routines
[2024-05-18 19:53] LABS: Glucose Point of Care 385 mg/dl (65-105)
[2024-05-18] MEDS: buPROPion HCL XL (24 HR) 150 MG TABCR 300 MG PO (20:07)
[2024-05-18] MEDS: rOPINIRole HCL 0.5 MG TABLET PO (20:07)
[2024-05-19] VITALS (9 sets, daily range): BP systolic 96–105; BP diastolic 44–67; PULSE 103–109; RESP 16–18; TEMP 36.4–37.1; O2SAT 93–99
[2024-05-19] MEDS: HYDROcodone/acetaminophen (*CRX) 5-325 MG TABLET 1 TAB PO ×3 (01:37→22:03)
[2024-05-19 04:34] LABS: Alveolar/Arterial O2 Gradient 59.4 mmHg; Base Excess ABG 12.7 mEq/l (+/-2.0); Fractional Inspired Oxygen 32 %; HCO3 ABG 40.2 mEq/l (22.0-26.0); Oxygen Saturation ABG 96.5 % (95.0-100.0); Oxyhemoglobin 95.6 % THb (90.0-100.0); PO2 ABG 89.9 mmHg (80.0-100.0); PO2 FiO2 Ratio Arterial Blood 2.81 %; Total Hemoglobin 11.8 g/dL (12.0-18.0); pH ABG 7.393 (7.350-7.450)
[2024-05-19 04:43] LABS: PCO2 ABG 67.4 mmHg (35.0-45.0); Site Drawn RIGHT RADIAL
[2024-05-19 04:44] LABS: Device OTHER DEVICE; Modified Allen's Test Pass
[2024-05-19 06:29] LABS: Basophils Percent Auto 0.4 % (0.2-1.2); Eosinophils Absolute Auto 0.1 K/mm3 (0-0.3); Eosinophils Percent Auto 1.2 % (0-4.4); Hematocrit 37.8 % (37.0-47.0); Hemoglobin 11.5 g/dL (12.0-15.0); Immature Granulocyte Absolute 0.02 K/mm3 (0.00-0.031); Immature Granulocyte Percent A 0.3 % (0-0.5); Immature Platelet Fraction Pct 13.2 % (0.9-11.2); Lymphocytes Absolute Auto 2.18 K/mm3 (0.9-3.2); Lymphocytes Percent Auto 28.2 % (18.3-44.2); Mean Corpuscular HGB Conc 30.4 g/dl (32-36); Mean Corpuscular Volume 101.9 fl (80-100); Mean Platelet Volume 12.2 fl (7.4-10.4); Monocytes Absolute Auto 0.6 K/mm3 (0.1-0.6); Monocytes Percent Auto 7.6 % (2.6-8.5); Neutrophils Absolute Auto 4.8 K/mm3 (1.3-6.7); Neutrophils Percent Auto 62.3 % (45.5-73.1); Platelet Count Result 141 k/mm3 (150-375); Red Blood Count 3.71 M/mm3 (4.2-5.4); Red Cell Distribution Width 13.6 % (11.5-14.5); White Blood Count 7.7 K/mm3 (4.5-10.0)
[2024-05-19 06:33] LABS: Alanine Aminotransferase 14 U/L (6-35); Albumin Level 3.6 g/dL (3.5-5.1); Alkaline Phosphatase 76 U/L (38-126); Aspartate Amino Transferase 19 U/L (14-36); Bilirubin,Total 0.5 mg/dL (0.2-1.3); Blood Urea Nitrogen 42 mg/dL (7-17); Calcium 9.5 mg/dL (8.4-10.2); Carbon Dioxide > 40 mmol/L (22-30); Chloride 94 mmol/L (98-107); Estimated CRCL calculation 41 ml/min; Estimated Glomerular Filt Rate 44; Glucose 213 mg/dL (65-110); Potassium 4.1 mmol/L (3.4-5.0); Sodium 137 mmol/L (137-145)
[2024-05-19] MEDS: UMECLIDINIUM/VILANTEROL 62.5-25 MCG ELLIPTA 1 PUFF INHALATION (07:12)
[2024-05-19 07:45] LABS: Glucose Point of Care 200 mg/dl (65-105)
[2024-05-19 07:55] LABS: NT Pro B Type Natriuretic Pept 9200 pg/mL (19.9-100)
--- NOTE | 2024-05-19 08:25 | PM.PNPUL ---
Progress Note: A&P Assessment and Plan (1) COPD (chronic obstructive pulmonary disease): Code(s): J44.9 - Chronic obstructive pulmonary disease, unspecified Status: Acute Assessment and Plan: Patient with a history of 108 pack year tobacco use, quit 4 days ago when she was hospitalized, spirometry on 04/10/2021 with an FEV1 is 0.96, 40% predicted, ratio 49%, CT scan on 08/07/2023 with mild to moderate apical predominant centrilobular emphysema. Patient is a been on 4 L nasal cannula oxygen /7 for the last 5 years. Prior to her fall she could walk 100 ft. she was admitted on 01/08/2024 with chronic hypercarbic respiratory failure and initiated on home noninvasive ventilator with an AVAPS AE mode through via [employer]. She required 3 L bleed in at night. She was called by our staff for follow-up but declined. Currently the patient is with COPD exacerbation with increasing shortness of breath, hypoxemia, change in color of her phlegm. she continues to smoke approximately 1 pack per day. 05/17/24: Overall the patient has improved. She states that she has 40% back to her baseline. She still has more shortness of breath, her cough is the same and her phlegm is moeller compared to normal which is clearing moeller. Her creatinine is 1.4. She is afebrile. When I entered the room she was on 4 L nasal cannula saturations 98%. I decreased her to 3 L and her saturation was 93%. BNP today is 8720. Her weight is 79.9 with admission weight of 84.6. Overall she is 290 mL positive since admission on Lasix 40 IV q.day. Plan: Patient has no wheezing today. Continue prednisone, day 4 of steroids. I will discontinue her DuoNebs and place her on her home Anoro Ellipta. She has no infectious complaints and I do not feel a need for antibiotics at this point. Goal saturation 90-94%. Currently she is on 3 L. 05/18/24: Patient continues to slowly improve. She tells me she is 55% back to her normal. She has no shortness of breath at rest. She is afebrile. White blood cell count 7.2, creatinine 1.20. When I entered the room she was on 1.5 L nasal cannula saturations 88% and I increased her to 2 L nasal cannula her saturations were 91%. Her weight today seems to be an air at 61.5. Cumulative she is +570 mL since admission. ABG was done this morning on 4 L off of the BiPAP with a pH of 7.35/70/62. Plan: She has received 5 days of steroids and will discontinue today. Smoking cessation counseling was provided 05/19/24: overall the patient states she is breathing back at her baseline. Currently she is on 3 L nasal cannula saturations 98%. She is afebrile. White blood cell count 7.7, creatinine 1.20. currently she is on 3 L nasal cannula saturations 98%. Her weight today is 80.4, BNP is 9200 on Lasix 40 IV, aggressive diuresis limited by soft blood pressures. From a pulmonary perspective patient is ready to be discharged on these pulmonary medications: Anoro Ellipta 62.5-25 at 1 puff q.day Rescue albuterol 2 puffs q.4 hours p.r.n. shortness of breath or wheezing. oxygen at rest and with activity per rehabilitation center. Currently she is on 3 L with saturations 98% at rest. When she naps or sleeps: Noninvasive ventilation through via med with primary settings: ROBSON. mode: T TV-VAPS-AE Primary settings: breath rate 16, target volume 350, EPAP minimum 5, EPAP maximum 6, PS 4, PS max 8 with 4 L NC under her mask. Follow-up in the Pulmonary Clinic in 4 weeks. I gave her our business card and informed our core microarchitect. Discussed with Dr. Amaral, will follow with you. (2) Acute on chronic respiratory failure with hypoxia and hypercapnia: Code(s): J96.21 - Acute and chronic respiratory failure with hypoxia; J96.22 - Acute and chronic respiratory failure with hypercapnia Status: Acute Assessment and Plan: The patient has chronic hypercarbic respiratory failure from her COPD On 01/09/24: Patient wore the hospital n
[2024-05-19] MEDS: fentaNYL (*CRX) 50 MCG PATCH TRANSDERM (08:31)
[2024-05-19] MEDS: NICOTINE (*PBKC) 21 MG PATCH 1 PATCH TRANSDERM (08:41)
[2024-05-19] MEDS: FUROSEMIDE INJ 40 MG/4 ML VIAL IV PUSH (08:42)
[2024-05-19] MEDS: DOCUSATE SODIUM 100 MG CAPSULE PO (08:42)
[2024-05-19] MEDS: DULoxetine HCL 30 MG CAPSULE.DR PO (08:42)
[2024-05-19] MEDS: ASPIRIN 325 MG ENTERIC TABLET PO (08:42)
[2024-05-19] MEDS: FOLIC ACID 1 MG TABLET PO (08:42)
[2024-05-19] MEDS: ENOXAPARIN 40 MG/0.4 ML SYRINGE SUB-Q (08:42)
[2024-05-19] MEDS: ATORVASTATIN 40 MG TABLET 80 MG PO (08:42)
[2024-05-19] MEDS: CLOPIDOGREL BISULFATE 75 MG TABLET PO (08:42)
--- NOTE | 2024-05-19 10:09 | PM.DS ---
DS: Admitting Diagnosis Discharge Date 05/19/24 Admitting Diagnosis Shortness of breath DS: Discharge Diagnosis Discharge Diagnosis (1) Acute on chronic respiratory failure with hypoxia and hypercapnia: Code(s): J96.21 - Acute and chronic respiratory failure with hypoxia; J96.22 - Acute and chronic respiratory failure with hypercapnia Status: Acute (2) CHF (congestive heart failure): Code(s): I50.9 - Heart failure, unspecified Status: Chronic (3) Elevated troponin: Code(s): R79.89 - Other specified abnormal findings of blood chemistry Status: Acute (4) Diabetes mellitus with hyperglycemia, without long-term current use of insulin: Code(s): E11.65 - Type 2 diabetes mellitus with hyperglycemia Status: Chronic (5) COPD (chronic obstructive pulmonary disease): Code(s): J44.9 - Chronic obstructive pulmonary disease, unspecified Status: Acute DS: Summary Hospital Course Reason for hospitalization: 73yo female with COPD, chronic respiratory failure and ongoing tobacco use here for shortness of breath. Please see H&P for details. Hospital Course: [facility] found to have a trimalleolar right ankle fracture, status post open reduction internal fixation of all 3 components. Patient went to [facility] and then [place] and then home with home health and was recently discharged from home therapy. She presents again [facility] ER with complaint of shortness of breath and also has been noted the patient not to be acting right. ER demonstrated pCO2 66.9 pH is 7.34 along with slightly elevated troponin. Patient was given IV magnesium, Solu-Medrol and Lasix. CXR demonstrated some findings concerning for CHF. Patient was placed on BiPAP and admitted on 05/14/2024. She became more awake and alert. ABG improved and at discharge was 7.39/67/90 on 3L. She ws refusing treatment at time and the benefits of medical compliance discussed. She has bee using her noninvasive machine at night in small blocks of time. Pulmonary consulted. Medications adjusted. Acute on chronic CHF noted. BNP 7270. She was started on Lasix IV. She is on midodrine. This was started on the last admission. It was supposed to be weaned off. We discontinued midodrine with SBP 90-100 range. Echo in Fe showing EF 45-50% with hypokinesis and Grade I diastolic dysfunction and moderate pulmonary HTN. We held off on starting GDMT at this time due to soft BP. Lasix dose not increased due to the same reason and that her CHF flare related to noncompliance possibly. She had clinical improvement and was able to be discharged on 05/19/24 Status at Discharge Cognitive/behavioral status at discharge: stable Time Spent with Patient Time attestation: Total time spent providing and/or coordinating discharge services: 36 minutes Time spent: Greater than 30 minutes Exam Narrative: AF 98.7 96/67 106 18 95% 3L Gen - NARD Chest - distant but clear breath sounds CV - RRR S1/S2 Abd - Soft, NT/ND, Positive BS Ext - No pedal edema Psych - Nml mood and affect Skin - Warm and dry DS: Data Data Completed and Pending Labs on day of discharge: Labs from last 24 hours 05/19/24 05/19/24 05/19/24 07:35 06:00 05:59 WBC 7.7 RBC 3.71 L Hgb 11.5 L Hct 37.8 MCV 101.9 H MCH 31.0 MCHC 30.4 L RDW 13.6 Plt Count 141 L MPV 12.2 H Immature Gran % (Auto) 0.3 Neut % (Auto) 62.3 Lymph % (Auto) 28.2 [place] % (Auto) 7.6 Eos % (Auto) 1.2 Baso % (Auto) 0.4 Lymph # (Auto) 2.18 [place] # (Auto) 0.6 Eos # (Auto) 0.1 Baso # (Auto) 0.0 Abs Immat Gran (auto) 0.02 Absolute Neuts (auto) 4.8 Absolute Nucleated RBC 0.000 Nucleated RBC % 0.0 % Immature Plt Fraction 13.2 H Puncture Site ABG pH ABG pCO2 ABG pO2 ABG PO2/FiO2 Ratio ABG HCO3 ABG O2 Saturation ABG O2 Content ABG
[2024-05-19 11:36] LABS: Glucose Point of Care 245 mg/dl (65-105)
[2024-05-19] MEDS: INSULIN ASPART (*BKC) 100 UNITS/ML SUB-Q ×3 (11:45→21:55)
[2024-05-19] MEDS: SENNA/DOCUSATE SODIUM TABLET 1 TAB PO (11:45)
[2024-05-19 16:45] LABS: Glucose Point of Care 231 mg/dl (65-105)
[2024-05-19] MEDS: MIDODRINE HCL 2.5 MG TABLET 5 MG PO (18:24)
[2024-05-19] MEDS: buPROPion HCL XL (24 HR) 150 MG TABCR 300 MG PO (21:55)
[2024-05-19] MEDS: rOPINIRole HCL 0.5 MG TABLET PO (21:55)
[2024-05-19 22:06] LABS: Glucose Point of Care 254 mg/dl (65-105)
[2024-05-20 06:00] VITALS: BP 110/60; PULSE 91; RESP 18; TEMP 36.3; O2SAT 98
[2024-05-20 06:58] LABS: Basophils Percent Auto 0.4 % (0.2-1.2); Eosinophils Absolute Auto 0.3 K/mm3 (0-0.3); Eosinophils Percent Auto 3.4 % (0-4.4); Hematocrit 38.9 % (37.0-47.0); Hemoglobin 11.5 g/dL (12.0-15.0); Immature Granulocyte Absolute 0.04 K/mm3 (0.00-0.031); Immature Granulocyte Percent A 0.5 % (0-0.5); Lymphocytes Absolute Auto 2.74 K/mm3 (0.9-3.2); Lymphocytes Percent Auto 34.9 % (18.3-44.2); Mean Corpuscular HGB Conc 29.6 g/dl (32-36); Mean Corpuscular Hemoglobin 30.8 pg (26-34); Mean Corpuscular Volume 104.3 fl (80-100); Mean Platelet Volume 12.4 fl (7.4-10.4); Monocytes Absolute Auto 0.6 K/mm3 (0.1-0.6); Neutrophils Absolute Auto 4.2 K/mm3 (1.3-6.7); Neutrophils Percent Auto 53.8 % (45.5-73.1); Platelet Count Result 126 k/mm3 (150-375); Red Blood Count 3.73 M/mm3 (4.2-5.4); Red Cell Distribution Width 13.5 % (11.5-14.5); White Blood Count 7.9 K/mm3 (4.5-10.0)
[2024-05-20 07:09] LABS: Alanine Aminotransferase 17 U/L (6-35); Albumin Level 3.3 g/dL (3.5-5.1); Alkaline Phosphatase 84 U/L (38-126); Aspartate Amino Transferase 22 U/L (14-36); Bilirubin,Total 0.6 mg/dL (0.2-1.3); Blood Urea Nitrogen 37 mg/dL (7-17); Calcium 9.1 mg/dL (8.4-10.2); Carbon Dioxide > 40 mmol/L (22-30); Chloride 96 mmol/L (98-107); Estimated CRCL calculation 41 ml/min; Estimated Glomerular Filt Rate 44; Glucose 218 mg/dL (65-110); Potassium 3.8 mmol/L (3.4-5.0); Sodium 138 mmol/L (137-145)
[2024-05-20 07:44] LABS: Hypochromasia 1+; Platelet Estimate Decreased (Adequate); Schistocytes None Seen
[2024-05-20 08:00] VITALS: O2SAT 95
[2024-05-20 08:10] LABS: Glucose Point of Care 204 mg/dl (65-105)
[2024-05-20 08:20] VITALS: O2SAT 98
[2024-05-20] MEDS: UMECLIDINIUM/VILANTEROL 62.5-25 MCG ELLIPTA 1 PUFF INHALATION (08:20)
[2024-05-20] MEDS: ENOXAPARIN 40 MG/0.4 ML SYRINGE SUB-Q (09:16)
[2024-05-20] MEDS: MIDODRINE HCL 2.5 MG TABLET 5 MG PO (09:16)
[2024-05-20] MEDS: DOCUSATE SODIUM 100 MG CAPSULE PO (09:16)
[2024-05-20] MEDS: ATORVASTATIN 40 MG TABLET 80 MG PO (09:16)
[2024-05-20] MEDS: CLOPIDOGREL BISULFATE 75 MG TABLET PO (09:17)
[2024-05-20] MEDS: CYCLOBENZAPRINE HCL 10 MG TABLET PO (09:17)
[2024-05-20] MEDS: ASPIRIN 81 MG CHEWABLE TABLET PO (09:17)
[2024-05-20] MEDS: HYDROcodone/acetaminophen (*CRX) 5-325 MG TABLET 1 TAB PO (09:17)
[2024-05-20] MEDS: FUROSEMIDE 40 MG TABLET PO (09:17)
[2024-05-20] MEDS: DULoxetine HCL 30 MG CAPSULE.DR PO (09:17)
[2024-05-20] MEDS: NICOTINE (*PBKC) 21 MG PATCH 1 PATCH TRANSDERM (09:18)
[2024-05-20] MEDS: INSULIN ASPART (*BKC) 100 UNITS/ML SUB-Q ×2 (09:21→11:33)
[2024-05-20] MEDS: FOLIC ACID 1 MG TABLET PO (09:30)
--- NOTE | 2024-05-20 10:18 | PM.PNPUL ---
Progress Note: A&P Assessment and Plan (1) COPD (chronic obstructive pulmonary disease): Code(s): J44.9 - Chronic obstructive pulmonary disease, unspecified Status: Acute Assessment and Plan: Patient with a history of 108 pack year tobacco use, quit 4 days ago when she was hospitalized, spirometry on 04/10/2021 with an FEV1 is 0.96, 40% predicted, ratio 49%, CT scan on 08/07/2023 with mild to moderate apical predominant centrilobular emphysema. Patient is a been on 4 L nasal cannula oxygen /7 for the last 5 years. Prior to her fall she could walk 100 ft. she was admitted on 01/08/2024 with chronic hypercarbic respiratory failure and initiated on home noninvasive ventilator with an AVAPS AE mode through via [employer] She required 3 L bleed in at night. She was called by our staff for follow-up but declined. Currently the patient is with COPD exacerbation with increasing shortness of breath, hypoxemia, change in color of her phlegm. she continues to smoke approximately 1 pack per day. 05/17/24: Overall the patient has improved. She states that she has 40% back to her baseline. She still has more shortness of breath, her cough is the same and her phlegm is moeller compared to normal which is clearing moeller. Her creatinine is 1.4. She is afebrile. When I entered the room she was on 4 L nasal cannula saturations 98%. I decreased her to 3 L and her saturation was 93%. BNP today is 8720. Her weight is 79.9 with admission weight of 84.6. Overall she is 290 mL positive since admission on Lasix 40 IV q.day. Plan: Patient has no wheezing today. Continue prednisone, day 4 of steroids. I will discontinue her DuoNebs and place her on her home Anoro Ellipta. She has no infectious complaints and I do not feel a need for antibiotics at this point. Goal saturation 90-94%. Currently she is on 3 L. 05/18/24: Patient continues to slowly improve. She tells me she is 55% back to her normal. She has no shortness of breath at rest. She is afebrile. White blood cell count 7.2, creatinine 1.20. When I entered the room she was on 1.5 L nasal cannula saturations 88% and I increased her to 2 L nasal cannula her saturations were 91%. Her weight today seems to be an air at 61.5. Cumulative she is +570 mL since admission. ABG was done this morning on 4 L off of the BiPAP with a pH of 7.35/70/62. Plan: She has received 5 days of steroids and will discontinue today. Smoking cessation counseling was provided 05/19/24: overall the patient states she is breathing back at her baseline. Currently she is on 3 L nasal cannula saturations 98%. She is afebrile. White blood cell count 7.7, creatinine 1.20. currently she is on 3 L nasal cannula saturations 98%. Her weight today is 80.4, BNP is 9200 on Lasix 40 IV, aggressive diuresis limited by soft blood pressures. 05/20/24: patient is currently breathing at her baseline. She is on 3 L nasal cannula saturations 98%. She is afebrile with white blood cell count is 7.9, creatinine of 1.20. Her weight today is 80 kilos. patient tells me yesterday she stood up and pivoted 3 times on her ankle. From a pulmonary perspective patient is ready to be discharged on these pulmonary medications: Anoro Ellipta 62.5-25 at 1 puff q.day Rescue albuterol 2 puffs q.4 hours p.r.n. shortness of breath or wheezing. oxygen at rest and with activity per rehabilitation center. Currently she is on 3 L with saturations 98% at rest. When she naps or sleeps: Noninvasive ventilation through via med with primary settings: [place]. mode: T [id number] Primary settings: breath rate 16, target volume 350, EPAP minimum 5, EPAP maximum 6, PS 4, PS max 8 with 4 L NC under her mask. Follow-up in the Pulmonary Clinic in 4 weeks. I gave her our business card and informed our kitchen food server. Discussed with Dr. Amaral, will sign off, call with questions. (2) Acute on chronic respiratory failure with hypoxia and hypercapnia:
[2024-05-20 11:29] LABS: Glucose Point of Care 206 mg/dl (65-105)
[2024-05-20 14:00] VITALS: BP 110/64; PULSE 99; RESP 12; TEMP 36.1; O2SAT 98
--- NOTE | 2024-05-20 14:00 | PM.DS ---
DS: Admitting Diagnosis Discharge Date 05/20/24 Admitting Diagnosis Shortness of breath DS: Discharge Diagnosis Discharge Diagnosis (1) Acute on chronic respiratory failure with hypoxia and hypercapnia: Code(s): J96.21 - Acute and chronic respiratory failure with hypoxia; J96.22 - Acute and chronic respiratory failure with hypercapnia Status: Acute (2) CHF (congestive heart failure): Code(s): I50.9 - Heart failure, unspecified Status: Chronic (3) Elevated troponin: Code(s): R79.89 - Other specified abnormal findings of blood chemistry Status: Acute (4) Diabetes mellitus with hyperglycemia, without long-term current use of insulin: Code(s): E11.65 - Type 2 diabetes mellitus with hyperglycemia Status: Chronic (5) COPD (chronic obstructive pulmonary disease): Code(s): J44.9 - Chronic obstructive pulmonary disease, unspecified Status: Acute DS: Summary Hospital Course Reason for hospitalization: 73yo female with COPD, chronic respiratory failure and ongoing tobacco use here for shortness of breath. Please see H&P for details. Hospital Course: Patient was recently discharged from [facility] in December for a fall found to have a trimalleolar right ankle fracture, status post open reduction internal fixation of all 3 components. Patient went to [facility] [place] and then [place] and then home with home health and was recently discharged from home therapy. She presents again [place] ER with complaint of shortness of breath and also has been noted the patient not to be acting right. ER demonstrated pCO2 66.9 pH is 7.34 along with slightly elevated troponin. Patient was given IV magnesium, Solu-Medrol and Lasix. CXR demonstrated some findings concerning for CHF. Patient was placed on BiPAP and admitted on 05/14/2024. She became more awake and alert. ABG improved and at discharge was 7.39/67/90 on 3L. She ws refusing treatment at time and the benefits of medical compliance discussed. She has bee using her noninvasive machine at night in small blocks of time. Pulmonary consulted. Medications adjusted. Acute on chronic CHF noted. BNP 7270. She was started on Lasix IV. She is on midodrine. This was started on the last admission. It was supposed to be weaned off. We discontinued midodrine with SBP 90-100 range. Echo in Fe showing EF 45-50% with hypokinesis and Grade I diastolic dysfunction and moderate pulmonary HTN. We held off on starting GDMT at this time due to soft BP. Lasix dose not increased due to the same reason and that her CHF flare related to noncompliance possibly. Her discharge was held on May 19. Her systolic blood pressure was in the 90's due to holding her midodrine so this was resumed. Blood pressure improved. She also had an Apnea link on 4Liters the night prior to discharge showing no significant hypoxia. She was accepted at the facility. She had clinical improvement and was able to be discharged on 05/20/24. Status at Discharge Cognitive/behavioral status at discharge: stable Time Spent with Patient Time attestation: Total time spent providing and/or coordinating discharge services: 34 minutes Time spent: Greater than 30 minutes Exam Narrative: AF 997.3 110/60 91 18 98% 3L Gen - NARD Chest - scattered inspiratory rhonchi o/w distant BS CV - RRR S1/S2 Abd - Soft, NT/ND, Positive BS Ext - No pedal edema Psych - Nml mood and affect Skin - Warm and dry DS: Data Data Completed and Pending Labs on day of discharge: Labs from last 24 hours 05/20/24 05/20/24 05/20/24 11:23 08:03 05:54 WBC 7.9 RBC 3.73 L Hgb 11.5 L Hct 38.9 MCV 104.3 H MCH 30.8 MCHC 29.6 L RDW 13.5 Plt Count 126 L MPV 12.4 H Immature Gran % (Auto) 0.5 Neut % (Auto) 53.8 Lymph % (Auto) 34.9 [place] % (Auto) 7.0 Eos % (Auto) 3.4 Baso % (Auto) 0.4 Lymph # (Auto) 2.74 [place] # (Auto) 0.6 Eos # (Auto) 0.3 Baso #
--- NOTE | 2024-05-28 07:36 | PC.NURSE ---
ALpha AT- PI*MS- nml. Dr. Amaral aware.
== END 2024-05-20 15:46 | DRG 291 ==
LOC: ANHED 20:22 → ANHIMU 21:52 → ANH3MEDSUR 05-19 10:30 → ANHIMU 05-24 11:23
PROVIDERS: Emergency Medicine; General Practice; Internal Medicine; Internal Medicine Pulmonary Disease; Student in an Organized Health Care Education/Training Program; Admitting Provider Internal Medicine; Emergency Provider Emergency Medicine; PCP Family Medicine; Visit Provider Internal Medicine
DX: I50.23 Acute on chronic systolic (congestive) heart failure (principal); J96.21 Acute and chronic respiratory failure with hypoxia; J96.22 Acute and chronic respiratory failure with hypercapnia; F33.8 Other recurrent depressive disorders; I24.89 Other forms of acute ischemic heart disease; I25.10 Atherosclerotic heart disease of native coronary artery without angina pectoris; J44.9 Chronic obstructive pulmonary disease, unspecified; E11.51 Type 2 diabetes mellitus with diabetic peripheral angiopathy without gangrene; E11.42 Type 2 diabetes mellitus with diabetic polyneuropathy; E83.42 Hypomagnesemia; E53.8 Deficiency of other specified B group vitamins; E78.5 Hyperlipidemia, unspecified; E55.9 Vitamin D deficiency, unspecified; K21.9 Gastro-esophageal reflux disease without esophagitis; K59.03 Drug induced constipation; T40.2X5A Adverse effect of other opioids, initial encounter; N81.10 Cystocele, unspecified; M75.02 Adhesive capsulitis of left shoulder; M54.59 Other low back pain; G89.29 Other chronic pain; G47.33 Obstructive sleep apnea (adult) (pediatric); G25.81 Restless legs syndrome; R29.6 Repeated falls; F17.210 Nicotine dependence, cigarettes, uncomplicated; F41.9 Anxiety disorder, unspecified; Z20.822 Contact with and (suspected) exposure to COVID-19; Z96.649 Presence of unspecified artificial hip joint; Z95.5 Presence of coronary angioplasty implant and graft; Z99.81 Dependence on supplemental oxygen; Z79.02 Long term (current) use of antithrombotics/antiplatelets; Z79.82 Long term (current) use of aspirin; Z79.4 Long term (current) use of insulin; Z91.199 Patient's noncompliance with other medical treatment and regimen due to unspecified reason
CPT/HCPCS: 36415; 36600; 71045; 71046; 80048; 80053; 81001; 82104; 82375; 82805; 82948; 83036; 83050; 83605; 83735; 83880; 84145; 84484; 85025; 85027; 85055; 85610; 85730; 87637; 93005; 94002; 94003; 94640; 94762; 96374; 96375; 97110; 97161; 97166; 97530; 97535; 99285; A9270; G0378; J1120; J1650; J1815; J1940; J2060; J2919; J3475; J7512

== ENCOUNTER 2024-06-01 12:12 | Inpatient (IN) | payer MEDICARE, BC, SELFPAY ==
[2024-06-01] VITALS (11 sets, daily range): BP systolic 91–116; BP diastolic 42–66; PULSE 67–116; RESP 11–20; TEMP 36.4–36.7; O2SAT 93–98; BMI 29.3
--- NOTE | ~2024-06-01 | XR_ITS ---
EXAMINATION: XR chest 2V DATE: 06/01/2024 13:52 INDICATION: Shortness of breath TECHNIQUE: frontal and lateral views of the chest were obtained. COMPARISON: Chest radiograph dated 05/17/2024 FINDINGS: Airspace opacities in bilateral mid and lower lung zones which includes scattered linear and bandlike discoid atelectasis/scarring as well as a small right pleural effusion. Subtle increased interstitia l pattern in the lower lungs consistent with mild pulmonary edema. Superimposed pneumonia not excluda ble. Cardiomegaly. Spinal stimulator leads project over the posterior aspect of the central canal the lower thoracic spine. IMPRESSION: 1. Likely congestive heart failure with cardiomegaly, mild pulmonary edema and small right pleural ef fusions. 2. Airspace opacities in the bilateral mid and lower lung zones which includes scattered discoid atel ectasis/scarring and could not exclude superimposed pneumonia. Reviewed, dictated and finalized at location A. IMPRESSION: 1. Likely congestive heart failure with cardiomegaly, mild pulmonary edema and small right pleural effusions. 2. Airspace opacities in the bilateral mid and lower lung zones which includes scattered discoid atelectasis/scarring and could not exclude superimposed pneum onia.
--- NOTE | ~2024-06-01 | US_ITS ---
US renal BI Ordering provider: Alexsander Amaral MD History: . FENG . Comparison: None. Technique: Ultrasound bilateral kidneys. Findings: RIGHT KIDNEY: Measures 1.6x 4.6x 4.8 cm in length which is normal in size. No renal cysts. No renal m ass or visualized echogenic stones. Otherwise, normal echotexture and contour. No hydronephrosis. Nor mal renal cortical thickness. LEFT KIDNEY: Measures 10.7x 4.9x 4.7 cm in length which is normal in size. No renal cysts. No renal m ass or visualized echogenic stones. Otherwise, normal echotexture and contour. No hydronephrosis. Nor mal renal cortical thickness. BLADDER: Debris is seen in the bladder. Ureteral jets were not seen bilaterally. IMPRESSION: Debris is seen in the bladder. Clinical evaluation for cystitis is advised. Otherwise, Normal study. Reviewed, dictated and finalized at location A. IMPRESSION: Debris is seen in the bladder. Clinical evaluation for cystitis is advised. Bob espana, Normal study.
--- NOTE | ~2024-06-01 | XR_ITS ---
Portable chest x-ray Comparison: 06/01/2024 Clinical History: CHF Findings: Probable minimal pleural effusions with moderate pulmonary edema pattern present. Stable l inear scarring at the left lung base and left midlung. Cardiomediastinal silhouette is stable. Bones and soft tissues are unremarkable. Impression: Probable moderate pulmonary edema pattern with minimal pleural effusions. Stable probable scarring at the left midlung and left lung base. Reviewed, dictated and finalized at location . Impression: Probable moderate pulmonary edema pattern with minimal pleural effusions. Stable probable scarring at the left midlung and left lung base.
--- NOTE | 2024-06-01 12:28 | ECG_ITS ---
Test Date: 2024-06-01 12:38:26 Measurements Intervals [place] Rate: 115 P: 0 IA: 0 QRS: -64 QRSD: 163 T: 93 QT: 417 QTc: 577 Interpretive Statements SINUS TACHYCARDIA LEFT AXIS DEVIATION RIGHT BUNDLE BRANCH BLOCK INFERIOR INFARCT, AGE INDETERMINATE ABNORMAL ECG Compared to ECG 05/14/2024 20:31:49 NO SIGNIFICANT CHANGE Electronically Signed On 06-01-2024 12:43:04 CDT by Sylvester Frye D.O.
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
[2024-06-01] MEDS: METOPROLOL TARTRATE INJ 5 MG/5 ML VIAL IV PUSH (13:15)
[2024-06-01 13:20] LABS: Alanine Aminotransferase 13 U/L (6-35); Albumin Level 3.8 g/dL (3.5-5.1); Alkaline Phosphatase 112 U/L (38-126); Anion Gap 5 mmol/L (4-12); Aspartate Amino Transferase 20 U/L (14-36); Bilirubin,Total 0.6 mg/dL (0.2-1.3); Blood Urea Nitrogen 31 mg/dL (7-17); Calcium 9.4 mg/dL (8.4-10.2); Carbon Dioxide 39 mmol/L (22-30); Chloride 95 mmol/L (98-107); Estimated CRCL calculation 46 ml/min; Estimated Glomerular Filt Rate 44; Glucose 98 mg/dL (65-110); Potassium 5.3 mmol/L (3.4-5.0); Sodium 139 mmol/L (137-145)
[2024-06-01 13:22] LABS: Basophils Percent Auto 0.4 % (0.2-1.2); Eosinophils Absolute Auto 0.1 K/mm3 (0-0.3); Eosinophils Percent Auto 2.1 % (0-4.4); Hematocrit 35.3 % (37.0-47.0); Hemoglobin 10.1 g/dL (12.0-15.0); Immature Granulocyte Absolute 0.01 K/mm3 (0.00-0.031); Immature Granulocyte Percent A 0.2 % (0-0.5); Lymphocytes Absolute Auto 0.88 K/mm3 (0.9-3.2); Lymphocytes Percent Auto 18.5 % (18.3-44.2); Mean Corpuscular HGB Conc 28.6 g/dl (32-36); Mean Corpuscular Hemoglobin 30.7 pg (26-34); Mean Corpuscular Volume 107.3 fl (80-100); Mean Platelet Volume 12.1 fl (7.4-10.4); Monocytes Absolute Auto 0.3 K/mm3 (0.1-0.6); Monocytes Percent Auto 6.3 % (2.6-8.5); Neutrophils Absolute Auto 3.4 K/mm3 (1.3-6.7); Neutrophils Percent Auto 72.5 % (45.5-73.1); Platelet Count Result 114 k/mm3 (150-375); Red Blood Count 3.29 M/mm3 (4.2-5.4); Red Cell Distribution Width 13.3 % (11.5-14.5); White Blood Count 4.8 K/mm3 (4.5-10.0)
[2024-06-01 13:28] LABS: NT Pro B Type Natriuretic Pept 8050 pg/mL (19.9-100)
[2024-06-01 13:35] LABS: Fractional Inspired Oxygen 36 %; HCO3 VBG 32.5 mEq/l (24.0-30.0); PO2 VBG 42.9 mmHg (35.0-45.0); pH VBG 7.328 (7.300-7.400)
[2024-06-01 13:37] LABS: Anisocytosis 1+; Hypochromasia 1+; Macrocytosis 1+ (NORMAL); Platelet Estimate Decreased (Adequate); Schistocytes None Seen
[2024-06-01 13:38] LABS: PCO2 VBG 63.3 mmHg (42.0-48.0)
[2024-06-01 13:39] LABS: Device NASAL CANNULA
[2024-06-01] MEDS: FUROSEMIDE INJ 40 MG/4 ML VIAL IV PUSH (13:58)
--- NOTE | 2024-06-01 15:18 | ADMGEN ---
This patient, Vanita Parker, was admitted to IMU Room 231-01. Patient/family oriented to hospital policies and general routines including ID bracelet, bed and alarms, visiting hours, pain management, procedures, bathroom and other care routines, personal items, smoking policy, room service/diet, and visiting hours. Information on how to activate the Rapid Response Team has been discussed. Patient/Family are encouraged to report perceived risks to care and to ask questions if they do not understand what they are told or what they should do.
--- NOTE | 2024-06-01 15:40 | PM.IMHP ---
H&P: HPI History of Present Illness Date/Time: 06/01/24 15:40 Chief Complaint: Increasing oxygen requirement. Narrative: This is a 73-year-old female with chronic hypoxic and hypercapnic respiratory failure, chronic obstructive pulmonary disease, sleep apnea, heart failure with mid-range ejection fraction and diastolic dysfunction, coronary artery disease with history of stents, type 2 diabetes mellitus, deep venous thrombosis, chronic kidney disease stage 3, chronic macrocytic anemia, B12 deficiency, depression, anxiety, chronic low back pain on chronic opioid therapy, restless leg syndrome, peripheral neuropathy, and occasional medical noncompliance who presented to the emergency department via EMS from [facility] for evaluation of increasing oxygen requirements. She is a fair historian and seems to suffer from some memory loss and thus some of the following is supplemented via a review of her EMR. She was admitted to the hospitalist service at the end of April with acute on chronic respiratory failure and CHF exacerbation. Blood pressures were soft during that stay and guideline directed medical therapy was not initiated. Lasix dose was not increased for the same reason and she was eventually started back on midodrine due to ongoing soft pressures. She was discharged to [facility] on 05/20/2024 where she has been participating in rehab and by all counts doing well. This morning she had increasing oxygen requirements and was sent in for evaluation. The patient tells me that she began to feel increasingly short of breath the last several days and that she was started on levofloxacin for suspected pneumonia. With further questioning she does endorse a cough which has been intermittently productive of dark green/brown phlegm. She is otherwise feeling okay and denies fever, chills, sweats, sinus congestion, sore throat, chest and pleuritic pain, nausea, vomiting, and diarrhea. In the ED: She was afebrile on arrival. Blood pressures have been at the lower range of normal, in the mid to upper 90s to 110s systolic. She was tachycardic on arrival and was given 5 mg IV Lopressor with improvement. Labs are significant for WBC count of 4.8, stable hemoglobin of 10.1, platelet 114, potassium 5.3, chloride 95, carbon dioxide 39, BUN 31, creatinine 1.20, proBNP 8050. Chest x-ray showed likely congestive heart failure with cardiomegaly, mild pulmonary edema, and small right pleural effusions and airspace opacities in the bilateral mid and lower lung zones including scattered discoid atelectasis/scarring; radiologist could not exclude superimposed pneumonia. In addition to the metoprolol she was given 40 mg IV furosemide and she is being admitted in this setting for further diuresis. Review of Systems Review of Systems: 12 systems were reviewed and are negative except for as per HPI. FOR[facility]LY [facility], [facility] Past Medical History Medical History (Updated 06/01/24 @ 21:36 by Carmina Chisholm PA-C) Acquired female bladder prolapse With pessary in place Anemia Macrocytic with a hemoglobin range of 9 to 10. B12 deficiency Bimalleolar fracture of right ankle (12/2023) Chronic anxiety Chronic bilateral low back pain Chronic kidney disease, stage 3 Chronic respiratory failure with hypoxia and hypercapnia On home O2 4 L COPD mixed type Coronary artery disease involving [place] coronary artery of [place] heart without angina pectoris Gastro-esophageal reflux disease without esophagitis Heart failure with mid-range ejection fraction Echocardiogram in December 2023 showed mild reduced LV systolic function with an EF of 45 to 50% with hypokinesis of the mid and basal inferolateral wall and grade 1 diastolic dysfunction. History of fracture of right ankle Major depression, recurrent, chronic Mixed hyperlipidemia Obstructive sleep apnea Peripheral arterial disease Peripheral neuropathy Restless legs syndrome (07/04/22) Therapeutic opioid induced constipation Tobacco abuse disorder
[2024-06-01 17:04] LABS: Glucose Point of Care 80 mg/dl (65-105)
[2024-06-01 19:34] LABS: Blood Urea Nitrogen 30 mg/dL (7-17); Calcium 9.2 mg/dL (8.4-10.2); Carbon Dioxide > 40 mmol/L (22-30); Chloride 95 mmol/L (98-107); Estimated CRCL calculation 38 ml/min; Estimated Glomerular Filt Rate 40; Glucose 128 mg/dL (65-110); Potassium 4.7 mmol/L (3.4-5.0); Sodium 139 mmol/L (137-145)
[2024-06-01 20:16] LABS: Glucose Point of Care 142 mg/dl (65-105)
[2024-06-01] MEDS: NICOTINE (*PBKC) 21 MG PATCH 1 PATCH TRANSDERM (21:06)
[2024-06-01] MEDS: rOPINIRole HCL 0.5 MG TABLET PO (21:09)
[2024-06-01] MEDS: buPROPion HCL XL (24 HR) 150 MG TABCR 300 MG PO (21:10)
[2024-06-01] MEDS: HYDROcodone/acetaminophen (*CRX) 5-325 MG TABLET 0.5 TAB PO (21:10)
[2024-06-01] MEDS: levoFLOXacin 750 MG TABLET PO (21:11)
[2024-06-01] MEDS: FUROSEMIDE INJ 40 MG/4 ML VIAL 30 MG IV PUSH (21:11)
[2024-06-02] VITALS (12 sets, daily range): BP systolic 101–115; BP diastolic 42–59; PULSE 77–107; RESP 18–22; TEMP 35.7–36.6; O2SAT 94–99; BMI 30.2
[2024-06-02 04:28] LABS: Hematocrit 32.7 % (37.0-47.0); Hemoglobin 9.6 g/dL (12.0-15.0); Immature Platelet Fraction Pct 12.2 % (0.9-11.2); Mean Corpuscular HGB Conc 29.4 g/dl (32-36); Mean Corpuscular Hemoglobin 31.1 pg (26-34); Mean Corpuscular Volume 105.8 fl (80-100); Mean Platelet Volume 11.8 fl (7.4-10.4); Platelet Count Result 113 k/mm3 (150-375); Red Blood Count 3.09 M/mm3 (4.2-5.4); Red Cell Distribution Width 13.3 % (11.5-14.5); White Blood Count 4.7 K/mm3 (4.5-10.0)
[2024-06-02 04:36] LABS: Sodium 139 mmol/L (137-145)
[2024-06-02 04:41] LABS: Blood Urea Nitrogen 30 mg/dL (7-17); Calcium 9.3 mg/dL (8.4-10.2); Carbon Dioxide > 40 mmol/L (22-30); Chloride 94 mmol/L (98-107); Estimated CRCL calculation 38 ml/min; Estimated Glomerular Filt Rate 40; Glucose 150 mg/dL (65-110); Magnesium 1.1 mg/dL (1.6-2.3); Potassium 4.4 mmol/L (3.4-5.0)
[2024-06-02] MEDS: MIDODRINE HCL 2.5 MG TABLET 10 MG PO ×2 (06:11→16:30)
[2024-06-02] MEDS: UMECLIDINIUM/VILANTEROL 62.5-25 MCG ELLIPTA 1 PUFF INHALATION (07:21)
[2024-06-02] MEDS: ENOXAPARIN 40 MG/0.4 ML SYRINGE SUB-Q (08:56)
[2024-06-02] MEDS: ATORVASTATIN 40 MG TABLET 80 MG PO (08:56)
[2024-06-02] MEDS: ASPIRIN 81 MG CHEWABLE TABLET PO (08:56)
[2024-06-02] MEDS: CYANOCOBALAMIN 1,000 MCG TABLET 1000 MCG PO (08:56)
[2024-06-02] MEDS: FUROSEMIDE INJ 40 MG/4 ML VIAL 30 MG IV PUSH ×2 (08:56→20:06)
[2024-06-02] MEDS: DOCUSATE SODIUM 100 MG CAPSULE PO (08:57)
[2024-06-02] MEDS: DULoxetine HCL 30 MG CAPSULE.DR PO (08:57)
[2024-06-02] MEDS: CLOPIDOGREL BISULFATE 75 MG TABLET PO (08:57)
[2024-06-02] MEDS: FOLIC ACID 1 MG TABLET PO (08:57)
[2024-06-02] MEDS: NICOTINE (*PBKC) 21 MG PATCH 1 PATCH TRANSDERM (09:00)
[2024-06-02] MEDS: INSULIN GLARGINE (*BKC) 100 UNITS/ML 7 UNITS SUB-Q (09:00)
[2024-06-02 11:53] LABS: Glucose Point of Care 128 mg/dl (65-105)
[2024-06-02] MEDS: HYDROcodone/acetaminophen (*CRX) 5-325 MG TABLET 0.5 TAB PO ×2 (12:57→20:07)
--- NOTE | 2024-06-02 14:03 | PM.IMPN ---
Progress Note: A&P Assessment and Plan (1) Acute exacerbation of congestive heart failure: Code(s): I50.9 - Heart failure, unspecified Status: Acute (2) Acute on chronic respiratory failure with hypoxia and hypercapnia: Code(s): J96.21 - Acute and chronic respiratory failure with hypoxia; J96.22 - Acute and chronic respiratory failure with hypercapnia Status: Acute (3) Hyperkalemia: Code(s): E87.5 - Hyperkalemia Status: Acute (4) Hypotension: Code(s): I95.9 - Hypotension, unspecified Status: Acute (5) Chronic kidney disease, stage 3: Code(s): N18.30 - Chronic kidney disease, stage 3 unspecified Status: Acute (6) COPD mixed type: Code(s): J44.9 - Chronic obstructive pulmonary disease, unspecified Status: Acute (7) Type 2 diabetes mellitus: Code(s): E11.9 - Type 2 diabetes mellitus without complications Status: Acute (8) Chronic bilateral low back pain: Qualifiers: Sciatica presence: with sciatica Sciatica laterality: bilateral sciatica Qualified Code(s): M54.42 - Lumbago with sciatica, left side; M54.41 - Lumbago with sciatica, right side; G89.29 - Other chronic pain Code(s): M54.5 - Low back pain; G89.29 - Other chronic pain Status: Chronic (9) Restless legs syndrome: Onset Date: 07/04/22 Code(s): G25.81 - Restless legs syndrome Status: Acute (10) Chronic anemia: Code(s): D64.9 - Anemia, unspecified Status: Acute (11) Obstructive sleep apnea: Code(s): G47.33 - Obstructive sleep apnea (adult) (pediatric) Status: Acute Plan The patient presented to the emergency department for evaluation of increasing oxygen requirements after being diagnosed with pneumonia couple of days ago as detailed in HPI. Labs, imaging, EKG, and all reports were personally reviewed. Preliminary workup in the ED shows findings suggestive of acute on chronic congestive heart failure exacerbation with elevated proBNP and pulmonary edema noted on chest x-ray. Continue levofloxacin for possible pneumonia. She will be judiciously diuresed with close monitoring of volume status, renal function, electrolytes, and blood pressures. Continue midodrine due to ongoing soft blood pressures. May need to consider Lasix drip depending on her blood pressures. Potassium is a bit high but should improve with diuresis. Repeat BMP has been ordered this evening to ensure that potassium is improving. CPAP will be provided for the patient to use while hospitalized. Her chronic anemia and renal failure stable on review of previous labs. No evidence to suggest acute COPD exacerbation. She has chronic hypercapnia and is compensated. Her home medications will be reviewed and resumed as appropriate. Findings and treatment plan were discussed with the patient. Questions were solicited and answered to satisfaction. The patient's medical management will be taken over by the hospitalist team in a.m. 06/02/24 -patient feeling better. Chest x-ray was consistent with CHF exacerbation. Pneumonia seems less likely but she was on antibiotics on admission and was continued on Levaquin here. White count is normal and has remained normal. No fevers. Patient has chronic hypotension. She seems to be tolerating the IV Lasix well. Continue midodrine. Start PT and OT. Replace magnesium. DVT prophylax -Lovenox Code status -full Subjective Date/time seen: 06/02/24 14:03 Interval history: 73yo female with chronic hypoxic and hypercapnic respiratory failure, chronic obstructive pulmonary disease, sleep apnea, heart failure with mid-range ejection fraction and diastolic dysfunction, coronary artery disease with history of stents, type 2 diabetes mellitus, deep venous thrombosis, chronic kidney disease stage 3, chronic macrocytic anemia, B12 deficiency, depression, anxiety, chronic low back pain on chronic opioid therapy, restless leg syndrome, per
[2024-06-02] MEDS: INSULIN ASPART (*BKC) 100 UNITS/ML SUB-Q (16:29)
[2024-06-02 16:46] LABS: Glucose Point of Care 205 mg/dl (65-105)
[2024-06-02] MEDS: MAGNESIUM SULF 2 GM/WATER 50ML 2 GM/50 ML BAG IVPB (19:59)
[2024-06-02] MEDS: rOPINIRole HCL 0.5 MG TABLET PO (20:05)
[2024-06-02] MEDS: buPROPion HCL XL (24 HR) 150 MG TABCR 300 MG PO (20:06)
[2024-06-02 22:32] LABS: Glucose Point of Care 132 mg/dl (65-105)
[2024-06-03] VITALS (14 sets, daily range): BP systolic 96–131; BP diastolic 52–73; PULSE 75–108; RESP 12–19; TEMP 36.3–36.8; O2SAT 87–100
[2024-06-03] MEDS: HYDROcodone/acetaminophen (*CRX) 5-325 MG TABLET 0.5 TAB PO ×3 (04:01→22:16)
[2024-06-03 04:56] LABS: Basophils Percent Auto 0.5 % (0.2-1.2); Eosinophils Absolute Auto 0.2 K/mm3 (0-0.3); Eosinophils Percent Auto 3.1 % (0-4.4); Hematocrit 33.9 % (37.0-47.0); Hemoglobin 10.1 g/dL (12.0-15.0); Immature Granulocyte Absolute 0.01 K/mm3 (0.00-0.031); Immature Granulocyte Percent A 0.2 % (0-0.5); Lymphocytes Percent Auto 29.1 % (18.3-44.2); Mean Corpuscular HGB Conc 29.8 g/dl (32-36); Mean Corpuscular Hemoglobin 31.2 pg (26-34); Mean Corpuscular Volume 104.6 fl (80-100); Mean Platelet Volume 12.1 fl (7.4-10.4); Monocytes Absolute Auto 0.5 K/mm3 (0.1-0.6); Monocytes Percent Auto 9.1 % (2.6-8.5); Neutrophils Absolute Auto 3.2 K/mm3 (1.3-6.7); Platelet Count Result 108 k/mm3 (150-375); Red Blood Count 3.24 M/mm3 (4.2-5.4); Red Cell Distribution Width 13.4 % (11.5-14.5); White Blood Count 5.5 K/mm3 (4.5-10.0)
[2024-06-03 05:35] LABS: Hypochromasia 1+; Macrocytosis 1+ (NORMAL); Platelet Estimate Decreased (Adequate); Schistocytes None Seen
[2024-06-03 05:43] LABS: Albumin Level 3.4 g/dL (3.5-5.1); Blood Urea Nitrogen 26 mg/dL (7-17); Calcium 9.2 mg/dL (8.4-10.2); Carbon Dioxide > 40 mmol/L (22-30); Chloride 90 mmol/L (98-107); Estimated CRCL calculation 39 ml/min; Estimated Glomerular Filt Rate 40; Glucose 116 mg/dL (65-110); Magnesium 1.3 mg/dL (1.6-2.3); Phosphorus 3.6 mg/dL (2.5-4.5); Potassium 3.6 mmol/L (3.4-5.0); Sodium 138 mmol/L (137-145)
[2024-06-03] MEDS: MIDODRINE HCL 2.5 MG TABLET 10 MG PO ×2 (06:47→15:51)
[2024-06-03 06:56] LABS: Glucose Point of Care 120 mg/dl (65-105)
[2024-06-03] MEDS: UMECLIDINIUM/VILANTEROL 62.5-25 MCG ELLIPTA 1 PUFF INHALATION (07:50)
[2024-06-03] MEDS: ACETAMINOPHEN 325 MG TABLET 650 MG PO (09:17)
[2024-06-03] MEDS: fentaNYL (*CRX) 50 MCG PATCH TRANSDERM (09:18)
[2024-06-03] MEDS: ENOXAPARIN 40 MG/0.4 ML SYRINGE SUB-Q (09:18)
[2024-06-03] MEDS: NICOTINE (*PBKC) 21 MG PATCH 1 PATCH TRANSDERM (09:18)
[2024-06-03] MEDS: CLOPIDOGREL BISULFATE 75 MG TABLET PO (09:18)
[2024-06-03] MEDS: FOLIC ACID 1 MG TABLET PO (09:19)
[2024-06-03] MEDS: DOCUSATE SODIUM 100 MG CAPSULE PO (09:19)
[2024-06-03] MEDS: DULoxetine HCL 30 MG CAPSULE.DR PO (09:19)
[2024-06-03] MEDS: FUROSEMIDE INJ 40 MG/4 ML VIAL 30 MG IV PUSH (09:19)
[2024-06-03] MEDS: ATORVASTATIN 40 MG TABLET 80 MG PO (09:19)
[2024-06-03] MEDS: CYANOCOBALAMIN 1,000 MCG TABLET 1000 MCG PO (09:19)
[2024-06-03] MEDS: ASPIRIN 81 MG CHEWABLE TABLET PO (09:19)
[2024-06-03] MEDS: MAGNESIUM SULF 2 GM/WATER 50ML 2 GM/50 ML BAG IVPB (09:20)
[2024-06-03] MEDS: INSULIN GLARGINE (*BKC) 100 UNITS/ML 7 UNITS SUB-Q (09:36)
[2024-06-03 10:08] LABS: Folic Acid > 20.0 ng/mL (2.76->20); Vitamin B12 > 1000.0 pg/mL (239-931)
[2024-06-03] MEDS: INSULIN ASPART (*BKC) 100 UNITS/ML SUB-Q (11:46)
--- NOTE | 2024-06-03 11:59 | PCPTNOTE ---
On 06/03/24, the student, [Camelia Bowers], provided care and completed [facility] documentation on this patient. I have reviewed the student's documentation and agree with the findings.
[2024-06-03 12:26] LABS: Glucose Point of Care 291 mg/dl (65-105)
--- NOTE | 2024-06-03 14:09 | PM.IMPN ---
Progress Note: A&P Assessment and Plan (1) Acute exacerbation of congestive heart failure: Code(s): I50.9 - Heart failure, unspecified Status: Acute Assessment and Plan: Patient presents with SOB. BNP 8050. CXR showing likely CHF with cardiomegaly, mild pulmonary edema and small right pleural effusions. (2) Pneumonia: Code(s): J18.9 - Pneumonia, unspecified organism Status: Acute Assessment and Plan: Patient presents on abx (Lavaquin) for PNA. CXR here showing airspace opacities in the bilateral mid and lower lung zones which includes scattered discoid atelectasis/scarring and could not exclude superimposed pneumonia. WBC was normal. Continue Levaquin to complete a course. Check MRSA nasal swab. Speech therapy to evaluate at bedside. (3) Acute on chronic respiratory failure with hypoxia and hypercapnia: Code(s): J96.21 - Acute and chronic respiratory failure with hypoxia; J96.22 - Acute and chronic respiratory failure with hypercapnia Status: Acute Assessment and Plan: Patient with chronic resp failure with hypercarbia in the 60-70 range with normal pH. She is mostly intolerant to BiPAP. Also with chronic hypoxia on 4L/min NC. By EMS, she had increasing oxygen requirements and was more confused. Treated in the field and had improvement on presentation here. Stable on 4L O2 but still feels SOB Add neb treatments. (4) Hyperkalemia: Code(s): E87.5 - Hyperkalemia Status: Acute Assessment and Plan: Mild hyperkalemia on admisison. Potassium better and dropping due to lasix Replace with low dose. Mag level low so this will be replaced as well. (5) Hypotension: Code(s): I95.9 - Hypotension, unspecified Status: Acute Assessment and Plan: Midodrine held last admission but BP became soft so this was resumed. BP still soft but tolerating lasix IV. No recent TSH and no cortisol level so will check Add Jose Luis navas. Follow (6) Chronic kidney disease, stage 3: Code(s): N18.30 - Chronic kidney disease, stage 3 unspecified Status: Acute Assessment and Plan: Cr normal earlier this year. Now elevated at 1.1-1.3 range and stable. Will check renal US. On lasix so electrolytes not helpful. (7) COPD mixed type: Code(s): J44.9 - Chronic obstructive pulmonary disease, unspecified Status: Acute Assessment and Plan: As above Encourage BiPAP use. Check ABG in the morning. Add bronchodilators. Consider CT chest. Consider steoids. (8) Type 2 diabetes mellitus: Code(s): E11.9 - Type 2 diabetes mellitus without complications Status: Acute Assessment and Plan: A1c 6.9 in April. The patient's blood glucose was reviewed on 06/03 Glucose remains well controlled. Continue AccuCheks covering with sliding scale. Hypoglycemia protocol available as needed. Continue to follow (9) Chronic bilateral low back pain: Qualifiers: Sciatica presence: with sciatica Sciatica laterality: bilateral sciatica Qualified Code(s): M54.42 - Lumbago with sciatica, left side; M54.41 - Lumbago with sciatica, right side; G89.29 - Other chronic pain Code(s): M54.5 - Low back pain; G89.29 - Other chronic pain Status: Chronic Assessment and Plan: On chronic Fentanyl for this. May be affecting her BP. Follow (10) Chronic anemia: Code(s): D64.9 - Anemia, unspecified Status: Acute Assessment and Plan: Hgb low but stable in the 9-10 range. Anemia is macrocytic B12/folate normal. No ashlie blood loss. Platelet count noted. and chronically low. On lovenox but will hold and check anti-plt ab. Check iron studies. Follow (11) Obstructive sleep apnea: Code(s): G47.33 - Obstructive sleep apnea (adult) (pediatric) Status: Acute Assessment and Plan: as above Plan DVT prophylax - scd Code status -full Subjectiv
[2024-06-03] MEDS: POTASSIUM CHLORIDE 20 MEQ ER TABLET PO (15:50)
[2024-06-03] MEDS: FUROSEMIDE INJ 40 MG/4 ML VIAL IV PUSH (15:50)
[2024-06-03 16:22] LABS: Glucose Point of Care 52 mg/dl (65-105)
[2024-06-03 16:22] LABS: Glucose Point of Care 55 mg/dl (65-105)
[2024-06-03 16:43] LABS: Glucose Point of Care 78 mg/dl (65-105)
--- NOTE | 2024-06-03 18:00 | PC.NURSE ---
This patient, Vanita Parker, was transferred to [facility] on 06/03/24 at 1800. Personal belongings sent with patient. Report given to Marilyn. Appropriate documentation sent with patient.
[2024-06-03 20:44] LABS: Glucose Point of Care 97 mg/dl (65-105)
[2024-06-03] MEDS: buPROPion HCL XL (24 HR) 150 MG TABCR 300 MG PO (20:50)
[2024-06-03] MEDS: rOPINIRole HCL 0.5 MG TABLET PO (20:50)
[2024-06-03] MEDS: levoFLOXacin 750 MG TABLET PO (20:50)
[2024-06-03] MEDS: IPRATROPIUM 0.5 MG/ALBUTEROL SULFATE 2.5 MG AMPUL.NEB 3 ML INHALATION (21:26)
[2024-06-04] VITALS (9 sets, daily range): BP systolic 101–118; BP diastolic 46–78; PULSE 90–111; RESP 18; TEMP 36–36.2; O2SAT 92–100
[2024-06-04] MEDS: IPRATROPIUM 0.5 MG/ALBUTEROL SULFATE 2.5 MG AMPUL.NEB 3 ML INHALATION ×2 (02:35→13:50)
[2024-06-04] MEDS: HYDROcodone/acetaminophen (*CRX) 5-325 MG TABLET 0.5 TAB PO ×3 (03:40→13:45)
[2024-06-04] MEDS: MIDODRINE HCL 2.5 MG TABLET 10 MG PO (06:23)
[2024-06-04 06:26] LABS: Basophils Percent Auto 0.8 % (0.2-1.2); Eosinophils Absolute Auto 0.2 K/mm3 (0-0.3); Hematocrit 32.7 % (37.0-47.0); Hemoglobin 9.9 g/dL (12.0-15.0); Immature Granulocyte Absolute 0.02 K/mm3 (0.00-0.031); Immature Granulocyte Percent A 0.4 % (0-0.5); Lymphocytes Absolute Auto 1.66 K/mm3 (0.9-3.2); Lymphocytes Percent Auto 31.4 % (18.3-44.2); Mean Corpuscular HGB Conc 30.3 g/dl (32-36); Mean Corpuscular Hemoglobin 31.5 pg (26-34); Mean Corpuscular Volume 104.1 fl (80-100); Mean Platelet Volume 12.3 fl (7.4-10.4); Monocytes Absolute Auto 0.5 K/mm3 (0.1-0.6); Monocytes Percent Auto 8.9 % (2.6-8.5); Neutrophils Absolute Auto 2.9 K/mm3 (1.3-6.7); Neutrophils Percent Auto 55.5 % (45.5-73.1); Platelet Count Result 129 k/mm3 (150-375); Red Blood Count 3.14 M/mm3 (4.2-5.4); Red Cell Distribution Width 13.6 % (11.5-14.5); White Blood Count 5.3 K/mm3 (4.5-10.0)
[2024-06-04 06:44] LABS: Albumin Level 3.4 g/dL (3.5-5.1); Blood Urea Nitrogen 27 mg/dL (7-17); Calcium 9.1 mg/dL (8.4-10.2); Carbon Dioxide > 40 mmol/L (22-30); Chloride 88 mmol/L (98-107); Estimated CRCL calculation 45 ml/min; Estimated Glomerular Filt Rate 49; Glucose 88 mg/dL (65-110); Magnesium 1.5 mg/dL (1.6-2.3); Phosphorus 3.6 mg/dL (2.5-4.5); Sodium 136 mmol/L (137-145)
[2024-06-04 06:48] LABS: Iron 71 ug/dL (37-170)
[2024-06-04 06:57] LABS: Percent Iron Saturation 23 % (20-50)
[2024-06-04 07:42] LABS: Glucose Point of Care 96 mg/dl (65-105)
[2024-06-04] MEDS: NICOTINE (*PBKC) 21 MG PATCH 1 PATCH TRANSDERM (08:42)
[2024-06-04] MEDS: FOLIC ACID 1 MG TABLET PO (08:42)
[2024-06-04] MEDS: DOCUSATE SODIUM 100 MG CAPSULE PO (08:42)
[2024-06-04] MEDS: DULoxetine HCL 30 MG CAPSULE.DR PO (08:42)
[2024-06-04] MEDS: CYANOCOBALAMIN 1,000 MCG TABLET 1000 MCG PO (08:42)
[2024-06-04] MEDS: ASPIRIN 81 MG CHEWABLE TABLET PO (08:42)
[2024-06-04] MEDS: CLOPIDOGREL BISULFATE 75 MG TABLET PO (08:42)
[2024-06-04] MEDS: MAGNESIUM SULF 2 GM/WATER 50ML 2 GM/50 ML BAG IVPB (08:43)
[2024-06-04] MEDS: acetaZOLAMIDE SODIUM FOR INJ 500 MG VIAL 250 MG IV PUSH (08:55)
[2024-06-04] MEDS: ATORVASTATIN 40 MG TABLET 80 MG PO (08:55)
[2024-06-04] MEDS: INSULIN GLARGINE (*BKC) 100 UNITS/ML SUB-Q (09:06)
--- NOTE | 2024-06-04 09:23 | PCSTNOTE ---
Please refer to the Bedside Swallow Evaluation in the EMR. Please note, silent aspiration cannot be ruled out at bedside.
[2024-06-04 11:43] LABS: Glucose Point of Care 251 mg/dl (65-105)
[2024-06-04] MEDS: INSULIN ASPART (*BKC) 100 UNITS/ML SUB-Q (11:50)
--- NOTE | 2024-06-04 13:32 | PM.DS ---
DS: Admitting Diagnosis Discharge Date 06/04/24 Admitting Diagnosis Hypoxia DS: Discharge Diagnosis Discharge Diagnosis (1) Acute exacerbation of congestive heart failure: Code(s): I50.9 - Heart failure, unspecified Status: Acute (2) Pneumonia: Code(s): J18.9 - Pneumonia, unspecified organism Status: Acute (3) Acute on chronic respiratory failure with hypoxia and hypercapnia: Code(s): J96.21 - Acute and chronic respiratory failure with hypoxia; J96.22 - Acute and chronic respiratory failure with hypercapnia Status: Acute (4) Hyperkalemia: Code(s): E87.5 - Hyperkalemia Status: Acute (5) Hypotension: Code(s): I95.9 - Hypotension, unspecified Status: Acute (6) Chronic kidney disease, stage 3: Code(s): N18.30 - Chronic kidney disease, stage 3 unspecified Status: Acute (7) COPD mixed type: Code(s): J44.9 - Chronic obstructive pulmonary disease, unspecified Status: Acute (8) Type 2 diabetes mellitus: Code(s): E11.9 - Type 2 diabetes mellitus without complications Status: Acute (9) Chronic bilateral low back pain: Qualifiers: Sciatica presence: with sciatica Sciatica laterality: bilateral sciatica Qualified Code(s): M54.42 - Lumbago with sciatica, left side; M54.41 - Lumbago with sciatica, right side; G89.29 - Other chronic pain Code(s): M54.5 - Low back pain; G89.29 - Other chronic pain Status: Chronic (10) Chronic anemia: Code(s): D64.9 - Anemia, unspecified Status: Acute (11) Obstructive sleep apnea: Code(s): G47.33 - Obstructive sleep apnea (adult) (pediatric) Status: Acute DS: Summary Hospital Course Reason for hospitalization: 73yo female with chronic hypoxic and hypercapnic respiratory failure, COPD, DARRICK, CHF with mid-range EF and diastolic dysfunction, CAD with history of stents, DM, DVTs, CKD stage 3, chronic macrocytic anemia, B12 deficiency, depression, anxiety, chronic low back pain on chronic opioid therapy, restless leg syndrome, peripheral neuropathy, and occasional medical noncompliance who presented to the emergency department via EMS from [facility] for evaluation of increasing oxygen requirements. Please see H&P for details. Hospital Course: Patient presents with SOB and hypoxia. BNP 8050. CXR showing likely CHF with cardiomegaly, mild pulmonary edema and small right pleural effusions. She was treated with IV Lasix as her blood pressure tolerated. Patient with chronic resp failure with hypercarbia in the 60-70 range with normal pH. She is mostly intolerant to BiPAP. Also with chronic hypoxia on 4L/min NC. By EMS, she had increasing oxygen requirements and was more confused. Treated in the field and had improvement on presentation here. Patient presented on abx (Lavaquin) for PNA. CXR here showing airspace opacities in the bilateral mid and lower lung zones which includes scattered discoid atelectasis/scarring and could not exclude superimposed pneumonia. WBC was normal. She completed a course of Levaquin. Speech therapy evaluated the patient but thee were no issues. Mild hyperkalemia on admission. Potassium better and dropping due to lasix. Patient has a chronic hypotension. Midodrine held last admission but BP became soft so this was resumed. BP still soft but tolerated IV Lasix. TSH and cortisol level normal. We added Jose Luis hose. Cr normal earlier this year. Now elevated at 1.1-1.3 range and stable. Renal US with debris in the bladder. No urinary symptoms and just finishing antibiotics. We encouraged BiPAP use. A1c 6.9 in April. The patient's blood glucose was monitored with AccuCheks covering with sliding scale. Hypoglycemia protocol was available as needed. patient with chronic anemia with Hgb low but stable in the 9-10 range. Anemia is macrocytic. B12/folate normal. No ashlie blood loss. Platelet count noted and chronically low. Iron studies okay except ferritin
[2024-06-09 19:44] LABS: Platelet Antibody, Direct IgG NEGATIVE (NEGATIVE)
[2024-06-10 14:23] LABS: Heparin Induced Platelet Antib Negative (Negative)
--- NOTE | 2024-06-15 09:48 | PC.NURSE ---
Heparin induced plt Ab is negative. Plt Ab IgG is negative. Dr. Munir desir.
== END 2024-06-04 16:45 | DRG 291 ==
LOC: ANHED 13:53 → ANHIMU 14:15 → ANH3MEDSUR 06-03 18:08
PROVIDERS: Physician Assistant; Admitting Provider Internal Medicine; Emergency Provider Emergency Medicine; PCP Family Medicine; Visit Provider Internal Medicine
DX: I50.33 Acute on chronic diastolic (congestive) heart failure (principal); J18.9 Pneumonia, unspecified organism; J44.0 Chronic obstructive pulmonary disease with (acute) lower respiratory infection; J96.12 Chronic respiratory failure with hypercapnia; J96.11 Chronic respiratory failure with hypoxia; E87.5 Hyperkalemia; I95.9 Hypotension, unspecified; E11.22 Type 2 diabetes mellitus with diabetic chronic kidney disease; N18.30 Chronic kidney disease, stage 3 unspecified; G47.33 Obstructive sleep apnea (adult) (pediatric); D53.9 Nutritional anemia, unspecified; E53.8 Deficiency of other specified B group vitamins; F32.A Depression, unspecified; I25.10 Atherosclerotic heart disease of native coronary artery without angina pectoris; F41.9 Anxiety disorder, unspecified; G25.81 Restless legs syndrome; E11.42 Type 2 diabetes mellitus with diabetic polyneuropathy; K21.9 Gastro-esophageal reflux disease without esophagitis; M54.41 Lumbago with sciatica, right side; M54.42 Lumbago with sciatica, left side; G89.29 Other chronic pain; Z95.5 Presence of coronary angioplasty implant and graft; Z86.718 Personal history of other venous thrombosis and embolism; Z91.199 Patient's noncompliance with other medical treatment and regimen due to unspecified reason; Z99.81 Dependence on supplemental oxygen; Z87.891 Personal history of nicotine dependence
CPT/HCPCS: 36415; 71045; 71046; 76775; 80048; 80053; 80069; 82533; 82607; 82728; 82746; 82803; 82948; 83540; 83550; 83735; 83880; 83921; 84443; 85025; 85027; 85055; 86022; 86023; 92610; 93005; 94640; 96374; 96375; 97110; 97161; 97165; 97530; 99285; A9270; G0378; J1120; J1650; J1815; J1940; J3475

== ENCOUNTER 2024-06-19 22:36 | Emergency (ER) | payer MEDICARE, BC, SELFPAY ==
--- NOTE | ~2024-06-19 | XR_ITS ---
Portable chest x-ray Comparison: 06/03/2024 Clinical History: Shortness of breath Findings: Minimal right pleural effusion present, with hazy right basilar airspace disease. Left varun g essentially clear. Cardiomediastinal silhouette is stable. Bones and soft tissues are unremarkable . Impression: Minimal right pleural effusion with bibasilar pulmonary edema/atelectasis versus pneumonia. Correlate clinically. Reviewed, dictated and finalized at location . Impression: Minimal right pleural effusion with bibasilar pulmonary edema/atelectasis versu s pneumonia. Correlate clinically.
--- NOTE | 2024-06-19 22:46 | ED.SOB ---
HPI - SOB/Dyspnea General Chief Complaint: Shortness of Breath/Dyspnea Stated Complaint: SOB Time Seen by Provider: 06/19/24 22:45 Source: patient and EMS Mode of arrival: ambulatory Limitations: no limitations History of Present Illness HPI Narrative: 73-year-old female with a history diabetes, chronic low BP, CHF,, DARRICK, CKD, chronic hypoxic respiratory failure on 4 L of O2 was recently admitted to the hospital from 05/17/2024 to 2023 to [facility] for acute on chronic hypoxic hypercarbic respiratory failure secondary to bibasilar infiltrates / COPD/CHF. The patient is transferred from residential for -- worsening shortness of breath since 640 this evening. Cough with mucoid sputum Denied chest pain. No fever or chills. EMS noted her oxygen saturation to be 83% on 4 L of O2. They increased her FiO2 to 6 liters/minute. The patient received a DuoNeb treatment. MD elicited complaint: shortness of breath and cough Pertinent past history: COPD and congestive heart failure Onset (ago): hour(s) (4 hours) Timing: constant Relieving factors: rest Known history of: COPD and congestive heart failure Associated symptoms: cough Related Data Home oxygen amount: 4 liters Home Medications Medication Instructions Recorded Confirmed naloxone 4 mg/actuation nasal 4 mg intranasal PRN PRN (Drug) 03/05/23 06/01/24 spray (Narcan) Ingestion sennosides 8.6 mg-docusate sodium 1 tab-cap PO QHS PRN Diaper Rash 03/05/23 06/01/24 50 mg tablet (Senna with Docusate Sodium) docusate sodium 100 mg capsule 100 mg PO DAILY 02/03/24 06/01/24 glucagon 1 mg injection kit 1 mg IM PRN PRN Hypoglycemia 06/01/24 06/01/24 midodrine 5 mg tablet 10 mg PO BIDAC 06/01/24 06/01/24 Allergies Allergy/AdvReac Type Severity Reaction Status Date / Time cefaclor Allergy Unknown Difficulty Verified 06/11/24 07:43 breathing cephalexin Allergy Unknown Difficulty Verified 06/11/24 07:43 breathing Cephalosporins Allergy Unknown Difficulty Verified 06/11/24 07:43 Breathing clarithromycin Allergy Unknown Difficulty Verified 06/11/24 07:43 Breathing clindamycin Allergy Unknown Difficulty Verified 06/11/24 07:43 Breathing morphine Allergy Unknown Difficulty Verified 06/11/24 07:43 breathing Review of Systems Review of Systems: All systems reviewed & are unremarkable except as noted in HPI and below Constitutional: Constitutional: Reports as per HPI and Reports no additional constitutional complaints Eyes: Eyes: Reports as per HPI and Reports no additional eye complaints ENT: Reports system reviewed and no additional complaints, except as documented and Reports as per HPI Cardiovascular: Cardiovascular: Reports as per HPI and Reports no additional cardiovascular complaints Respiratory: Respiratory: Reports as per HPI, Reports no additional respiratory complaints, Reports cough and Reports dyspnea Gastrointestinal: Gastrointestinal: Reports as per HPI and Reports no additional gastrointestinal complaints Genitourinary: Genitourinary: Reports no additional female genitourinary complaints and Reports as per HPI Musculoskeletal: Musculoskeletal: Reports no additional musculoskeletal complaints and Reports back pain Integumentary/Breasts: Skin/Breast: Reports system reviewed and no additional complaints, except as docu Comments: Multiple cutaneous macular / erythematous lesions. Neurologic: Reports system reviewed and no additional complaints, except as documented and Reports as per HPI Psychiatric: Psychiatric: Reports no additional psychiatric complaints and Reports as per HPI Endocrine: Endocrine: Reports no additional endocrine complaints and Reports as per HPI Hematologic/Lymphatic: Hematologic/Lymphatic: Reports no additional hematologic/lymphatic complaints and Reports as per HPI Allergic/Immunologic: Allergic/Immunologic: Reports no additional allergic/immunologic complaints and Reports as per HPI
[2024-06-19 22:48] VITALS: BP 98/56; PULSE 122; RESP 23; TEMP 36.2; O2SAT 95
--- NOTE | 2024-06-19 22:53 | ECG_ITS ---
Test Date: 2024-06-19 22:48:42 Measurements Intervals [place] Rate: 122 P: -48 KS: 232 QRS: -75 QRSD: 154 T: 98 QT: 372 QTc: 532 Interpretive Statements SINUS TACHYCARDIA HE FIRST-DEGREE AV BLOCK RIGHT BUNDLE BRANCH BLOCK LEFT AXIS DEVIATION CONSIDER PREVIOUS INFERIOR INFARCTION ABNORMAL ECG Compared to ECG 06/01/2024 12:38:26 NO DIFFERENCE Electronically Signed On 06-20-2024 09:14:24 CDT by Edil Marcelo M.D.
--- NOTE | 2024-06-19 22:58 | PC.NURSE ---
covid test administered & given to Arcelia CORRIAGN
--- NOTE | 2024-06-19 23:02 | PC.NURSE ---
xray and lab has been to the bedside. ekg has been completed
--- NOTE | 2024-06-19 23:08 | PC.NURSE ---
patient keeps leaning to her right side. patient reports that she has chronic neck pain and that her leaning to the right is normal. it is a position of comfort for her
[2024-06-19 23:11] LABS: Base Excess ABG 4.7 mmol/L (0-2); HCO3 ABG 31.6 mmol/L (23-29); Oxygen Content ABG 14.9 %vol (16.0-22.0); Oxygen Saturation ABG 89.2 % (95-97); Oxyhemoglobin 88.3 % (94-100); PCO2 ABG 58.2 mmHg (35-45); pH ABG 7.35 (7.35-7.45)
[2024-06-19 23:20] LABS: Device NASAL CANNULA; Modified Allen's Test Pass; Site Drawn RIGHT RADIAL
[2024-06-19] MEDS: IPRATROPIUM 0.5 MG/ALBUTEROL SULFATE 2.5 MG AMPUL.NEB 3 ML (23:22)
[2024-06-19 23:23] LABS: Basophils Absolute Auto 0.05 K/mm3 (0.00-0.10); Basophils Percent Auto 0.5 % (0.0-1.0); Eosinophils Absolute Auto 0.03 K/mm3 (0.02-0.50); Eosinophils Percent Auto 0.3 % (1.0-6.0); Immature Granulocyte Absolute 0.04 K/mm3 (0.00-0.00); Immature Granulocyte Percent A 0.4 % (0.0-0.0); Lymphocytes Absolute Auto 1.38 K/mm3 (1.10-4.50); Lymphocytes Percent Auto 14.8 % (18.0-42.0); Mean Corpuscular HGB Conc 30.6 g/dL (32-36); Mean Corpuscular Hemoglobin 30.8 pg (27.0-31.0); Mean Corpuscular Volume 100.8 fL (78.0-102.0); Mean Platelet Volume 12.5 fl (9.2-11.8); Monocytes Absolute Auto 0.69 K/mm3 (0.10-0.90); Monocytes Percent Auto 7.4 % (2.0-11.0); Neutrophils Absolute Auto 7.11 K/mm3 (1.70-7.20); Neutrophils Percent Auto 76.6 % (50.0-70.0); Platelet Count Result 185 K/mm3 (150-420); Red Blood Count 3.57 M/mm3 (4.20-5.40); White Blood Count 9.3 K/mm3 (4.8-10.8)
[2024-06-19 23:32] VITALS: BP 123/84; PULSE 122; RESP 20; O2SAT 95
[2024-06-19] MEDS: FUROSEMIDE INJ 40 MG/4 ML VIAL IV PUSH (23:35)
[2024-06-19 23:39] LABS: INR 1.2; Partial Thromboplastin Time 26.8 Sec (23.9-30.70)
[2024-06-19 23:42] LABS: Lactic Acid Reflex 2.4 mmol/L (0.4-2.0)
[2024-06-19 23:48] LABS: Alanine Aminotransferase 26 U/L (14-59); Albumin Level 3.8 g/dL (3.4-5.0); Alkaline Phosphatase 142 U/L (46-116); Anion Gap 6 mmol/L (4-12); Aspartate Amino Transferase 37 U/L (15-37); Bilirubin,Total 0.8 mg/dL (0.00-1.00); Blood Urea Nitrogen 62 mg/dL (7-18); Calcium 8.9 mg/dL (8.5-10.1); Carbon Dioxide 37 mmol/L (21-32); Chloride 95 mmol/L (98-108); D Dimer 1.61 mg/L (0.19-0.50); Estimated CRCL calculation 13 ml/min; Estimated Glomerular Filt Rate 13; Glucose 203 mg/dL (70-99); NT Pro B Type Natriuretic Pept 27971 pg/mL (0-125); Osmolality Calculated 309 mOsm/kg (285-295); Potassium 6.1 mmol/L (3.5-5.1); Sodium 138 mmol/L (136-145); Total Protein 6.9 g/dL (6.4-8.2)
--- NOTE | 2024-06-19 23:48 | PC.NURSE ---
multiple critical lab values reported to dr laguna, rai dimer 1.61, mag 0.9, trop 142.2
[2024-06-19 23:49] LABS: Magnesium 0.9 mg/dL (1.8-2.4)
[2024-06-19 23:50] LABS: Troponin I 142.2 ng/L (0.00-60.4)
[2024-06-20 00:08] LABS: SARS-CoV-2 RNA PCR Negative (Negative)
[2024-06-20 00:11] LABS: Influenza A QL RT-PCR Negative (Negative); Influenza B QL RT-PCR Negative (Negative); RSV RNA, RT-PCR Negative (Negative)
[2024-06-20] MEDS: MAGNESIUM SULF 2 GM/WATER 50ML 2 GM/50 ML BAG IVPB (00:46)
[2024-06-20 01:15] LABS: Add Urine Microscopic? YES; Bilirubin Urine 1+ (Negative); Blood Urine Trace-intact (Negative); Color Urine Yellow (Yellow); Glucose Urine UA Negative (Negative); Ketones Urine Negative (Negative); Leukocyte Esterase Ur Trace LEU/UL (Negative); Nitrate Urine Negative (Negative); Protein Urine 1+ (Negative); Specific Grav Ur >= 1.030 (1.010-1.020); pH Urine 5.5 (5.0-8.0)
[2024-06-20 01:37] LABS: Appearance Urine Turbid (Clear); Bacteria Urine 4+ /hpf; RBC Urine 0-2 /hpf (0-2); Squamous Epithelial Cell Urine Many /hpf (Few)
[2024-06-20 01:38] LABS: Mucus Urine Heavy /lpf
[2024-06-20] MEDS: levoFLOXacin 500 MG/D5W 100 ML 500 MG/100 ML BAG 100 MG IVPB (01:54)
[2024-06-20] MEDS: SODIUM BICARBONATE 8.4% 50 MEQ/50 ML SYRINGE IV PUSH (02:01)
[2024-06-20 02:18] VITALS: BP 111/64; PULSE 118; RESP 20; TEMP 36.4; O2SAT 87
--- NOTE | 2024-06-20 02:18 | PC.NURSE ---
phone report called to Amelia CURTIS at [facility]
[2024-06-20 02:19] LABS: Reflex Lactic Acid Yes or No Add Lactic
--- NOTE | 2024-06-20 03:00 | PC.NURSE ---
patient keeps bending her arm occluding the line
[2024-06-20 03:18] VITALS: BP 127/86; PULSE 114; RESP 20; TEMP 36.7; O2SAT 94
--- NOTE | 2024-06-20 03:23 | PC.NURSE ---
notified Amelia CURTIS at [facility] that Levaquin continues to infuse. That Lokelma and Vancomycin have not been given at this time
--- NOTE | 2024-06-22 14:17 | PC.NURSE ---
PRELIMINARY URINE CULTURE RESULTS: ISOLATE 1: 10,000-49,000 CFU/ML OF ESCHERICHIA COLI. PT WAS TRANSFERRED TO [facility] [place] ICU, SPOKE WITH BEBA CURTIS TO NOTIFY OF RESULTS.
--- NOTE | 2024-06-23 16:40 | PC.NURSE ---
FINAL URINE CULTURE RESULTS: ISOLATE 1: 10,000-49,000 CFU/ML OF ESCHERICHIA COLI PT WAS TRANSFERRED TO [facility]. RN NOTIFIED OF RESULTS 06/22/24, THEY WILL TREAT.
--- NOTE | 2024-06-26 13:52 | PC.NURSE ---
final blood cultures x2 reviewed. no growth after 5 days. no change in plan of care.
== END 2024-06-20 03:20 | disposition short-term general hospital (02) ==
PROVIDERS: Emergency Provider Internal Medicine Critical Care Medicine; PCP Family Medicine
DX: J96.02 Acute respiratory failure with hypercapnia (principal); E83.42 Hypomagnesemia; J18.9 Pneumonia, unspecified organism; Y95 Nosocomial condition; R79.89 Other specified abnormal findings of blood chemistry; I50.9 Heart failure, unspecified; E11.22 Type 2 diabetes mellitus with diabetic chronic kidney disease; N18.2 Chronic kidney disease, stage 2 (mild); E78.2 Mixed hyperlipidemia; Z87.891 Personal history of nicotine dependence; Z20.822 Contact with and (suspected) exposure to COVID-19
CPT/HCPCS: 36415; 36600; 71045; 80053; 81001; 82805; 83605; 83735; 83880; 84484; 85025; 85380; 85610; 85730; 87040; 87077; 87086; 87088; 87186; 87637; 93005; 94640; 96365; 96366; 96367; 96375; 99285; J1940; J1956; J3475

== ENCOUNTER 2024-06-20 04:13 | Inpatient (IN) | payer MEDICARE, BC, SELFPAY ==
[2024-06-20] VITALS (36 sets, daily range): BP systolic 84–145; BP diastolic 43–96; PULSE 96–165; RESP 18–32; TEMP 36.2–36.6; O2SAT 92–100; BMI 31.7
--- NOTE | ~2024-06-20 | NM_ITS ---
EXAMINATION: NM lung vent and perfusion DATE: 06/21/2024 10:30 INDICATION: Hypoxia. TECHNIQUE: 10.6 mCi xenon-133 was given for ventilation images. 5.3 mCi Tc-99m MAA was administered i ntravenously for perfusion images. Scintigraphic images of the chest were obtained. COMPARISON: Chest CT 06/20/2024, chest single view 06/19/2024 FINDINGS: Ventilation images demonstrate poor [id number] ratio. There are large defects in left lung. Perf usion images show matched large defects in left upper lobe and left lower lobe. There are small defec ts in right lung. IMPRESSION: 1. Intermediate probability for pulmonary embolism. Reviewed, dictated and finalized at location A.
--- NOTE | ~2024-06-20 | XR_ITS ---
EXAMINATION: XR chest 1V portable DATE: 07/02/2024 06:02 INDICATION: Congestive heart failure. TECHNIQUE: A single frontal view of the chest was obtained. COMPARISON: Chest single view 06/30/2024, chest CT 06/20/24 FINDINGS: There is a small right pleural effusion. Tois B-lines are noted, consistent mild pulmonar y edema. There are airspace opacities in the mid and lower lung zones. No pneumothorax. Cardiomegaly is noted. Epidural electrodes are noted. IMPRESSION: 1. Mild pulmonary edema. 2. Stable airspace opacities in the mid and lower lung zones, consistent with atelectasis or less lik santy pneumonia. 3. Small right pleural effusion. 4. Cardiomegaly. Reviewed, dictated and finalized at location A. IMPRESSION: 1. Mild pulmonary edema. 2. Stable airspace opacities in the mid and lower lung zones, consistent with a telectasis or less likely pneumonia. 3. Small right pleural effusion. 4. Cardiomegaly.
--- NOTE | ~2024-06-20 | US_ITS ---
US venous doppler [facility] DATE: 06/20/2024 14:38 INDICATION: Edema of the lower extremities TECHNIQUE: Real-time and color flow imaging and Doppler analysis of the veins of the lower extremitie s COMPARISON: None FINDINGS: The greater saphenous veins are patent. Spontaneous and phasic flow and normal augmentation and color flow signal and normal compression of the deep veins of both lower extremities. IMPRESSION: No evidence of deep venous thrombosis of the lower extremities Reviewed, dictated and finalized at Location A. Reviewed, dictated and finalized at location J.
--- NOTE | ~2024-06-20 | US_ITS ---
Renal-Bladder ultrasound Clinical History: Renal failure Technique: Real-time sonographic imaging of the kidneys and urinary bladder was performed. Findings: The right kidney measures 11.2 cm in length and the left kidney measures 13.1 cm. There is no hydronephrosis or renal calculus identified. Renal cortical echogenicity is within normal limits. No renal mass lesion is identified. The urinary bladder is collapsed around a Disla catheter. Impression: Unremarkable ultrasound of the kidneys. Collapsed urinary bladder limits evaluation. Reviewed, dictated and finalized at location M. Impression: Unremarkable ultrasound of the kidneys. Collapsed urinary bladder limits evalua tion.
--- NOTE | ~2024-06-20 | CT_ITS ---
CT head without contrast Indication: Altered mental status COMPARISON: 01/03/2024 Technique: Serial scans were obtained through the brain without the administration of contrast. Dose reduction technique was used on this scan by utilizing automated exposure control and iterative recon struction technique. The dose-length product (DLP) was 1816.00 mGy-cm. Findings: There is no evidence of intracranial hemorrhage, mass lesion, or acute infarct. The ventri cles and subarachnoid spaces are dilated, consistent with minimal atrophy. Minimal low attenuation re gions are seen within the periventricular white matter bilaterally, likely representing changes from chronic microvascular ischemic disease. There is no evidence of edema, mass effect or midline shift. The visualized paranasal sinuses and mastoid air cells are clear. Impression: No intracranial hemorrhage, mass, or acute infarct. Atrophy and chronic white matter changes, as above. Reviewed, dictated and finalized at [facility]. Impression: No intracranial hemorrhage, mass, or acute infarct. Atrophy and chronic white matter changes, as above.
--- NOTE | ~2024-06-20 | NM_ITS ---
EXAMINATION: NM renal flow and function DATE: 06/25/2024 14:24 INDICATION: Acute kidney failure. TECHNIQUE: 7 mCi Tc-99m MAG3 was administered IV. The patient was scanned in the supine position. A posterior abdominal radionuclide angiogram was obtained. A subsequent time course of static images of the kidneys, ureters, and bladder was obtained. COMPARISON: Ultrasound kidneys 06/20/2024 FINDINGS: The posterior abdominal radionuclide angiogram and sequential static images show normal siz e, position, and morphology of the kidneys. Peak renal parenchymal uptake was 15 min in right kidney and 18 min in left kidney (normal peak 3-5 minutes). The relative early renal uptake was 35% on the right and 65% on the left (<40% is abnormal). No abnormalities of the ureters or bladder are seen. T1/2 for clearance of activity from the right kidney and proximal collecting system was >>20 minutes. T1/2 for clearance of activity from the left kidney and proximal collecting system was >>20 minutes. IMPRESSION: 1. Relatively decreased right kidney function, which is 35% of total renal function. 2. Delayed contrast clearance from both kidneys, consistent with decreased renal function. Reviewed, dictated and finalized at location A. IMPRESSION: 1. Relatively decreased right kidney function, which is 35% of total renal fun ction. 2. Delayed contrast clearance from both kidneys, consistent with decreased ely al function.
--- NOTE | ~2024-06-20 | XR_ITS ---
XR chest 1V portable 06/25/2024 14:59 Indication: Shortness of breath Procedure: AP portable chest Comparison: Comparison to multiple prior studies sequentially, with oldest reviewed study dated 11/2023. Findings: Cardiomegaly with interstitial edema. There is chronic atelectasis/scarring in the left mid and lower lung. There is atherosclerosis. Spinal stimulator leads overlying the thoracic spine. No p leural effusion or pneumothorax. Impression: 1: Cardiomegaly with mild interstitial edema. Reviewed, dictated and finalized at location B. Impression: 1: Cardiomegaly with mild interstitial edema.
--- NOTE | ~2024-06-20 | CT_ITS ---
EXAMINATION:CT diagnostic chest wo con DATE: 07/02/2024 11:07 INDICATION: Hypotension. TECHNIQUE: Computed tomography (CT) of the chest was performed without intravenous contrast. Automate d exposure control and iterative reconstruction technique were employed. The dose-length product (DLP ) was 657.92 mGy-cm. COMPARISON: Chest CT 06/20/2024 FINDINGS: Motion artifact is noted. There are moderate-sized right and small left pleural effusions. There is atelectasis bilaterally with a dependent predominance. There is an 18 mm nodule in right upp er lobe. There is mild emphysema. There is a 2.6 x 1.0 cm nodule in left lower lobe that measured 2.5 x 1.5 cm on 08/07/23. Cardiomegaly is noted. There are coronary artery calcifications. No pericardial effusion. Calcified right hilar lymph nodes are consistent with old granulomatous disease. There is mild mediastinal lymphadenopathy. Partially visualized are chronic masses in the adrenal glands, like ly adenomas. Epidural electrodes are noted. There are chronic fractures of T3, T6, T12, and L1. IMPRESSION: 1. Moderate-sized right and small left pleural effusions. 2. 18 mm right upper lobe pulmonary nodule suspicious for primary bronchogenic carcinoma. The patient is not a candidate for CT-guided biopsy given the home oxygen use. 3. Left lower lobe nodule with improvement from 08/07/2023, probably infection. 4. Mild emphysema. Reviewed, dictated and finalized at location A. IMPRESSION: 1. Moderate-sized right and small left pleural effusions. 2. 18 mm right upper lobe pulmonary nodule suspicious for primary bronchogenic carcinoma. The patient is not a candidate for CT-guided biopsy given the home o xygen use. 3. Left lower lobe nodule with improvement from 08/07/2023, probably infection. 4. Mild emphysema.
--- NOTE | ~2024-06-20 | CT_ITS ---
CT Scan of the Chest without Contrast: Clinical Indication: Hypoxia, shortness of breath Technique: Contiguous sections were acquired throughout the chest without intravenous contrast. Dose reduction technique was used on this scan by utilizing automated exposure control and iterative recon struction technique. The dose-length product (DLP) was 427.10 mGy-cm. COMPARISON: 08/07/2023 Findings: There is no evidence of any significant mediastinal, hilar or axillary lymphadenopathy. There are ext ensive atherosclerotic calcifications of the aorta and coronary arteries. No pericardial effusion. No aortic aneurysm. Moderate right pleural effusion present. No left pleural effusion. 1.6 x 1.1 cm lobulated pulmonary nodule in the anteromedial right upper lobe is increased from prior exam (axial image 61). There is mild atelectatic change in the left lower lobe. Calcified left upper lobe granuloma noted. Images through the upper abdomen reveal no abnormalities. Worsening T12 compression fracture present. Stable L1 compression fracture. Mild T6 and T3 compression fractures are new from prior exam. Impression: Moderate right pleural effusion. Enlarging 1.6 x 1.1 cm lobulated right upper lobe pulmonary nodule, as above. Neoplasm is considerati on. Consider PET/CT and/or tissue sampling. T3 and T6 compression fractures are new from prior exam, age-indeterminate overall. Worsening T12 com pression fracture. Stable L1 compression fracture. Reviewed, dictated and finalized at location . Impression: Moderate right pleural effusion. Enlarging 1.6 x 1.1 cm lobulated right upper lobe pulmonary nodule, as above. N eoplasm is consideration. Consider PET/CT and/or tissue sampling. T3 and T6 compression fractures are new from prior exam, age-indeterminate over all. Worsening T12 compression fracture. Stable L1 compression fracture.
--- NOTE | ~2024-06-20 | XR_ITS ---
EXAMINATION: XR chest 1V portable DATE: 06/30/2024 12:38 INDICATION: Chest pain. TECHNIQUE: A single frontal view of the chest was obtained. COMPARISON: Chest single view 06/25/2024 FINDINGS: There is a diffuse interstitial pattern in the lungs. There are airspace opacities in the p erihilar regions and at the lung bases. There is a small right pleural effusion. No pneumothorax. Car diomegaly is noted. Epidural electrodes are noted. IMPRESSION: 1. Worsening diffuse lung disease, likely moderate pulmonary edema. 2. Small right pleural effusion. 3. Cardiomegaly. Reviewed, dictated and finalized at location A.
--- NOTE | ~2024-06-20 | XR_ITS ---
EXAMINATION: XR chest 1V portable DATE: 07/05/2024 05:50 INDICATION: Shortness of breath. TECHNIQUE: A single frontal view of the chest was obtained on 2 radiographs. COMPARISON: Chest single view 07/02/2024, chest CT 07/02/2024 FINDINGS: There are lucencies in the lungs, consistent with emphysema. There are interstitial opaciti es in the lungs. There are airspace opacities at the lung bases. There are small pleural effusions. N o pneumothorax. Cardiomegaly is noted. Epidural electrodes are noted. IMPRESSION: 1. Stable diffuse lung disease, consistent with pulmonary edema and basilar atelectasis versus pneumo antoni superimposed on emphysema. 2. Small pleural effusions. 3. Cardiomegaly. Reviewed, dictated and finalized at location A. IMPRESSION: 1. Stable diffuse lung disease, consistent with pulmonary edema and basilar ate lectasis versus pneumonia superimposed on emphysema. 2. Small pleural effusions. 3. Cardiomegaly.
--- NOTE | 2024-06-20 03:49 | PC.NURSE ---
Dr Velazquez made aware pt is on their way to [facility] and that lokalma has not been administered. Dr Velazquez requests lokalma be given RONNIE and stat labs ordered.
--- NOTE | 2024-06-20 04:13 | ECG_ITS ---
Test Date: 2024-06-20 04:45:07 Measurements Intervals [place] Rate: 113 P: 0 NE: 0 QRS: -71 QRSD: 151 T: 99 QT: 364 QTc: 501 Interpretive Statements SINUS TACHYCARDIA WITH FIRST-DEGREE AV BLOCK RIGHT BUNDLE BRANCH BLOCK LEFTWARD AXIS CANNOT RULE OUT PREVIOUS ANTERIOR INFARCTION ABNORMAL ECG Compared to ECG 06/19/2024 22:48:42 NO SIGNIFICANT CHANGE Electronically Signed On 06-20-2024 09:06:47 CDT by Edil Marcelo M.D.
--- NOTE | 2024-06-20 04:27 | PM.IMHP ---
H&P: HPI History of Present Illness Date/Time: 06/20/24 04:27 Chief Complaint: Shortness of breath Narrative: 73-year-old female with a complex past medical history including combined systolic and diastolic heart failure, obstructive sleep apnea, pulmonary hypertension, chronic hypoxic hypercapnic respiratory failure on 4 L of oxygen, chronic kidney disease stage 3, coronary artery disease, DVT, chronic macrocytic anemia with B12 deficiency, chronic pain syndrome with chronic opiate dependence, restless leg syndrome peripheral neuropathy and medical noncompliance among other comorbidities who presented to the ER at [place] due to worsening hypoxia. Majority of information comes from ER physician report, EMS documentation and review of past medical records. Patient is alert oriented only to person and year. The patient has providing often times nonsensical and inappropriate responses to questions. Patient is usually on chronic oxygen therapy 4 L nasal cannula but at the care home patient was noted to have oxygen saturations of 86% and her supplemental oxygen had to be increased to 6 L. on arrival to the outside facility patient had nonspecified atrial tachycardic rhythm with a rate of 114 mild tachypnea and borderline low blood pressures 98/56. The patient had evidently started complaining of shortness of breath just this evening. She reporting right-sided neck pain to the ER staff. Patient was reported to have a moist sounding cough. The patient had been denying chest pain and fever or chills. On the time of my evaluation the patient did have some mild JVD. At the outside facility the patient received Lasix and nebulizer treatment as well as Levaquin. Vancomycin had been ordered but patient did not received antibiotic therapy. Unfortunately patient has longstanding QT prolongation since late 2021 and the patient's QT interval was 577. The patient remains tachycardic and has not had any increased ectopy on telemetry. Her D-dimer was elevated but only mildly more so than her prior value from last year. Patient is not a candidate for CTA due to her acute on chronic renal failure with her creatinine increasing from a baseline of 1.1-1.2 up to 3.4. The patient had just been hospitalized from 05/17/2024 through 06/04/2024 at our facility due to acute on chronic hypercapnic hypercarbic respiratory failure CHF and COPD exacerbation. The patient had been discharged to [facility]. Review of Systems Review of Systems: ROS unobtainable: Yes unobtainable due to medical condition (Encephalopathy) [facility] Past Medical History Medical History (Updated 06/20/24 @ 09:04 by Muara Velazquez DO) Acquired female bladder prolapse With pessary in place Anemia Macrocytic with a hemoglobin range of 9 to 10. B12 deficiency Bimalleolar fracture of right ankle (12/2023) Chronic anxiety Chronic bilateral low back pain Chronic kidney disease, stage 3 Chronic respiratory failure with hypoxia and hypercapnia On home O2 4 L COPD mixed type Coronary artery disease involving alutiiq coronary artery of alutiiq heart without angina pectoris Gastro-esophageal reflux disease without esophagitis Heart failure with mid-range ejection fraction Echocardiogram in December 2023 showed mild reduced LV systolic function with an EF of 45 to 50% with hypokinesis of the mid and basal inferolateral wall and grade 1 diastolic dysfunction. History of fracture of right ankle Major depression, recurrent, chronic Mixed hyperlipidemia Obstructive sleep apnea Peripheral arterial disease Peripheral neuropathy Restless legs syndrome (07/04/22) Therapeutic opioid induced constipation Tobacco abuse disorder Type 2 diabetes mellitus without complication, without long-term current use of insulin Vitamin D deficiency Surgical History Surgical History History of carpal tunnel surgery of right wrist History of
[2024-06-20 04:45] LABS: Basophils Percent Auto 0.5 % (0.2-1.2); Eosinophils Percent Auto 0.2 % (0-4.4); Hemoglobin 10.9 g/dL (12.0-15.0); Immature Granulocyte Absolute 0.05 K/mm3 (0.00-0.031); Immature Granulocyte Percent A 0.6 % (0-0.5); Lymphocytes Absolute Auto 0.92 K/mm3 (0.9-3.2); Lymphocytes Percent Auto 10.6 % (18.3-44.2); Mean Corpuscular HGB Conc 30.3 g/dl (32-36); Mean Corpuscular Hemoglobin 31.4 pg (26-34); Mean Corpuscular Volume 103.7 fl (80-100); Mean Platelet Volume 12.1 fl (7.4-10.4); Monocytes Absolute Auto 0.7 K/mm3 (0.1-0.6); Monocytes Percent Auto 8.1 % (2.6-8.5); Nucleated Red Blood Cells Perc 0.5 % (0.0-0.2); Platelet Count Result 156 k/mm3 (150-375); Red Blood Count 3.47 M/mm3 (4.2-5.4); Red Cell Distribution Width 14.2 % (11.5-14.5); White Blood Count 8.7 K/mm3 (4.5-10.0)
[2024-06-20] MEDS: SODIUM ZIRCONIUM CYCLOSILICATE 10 GM POWD.PACK PO ×3 (04:48→17:27)
[2024-06-20 04:59] LABS: Alanine Aminotransferase 39 U/L (6-35); Albumin Level 4.2 g/dL (3.5-5.1); Alkaline Phosphatase 117 U/L (38-126); Anion Gap 12 mmol/L (4-12); Aspartate Amino Transferase 70 U/L (14-36); Blood Urea Nitrogen 68 mg/dL (7-17); Calcium 8.7 mg/dL (8.4-10.2); Carbon Dioxide 39 mmol/L (22-30); Chloride 86 mmol/L (98-107); Estimated Glomerular Filt Rate 13; Glucose 208 mg/dL (65-110); Lactic Acid Reflex 2.2 mmol/L (0.7-2.0); Magnesium 1.5 mg/dL (1.6-2.3); Potassium 5.9 mmol/L (3.4-5.0); Sodium 137 mmol/L (137-145)
[2024-06-20 05:00] LABS: Phosphorus 5.5 mg/dL (2.5-4.5)
[2024-06-20 05:11] LABS: INR 1.2; Prothrombin Time 15.6 Seconds (11.1-14.7)
[2024-06-20 05:13] LABS: Troponin I 0.185 ng/mL (0.000-0.034)
[2024-06-20 05:14] LABS: Glucose Point of Care 209 mg/dl (65-105)
--- NOTE | 2024-06-20 05:15 | ADMGEN ---
This patient, Vanita Parker, was admitted to IMU Room 231-01 at 410. Patient/family oriented to hospital policies and general routines including ID bracelet, bed and alarms, visiting hours, pain management, procedures, bathroom and other care routines, personal items, smoking policy, room service/diet, and visiting hours. Information on how to activate the Rapid Response Team has been discussed. Patient/Family are encouraged to report perceived risks to care and to ask questions if they do not understand what they are told or what they should do.
[2024-06-20] MEDS: SODIUM BICARBONATE 8.4% 50 MEQ/50 ML SYRINGE IV PUSH ×2 (05:17→08:45)
[2024-06-20] MEDS: DEXTROSE 50% 25 GM/50 ML SYRINGE IV PUSH ×3 (05:19→14:54)
[2024-06-20] MEDS: INSULIN HUMAN REGULAR (*BKC) 100 UNITS/ML 10 UNITS IV PUSH ×3 (05:21→14:53)
[2024-06-20] MEDS: CALCIUM GLUCONATE 1,000 MG/10 ML VIAL 1000 MG IV PUSH (05:26)
[2024-06-20 05:33] LABS: Procalcitonin 0.5 ng/mL
--- NOTE | 2024-06-20 05:49 | ADMGEN ---
This patient, Vanita Parker, was admitted to IMU Room 231-01 on 06/20/24 at 0412 as a direct admit from [facility]. Patient/family oriented to hospital policies and general routines including ID bracelet, bed and alarms, visiting hours, pain management, procedures, bathroom and other care routines, personal items, smoking policy, room service/diet, and visiting hours. Pt with AMS and unable to answer H&P questions at this time. No family present with the patient. H&P obtained per previous admission. Information on how to activate the Rapid Response Team has been discussed. Patient/Family are encouraged to report perceived risks to care and to ask questions if they do not understand what they are told or what they should do.
[2024-06-20 06:32] LABS: MRSA (PCR) NOT DETECTED (NOT DETECTE)
[2024-06-20 06:33] LABS: Glucose Point of Care 234 mg/dl (65-105)
[2024-06-20] MEDS: INSULIN ASPART (*BKC) 100 UNITS/ML SUB-Q (07:22)
[2024-06-20] MEDS: IPRATROPIUM BR 0.02% INH SOLN 0.5 MG/2.5 ML VIAL INHALATION ×3 (07:23→20:52)
[2024-06-20] MEDS: LEVALBUTEROL NEB 1.25 MG/3 ML INHALATION (07:23)
[2024-06-20] MEDS: UMECLIDINIUM/VILANTEROL 62.5-25 MCG ELLIPTA 1 PUFF INHALATION (07:39)
--- NOTE | 2024-06-20 07:50 | PC.NURSE ---
at 7:50am patient heart rhythm went into Vtach. Patient asymptomatic. Dr. capellan notified and to bedside. Vital signs and EKG obtained. Amiodarone bolus and gtt started. Total of 4G of Mag started. 2000mg of Calcium Glu IVPB started. Patient converted to NSR at 0813am, EKG obtained and Dr. capellan notified.
--- NOTE | 2024-06-20 07:54 | ECG_ITS ---
Test Date: 2024-06-20 07:56:23 Measurements Intervals [place] Rate: 165 P: 0 SD: 0 QRS: -76 QRSD: 172 T: 82 QT: 314 QTc: 521 Interpretive Statements ATRIAL TACHYCARDIA, SUSPECT ATRIAL FLUTTER WITH TWO-TO-ONE CONDUCTION RIGHT BUNDLE BRANCH BLOCK LEFTWARD AXIS CANNOT EXCLUDE PREVIOUS ANTERIOR INFARCTION ABNORMAL ECG Compared to ECG 06/20/2024 04:45:07 PATIENT IS NO LONGER IN SINUS RHYTHM SUSPECT ATRIAL FLUTTER WITH RAPID RESPONSE Electronically Signed On 06-20-2024 09:08:31 CDT by Edil Marcelo M.D.
[2024-06-20] MEDS: AMIODARONE 150 MG/D5W 100 ML 150 MG/100 ML BAG 600 MG IV CONT (08:02)
[2024-06-20] MEDS: MAGNESIUM SULF 2 GM/WATER 50ML 2 GM/50 ML BAG IVPB ×2 (08:08→08:43)
[2024-06-20] MEDS: CALCIUM GLUC 2,000 MG/NS 100ML 2,000 MG/100 ML BAG 100 MG IVPB (08:10)
--- NOTE | 2024-06-20 08:15 | ECG_ITS ---
Test Date: 2024-06-20 08:02:37 Measurements Intervals [place] Rate: 159 P: 0 LA: 0 QRS: -73 QRSD: 150 T: 60 QT: 260 QTc: 424 Interpretive Statements ATRIAL FLUTTER/TACHYCARDIA WITH RAPID VENTRICULAR RESPONSE WITH ABERRANT CONDUCTION OR VENTRICULAR PREMATURE COMPLEXES RIGHT BUNDLE BRANCH BLOCK LEFTWARD AXIS CANNOT EXCLUDE PREVIOUS ANTERIOR INFARCTION ABNORMAL ECG Compared to ECG 06/20/2024 07:56:23 COMPARED WITH THE ELECTROCARDIOGRAM DONE 6 MINUTES AGO THERE IS NO DIFFERENCE Electronically Signed On 06-20-2024 09:10:00 CDT by Edil Marcelo M.D.
--- NOTE | 2024-06-20 08:20 | ECG_ITS ---
Test Date: 2024-06-20 08:20:03 Measurements Intervals [place] Rate: 101 P: 80 TN: 140 QRS: -69 QRSD: 160 T: 112 QT: 402 QTc: 522 Interpretive Statements SINUS TACHYCARDIA POSSIBLE LEFT ATRIAL ENLARGEMENT [-0.1mV P WAVE IN V1/V2] MARKED LEFT AXIS DEVIATION [QRS AXIS < -30] RIGHT BUNDLE BRANCH BLOCK Compared to ECG 06/20/2024 08:02:37 Atrial flutter no longer present Electronically Signed On 06-22-2024 14:40:59 CDT by Adama Presotn M.D.
[2024-06-20 08:22] LABS: Hemoglobin 10.4 g/dL (12.0-15.0); Mean Corpuscular HGB Conc 29.7 g/dl (32-36); Mean Corpuscular Hemoglobin 31.1 pg (26-34); Mean Corpuscular Volume 104.8 fl (80-100); Mean Platelet Volume 12.2 fl (7.4-10.4); Platelet Count Result 156 k/mm3 (150-375); Red Blood Count 3.34 M/mm3 (4.2-5.4); Red Cell Distribution Width 14.2 % (11.5-14.5); White Blood Count 8.8 K/mm3 (4.5-10.0)
[2024-06-20] MEDS: AMIODARONE 360 MG/D5W 200 ML 360 MG/200 ML BAG 33.33 MG IV CONT (08:28)
[2024-06-20 08:32] LABS: Alanine Aminotransferase 41 U/L (6-35); Alkaline Phosphatase 98 U/L (38-126); Anion Gap 15 mmol/L (4-12); Aspartate Amino Transferase 81 U/L (14-36); Bilirubin,Total 0.7 mg/dL (0.2-1.3); Blood Urea Nitrogen 70 mg/dL (7-17); Calcium 8.7 mg/dL (8.4-10.2); Carbon Dioxide 33 mmol/L (22-30); Chloride 87 mmol/L (98-107); Estimated CRCL calculation 15 ml/min; Estimated Glomerular Filt Rate 14; Glucose 189 mg/dL (65-110); Magnesium 1.5 mg/dL (1.6-2.3); Potassium 5.7 mmol/L (3.4-5.0); Sodium 135 mmol/L (137-145)
[2024-06-20 08:34] LABS: Lactic Acid Reflex 4.4 mmol/L (0.7-2.0)
[2024-06-20] MEDS: MIDODRINE HCL 2.5 MG TABLET 10 MG PO (08:35)
[2024-06-20] MEDS: CLOPIDOGREL BISULFATE 75 MG TABLET PO (08:35)
[2024-06-20] MEDS: ASPIRIN 81 MG CHEWABLE TABLET PO (08:35)
[2024-06-20] MEDS: NICOTINE (*PBKC) 21 MG PATCH 1 PATCH TRANSDERM (08:35)
[2024-06-20] MEDS: FOLIC ACID 1 MG TABLET PO (08:36)
[2024-06-20] MEDS: DOCUSATE SODIUM 100 MG CAPSULE PO (08:36)
[2024-06-20] MEDS: CYANOCOBALAMIN 1,000 MCG TABLET 1000 MCG PO (08:36)
[2024-06-20] MEDS: FUROSEMIDE INJ 40 MG/4 ML VIAL IV PUSH (08:45)
--- NOTE | 2024-06-20 09:03 | P.PNCROSS_ITS ---
Event Note Event Note Event Note: Please refer to the history and physical performed by Maura Velazquez MD at 0424 on 06/20/24. Assuming care in the morning, called to the bedside around 8:00 a.m. by the nursing team. The patient was in a wide QRS complex in the rate of 160s on telemetry. Upon chart review the patient had hyperkalemia which was persistent, per chart review it is unclear if Lokelma was given at [facility]. None the less, administered hyperkalemia cocktail Lasix, calcium gluconate, bicarb, in sulin and dextrose. Attempted to give Lokelma but the patient choked. Patient made NPO and H therapy consulted. As well, the patient had hypo magnesemia which was only mildly improved after magnesium rider. The patient was hemodynamically stable upon evaluation. She was talking, albeit a bit confused. Subsequently, a bolus of 150 mg of amiodarone was given followed by a 1 milligram/minute infusion. This allowed her ventricular rate to come down to the 100s. An EKG was performed and the wide QRS is actually due atrial flutter and aberrant conduction. Cardiology consultation was requested and is appreciated. Cardiology has stopped the amiodarone due to concerns for lung toxicity. For now, continue to monitor on telemetry. Potassium and magnesium continue to be replaced. Discussion held with the Mr. Abel Parker. He understands the patient is chronically ill with severe acute illness and he is adamant to continue every measure including dialysis, CPR, intubation. Subsequently, due to the patient's slightly worsened mental status and multiple medical issues she has been moved to the ICU and the channel program manager is now leading management. Agree with current therapy. Greater than 100 minutes critical care time spent discussing this patient's management with the channel program manager, nursing team, family along with chart review, administering therapy and assessing response.
[2024-06-20 09:34] LABS: Creatinine Urine 132.8 mg/dL; Urea Random Urine 321 MG/DL
[2024-06-20 10:03] LABS: Sodium Urine Random 16 meq/L
[2024-06-20 10:29] LABS: Eosinophil Urine None Seen % (None Seen); Urine Eos QC 2nd Tech Confirmed
[2024-06-20 10:36] LABS: Anion Gap 11 mmol/L (4-12); Blood Urea Nitrogen 69 mg/dL (7-17); Calcium 9.1 mg/dL (8.4-10.2); Carbon Dioxide 38 mmol/L (22-30); Chloride 86 mmol/L (98-107); Estimated CRCL calculation 14 ml/min; Estimated Glomerular Filt Rate 13; Glucose 185 mg/dL (65-110); Potassium 5.2 mmol/L (3.4-5.0); Sodium 135 mmol/L (137-145)
[2024-06-20 10:46] LABS: Troponin I 0.193 ng/mL (0.000-0.034)
[2024-06-20 11:51] LABS: Glucose Point of Care 190 mg/dl (65-105)
--- NOTE | 2024-06-20 12:45 | PM.CNNEP ---
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/dialysis follow trend of repeat labs and UOP (2) Chronic kidney disease, stage 3: Code(s): N18.30 - Chronic kidney disease, stage 3 unspecified Status: Chronic Assessment and Plan: baseline creatinine runs around 1.1 - 1.3mg/dl presumably secondary to CHF, vascular disease, DARRICK/pulmonary HTN, and age-related change (3) Hyperkalemia: Code(s): E87.5 - Hyperkalemia Status: Acute Assessment and Plan: present on labs in ER s/p medical management with improvement in K+ continue to follow serial potassium levels with ongoing medical management if resistant to conservative therapy, consider dialytic intervention (4) Altered mental status: Code(s): R41.82 - Altered mental status, unspecified Status: Acute Assessment and Plan: etiology? due to drugs/medications (narcotics, muscle relaxants, requip...etc) versus renal dysfunction versus other? ABG noted holding sedative medications follow mentation (5) Chronic respiratory failure with hypoxia and hypercapnia: Code(s): J96.11 - Chronic respiratory failure with hypoxia; J96.12 - Chronic respiratory failure with hypercapnia Status: Acute Assessment and Plan: back to baseline oxygen requirements secondary to DARRICK/pulmonary hypertension, COPD, and congestive heart failure elevated D-dimer noted in ER - check V/Q scan and lower extremity dopplers follow respiratory status (6) Combined systolic and diastolic congestive heart failure: Qualifiers: Heart failure chronicity: chronic Qualified Code(s): I50.42 - Chronic combined systolic (congestive) and diastolic (congestive) heart failure Code(s): I50.40 - Unspecified combined systolic (congestive) and diastolic (congestive) heart failure Status: Chronic Assessment and Plan: appears compensated at this time follow volume status cautious IVF resuscitation (7) Atrial flutter with rapid ventricular response: Code(s): I48.92 - Unspecified atrial flutter Status: Acute Assessment and Plan: as noted this AM on amiodarone continue rate control strategy (8) Type 2 diabetes mellitus with hyperglycemia, without long-term current use of insulin: Code(s): E11.65 - Type 2 diabetes mellitus with hyperglycemia Status: Chronic Assessment and Plan: follow accu-cheks glyceminc control per coke drawer hand/hospitalist Long extensive discussion (greater than 20 minutes) with the patient's and family at bedside following her transfer to the intensive care unit. I voiced my concerns about her renal dysfunction in association with hyperkalemia and the possibility that if her kidney function continues to deteriorate or she runs into issues/ problems with volume overload or resistance hyperkalemia, she may require renal replacement therapy / dialysis. The patient's appeared to voice understanding. I will continue follow the patient with you while she remains hospitalized make further recommendations as deemed necessary. Thank you for allowing me to participate in the care of this patient. History of Present Illness Reason for Consult Consult date: 06/20/24 Reason for consult: acute renal failure (on chronic kidney disease) Chief Complaint Chief complaint: A/C renal failure; A/C hypoxic respiratory failure History of Present Illness Narrative: Almost all the information I have obtained is review of the electronic medical records as
--- NOTE | 2024-06-20 12:45 | P.CONNP_ITS ---
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/dialysis * follow trend of repeat labs and UOP (2) Chronic kidney disease, stage 3: Code(s): N18.30 - Chronic kidney disease, stage 3 unspecified Status: Chronic Assessment and Plan: * baseline creatinine runs around 1.1 - 1.3mg/dl * presumably secondary to CHF, vascular disease, DARRICK/pulmonary HTN, and age- related change (3) Hyperkalemia: Code(s): E87.5 - Hyperkalemia Status: Acute Assessment and Plan: * present on labs in ER * s/p medical management with improvement in K+ * continue to follow serial potassium levels with ongoing medical management * if resistant to conservative therapy, consider dialytic intervention (4) Altered mental status: Code(s): R41.82 - Altered mental status, unspecified Status: Acute Assessment and Plan: * etiology? * due to drugs/medications (narcotics, muscle relaxants, requip...etc) versus renal dysfunction versus other? * ABG noted * holding sedative medications * follow mentation (5) Chronic respiratory failure with hypoxia and hypercapnia: Code(s): J96.11 - Chronic respiratory failure with hypoxia; J96.12 - Chronic respiratory failure with hypercapnia Status: Acute Assessment and Plan: * back to baseline oxygen requirements * secondary to DARRICK/pulmonary hypertension, COPD, and congestive heart failure * elevated D-dimer noted in ER - check V/Q scan and lower extremity dopplers * follow respiratory status (6) Combined systolic and diastolic congestive heart failure: Qualifiers: Heart failure chronicity: chronic Qualified Code(s): I50.42 - Chronic combined systolic (congestive) and diastolic (congestive) heart failure Code(s): I50.40 - Unspecified combined systolic (congestive) and diastolic (congestive) heart failure Status: Chronic Assessment and Plan: * appears compensated at this time * follow volume status * cautious IVF resuscitation (7) Atrial flutter with rapid ventricular response: Code(s): I48.92 - Unspecified atrial flutter Status: Acute Assessment and Plan: * as noted this AM * on amiodarone * continue rate control strategy (8) Type 2 diabetes mellitus with hyperglycemia, without long-term current use of insulin: Code(s): E11.65 - Type 2 diabetes mellitus with hyperglycemia Status: Chronic Assessment and Plan: * follow accu-cheks * glyceminc control per photo finisher/hospitalist Long extensive discussion (greater than 20 minutes) with the patient's and family at bedside following her transfer to the intensive care unit. I voiced my concerns about her renal dysfunction in association with hyperkalemia and the possibility that if her kidney function continues to deteriorate or she runs into issues/ problems with volume overload or resistance hyperkalemia, she may require renal replacement therapy / dialysis. The patient's appeared to voice understanding. I will continue follow the patient with you while she remains hospitalized make further recommendations as deemed n
--- NOTE | 2024-06-20 13:13 | PM.CNCAR ---
Assessment and Plan Assessment and plan (1) Coronary artery disease: Qualifiers: Coronary Disease-Associated Artery/Lesion type: [place] artery [place] vs. transplanted heart: [place] heart Associated angina: without angina Qualified Code(s): I25.10 - Atherosclerotic heart disease of absent[place] coronary artery without angina pectoris Code(s): I25.10 - Atherosclerotic heart disease of [place] coronary artery without angina pectoris Status: Acute Plan This is a 73-year-old lady with a prior history of coronary disease, previous myocardial infarction and percutaneous revascularization. According to the who is a reasonable historian 1 of her coronary arteries remains chronic total occlusion. Left ventricular systolic function by echo is mildly depressed. Undoubtedly she has severe lung disease with a 104 pack-year history of cigarette smoking. This morning she became tachycardic with a wide QRS rhythm. Once again her ECG does not demonstrate ventricular tachycardia rather the more likely diagnosis is atrial flutter with two-to-one conduction. None the less she converted back to sinus rhythm with amiodarone. Given the severity of her large underlying lung disease I would not favor continuing amiodarone if she does not have to have this. Other anti rhythmics are also a difficult choices given her acute renal insufficiency and coronary disease with previous myocardial infarction making class 1 C agents a suboptimal choice. For the time being we will watch her telemetry and stop the IV amiodarone. Reassured the patient's that his did not have a dangerous ventricular arrhythmia this morning. Obviously her prognosis is poor given her severe chronic lung disease frequent admissions with shortness of breath and now with acute on chronic renal failure as well Edil Marcelo MD [facility] History of Present Illness History of Present Illness Consult date/time: 06/20/24 13:13 Reason For Visit: A/C renal failure; A/C hypoxic respiratory failure Narrative: This is a 73-year-old woman that I am seeing at the request of the hospitalist because of ventricular tachycardia. Patient is not known to me her chart has been reviewed and she has been seen in room 231. The majority of the history is from the medical record and the who was in the room. The patient is very sleepy and a very poor historian regarding any of her medical history at this time. Apparently she has a history of coronary artery disease, severe peripheral vascular disease and severe chronic lung disease with more than 100 previous pack years of smoking. She was hospitalized yesterday because of shortness of breath. She has had a number of hospitalizations here with dyspnea that have been attributed to hypercarbic respiratory failure repair your with her chronic lung disease. She has echocardiographic evidence in our chart recently showing room mildly reduced left ventricular systolic function. The patient's indicates she has a history of coronary artery disease and was treated at [facility] he estimates 5 or 6 years ago with an acute myocardial infarction. The 's recollection is that 1 of her coronary arteries is chronically occluded and remains so and she had a percutaneous revascularization stenting 3 of her other coronary arteries at that time. She had followed up with a coke drawer hand who did the intervention for couple of years but then they state that he left the area and rather than following up with anybody else they just all sort of let that go. Up until the last couple of weeks she has been smoking heavily despite this history. She has a history of peripheral vascular disease and has undergone percutaneous lower extremity revascularization also at [facility]. The states that procedure per predates her coronary procedure. The patient was sent here from a rehab facility up in [place] because of worsening shortness of breat
--- NOTE | 2024-06-20 13:18 | WPDCNINT ---
Assessment and Plan Assessment and plan (1) Combined systolic and diastolic congestive heart failure: Qualifiers: Heart failure chronicity: chronic Qualified Code(s): I50.42 - Chronic combined systolic (congestive) and diastolic (congestive) heart failure Code(s): I50.40 - Unspecified combined systolic (congestive) and diastolic (congestive) heart failure Status: Chronic Assessment and Plan: Echo 01/10 Summary 1. Complete two-dimensional, color flow and Doppler transthoracic echocardiogram is performed. 2. Technically difficult study with limited views. 3. Left ventricular chamber dimension is normal. 4. Left ventricular systolic function is mildly reduced, estimated at 45-50% with hypokinesis of the mid and basal inferolateral wall. 5. There is mildly increased left ventricular wall thickness. 6. Left ventricular septal wall motion is abnormal with septal motion related to bundle branch block. 7. The left ventricular diastolic function is grade I diastolic dysfunction. 8. Left atrial chamber dimension is moderately enlarged. 9. There is no aortic valve stenosis. 10. There is trace aortic valve regurgitation. 11. There is mild to moderate mitral valve regurgitation. 12. There is mild tricuspid valve regurgitation. 13. Moderate pulmonary hypertension, estimated pulmonary arterial systoli pressure is [address] scan does not show any significant pulmonary edema. Patient is on home oxygen of 4 L In light of renal failure will give cautious amount of IV fluids and monitor (2) Toxic metabolic encephalopathy: Code(s): G92.8 - Other toxic encephalopathy Status: Acute Assessment and Plan: Patient appears to have toxic metabolic encephalopathy. She moves all 4 extremities and wakes up with mild stimulation and is partially oriented. Nurse removed a fentanyl patch from her he is on few medications that can cause sedation specially in the light of renal failure. Such was recently checked on last hospitalization was normal Check ammonia ABG was checked and shows pH 7.35 pCO2 66 PO2 72 bicarb 35 I gave her 1 dose of Narcan which led to some improvement in mental status and patient became oriented x2 and new year and president but gave me a name off different hospital. Hold all sedatives (3) Type 2 diabetes mellitus with hyperglycemia, without long-term current use of insulin: Code(s): E11.65 - Type 2 diabetes mellitus with hyperglycemia Status: Chronic Assessment and Plan: Sliding scale insulin ordered (4) Acute hyperkalemia: Code(s): E87.5 - Hyperkalemia Status: Acute Assessment and Plan: Patient treated with medications and potassium of 5.2. Repeat BMP ordered I will order Lokelma if potassium is still elevated. Will Insert NG tube Monitor K level May need dialysis if worsens again (5) Acute on chronic kidney failure: Qualifiers: Acute renal failure type: unspecified Chronic kidney disease stage: stage 3 (moderate) Chronic kidney disease stage 3 subtype: stage 3b (GFR 30-44) Qualified Code(s): N17.9 - Acute kidney failure, unspecified; N18.32 - Chronic kidney disease, stage 3b Code(s): N17.9 - Acute kidney failure, unspecified; N18.9 - Chronic kidney disease, unspecified Status: Inactive Assessment and Plan: Patient's creatinine ranges normally in 1.1-1.3. 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
[2024-06-20 13:25] LABS: Alveolar/Arterial O2 Gradient 107.8 mmHg; Base Excess ABG 8.1 mEq/l (+/-2.0); Fractional Inspired Oxygen 36 %; HCO3 ABG 35.8 mEq/l (22.0-26.0); Oxygen Content ABG 15.9 %vol (16.0-22.0); Oxygen Saturation ABG 93.3 % (95.0-100.0); Oxyhemoglobin 91.6 % THb (90.0-100.0); PO2 ABG 72.1 mmHg (80.0-100.0); Total Hemoglobin 12.3 g/dL (12.0-18.0); pH ABG 7.351 (7.350-7.450)
[2024-06-20 13:27] LABS: Device NASAL CANNULA; Modified Allen's Test Pass; PCO2 ABG 66.2 mmHg (35.0-45.0); Site Drawn LEFT RADIAL
--- NOTE | 2024-06-20 13:30 | PC.NURSE ---
This patient, Vanita Parker, was transferred to ICU 5 on 06/20/24 at 1320. Personal belongings sent with patient. Report given to Ronel CURTIS. Appropriate documentation sent with patient.
--- NOTE | 2024-06-20 13:33 | PC.NURSE ---
This patient, Vanita Parker, was received from [facility] on 06/20/24 at 1325. Patient oriented to unit policies and routines.
[2024-06-20 13:35] LABS: Glucose Point of Care 226 mg/dl (65-105)
[2024-06-20] MEDS: SODIUM CHLORIDE 0.9% IV 1,000 ML 100 ML IV CONT (13:39)
[2024-06-20] MEDS: SODIUM CHLORIDE 0.9% IV 500 ML IV CONT (13:39)
[2024-06-20] MEDS: NALOXONE HCL INJ 2 MG/2 ML AMP 1 MG IV PUSH (13:50)
[2024-06-20 14:13] LABS: Ammonia < 9 umol/L (9-30)
[2024-06-20 14:16] LABS: Blood Urea Nitrogen 71 mg/dL (7-17); Calcium 9.6 mg/dL (8.4-10.2); Carbon Dioxide > 40 mmol/L (22-30); Chloride 83 mmol/L (98-107); Estimated CRCL calculation 13 ml/min; Estimated Glomerular Filt Rate 12; Glucose 217 mg/dL (65-110); Magnesium 2.6 mg/dL (1.6-2.3); Potassium 5.5 mmol/L (3.4-5.0); Sodium 135 mmol/L (137-145)
[2024-06-20 14:18] LABS: Creatine Kinase 65 U/L (30-135)
[2024-06-20 14:19] LABS: Lactic Acid Reflex 4.2 mmol/L (0.7-2.0)
[2024-06-20] MEDS: ENOXAPARIN 80 MG/0.8 ML SYRINGE SUB-Q (14:55)
[2024-06-20] MEDS: AZTREONAM 1 GM in SODIUM CHLORIDE 0.9% IV 50 ML 100 ML IVPB (14:57)
[2024-06-20 17:01] LABS: Reflex Lactic Acid Yes or No Add Lactic
[2024-06-20 17:16] LABS: Glucose Point of Care 176 mg/dl (65-105)
[2024-06-20] MEDS: ATORVASTATIN 40 MG TABLET 80 MG PO (17:25)
[2024-06-20] MEDS: MIDODRINE HCL 10 MG TABLET PO (17:26)
[2024-06-20 17:37] LABS: Lactic Acid 3.7 mmol/L (0.7-2.0)
--- NOTE | 2024-06-20 17:50 | PC.NURSE ---
patient took 1500 and 1800 dose of lokelma and evening meds with NO issues with swallowing
--- NOTE | 2024-06-20 18:41 | PCSTNOTE ---
1:00 PM Bedside swallow evaluation attempted. Patient was too somnolent. Dr. Anaya entered room and advised to wait until tomorrow.
[2024-06-20 20:35] LABS: Anion Gap 11 mmol/L (4-12); Blood Urea Nitrogen 76 mg/dL (7-17); Carbon Dioxide 38 mmol/L (22-30); Chloride 87 mmol/L (98-107); Estimated CRCL calculation 14 ml/min; Estimated Glomerular Filt Rate 13; Glucose 158 mg/dL (65-110); Potassium 5.1 mmol/L (3.4-5.0); Sodium 136 mmol/L (137-145)
[2024-06-20 21:09] LABS: Glucose Point of Care 166 mg/dl (65-105)
[2024-06-21] VITALS (21 sets, daily range): BP systolic 90–120; BP diastolic 51–75; PULSE 100–109; RESP 13–22; TEMP 36.4–36.8; O2SAT 91–100
--- NOTE | 2024-06-21 | ECHO_ITS ---
Patient Info Name: Vanita Parker Age: 73 years : 1950 Gender: Female Ht: 63 in Wt: 179 lbs BSA: 1.93 m2 HR: 104 bpm BP: 95 / 51 mmHg Technical Quality: Fair Exam Date: 06/21/2024 1:08 PM Exam Location: Echo Lab Patient Status: Inpatient Admit Date: 06/20/2024 Staff Ordering Physician: Flavia Prater MD Software Quality Specialist: Brook Beard RDCS Attending Provider: Maura Velazquez DO Exam Type: CA echo dop color flow w con Study Info Indications - Vtach Complete two-dimensional, color flow and Doppler transthoracic echocardiogram is performed with contrast to opacify the left ventricle and to improve the deliniation of the left ventricle endocardial borders. Contrast/Agitated Saline Contrast/Ag. Saline: Definity Amount: 2.00 ml Administered By: Brook Beard RDCS Existing IV Access: Yes IV Access Condition: patent with no signs of infiltration Summary 1. Technically difficult study with limited views. 2. Left ventricular chamber dimension is moderately enlarged. 3. Left ventricular systolic function is severely reduced, estimated at 20-25%. 4. There is mildly increased left ventricular wall thickness. 5. Right ventricular chamber dimension is moderately enlarged. 6. Right ventricular systolic function is normal. 7. Left atrial chamber dimension is severely enlarged. 8. Right atrial chamber dimension is severely enlarged. 9. There is moderate aortic valve calcification. 10. There is mild aortic valve stenosis. 11. There is mild mitral valve regurgitation. 12. There is mild to moderate tricuspid valve regurgitation. Left Ventricle Left ventricular chamber dimension is moderately enlarged. Left ventricular systolic function is severely reduced, estimated at 20-25%. There is mildly increased left ventricular wall thickness. Right Ventricle Right ventricular chamber dimension is moderately enlarged. Right ventricular systolic function is normal. Left Atria Left atrial chamber dimension is severely enlarged. Right Atria Right atrial chamber dimension is severely enlarged. Atrial Septum Intact interatrial septum visualized by color flow imaging. Aortic Valve The aortic valve is probable trileaflet. There is mild aortic valve stenosis. There is trace aortic valve regurgitation. There is moderate aortic valve calcification. Pulmonic Valve The pulmonic valve is not well visualized. There is trace pulmonic regurgitation. Mitral Valve The mitral valve has thickened leaflets. There is mild mitral valve regurgitation. The mitral valve annulus is mildly calcified. Tricuspid Valve There is mild to moderate tricuspid valve regurgitation. Pericardium/Pleural There is no pericardial effusion. Inferior Vena Cava Normal inferior vena cava with <50% collapse upon inspiration consistent with elevated right atrial pressure, 8 mmHg. Aorta The aortic root size at the sinus of Valsalva is normal. Left Ventricular Outflow Tract Name Value Normal LVOT 2D LVOT Diameter 2.03 cm LVOT Doppler LVOT Peak Gradient 1 mmHg LVOT Mean Gradient 1 mmHg LVOT VTI 6.68 cm
[2024-06-21] MEDS: IPRATROPIUM BR 0.02% INH SOLN 0.5 MG/2.5 ML VIAL INHALATION ×4 (02:41→20:02)
[2024-06-21] MEDS: AZTREONAM 1 GM in SODIUM CHLORIDE 0.9% IV 50 ML 100 ML IVPB ×2 (03:45→15:07)
[2024-06-21 03:47] LABS: Basophils Percent Auto 0.4 % (0.2-1.2); Eosinophils Absolute Auto 0.1 K/mm3 (0-0.3); Eosinophils Percent Auto 0.6 % (0-4.4); Hematocrit 33.2 % (37.0-47.0); Hemoglobin 10.3 g/dL (12.0-15.0); Immature Granulocyte Absolute 0.04 K/mm3 (0.00-0.031); Immature Granulocyte Percent A 0.5 % (0-0.5); Lymphocytes Absolute Auto 0.96 K/mm3 (0.9-3.2); Lymphocytes Percent Auto 12.1 % (18.3-44.2); Mean Corpuscular Hemoglobin 31.6 pg (26-34); Mean Corpuscular Volume 101.8 fl (80-100); Mean Platelet Volume 12.1 fl (7.4-10.4); Monocytes Absolute Auto 0.9 K/mm3 (0.1-0.6); Monocytes Percent Auto 11.6 % (2.6-8.5); Neutrophils Absolute Auto 5.9 K/mm3 (1.3-6.7); Neutrophils Percent Auto 74.8 % (45.5-73.1); Platelet Count Result 142 k/mm3 (150-375); Red Blood Count 3.26 M/mm3 (4.2-5.4); Red Cell Distribution Width 14.6 % (11.5-14.5); White Blood Count 7.9 K/mm3 (4.5-10.0)
[2024-06-21 03:57] LABS: Alanine Aminotransferase 73 U/L (6-35); Albumin Level 3.7 g/dL (3.5-5.1); Alkaline Phosphatase 122 U/L (38-126); Anion Gap 9 mmol/L (4-12); Aspartate Amino Transferase 117 U/L (14-36); Bilirubin,Total 0.8 mg/dL (0.2-1.3); Blood Urea Nitrogen 73 mg/dL (7-17); Carbon Dioxide 39 mmol/L (22-30); Chloride 88 mmol/L (98-107); Estimated CRCL calculation 14 ml/min; Estimated Glomerular Filt Rate 13; Glucose 133 mg/dL (65-110); Magnesium 2.2 mg/dL (1.6-2.3); Phosphorus 4.7 mg/dL (2.5-4.5); Potassium 4.8 mmol/L (3.4-5.0); Sodium 136 mmol/L (137-145)
[2024-06-21 04:30] LABS: Procalcitonin 0.5 ng/mL
[2024-06-21 04:44] LABS: Hepatitis B Surface Antigen Negative (Negative)
[2024-06-21 05:01] LABS: Hepatitis B Surface Anti Res Negative
[2024-06-21 07:57] LABS: Glucose Point of Care 153 mg/dl (65-105)
[2024-06-21] MEDS: UMECLIDINIUM/VILANTEROL 62.5-25 MCG ELLIPTA 1 PUFF INHALATION (08:24)
--- NOTE | 2024-06-21 09:04 | PCSTNOTE ---
Please refer to the Bedside Swallow Evaluation in the EMR. Please note, silent aspiration cannot be ruled out at bedside. Vanita Parker was seen for a Bedside Swallow Evaluation at the request of her physician. The pt was admitted 06/20/24 due to worsening hypoxia. She has a past medical history of COPD, pulmonary hypertension, and coronary artery disease. She denied any difficulty swallowing at this time. Trials of ice chips, purees, solids, and thin liquids via straw/spoon/cup edge were administered at bedside. During trials of purees and solids, the pt exhibited persistent lingual pumping as well as a delayed oral transit. Additionally, the pt exhibited multiple double swallows throughout the evaluation. Despite the lingual pumping and double swallows, the pts vocal quality remained clear and no s/s aspiration were noted. Given the results of this assessment, it is recommended this pt receive an oral diet of IDDSI Level 5 (Minced and Moist) with IDDSI Level 0 (Thin Liquids). *Please note that silent aspiration cannot be ruled out at bedside. No further ST is warranted at this time. Thank you for this referral. [ End ]
--- NOTE | 2024-06-21 09:28 | P.PNNP_ITS ---
Progress Note: A&P Assessment and Plan (1) Acute kidney injury: Code(s): N17.9 - Acute kidney failure, unspecified Status: Acute Assessment and Plan: * as noted by admission labs * relatively stable at this time * agree with cautious IVFs * evaluation to date noted: * renal u/s normal * urine electrolytes prerenal * urine eosinophils negative * CPK normal * sight improvement in urine output in the last 24 hours * insult due to relative hypotension and prerenal factors * follow trend of repeat labs and UOP (2) Chronic kidney disease, stage 3: Code(s): N18.30 - Chronic kidney disease, stage 3 unspecified Status: Chronic Assessment and Plan: * baseline creatinine runs around 1.1 - 1.3mg/dl * presumably secondary to CHF, vascular disease, DARRICK/pulmonary HTN, and age- related change (3) Hyperkalemia: Code(s): E87.5 - Hyperkalemia Status: Acute Assessment and Plan: * resolved * present on labs in ER * s/p medical management with improvement in K+ * continue to follow serial potassium levels with ongoing medical management * if resistant to conservative therapy, consider dialytic intervention (4) Altered mental status: Code(s): R41.82 - Altered mental status, unspecified Status: Acute Assessment and Plan: * improvement noted * etiology? * due to drugs/medications (narcotics, muscle relaxants, requip...etc) versus renal dysfunction versus other? * ABG noted * holding sedative medications * follow mentation (5) Chronic respiratory failure with hypoxia and hypercapnia: Code(s): J96.11 - Chronic respiratory failure with hypoxia; J96.12 - Chronic respiratory failure with hypercapnia Status: Acute Assessment and Plan: * back to baseline oxygen requirements * secondary to DARRICK/pulmonary hypertension, COPD, and congestive heart failure * elevated D-dimer noted in ER - V/Q scan and lower extremity doppler results noted * follow respiratory status (6) Combined systolic and diastolic congestive heart failure: Qualifiers: Heart failure chronicity: chronic Qualified Code(s): I50.42 - Chronic combined systolic (congestive) and diastolic (congestive) heart failure Code(s): I50.40 - Unspecified combined systolic (congestive) and diastolic (congestive) heart failure Status: Chronic Assessment and Plan: * appears compensated at this time * follow volume status * cautious IVF resuscitation (7) Atrial flutter with rapid ventricular response: Code(s): I48.92 - Unspecified atrial flutter Status: Acute Assessment and Plan: * continue rate control strategy (8) Type 2 diabetes mellitus with hyperglycemia, without long-term current use of insulin: Code(s): E11.65 - Type 2 diabetes mellitus with hyperglycemia Status: Chronic Assessment and Plan: * follow accu-cheks * glyceminc control per shutdown coordinator/hospitalist Will continue to follow. Subjective Date/time seen: 06/21/24 09:28 Interval history: Follow-up for acute kidney injury/acute renal failure on chronic kidney disease. Mentation has improved in comparison to yesterday -- more awake and conversive -- reports some mild nausea but would like to eat something; urine output a bit better with relative stability in renal function/creatinine; respiratory s tatus/breathing appears stable if not better as well; at bedside and concurs with improvement in mental status. Linda
--- NOTE | 2024-06-21 09:28 | PM.PNNEP ---
Progress Note: A&P Assessment and Plan (1) Acute kidney injury: Code(s): N17.9 - Acute kidney failure, unspecified Status: Acute Assessment and Plan: as noted by admission labs relatively stable at this time agree with cautious IVFs evaluation to date noted: renal u/s normal urine electrolytes prerenal urine eosinophils negative CPK normal sight improvement in urine output in the last 24 hours insult due to relative hypotension and prerenal factors follow trend of repeat labs and UOP (2) Chronic kidney disease, stage 3: Code(s): N18.30 - Chronic kidney disease, stage 3 unspecified Status: Chronic Assessment and Plan: baseline creatinine runs around 1.1 - 1.3mg/dl presumably secondary to CHF, vascular disease, DARRICK/pulmonary HTN, and age-related change (3) Hyperkalemia: Code(s): E87.5 - Hyperkalemia Status: Acute Assessment and Plan: resolved present on labs in ER s/p medical management with improvement in K+ continue to follow serial potassium levels with ongoing medical management if resistant to conservative therapy, consider dialytic intervention (4) Altered mental status: Code(s): R41.82 - Altered mental status, unspecified Status: Acute Assessment and Plan: improvement noted etiology? due to drugs/medications (narcotics, muscle relaxants, requip...etc) versus renal dysfunction versus other? ABG noted holding sedative medications follow mentation (5) Chronic respiratory failure with hypoxia and hypercapnia: Code(s): J96.11 - Chronic respiratory failure with hypoxia; J96.12 - Chronic respiratory failure with hypercapnia Status: Acute Assessment and Plan: back to baseline oxygen requirements secondary to DARRICK/pulmonary hypertension, COPD, and congestive heart failure elevated D-dimer noted in ER - V/Q scan and lower extremity doppler results noted follow respiratory status (6) Combined systolic and diastolic congestive heart failure: Qualifiers: Heart failure chronicity: chronic Qualified Code(s): I50.42 - Chronic combined systolic (congestive) and diastolic (congestive) heart failure Code(s): I50.40 - Unspecified combined systolic (congestive) and diastolic (congestive) heart failure Status: Chronic Assessment and Plan: appears compensated at this time follow volume status cautious IVF resuscitation (7) Atrial flutter with rapid ventricular response: Code(s): I48.92 - Unspecified atrial flutter Status: Acute Assessment and Plan: continue rate control strategy (8) Type 2 diabetes mellitus with hyperglycemia, without long-term current use of insulin: Code(s): E11.65 - Type 2 diabetes mellitus with hyperglycemia Status: Chronic Assessment and Plan: follow accu-cheks glyceminc control per stripper cutter machine/hospitalist Will continue to follow. Subjective Date/time seen: 06/21/24 09:28 Interval history: Follow-up for acute kidney injury/acute renal failure on chronic kidney disease. Mentation has improved in comparison to yesterday -- more awake and conversive -- reports some mild nausea but would like to eat something; urine output a bit better with relative stability in renal function/creatinine; respiratory status/breathing appears stable if not better as well; at bedside and concurs with improvement in mental status. Exam Narrative: General: elderly female in NAD Heart: normal S1 and S2; no rub Lungs: coarse with a few bibasilar crackles Abdomen: soft, nontender, nondistended, positive bowel sounds Extremities: no cyanosis or clubbing; trace edema Skin: warm and dry Objective Data Vital Signs Vital Signs: Vital Signs Temp Pulse Resp BP Pulse Ox O2 Del Method O2 Flow Rate 06/21/24 09:15 100 19 108/56 L 98 06/21/24 08:32 102 H 15 06/21/24 08:
[2024-06-21] MEDS: ASPIRIN 81 MG CHEWABLE TABLET PO (09:49)
[2024-06-21] MEDS: FOLIC ACID 1 MG TABLET PO (09:49)
[2024-06-21] MEDS: DOCUSATE SODIUM 100 MG CAPSULE PO (09:49)
[2024-06-21] MEDS: SODIUM ZIRCONIUM CYCLOSILICATE 10 GM POWD.PACK PO ×2 (09:49→16:53)
[2024-06-21] MEDS: CLOPIDOGREL BISULFATE 75 MG TABLET PO (09:49)
[2024-06-21] MEDS: CYANOCOBALAMIN 1,000 MCG TABLET 1000 MCG PO (09:49)
[2024-06-21] MEDS: MIDODRINE HCL 10 MG TABLET PO ×2 (09:49→16:53)
[2024-06-21] MEDS: SODIUM CHLORIDE 0.9% IV 1,000 ML 100 ML IV CONT (09:50)
--- NOTE | 2024-06-21 10:28 | WPDINTPN ---
Progress Note: A&P Assessment and Plan (1) Combined systolic and diastolic congestive heart failure: Qualifiers: Heart failure chronicity: chronic Qualified Code(s): I50.42 - Chronic combined systolic (congestive) and diastolic (congestive) heart failure Code(s): I50.40 - Unspecified combined systolic (congestive) and diastolic (congestive) heart failure Status: Chronic Assessment and Plan: Echo 01/10 Summary 1. Complete two-dimensional, color flow and Doppler transthoracic echocardiogram is performed. 2. Technically difficult study with limited views. 3. Left ventricular chamber dimension is normal. 4. Left ventricular systolic function is mildly reduced, estimated at 45-50% with hypokinesis of the mid and basal inferolateral wall. 5. There is mildly increased left ventricular wall thickness. 6. Left ventricular septal wall motion is abnormal with septal motion related to bundle branch block. 7. The left ventricular diastolic function is grade I diastolic dysfunction. 8. Left atrial chamber dimension is moderately enlarged. 9. There is no aortic valve stenosis. 10. There is trace aortic valve regurgitation. 11. There is mild to moderate mitral valve regurgitation. 12. There is mild tricuspid valve regurgitation. 13. Moderate pulmonary hypertension, estimated pulmonary arterial systoli pressure is [address] scan does not show any significant pulmonary edema. Patient is on home oxygen of 4 L In light of renal failure will give cautious amount of IV fluids and monitor (2) Toxic metabolic encephalopathy: Code(s): G92.8 - Other toxic encephalopathy Status: Acute Assessment and Plan: Patient appears to have toxic metabolic encephalopathy. She was moving all 4 extremities and wakes up with mild stimulation and is partially oriented. Nurse removed a fentanyl patch from her he is on few medications that can cause sedation specially in the light of renal failure. ammonia was normal ABG was checked and shows pH 7.35 pCO2 66 PO2 72 bicarb 35 I gave her 1 dose of Narcan which led to some improvement in mental status and patient became oriented x2 and new year and president but gave me a name off different hospital. We held all sedatives Patient's encephalopathy has improved and this morning patient is much more awake and alert, oriented x3 Monitor (3) Type 2 diabetes mellitus with hyperglycemia, without long-term current use of insulin: Code(s): E11.65 - Type 2 diabetes mellitus with hyperglycemia Status: Chronic Assessment and Plan: Sliding scale insulin ordered (4) Acute hyperkalemia: Code(s): E87.5 - Hyperkalemia Status: Acute Assessment and Plan: Treat medications including Lokelma and potassium is now normalized Monitor K level May need dialysis if worsens again (5) Acute on chronic kidney failure: Qualifiers: Acute renal failure type: unspecified Chronic kidney disease stage: stage 3 (moderate) Chronic kidney disease stage 3 subtype: stage 3b (GFR 30-44) Qualified Code(s): N17.9 - Acute kidney failure, unspecified; N18.32 - Chronic kidney disease, stage 3b Code(s): N17.9 - Acute kidney failure, unspecified; N18.9 - Chronic kidney disease, unspecified Status: Inactive Assessment and Plan: Patient's creatinine ranges normally in 1.1-1.3. She presented with creatinine of 3.42 this morning Due to concerns of CHF patient did not receive any IV fluids and instead was given Lasix 8/4 Patient was given cautious amount of IV fluids with 500 mL bolus and 1 L over 10 hours Nephrology has consulted Renal ultrasound was unremarkable Normal CK level Her creatinine has marginally improved to 3.4 and urine output has also markedly improved I with give additional 1 L fluid today She may need BALLET MASTER/MISTRESS if renal function does not improve and continues to worsen Monitor urine output electrolytes and creatinine (6) COPD (chr
--- NOTE | 2024-06-21 10:43 | PM.PNCARD ---
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 She has mild LV distal it dysfunction and yesterday was noted to have a wide QRS tachycardia with an episode of atrial flutter. This was terminated with intravenous amiodarone. She is ill with multiple other comorbidities she has significant peripheral vascular disease, acute on chronic renal failure as well as severe COPD with a prior smoking history of over 100 pack years. For now we will observe her telemetry. She is a poor candidate for most antiarrhythmic options given her previous infarction, mild LV dysfunction, acute on chronic kidney disease and chronic severe COPD. Edil Marcelo MD [facility] Subjective Date/time seen: Date of service: 06/21/24 10:43 Interval history: Follow-up visit in this 73-year-old lady with: Ischemic heart disease with mild ischemic LV dysfunction, previous infarction and remote history of percutaneous revascularization. Patient also has severe COPD with many years of smoking in the past. Also has acute on chronic renal insufficiency. Patient seen in consultation because of wide QRS tachycardia interpreted as VT but actually was atrial flutter with rapid response. She is in sinus rhythm today and hemodynamics are stable. Exam Const: Other: Chronically ill-appearing lady overweight otherwise no distress HENMT: Mouth: Yes moist mucous membranes Eyes: Sclera: sclerae normal Neck: Neck: supple Resp: Other: Course central rhonchi noted Cardio: Rate: regular rate Rhythm: regular rhythm GI: GI Palp: Yes Soft to palpation Auscultation: normal bowel sounds Skin: General skin exam: normal color Neuro: Other: Alert and oriented x3 Extrem: Other: Adequate perfusion, pulses not palpable below the femoral trial Objective Data Vital Signs Vital Signs: Vital Signs - 24 hr 06/20/24 11:55 06/20/24 12:00 06/20/24 12:00 Temperature Pulse Rate 97 97 96 Respiratory Rate 24 H Blood Pressure 133/93 H 133/93 H Pulse Oximetry 95 Oxygen Delivery Oxygen Flow Rate Fraction of Inspired Oxygen 06/20/24 12:00 06/20/24 13:15 06/20/24 13:15 Temperature Pulse Rate 98 98 Respiratory Rate 20 20 Blood Pressure Pulse Oximetry 99 96 Oxygen Delivery High Flow Nasal Cannula Nasal Cannula Oxygen Flow Rate 4 4 Fraction of Inspired Oxygen 36 06/20/24 13:21 06/20/24 13:36 06/20/24 13:50 Temperature 36.5 C Pulse Rate 100 98 99 Respiratory Rate 20 23 H 21 H Blood Pressure 89/71 L Pulse Oximetry 99 96 Oxygen Delivery High Flow Nasal Cannula Oxygen Flow Rate 3 Fraction of Inspired Oxygen 06/20/24 13:58 06/20/24 14:00 06/20/24 14:00 Temperature Pulse Rate 100 101 H 101 H Respiratory Rate 24 H Blood Pressure 107/82 115/53 L Pulse Oximetry 97 Oxygen Delivery Oxygen Flow Rate Fraction of Inspired Oxygen 06/20/24 14:12 06/20/24 16:00 06/20/24 16:00 Temperature 36.6 C Pulse Rate 104 H 102 H Respiratory Rate 25 H Blood Pressure 100/43 L Pulse Oximetry 97 96 Oxygen Delivery High Flow Nasal Cannula Oxygen Flow Rate 4 Fraction of Inspired Oxygen 06/20/24 16:00 06/20/24 18:00 06/20/24 18:00 Temperature Pulse Rate 104 H 104 H Respiratory Rate 24 H Blood Pressure 100/52 L Pulse Oximetry 97 97 Oxygen Delivery High Flow Nasal Cannula Oxygen Flow Rate 4 Fraction of Inspired Oxygen 06/20/24 20:00 06/20/24 20:00 06/20/24 20:45 Temperature 36.6 C Pulse Rate 100 100 100 Respiratory Rate 22 H 18 Blood Pressure 98/59 L Pulse Oximetry 95 96 Oxygen Delivery Nasal Cannula Oxygen Flow Rate 3 Fraction of Inspired Oxy
[2024-06-21 12:11] LABS: Glucose Point of Care 226 mg/dl (65-105)
[2024-06-21] MEDS: INSULIN ASPART (*BKC) 100 UNITS/ML SUB-Q ×2 (12:13→16:53)
[2024-06-21 12:24] LABS: Prolactin 5.6 ng/mL
[2024-06-21] MEDS: PERFLUTREN LIPID MICROSPHERES 1.5 ML VIAL DILUTED TO 10 ML TOTAL VOLUME IV PUSH (13:41)
--- NOTE | 2024-06-21 14:21 | IVDEFINITY ---
Prior to administration of IV Definity the patient was educated on the risks and benefits of the imaging enhancing agent including potential adverse side effects. The patient verbalized understanding. Allergies were verified. No exclusion criteria were identified and at least one of the following inclusion criteria were met: 1) physician request, 2) patient technically difficult to image (per the [place] [employer] guidelines of two or more segments not discernable within the apical view), or 3) questionable left ventricular function. ?
[2024-06-21] MEDS: ENOXAPARIN 30 MG/0.3 ML SYRINGE SUB-Q (15:04)
[2024-06-21 16:24] LABS: Glucose Point of Care 217 mg/dl (65-105)
[2024-06-21] MEDS: ATORVASTATIN 40 MG TABLET 80 MG PO (16:53)
[2024-06-21 19:53] LABS: Glucose Point of Care 198 mg/dl (65-105)
[2024-06-22] VITALS (21 sets, daily range): BP systolic 93–114; BP diastolic 54–73; PULSE 89–107; RESP 10–22; TEMP 36.3–36.7; O2SAT 90–98
[2024-06-22] MEDS: ACETAMINOPHEN 325 MG TABLET 650 MG PO ×2 (00:23→19:32)
[2024-06-22] MEDS: IPRATROPIUM BR 0.02% INH SOLN 0.5 MG/2.5 ML VIAL INHALATION ×4 (02:30→19:52)
[2024-06-22] MEDS: AZTREONAM 1 GM in SODIUM CHLORIDE 0.9% IV 50 ML 100 ML IVPB ×2 (03:00→14:45)
[2024-06-22 04:12] LABS: Hematocrit 33.9 % (37.0-47.0); Hemoglobin 10.1 g/dL (12.0-15.0); Mean Corpuscular HGB Conc 29.8 g/dl (32-36); Mean Corpuscular Hemoglobin 31.4 pg (26-34); Mean Corpuscular Volume 105.3 fl (80-100); Mean Platelet Volume 12.4 fl (7.4-10.4); Platelet Count Result 135 k/mm3 (150-375); Red Blood Count 3.22 M/mm3 (4.2-5.4); Red Cell Distribution Width 14.8 % (11.5-14.5); White Blood Count 7.7 K/mm3 (4.5-10.0)
[2024-06-22 04:31] LABS: Alanine Aminotransferase 58 U/L (6-35); Albumin Level 3.6 g/dL (3.5-5.1); Alkaline Phosphatase 166 U/L (38-126); Anion Gap 9 mmol/L (4-12); Aspartate Amino Transferase 63 U/L (14-36); Bilirubin,Total 0.5 mg/dL (0.2-1.3); Blood Urea Nitrogen 75 mg/dL (7-17); Calcium 8.5 mg/dL (8.4-10.2); Carbon Dioxide 37 mmol/L (22-30); Chloride 90 mmol/L (98-107); Estimated CRCL calculation 17 ml/min; Estimated Glomerular Filt Rate 17; Glucose 186 mg/dL (65-110); Magnesium 2.2 mg/dL (1.6-2.3); Phosphorus 4.2 mg/dL (2.5-4.5); Potassium 3.8 mmol/L (3.4-5.0); Sodium 136 mmol/L (137-145)
[2024-06-22 07:41] LABS: Glucose Point of Care 186 mg/dl (65-105)
[2024-06-22] MEDS: ASPIRIN 81 MG CHEWABLE TABLET PO (08:08)
[2024-06-22] MEDS: CLOPIDOGREL BISULFATE 75 MG TABLET PO (08:08)
[2024-06-22] MEDS: MIDODRINE HCL 10 MG TABLET PO ×3 (08:09→16:58)
[2024-06-22] MEDS: ENOXAPARIN 30 MG/0.3 ML SYRINGE SUB-Q (08:09)
[2024-06-22] MEDS: CYANOCOBALAMIN 1,000 MCG TABLET 1000 MCG PO (08:09)
[2024-06-22] MEDS: DOCUSATE SODIUM 100 MG CAPSULE PO (08:09)
[2024-06-22] MEDS: FOLIC ACID 1 MG TABLET PO (08:09)
[2024-06-22] MEDS: UMECLIDINIUM/VILANTEROL 62.5-25 MCG ELLIPTA 1 PUFF INHALATION (08:24)
--- NOTE | 2024-06-22 09:34 | WPDINTPN ---
Progress Note: A&P Assessment and Plan (1) Combined systolic and diastolic congestive heart failure: Qualifiers: Heart failure chronicity: chronic Qualified Code(s): I50.42 - Chronic combined systolic (congestive) and diastolic (congestive) heart failure Code(s): I50.40 - Unspecified combined systolic (congestive) and diastolic (congestive) heart failure Status: Chronic Assessment and Plan: Echo 01/10 Summary 1. Complete two-dimensional, color flow and Doppler transthoracic echocardiogram is performed. 2. Technically difficult study with limited views. 3. Left ventricular chamber dimension is normal. 4. Left ventricular systolic function is mildly reduced, estimated at 45-50% with hypokinesis of the mid and basal inferolateral wall. 5. There is mildly increased left ventricular wall thickness. 6. Left ventricular septal wall motion is abnormal with septal motion related to bundle branch block. 7. The left ventricular diastolic function is grade I diastolic dysfunction. 8. Left atrial chamber dimension is moderately enlarged. 9. There is no aortic valve stenosis. 10. There is trace aortic valve regurgitation. 11. There is mild to moderate mitral valve regurgitation. 12. There is mild tricuspid valve regurgitation. 13. Moderate pulmonary hypertension, estimated pulmonary arterial systoli pressure is [address] scan does not show any significant pulmonary edema. Patient is on home oxygen of 4 L -patient received cautious IV fluids (2) Toxic metabolic encephalopathy: Code(s): G92.8 - Other toxic encephalopathy Status: Acute Assessment and Plan: Patient appears to have toxic metabolic encephalopathy. She was moving all 4 extremities and wakes up with mild stimulation and is partially oriented. Nurse removed a fentanyl patch from her he is on few medications that can cause sedation specially in the light of renal failure. ammonia was normal Patient responded to Narcan on 06/21 All sedatives on hold Patient's encephalopathy has improved and this morning patient is much more awake and alert, oriented x3 Monitor (3) Type 2 diabetes mellitus with hyperglycemia, without long-term current use of insulin: Code(s): E11.65 - Type 2 diabetes mellitus with hyperglycemia Status: Chronic Assessment and Plan: Sliding scale insulin and Accu-Cheks (4) Acute hyperkalemia: Code(s): E87.5 - Hyperkalemia Status: Acute Assessment and Plan: Treat medications including Lokelma and potassium is now normalized Monitor K level Potassium levels have normalized (5) Acute on chronic kidney failure: Qualifiers: Acute renal failure type: unspecified Chronic kidney disease stage: stage 3 (moderate) Chronic kidney disease stage 3 subtype: stage 3b (GFR 30-44) Qualified Code(s): N17.9 - Acute kidney failure, unspecified; N18.32 - Chronic kidney disease, stage 3b Code(s): N17.9 - Acute kidney failure, unspecified; N18.9 - Chronic kidney disease, unspecified Status: Inactive Assessment and Plan: Patient's creatinine ranges normally in 1.1-1.3. She presented with creatinine of 3.42 on admission Due to concerns of CHF patient did not receive any IV fluids and instead was given Lasix Appreciate nephrology following the patient Renal ultrasound was unremarkable -patient received adequate IV fluids on 06/20 and 06/21 Normal CK level Creatinine improving, 2.80 this morning -adequate urine output Monitor urine output electrolytes and creatinine (6) COPD (chronic obstructive pulmonary disease): Code(s): J44.9 - Chronic obstructive pulmonary disease, unspecified Status: Acute Assessment and Plan: Continue supplemental oxygen, bronchodilators (7) Coronary artery disease: Qualifiers: Coronary Disease-Associated Artery/Lesion type: [place] artery [place] vs. transplanted heart: [place] heart Associat
--- NOTE | 2024-06-22 09:36 | PM.PNNEP ---
Progress Note: A&P Assessment and Plan (1) Acute kidney injury: Code(s): N17.9 - Acute kidney failure, unspecified Status: Acute Assessment and Plan: as noted by admission labs slow improvement noted evaluation to date noted: renal u/s normal urine electrolytes prerenal urine eosinophils negative CPK normal improvement in urine output noted insult due to relative hypotension and prerenal factors follow trend of repeat labs and UOP (2) Chronic kidney disease, stage 3: Code(s): N18.30 - Chronic kidney disease, stage 3 unspecified Status: Chronic Assessment and Plan: baseline creatinine runs around 1.1 - 1.3mg/dl presumably secondary to CHF, vascular disease, DARRICK/pulmonary HTN, and age-related change (3) Hyperkalemia: Code(s): E87.5 - Hyperkalemia Status: Acute Assessment and Plan: resolved present on labs in ER s/p medical management with improvement in K+ continue to follow serial potassium levels with ongoing medical management if resistant to conservative therapy, consider dialytic intervention (4) Altered mental status: Code(s): R41.82 - Altered mental status, unspecified Status: Acute Assessment and Plan: improvement noted etiology? due to drugs/medications (narcotics, muscle relaxants, requip...etc) versus renal dysfunction versus other? ABG noted holding sedative medications follow mentation (5) Chronic respiratory failure with hypoxia and hypercapnia: Code(s): J96.11 - Chronic respiratory failure with hypoxia; J96.12 - Chronic respiratory failure with hypercapnia Status: Acute Assessment and Plan: back to baseline oxygen requirements secondary to DARRICK/pulmonary hypertension, COPD, and congestive heart failure elevated D-dimer noted in ER - V/Q scan and lower extremity doppler results noted follow respiratory status (6) Combined systolic and diastolic congestive heart failure: Qualifiers: Heart failure chronicity: chronic Qualified Code(s): I50.42 - Chronic combined systolic (congestive) and diastolic (congestive) heart failure Code(s): I50.40 - Unspecified combined systolic (congestive) and diastolic (congestive) heart failure Status: Chronic Assessment and Plan: appears compensated at this time follow volume status cautious IVF resuscitation (7) Atrial flutter with rapid ventricular response: Code(s): I48.92 - Unspecified atrial flutter Status: Acute Assessment and Plan: continue rate control strategy (8) Type 2 diabetes mellitus with hyperglycemia, without long-term current use of insulin: Code(s): E11.65 - Type 2 diabetes mellitus with hyperglycemia Status: Chronic Assessment and Plan: follow accu-cheks glyceminc control per fire investigator/hospitalist Will continue to follow. Subjective Date/time seen: 06/22/24 09:36 Interval history: Follow-up for acute kidney injury/acute renal failure on chronic kidney disease. Mentation continues to improve if not stabilize in the last 24 - 48 hours; overall, she states that she feels better; no apparent distress noted at the time of my visit; renal function/creatinine improving in association with improved urine output as well. Exam Narrative: General: elderly female in NAD Heart: tachycardic, normal S1 and S2; no rub Lungs: coarse and decreased at bases Abdomen: soft, nontender, nondistended, positive bowel sounds Extremities: no cyanosis or clubbing; trace edema Skin: warm and intact Objective Data Vital Signs Vital Signs: Vital Signs Temp Pulse Resp BP Pulse Ox O2 Del Method O2 Flow Rate 06/22/24 09:00 107 H 16 114/70 94 06/22/24 08:00 92 Nasal Cannula 4 06/22/24 08:00 106 H 06/22/24 08:35 107 H 20 06/22/24 08:25 105 H 20 06/22/24 08:25 105 H 20 95 Nasal Cannula 4
--- NOTE | 2024-06-22 09:36 | P.PNNP_ITS ---
Progress Note: A&P Assessment and Plan (1) Acute kidney injury: Code(s): N17.9 - Acute kidney failure, unspecified Status: Acute Assessment and Plan: * as noted by admission labs * slow improvement noted * evaluation to date noted: * renal u/s normal * urine electrolytes prerenal * urine eosinophils negative * CPK normal * improvement in urine output noted * insult due to relative hypotension and prerenal factors * follow trend of repeat labs and UOP (2) Chronic kidney disease, stage 3: Code(s): N18.30 - Chronic kidney disease, stage 3 unspecified Status: Chronic Assessment and Plan: * baseline creatinine runs around 1.1 - 1.3mg/dl * presumably secondary to CHF, vascular disease, DARRICK/pulmonary HTN, and age- related change (3) Hyperkalemia: Code(s): E87.5 - Hyperkalemia Status: Acute Assessment and Plan: * resolved * present on labs in ER * s/p medical management with improvement in K+ * continue to follow serial potassium levels with ongoing medical management * if resistant to conservative therapy, consider dialytic intervention (4) Altered mental status: Code(s): R41.82 - Altered mental status, unspecified Status: Acute Assessment and Plan: * improvement noted * etiology? * due to drugs/medications (narcotics, muscle relaxants, requip...etc) versus renal dysfunction versus other? * ABG noted * holding sedative medications * follow mentation (5) Chronic respiratory failure with hypoxia and hypercapnia: Code(s): J96.11 - Chronic respiratory failure with hypoxia; J96.12 - Chronic respiratory failure with hypercapnia Status: Acute Assessment and Plan: * back to baseline oxygen requirements * secondary to DARRICK/pulmonary hypertension, COPD, and congestive heart failure * elevated D-dimer noted in ER - V/Q scan and lower extremity doppler results noted * follow respiratory status (6) Combined systolic and diastolic congestive heart failure: Qualifiers: Heart failure chronicity: chronic Qualified Code(s): I50.42 - Chronic combined systolic (congestive) and diastolic (congestive) heart failure Code(s): I50.40 - Unspecified combined systolic (congestive) and diastolic (congestive) heart failure Status: Chronic Assessment and Plan: * appears compensated at this time * follow volume status * cautious IVF resuscitation (7) Atrial flutter with rapid ventricular response: Code(s): I48.92 - Unspecified atrial flutter Status: Acute Assessment and Plan: * continue rate control strategy (8) Type 2 diabetes mellitus with hyperglycemia, without long-term current use of insulin: Code(s): E11.65 - Type 2 diabetes mellitus with hyperglycemia Status: Chronic Assessment and Plan: * follow accu-cheks * glyceminc control per special education teaching assistant/hospitalist Will continue to follow. Subjective Date/time seen: 06/22/24 09:36 Interval history: Follow-up for acute kidney injury/acute renal failure on chronic kidney disease. Mentation continues to improve if not stabilize in the last 24 - 48 hours; overall, she states that she feels better; no apparent distress noted at the time of my visit; renal function/creatinine improving in association with improved urine output as well. Exam Narrative: General: elderly female in NAD Heart: tachycardic, normal S1 and S2; no rub Lungs: coarse and de
--- NOTE | 2024-06-22 09:54 | ECG_ITS ---
Test Date: 2024-06-22 10:22:17 Measurements Intervals Taylor Rate: 108 P: 97 AL: 198 QRS: -69 QRSD: 144 T: 91 QT: 398 QTc: 535 Interpretive Statements SINUS TACHYCARDIA WITH FREQUENT VENTRICULAR PREMATURE COMPLEXES WITH OCCASIONAL SUPRAVENTRICULAR PREMATURE COMPLEXES POSSIBLE LEFT ATRIAL ENLARGEMENT [-0.1mV P WAVE IN V1/V2] RIGHT BUNDLE BRANCH BLOCK [120+ ms QRS DURATION, UPRIGHT V1, 40+ ms S IN I/aVL/V4/V5/V6] INFERIOR MYOCARDIAL INFARCTION [40+ ms Q WAVE AND/OR ST/T ABNORMALITY IN II/aVF], OF INDETERMINATE AGE Compared to ECG 06/20/2024 08:20:03 NO SIGNIFICANT CHANGES Electronically Signed On 06-22-2024 14:50:40 CDT by Adama Preston M.D.
[2024-06-22] MEDS: METOPROLOL TARTRATE 12.5 MG TABLET PO ×2 (10:25→20:27)
--- NOTE | 2024-06-22 10:47 | PM.PNCARD ---
Progress Note: A&P Assessment and Plan (1) Atrial flutter with rapid ventricular response: Code(s): I48.92 - Unspecified atrial flutter Status: Acute Assessment and Plan: She was noted to have a wide QRS tachycardia with an episode of atrial flutter. This was terminated with intravenous amiodarone. She is ill with multiple other comorbidities, she has significant peripheral vascular disease, acute on chronic renal failure as well as severe COPD with a prior smoking history of over 100 pack years. For now we will observe her telemetry. She is a poor candidate for most antiarrhythmic options given her previous infarction, mild LV dysfunction, acute on chronic kidney disease and chronic severe COPD. Will continue Toprol for now. Not a candidate for anticoagulation due to frequent falls. (2) Hyperkalemia: Code(s): E87.5 - Hyperkalemia Status: Acute Assessment and Plan: Improved (3) Toxic metabolic encephalopathy: Code(s): G92.8 - Other toxic encephalopathy Status: Acute Assessment and Plan: Appears to have resolved (4) Combined systolic and diastolic congestive heart failure: Qualifiers: Heart failure chronicity: chronic Qualified Code(s): I50.42 - Chronic combined systolic (congestive) and diastolic (congestive) heart failure Code(s): I50.40 - Unspecified combined systolic (congestive) and diastolic (congestive) heart failure Status: Chronic Assessment and Plan: Echo pending. Continue Toprol. (5) Acute kidney injury: Code(s): N17.9 - Acute kidney failure, unspecified Status: Acute Assessment and Plan: Nephrology consulted and following along (6) Sepsis: Code(s): A41.9 - Sepsis, unspecified organism Status: Acute Assessment and Plan: Secondary to UTI. Management as per primary team. Plan Recommendations and plan discussed with Swine Genetics Researcher. Subjective Date/time seen: 06/22/24 10:47 Interval history: Reason for visit: Atrial flutter with RVR HPI: This is a 73-year-old woman that I am seeing at the request of the hospitalist because of ventricular tachycardia. Patient is not known to me her chart has been reviewed and she has been seen in room 231. The majority of the history is from the medical record and the who was in the room. The patient is very sleepy and a very poor historian regarding any of her medical history at this time. Apparently she has a history of coronary artery disease, severe peripheral vascular disease and severe chronic lung disease with more than 100 previous pack years of smoking. She was hospitalized yesterday because of shortness of breath. She has had a number of hospitalizations here with dyspnea that have been attributed to hypercarbic respiratory failure repair your with her chronic lung disease. She has echocardiographic evidence in our chart recently showing room mildly reduced left ventricular systolic function. The patient's indicates she has a history of coronary artery disease and was treated at [facility] he estimates 5 or 6 years ago with an acute myocardial infarction. The 's recollection is that 1 of her coronary arteries is chronically occluded and remains so and she had a percutaneous revascularization stenting 3 of her other coronary arteries at that time. She had followed up with a loom blower who did the intervention for couple of years but then they state that he left the area and rather than following up with anybody else they just all sort of let that go. Up until the last couple of weeks she has been smoking heavily despite this history. She has a history of peripheral vascular disease and has undergone percutaneous lower extremity revascularization also at [facility]. The states that procedure per predates her coronary procedure. The patient was sent here from a rehab facility up in [place] because of worsening shortne
[2024-06-22 11:51] LABS: Glucose Point of Care 228 mg/dl (65-105)
[2024-06-22] MEDS: INSULIN ASPART (*BKC) 100 UNITS/ML SUB-Q ×2 (11:51→16:58)
[2024-06-22] MEDS: ATORVASTATIN 40 MG TABLET 80 MG PO (16:57)
[2024-06-22 17:43] LABS: Glucose Point of Care 220 mg/dl (65-105)
--- NOTE | 2024-06-22 18:10 | PC.NURSE ---
This patient, Vanita Parker, was transferred to [[id number]] on 06/22/24 at 1810. Personal belongings sent with patient. Report given to [Yani CURTIS]. Appropriate documentation sent with patient.
--- NOTE | 2024-06-22 18:12 | PM.IMPN ---
Progress Note: A&P Assessment and Plan (1) Combined systolic and diastolic congestive heart failure: Qualifiers: Heart failure chronicity: chronic Qualified Code(s): I50.42 - Chronic combined systolic (congestive) and diastolic (congestive) heart failure Code(s): I50.40 - Unspecified combined systolic (congestive) and diastolic (congestive) heart failure Status: Chronic Assessment and Plan: Echo 01/10 Summary 1. Complete two-dimensional, color flow and Doppler transthoracic echocardiogram is performed. 2. Technically difficult study with limited views. 3. Left ventricular chamber dimension is normal. 4. Left ventricular systolic function is mildly reduced, estimated at 45-50% with hypokinesis of the mid and basal inferolateral wall. 5. There is mildly increased left ventricular wall thickness. 6. Left ventricular septal wall motion is abnormal with septal motion related to bundle branch block. 7. The left ventricular diastolic function is grade I diastolic dysfunction. 8. Left atrial chamber dimension is moderately enlarged. 9. There is no aortic valve stenosis. 10. There is trace aortic valve regurgitation. 11. There is mild to moderate mitral valve regurgitation. 12. There is mild tricuspid valve regurgitation. 13. Moderate pulmonary hypertension, estimated pulmonary arterial systoli pressure is [address] scan does not show any significant pulmonary edema. Patient is on home oxygen of 4 L -patient received cautious IV fluids (2) Toxic metabolic encephalopathy: Code(s): G92.8 - Other toxic encephalopathy Status: Acute Assessment and Plan: Patient appears to have toxic metabolic encephalopathy. She was moving all 4 extremities and wakes up with mild stimulation and is partially oriented. Nurse removed a fentanyl patch from her he is on few medications that can cause sedation specially in the light of renal failure. ammonia was normal Patient responded to Narcan on 06/21 All sedatives on hold Patient's encephalopathy has improved and this morning patient is much more awake and alert, oriented x3 Monitor (3) Type 2 diabetes mellitus with hyperglycemia, without long-term current use of insulin: Code(s): E11.65 - Type 2 diabetes mellitus with hyperglycemia Status: Chronic Assessment and Plan: Sliding scale insulin and Accu-Cheks (4) Acute hyperkalemia: Code(s): E87.5 - Hyperkalemia Status: Acute (5) Acute on chronic kidney failure: Qualifiers: Acute renal failure type: unspecified Chronic kidney disease stage: stage 3 (moderate) Chronic kidney disease stage 3 subtype: stage 3b (GFR 30-44) Qualified Code(s): N17.9 - Acute kidney failure, unspecified; N18.32 - Chronic kidney disease, stage 3b Code(s): N17.9 - Acute kidney failure, unspecified; N18.9 - Chronic kidney disease, unspecified Status: Inactive (6) COPD (chronic obstructive pulmonary disease): Code(s): J44.9 - Chronic obstructive pulmonary disease, unspecified Status: Acute Assessment and Plan: Continue supplemental oxygen, bronchodilators (7) Coronary artery disease: Qualifiers: Coronary Disease-Associated Artery/Lesion type: [place] artery [place] vs. transplanted heart: [place] heart Associated angina: without angina Qualified Code(s): I25.10 - Atherosclerotic heart disease of [place] coronary artery without angina pectoris Code(s): I25.10 - Atherosclerotic heart disease of [place] coronary artery without angina pectoris Status: Acute Assessment and Plan: Continue aspirin statin and Plavix (8) Atrial flutter with rapid ventricular response: Code(s): I48.92 - Unspecified atrial flutter Status: Acute (9) Chronic respiratory failure with hypoxia and hypercapnia: Code(s): J96.11 - Chronic respiratory failure with hypoxia; J96.12 - Chronic respiratory failure with hypercapnia
--- NOTE | 2024-06-22 18:38 | PC.NURSE ---
Patient received to room 240 from ICU-5. Oriented to new room, shown call light, and introduced to staff. Resting comfortably with no complaints at this time
[2024-06-22] MEDS: HYDROcodone/acetaminophen (*CRX) 5-325 MG TABLET 1 TAB PO (20:27)
[2024-06-22 21:38] LABS: Glucose Point of Care 151 mg/dl (65-105)
[2024-06-23] VITALS (21 sets, daily range): BP systolic 100–147; BP diastolic 55–86; PULSE 77–92; RESP 16–22; TEMP 36.3–36.7; O2SAT 93–99
[2024-06-23] MEDS: HYDROcodone/acetaminophen (*CRX) 5-325 MG TABLET 1 TAB PO ×3 (02:34→20:47)
[2024-06-23] MEDS: AZTREONAM 1 GM in SODIUM CHLORIDE 0.9% IV 50 ML 100 ML IVPB (02:35)
[2024-06-23 02:38] LABS: Hepatitis B Core Ab Total NON-REACTIVE (NON-REACTIVE)
[2024-06-23 05:36] LABS: Hemoglobin 10.3 g/dL (12.0-15.0); Mean Corpuscular HGB Conc 29.4 g/dl (32-36); Mean Corpuscular Hemoglobin 30.9 pg (26-34); Mean Corpuscular Volume 105.1 fl (80-100); Mean Platelet Volume 12.5 fl (7.4-10.4); Platelet Count Result 154 k/mm3 (150-375); Red Blood Count 3.33 M/mm3 (4.2-5.4); Red Cell Distribution Width 14.9 % (11.5-14.5); White Blood Count 8.6 K/mm3 (4.5-10.0)
[2024-06-23 05:54] LABS: Alanine Aminotransferase 85 U/L (6-35); Albumin Level 3.7 g/dL (3.5-5.1); Alkaline Phosphatase 238 U/L (38-126); Anion Gap 10 mmol/L (4-12); Aspartate Amino Transferase 115 U/L (14-36); Bilirubin,Total 0.8 mg/dL (0.2-1.3); Blood Urea Nitrogen 74 mg/dL (7-17); Calcium 8.5 mg/dL (8.4-10.2); Carbon Dioxide 37 mmol/L (22-30); Chloride 90 mmol/L (98-107); Estimated CRCL calculation 19 ml/min; Estimated Glomerular Filt Rate 19; Glucose 176 mg/dL (65-110); Magnesium 2.2 mg/dL (1.6-2.3); Potassium 3.9 mmol/L (3.4-5.0); Sodium 137 mmol/L (137-145)
--- NOTE | 2024-06-23 07:34 | PM.IMPN ---
Progress Note: A&P Assessment and Plan (1) Combined systolic and diastolic congestive heart failure: Qualifiers: Heart failure chronicity: chronic Qualified Code(s): I50.42 - Chronic combined systolic (congestive) and diastolic (congestive) heart failure Code(s): I50.40 - Unspecified combined systolic (congestive) and diastolic (congestive) heart failure Status: Chronic (2) Toxic metabolic encephalopathy: Code(s): G92.8 - Other toxic encephalopathy Status: Acute (3) Type 2 diabetes mellitus with hyperglycemia, without long-term current use of insulin: Code(s): E11.65 - Type 2 diabetes mellitus with hyperglycemia Status: Chronic (4) Acute hyperkalemia: Code(s): E87.5 - Hyperkalemia Status: Acute (5) Acute on chronic kidney failure: Qualifiers: Acute renal failure type: unspecified Chronic kidney disease stage: stage 3 (moderate) Chronic kidney disease stage 3 subtype: stage 3b (GFR 30-44) Qualified Code(s): N17.9 - Acute kidney failure, unspecified; N18.32 - Chronic kidney disease, stage 3b Code(s): N17.9 - Acute kidney failure, unspecified; N18.9 - Chronic kidney disease, unspecified Status: Inactive (6) COPD (chronic obstructive pulmonary disease): Code(s): J44.9 - Chronic obstructive pulmonary disease, unspecified Status: Acute (7) Coronary artery disease: Qualifiers: Associated angina: without angina Coronary Disease-Associated Artery/Lesion type: ambler artery [place] vs. transplanted heart: ambler heart Qualified Code(s): I25.10 - Atherosclerotic heart disease of ambler coronary artery without angina pectoris Code(s): I25.10 - Atherosclerotic heart disease of ambler coronary artery without angina pectoris Status: Acute (8) Atrial flutter with rapid ventricular response: Code(s): I48.92 - Unspecified atrial flutter Status: Acute (9) Chronic respiratory failure with hypoxia and hypercapnia: Code(s): J96.11 - Chronic respiratory failure with hypoxia; J96.12 - Chronic respiratory failure with hypercapnia Status: Acute (10) Sepsis: Code(s): A41.9 - Sepsis, unspecified organism Status: Acute (11) UTI (urinary tract infection): Code(s): N39.0 - Urinary tract infection, site not specified Status: Acute Plan #Elevated D-dimer and Intermediate probability for pulmonary embolism -Doppler of lower extremities was negative. -She was started on empiric anticoagulation on presentation to ICU. She has moderate pretest probability of PE. In light of intermediate V/Q scan results and negative Dopplers of lower extremity Dr. Anaya held further anticoagulation at this time. -Once renal function improves patient can be be evaluated if clinically indicated with CTA. - Patient overall is not a good candidate for chronic anticoagulation due to high risk of fall and anticipation of invasive procedures at this time -CT scan shows:Moderate right pleural effusion.Enlarging 1.6 x 1.1 cm lobulated right upper lobe pulmonary nodule, as above. Neoplasm is consideration. Consider PET/CT and/or tissue sampling. #Atrial flutter with rapid ventricular response -24: HR is 77 -Patient presented with atrial flutter and was given amiodarone and has converted to sinus rhythm -Patient seen by Cardiology and recommend discontinuing further amiodarone at this time due to history of lung disease -Cardiology does not recommend anticoagulation at this time considering brief episode which has converted to sinus rhythm -Started on metoprolol 12.5 mg p.o. q.12 hours #FENG -Cr 3.40<3.30<2.80<2.50 -Able to see downward trend on creatinine. -patient currently on D5W 100 mL/hr -Patient's creatinine ranges normally in 1.1-1.3. -She presented with creatinine of 3.42 on admission -Due to concerns of CHF patient did not receive any IV fluids and instead was given Lasix -Appreciate nephrolog
[2024-06-23] MEDS: IPRATROPIUM BR 0.02% INH SOLN 0.5 MG/2.5 ML VIAL INHALATION ×3 (07:52→20:34)
[2024-06-23 08:13] LABS: Glucose Point of Care 176 mg/dl (65-105)
[2024-06-23] MEDS: DOCUSATE SODIUM 100 MG CAPSULE PO (08:25)
[2024-06-23] MEDS: MIDODRINE HCL 10 MG TABLET PO ×3 (08:25→17:17)
[2024-06-23] MEDS: CYANOCOBALAMIN 1,000 MCG TABLET 1000 MCG PO (08:25)
[2024-06-23] MEDS: METOPROLOL TARTRATE 12.5 MG TABLET PO ×2 (08:25→20:46)
[2024-06-23] MEDS: FOLIC ACID 1 MG TABLET PO (08:26)
[2024-06-23] MEDS: CLOPIDOGREL BISULFATE 75 MG TABLET PO (08:26)
[2024-06-23] MEDS: ENOXAPARIN 30 MG/0.3 ML SYRINGE SUB-Q (08:26)
[2024-06-23] MEDS: ASPIRIN 81 MG CHEWABLE TABLET PO (08:26)
[2024-06-23] MEDS: UMECLIDINIUM/VILANTEROL 62.5-25 MCG ELLIPTA 1 PUFF INHALATION (08:28)
[2024-06-23 12:07] LABS: Glucose Point of Care 211 mg/dl (65-105)
[2024-06-23] MEDS: INSULIN ASPART (*BKC) 100 UNITS/ML SUB-Q (12:08)
[2024-06-23] MEDS: SULFAMETHOXAZOLE/TRIMETHOPRIM 400/80 MG TABLET 1 TAB PO ×2 (12:08→20:46)
--- NOTE | 2024-06-23 13:33 | PCPTNOTE ---
On 06/23/24, the student, [Camelia Bowers], provided care and completed [facility] documentation on this patient. I have reviewed the student's documentation and agree with the findings.
--- NOTE | 2024-06-23 14:28 | PC.NURSE ---
Ok to keep Disla per Dr Carvalho due to respiratory issuses and I&O accuracy.
--- NOTE | 2024-06-23 14:51 | P.PNNP_ITS ---
Progress Note: A&P Assessment and Plan (1) Acute kidney injury: Code(s): N17.9 - Acute kidney failure, unspecified Status: Acute Assessment and Plan: * as noted by admission labs * slow improvement noted * evaluation to date noted: * renal u/s normal * urine electrolytes prerenal * urine eosinophils negative * CPK normal * improvement in urine output noted * insult thought to be due to relative hypotension and prerenal factors * follow trend of repeat labs and UOP (2) Chronic kidney disease, stage 3: Code(s): N18.30 - Chronic kidney disease, stage 3 unspecified Status: Chronic Assessment and Plan: * baseline creatinine runs around 1.1 - 1.3mg/dl * presumably secondary to CHF, vascular disease, DARRICK/pulmonary HTN, and age- related change (3) Hyperkalemia: Code(s): E87.5 - Hyperkalemia Status: Acute Assessment and Plan: * resolved * present on labs in ER * s/p medical management with improvement in K+ * continue to follow serial potassium levels (4) Altered mental status: Code(s): R41.82 - Altered mental status, unspecified Status: Acute Assessment and Plan: * improvement noted * etiology? * due to drugs/medications (narcotics, muscle relaxants, requip...etc) versus renal dysfunction versus other? * ABG noted * holding sedative medications * follow mentation (5) Chronic respiratory failure with hypoxia and hypercapnia: Code(s): J96.11 - Chronic respiratory failure with hypoxia; J96.12 - Chronic respiratory failure with hypercapnia Status: Acute Assessment and Plan: * back to baseline oxygen requirements * secondary to DARRICK/pulmonary hypertension, COPD, and congestive heart failure * elevated D-dimer noted in ER - V/Q scan and lower extremity doppler results noted * follow respiratory status (6) Combined systolic and diastolic congestive heart failure: Qualifiers: Heart failure chronicity: chronic Qualified Code(s): I50.42 - Chronic combined systolic (congestive) and diastolic (congestive) heart failure Code(s): I50.40 - Unspecified combined systolic (congestive) and diastolic (congestive) heart failure Status: Chronic Assessment and Plan: * appears compensated at this time * follow volume status * cautious IVF resuscitation (7) Atrial flutter with rapid ventricular response: Code(s): I48.92 - Unspecified atrial flutter Status: Acute Assessment and Plan: * continue rate control strategy (8) Type 2 diabetes mellitus with hyperglycemia, without long-term current use of insulin: Code(s): E11.65 - Type 2 diabetes mellitus with hyperglycemia Status: Chronic Assessment and Plan: * follow accu-cheks * glyceminc control per guard manager/hospitalist Will continue to follow. Subjective Date/time seen: 06/23/24 14:51 Interval history: Follow-up for acute kidney injury/acute renal failure on chronic kidney disease. Transferred out of the ICU yesterday afternoon; mentation appears stable if not better; renal function/creatinine improving with reasonable urine output as well; no apparent distress noted. Exam Narrative: General: elderly female in NAD Heart: tachycardic, normal S1 and S2; no rub Lungs: coarse and decreased at bases Abdomen: soft, nontender, nondistended, positive bowel sounds Extremities: no cyanosis or clubbing; trace edema Skin: no rash
--- NOTE | 2024-06-23 14:51 | PM.PNNEP ---
Progress Note: A&P Assessment and Plan (1) Acute kidney injury: Code(s): N17.9 - Acute kidney failure, unspecified Status: Acute Assessment and Plan: as noted by admission labs slow improvement noted evaluation to date noted: renal u/s normal urine electrolytes prerenal urine eosinophils negative CPK normal improvement in urine output noted insult thought to be due to relative hypotension and prerenal factors follow trend of repeat labs and UOP (2) Chronic kidney disease, stage 3: Code(s): N18.30 - Chronic kidney disease, stage 3 unspecified Status: Chronic Assessment and Plan: baseline creatinine runs around 1.1 - 1.3mg/dl presumably secondary to CHF, vascular disease, DARRICK/pulmonary HTN, and age-related change (3) Hyperkalemia: Code(s): E87.5 - Hyperkalemia Status: Acute Assessment and Plan: resolved present on labs in ER s/p medical management with improvement in K+ continue to follow serial potassium levels (4) Altered mental status: Code(s): R41.82 - Altered mental status, unspecified Status: Acute Assessment and Plan: improvement noted etiology? due to drugs/medications (narcotics, muscle relaxants, requip...etc) versus renal dysfunction versus other? ABG noted holding sedative medications follow mentation (5) Chronic respiratory failure with hypoxia and hypercapnia: Code(s): J96.11 - Chronic respiratory failure with hypoxia; J96.12 - Chronic respiratory failure with hypercapnia Status: Acute Assessment and Plan: back to baseline oxygen requirements secondary to DARRICK/pulmonary hypertension, COPD, and congestive heart failure elevated D-dimer noted in ER - V/Q scan and lower extremity doppler results noted follow respiratory status (6) Combined systolic and diastolic congestive heart failure: Qualifiers: Heart failure chronicity: chronic Qualified Code(s): I50.42 - Chronic combined systolic (congestive) and diastolic (congestive) heart failure Code(s): I50.40 - Unspecified combined systolic (congestive) and diastolic (congestive) heart failure Status: Chronic Assessment and Plan: appears compensated at this time follow volume status cautious IVF resuscitation (7) Atrial flutter with rapid ventricular response: Code(s): I48.92 - Unspecified atrial flutter Status: Acute Assessment and Plan: continue rate control strategy (8) Type 2 diabetes mellitus with hyperglycemia, without long-term current use of insulin: Code(s): E11.65 - Type 2 diabetes mellitus with hyperglycemia Status: Chronic Assessment and Plan: follow accu-cheks glyceminc control per management expert/hospitalist Will continue to follow. Subjective Date/time seen: 06/23/24 14:51 Interval history: Follow-up for acute kidney injury/acute renal failure on chronic kidney disease. Transferred out of the ICU yesterday afternoon; mentation appears stable if not better; renal function/creatinine improving with reasonable urine output as well; no apparent distress noted. Exam Narrative: General: elderly female in NAD Heart: tachycardic, normal S1 and S2; no rub Lungs: coarse and decreased at bases Abdomen: soft, nontender, nondistended, positive bowel sounds Extremities: no cyanosis or clubbing; trace edema Skin: no rash Objective Data Vital Signs Vital Signs: Vital Signs Temp Pulse Resp BP Pulse Ox O2 Del Method O2 Flow Rate 06/23/24 14:16 81 20 06/23/24 14:09 83 20 06/23/24 12:07 80 06/23/24 12:00 97.4 F L 77 16 112/60 99 06/23/24 11:03 Nasal Cannula 4 06/23/24 08:04 92 06/23/24 08:26 90 18 98 Nasal Cannula 4 06/23/24 08:00 97.6 F 91 22 H 107/67 98 06/23/24 08:25 90 06/23/24 08:05 90 18 06/23/24 07:52 89 18 06/23/24
[2024-06-23 16:42] LABS: Glucose Point of Care 186 mg/dl (65-105)
[2024-06-23] MEDS: ATORVASTATIN 40 MG TABLET 80 MG PO (17:17)
[2024-06-23 22:17] LABS: Glucose Point of Care 170 mg/dl (65-105)
[2024-06-24] VITALS (22 sets, daily range): BP systolic 94–116; BP diastolic 40–90; PULSE 58–108; RESP 14–20; TEMP 36.4–36.7; O2SAT 93–99
[2024-06-24] MEDS: IPRATROPIUM BR 0.02% INH SOLN 0.5 MG/2.5 ML VIAL INHALATION ×4 (02:14→20:03)
[2024-06-24] MEDS: HYDROcodone/acetaminophen (*CRX) 5-325 MG TABLET 1 TAB PO ×3 (03:03→17:26)
[2024-06-24 06:17] LABS: Hemoglobin 10.7 g/dL (12.0-15.0); Mean Corpuscular HGB Conc 29.7 g/dl (32-36); Mean Corpuscular Hemoglobin 31.3 pg (26-34); Mean Corpuscular Volume 105.3 fl (80-100); Mean Platelet Volume 12.7 fl (7.4-10.4); Platelet Count Result 136 k/mm3 (150-375); Red Blood Count 3.42 M/mm3 (4.2-5.4); Red Cell Distribution Width 15.1 % (11.5-14.5)
[2024-06-24 06:30] LABS: Alanine Aminotransferase 109 U/L (6-35); Albumin Level 3.7 g/dL (3.5-5.1); Alkaline Phosphatase 403 U/L (38-126); Anion Gap 12 mmol/L (4-12); Aspartate Amino Transferase 146 U/L (14-36); Bilirubin,Total 1.1 mg/dL (0.2-1.3); Blood Urea Nitrogen 86 mg/dL (7-17); Calcium 8.7 mg/dL (8.4-10.2); Carbon Dioxide 37 mmol/L (22-30); Chloride 87 mmol/L (98-107); Estimated CRCL calculation 17 ml/min; Estimated Glomerular Filt Rate 17; Glucose 177 mg/dL (65-110); Magnesium 2.1 mg/dL (1.6-2.3); Phosphorus 4.3 mg/dL (2.5-4.5); Sodium 136 mmol/L (137-145)
[2024-06-24] MEDS: UMECLIDINIUM/VILANTEROL 62.5-25 MCG ELLIPTA 1 PUFF INHALATION (07:43)
[2024-06-24 07:48] LABS: Glucose Point of Care 171 mg/dl (65-105)
[2024-06-24] MEDS: ENOXAPARIN 30 MG/0.3 ML SYRINGE SUB-Q (09:05)
[2024-06-24] MEDS: CLOPIDOGREL BISULFATE 75 MG TABLET PO (09:06)
[2024-06-24] MEDS: SULFAMETHOXAZOLE/TRIMETHOPRIM 400/80 MG TABLET 1 TAB PO ×2 (09:06→20:20)
[2024-06-24] MEDS: CYANOCOBALAMIN 1,000 MCG TABLET 1000 MCG PO (09:06)
[2024-06-24] MEDS: DOCUSATE SODIUM 100 MG CAPSULE PO (09:06)
[2024-06-24] MEDS: FOLIC ACID 1 MG TABLET PO (09:06)
[2024-06-24] MEDS: MIDODRINE HCL 10 MG TABLET PO ×2 (09:06→12:34)
[2024-06-24] MEDS: ASPIRIN 81 MG CHEWABLE TABLET PO (09:06)
[2024-06-24] MEDS: METOPROLOL TARTRATE 12.5 MG TABLET PO ×2 (09:06→20:20)
[2024-06-24] MEDS: SODIUM CHLORIDE 0.9% IV 1,000 ML 80 ML IV CONT ×2 (09:07→23:37)
--- NOTE | 2024-06-24 11:24 | PCOTNOTE ---
Attempted to see pt for Occupational Therapy treatment. Pt was seated in chair finishing up with PT session with therapist entered room. With RN request, therapist encouraged with extended time for pt to take her medication while seated up for aspiration concerns. Once finished with meds, pt refused to continue with therapy session including strengthening and/or therapeutic activities due to adamantly wanting to lay down. Pt was educated to continue sitting up due to being in chair for <5 minutes for increase strengthening and pulmonary capacity increase. From that point forward, pt was not acknowledge therapist and ignored therapist. Will attempt at another time per poc duration/frequency. DINING ROOM SERVER was educated on pt's refusal.
[2024-06-24 12:09] LABS: Glucose Point of Care 217 mg/dl (65-105)
[2024-06-24] MEDS: INSULIN ASPART (*BKC) 100 UNITS/ML SUB-Q (12:30)
--- NOTE | 2024-06-24 13:40 | PM.PNCARD ---
Progress Note: A&P Assessment and Plan (1) Atrial flutter with rapid ventricular response: Code(s): I48.92 - Unspecified atrial flutter Status: Acute Assessment and Plan: She was noted to have a wide QRS tachycardia with an episode of atrial flutter. This was terminated with intravenous amiodarone. She is ill with multiple other comorbidities, she has significant peripheral vascular disease, acute on chronic renal failure as well as severe COPD with a prior smoking history of over 100 pack years. For now we will observe her telemetry. She is a poor candidate for most antiarrhythmic options given her previous infarction, mild LV dysfunction, acute on chronic kidney disease and chronic severe COPD. Will continue Toprol for now. Not a candidate for anticoagulation due to frequent falls. (2) Hyperkalemia: Code(s): E87.5 - Hyperkalemia Status: Acute Assessment and Plan: Improved (3) Toxic metabolic encephalopathy: Code(s): G92.8 - Other toxic encephalopathy Status: Acute Assessment and Plan: Appears to have resolved (4) Combined systolic and diastolic congestive heart failure: Qualifiers: Heart failure chronicity: chronic Qualified Code(s): I50.42 - Chronic combined systolic (congestive) and diastolic (congestive) heart failure Code(s): I50.40 - Unspecified combined systolic (congestive) and diastolic (congestive) heart failure Status: Chronic Assessment and Plan: EF 20-25%. This is a new reduction in LV systolic function Continue Toprol GDMT limited due to renal function. For now, no HARRIS/ARB/ARNI, or spironolactone Can consider jardiance Currently compensated LifeVest will be ordered (5) Acute kidney injury: Code(s): N17.9 - Acute kidney failure, unspecified Status: Acute Assessment and Plan: Nephrology consulted and following along (6) Sepsis: Code(s): A41.9 - Sepsis, unspecified organism Status: Acute Assessment and Plan: Secondary to UTI. Management as per primary team. Subjective Date/time seen: 06/24/24 13:40 Interval history: Reason for visit: Atrial flutter with RVR HPI: This is a 73-year-old woman that I am seeing at the request of the hospitalist because of ventricular tachycardia. Patient is not known to me her chart has been reviewed and she has been seen in room 231. The majority of the history is from the medical record and the who was in the room. The patient is very sleepy and a very poor historian regarding any of her medical history at this time. Apparently she has a history of coronary artery disease, severe peripheral vascular disease and severe chronic lung disease with more than 100 previous pack years of smoking. She was hospitalized yesterday because of shortness of breath. She has had a number of hospitalizations here with dyspnea that have been attributed to hypercarbic respiratory failure repair your with her chronic lung disease. She has echocardiographic evidence in our chart recently showing room mildly reduced left ventricular systolic function. The patient's indicates she has a history of coronary artery disease and was treated at [facility] he estimates 5 or 6 years ago with an acute myocardial infarction. The 's recollection is that 1 of her coronary arteries is chronically occluded and remains so and she had a percutaneous revascularization stenting 3 of her other coronary arteries at that time. She had followed up with a skid wrapper who did the intervention for couple of years but then they state that he left the area and rather than following up with anybody else they just all sort of let that go. Up until the last couple of weeks she has been smoking heavily despite this history. She has a history of peripheral vascular disease and has undergone percutaneous lower extremity revascularization also at [place]. The states th
--- NOTE | 2024-06-24 13:43 | P.PNNP_ITS ---
Progress Note: A&P Assessment and Plan (1) Acute kidney injury: Code(s): N17.9 - Acute kidney failure, unspecified Status: Acute Assessment and Plan: * as noted by admission labs * slow improvement noted up until labs today * evaluation to date noted: * renal u/s normal * urine electrolytes prerenal * urine eosinophils negative * CPK normal * improvement in urine output noted * insult thought to be due to relative hypotension and prerenal factors * trial of IVFs initiated * follow trend of repeat labs and UOP (2) Chronic kidney disease, stage 3: Code(s): N18.30 - Chronic kidney disease, stage 3 unspecified Status: Chronic Assessment and Plan: * baseline creatinine runs around 1.1 - 1.3mg/dl * presumably secondary to CHF, vascular disease, DARRICK/pulmonary HTN, and age- related change (3) Hyperkalemia: Code(s): E87.5 - Hyperkalemia Status: Acute Assessment and Plan: * resolved * present on labs in ER * s/p medical management with improvement in K+ * continue to follow serial potassium levels (4) Altered mental status: Code(s): R41.82 - Altered mental status, unspecified Status: Acute Assessment and Plan: * improvement noted * etiology? * due to drugs/medications (narcotics, muscle relaxants, requip...etc) versus renal dysfunction versus other? * ABG noted * holding sedative medications * follow mentation (5) Chronic respiratory failure with hypoxia and hypercapnia: Code(s): J96.11 - Chronic respiratory failure with hypoxia; J96.12 - Chronic respiratory failure with hypercapnia Status: Acute Assessment and Plan: * back to baseline oxygen requirements * secondary to DARRICK/pulmonary hypertension, COPD, and congestive heart failure * elevated D-dimer noted in ER - V/Q scan and lower extremity doppler results noted * follow respiratory status (6) Combined systolic and diastolic congestive heart failure: Qualifiers: Heart failure chronicity: chronic Qualified Code(s): I50.42 - Chronic combined systolic (congestive) and diastolic (congestive) heart failure Code(s): I50.40 - Unspecified combined systolic (congestive) and diastolic (congestive) heart failure Status: Chronic Assessment and Plan: * appears compensated at this time * follow volume status * cautious IVF resuscitation (7) Atrial flutter with rapid ventricular response: Code(s): I48.92 - Unspecified atrial flutter Status: Acute Assessment and Plan: * continue rate control strategy (8) Type 2 diabetes mellitus with hyperglycemia, without long-term current use of insulin: Code(s): E11.65 - Type 2 diabetes mellitus with hyperglycemia Status: Chronic Assessment and Plan: * follow accu-cheks * glyceminc control per railroad repairer/hospitalist Will continue to follow. Subjective Date/time seen: 06/24/24 13:43 Interval history: Follow-up for acute kidney injury/acute renal failure on chronic kidney disease. Appearas to be doing reasonably well at the time of my visit; mentation remains stable if not improving; no other events overnight or earlier this morning; creatinine up a bit in comparison to yesterday. Exam Narrative: General: elderly female in NAD Heart: tachycardic, normal S1 and S2; no rub Lungs: coarse and decreased at bases Abdomen: soft, nontender, nondistended, positive bowel sounds Extremities
--- NOTE | 2024-06-24 13:43 | PM.PNNEP ---
Progress Note: A&P Assessment and Plan (1) Acute kidney injury: Code(s): N17.9 - Acute kidney failure, unspecified Status: Acute Assessment and Plan: as noted by admission labs slow improvement noted up until labs today evaluation to date noted: renal u/s normal urine electrolytes prerenal urine eosinophils negative CPK normal improvement in urine output noted insult thought to be due to relative hypotension and prerenal factors trial of IVFs initiated follow trend of repeat labs and UOP (2) Chronic kidney disease, stage 3: Code(s): N18.30 - Chronic kidney disease, stage 3 unspecified Status: Chronic Assessment and Plan: baseline creatinine runs around 1.1 - 1.3mg/dl presumably secondary to CHF, vascular disease, DARRICK/pulmonary HTN, and age-related change (3) Hyperkalemia: Code(s): E87.5 - Hyperkalemia Status: Acute Assessment and Plan: resolved present on labs in ER s/p medical management with improvement in K+ continue to follow serial potassium levels (4) Altered mental status: Code(s): R41.82 - Altered mental status, unspecified Status: Acute Assessment and Plan: improvement noted etiology? due to drugs/medications (narcotics, muscle relaxants, requip...etc) versus renal dysfunction versus other? ABG noted holding sedative medications follow mentation (5) Chronic respiratory failure with hypoxia and hypercapnia: Code(s): J96.11 - Chronic respiratory failure with hypoxia; J96.12 - Chronic respiratory failure with hypercapnia Status: Acute Assessment and Plan: back to baseline oxygen requirements secondary to DARRICK/pulmonary hypertension, COPD, and congestive heart failure elevated D-dimer noted in ER - V/Q scan and lower extremity doppler results noted follow respiratory status (6) Combined systolic and diastolic congestive heart failure: Qualifiers: Heart failure chronicity: chronic Qualified Code(s): I50.42 - Chronic combined systolic (congestive) and diastolic (congestive) heart failure Code(s): I50.40 - Unspecified combined systolic (congestive) and diastolic (congestive) heart failure Status: Chronic Assessment and Plan: appears compensated at this time follow volume status cautious IVF resuscitation (7) Atrial flutter with rapid ventricular response: Code(s): I48.92 - Unspecified atrial flutter Status: Acute Assessment and Plan: continue rate control strategy (8) Type 2 diabetes mellitus with hyperglycemia, without long-term current use of insulin: Code(s): E11.65 - Type 2 diabetes mellitus with hyperglycemia Status: Chronic Assessment and Plan: follow accu-cheks glyceminc control per pharmacy intake technician/hospitalist Will continue to follow. Subjective Date/time seen: 06/24/24 13:43 Interval history: Follow-up for acute kidney injury/acute renal failure on chronic kidney disease. Appearas to be doing reasonably well at the time of my visit; mentation remains stable if not improving; no other events overnight or earlier this morning; creatinine up a bit in comparison to yesterday. Exam Narrative: General: elderly female in NAD Heart: tachycardic, normal S1 and S2; no rub Lungs: coarse and decreased at bases Abdomen: soft, nontender, nondistended, positive bowel sounds Extremities: no cyanosis or clubbing; trace edema Skin: no nodules Objective Data Vital Signs Vital Signs: Vital Signs Temp Pulse Resp BP Pulse Ox O2 Del Method O2 Flow Rate 06/24/24 13:36 88 16 06/24/24 13:28 90 16 06/24/24 09:50 97.9 F 91 14 114/54 L 94 06/24/24 09:06 95 06/24/24 07:41 93 18 06/24/24 07:30 91 18 06/24/24 07:30 94 Nasal Cannula 3 06/24/24 05:45 98.1 F 86 16 102/74 95 06/24/24 04:00 85 06/24/24 00:00 83
--- NOTE | 2024-06-24 15:54 | PM.IMPN ---
Progress Note: A&P Assessment and Plan (1) Combined systolic and diastolic congestive heart failure: Qualifiers: Heart failure chronicity: chronic Qualified Code(s): I50.42 - Chronic combined systolic (congestive) and diastolic (congestive) heart failure Code(s): I50.40 - Unspecified combined systolic (congestive) and diastolic (congestive) heart failure Status: Chronic (2) Toxic metabolic encephalopathy: Code(s): G92.8 - Other toxic encephalopathy Status: Acute (3) Type 2 diabetes mellitus with hyperglycemia, without long-term current use of insulin: Code(s): E11.65 - Type 2 diabetes mellitus with hyperglycemia Status: Chronic (4) Acute hyperkalemia: Code(s): E87.5 - Hyperkalemia Status: Acute (5) Acute on chronic kidney failure: Qualifiers: Acute renal failure type: unspecified Chronic kidney disease stage: stage 3 (moderate) Chronic kidney disease stage 3 subtype: stage 3b (GFR 30-44) Qualified Code(s): N17.9 - Acute kidney failure, unspecified; N18.32 - Chronic kidney disease, stage 3b Code(s): N17.9 - Acute kidney failure, unspecified; N18.9 - Chronic kidney disease, unspecified Status: Inactive (6) COPD (chronic obstructive pulmonary disease): Code(s): J44.9 - Chronic obstructive pulmonary disease, unspecified Status: Acute (7) Coronary artery disease: Qualifiers: Coronary Disease-Associated Artery/Lesion type: lummi artery [place] vs. transplanted heart: lummi heart Associated angina: without angina Qualified Code(s): I25.10 - Atherosclerotic heart disease of lummi coronary artery without angina pectoris Code(s): I25.10 - Atherosclerotic heart disease of lummi coronary artery without angina pectoris Status: Acute (8) Atrial flutter with rapid ventricular response: Code(s): I48.92 - Unspecified atrial flutter Status: Acute (9) Chronic respiratory failure with hypoxia and hypercapnia: Code(s): J96.11 - Chronic respiratory failure with hypoxia; J96.12 - Chronic respiratory failure with hypercapnia Status: Acute (10) Sepsis: Code(s): A41.9 - Sepsis, unspecified organism Status: Acute (11) UTI (urinary tract infection): Code(s): N39.0 - Urinary tract infection, site not specified Status: Acute Plan #Elevated D-dimer and Intermediate probability for pulmonary embolism -Doppler of lower extremities was negative. -She was started on empiric anticoagulation on presentation to ICU. She has moderate pretest probability of PE. In light of intermediate V/Q scan results and negative Dopplers of lower extremity Dr. Anaya held further anticoagulation at this time. -Once renal function improves patient can be be evaluated if clinically indicated with CTA. - Patient overall is not a good candidate for chronic anticoagulation due to high risk of fall and anticipation of invasive procedures at this time -CT scan shows:Moderate right pleural effusion.Enlarging 1.6 x 1.1 cm lobulated right upper lobe pulmonary nodule, as above. Neoplasm is consideration. Consider PET/CT and/or tissue sampling. #Atrial flutter with rapid ventricular response -24: HR is 77 -Patient presented with atrial flutter and was given amiodarone and has converted to sinus rhythm -Patient seen by Cardiology and recommend discontinuing further amiodarone at this time due to history of lung disease -Cardiology does not recommend anticoagulation at this time considering brief episode which has converted to sinus rhythm -Started on metoprolol 12.5 mg p.o. q.12 hours #FENG -Cr 3.40<3.30<2.80<2.50>2.80 -Up trend on creatinine. -started today NS @ 80 mL/hr. -Patient's creatinine ranges normally in 1.1-1.3. -She presented with creatinine of 3.42 on admission -Due to concerns of CHF patient did not receive any IV fluids and instead was given Lasix -Appreciate nephrology following the jadiel
[2024-06-24 16:42] LABS: Glucose Point of Care 192 mg/dl (65-105)
[2024-06-24] MEDS: ATORVASTATIN 40 MG TABLET 80 MG PO (17:01)
[2024-06-25] VITALS (19 sets, daily range): BP systolic 95–142; BP diastolic 40–79; PULSE 59–99; RESP 16–18; TEMP 36.1–36.6; O2SAT 94–100
[2024-06-25] MEDS: HYDROcodone/acetaminophen (*CRX) 5-325 MG TABLET 1 TAB PO ×4 (00:36→20:41)
[2024-06-25 02:08] LABS: Glucose Point of Care 192 mg/dl (65-105)
[2024-06-25] MEDS: IPRATROPIUM BR 0.02% INH SOLN 0.5 MG/2.5 ML VIAL INHALATION ×3 (02:18→19:23)
[2024-06-25 05:39] LABS: Hematocrit 34.9 % (37.0-47.0); Hemoglobin 10.7 g/dL (12.0-15.0); Mean Corpuscular HGB Conc 30.7 g/dl (32-36); Mean Corpuscular Hemoglobin 31.8 pg (26-34); Mean Corpuscular Volume 103.9 fl (80-100); Platelet Count Result 137 k/mm3 (150-375); Red Blood Count 3.36 M/mm3 (4.2-5.4); Red Cell Distribution Width 15.2 % (11.5-14.5); White Blood Count 8.2 K/mm3 (4.5-10.0)
[2024-06-25 05:51] LABS: Alanine Aminotransferase 144 U/L (6-35); Albumin Level 3.5 g/dL (3.5-5.1); Alkaline Phosphatase 371 U/L (38-126); Anion Gap 10 mmol/L (4-12); Aspartate Amino Transferase 215 U/L (14-36); Blood Urea Nitrogen 85 mg/dL (7-17); Calcium 8.2 mg/dL (8.4-10.2); Carbon Dioxide 36 mmol/L (22-30); Chloride 90 mmol/L (98-107); Estimated CRCL calculation 17 ml/min; Estimated Glomerular Filt Rate 17; Glucose 173 mg/dL (65-110); Magnesium 2.1 mg/dL (1.6-2.3); Phosphorus 4.6 mg/dL (2.5-4.5); Potassium 3.9 mmol/L (3.4-5.0); Sodium 136 mmol/L (137-145)
--- NOTE | 2024-06-25 07:03 | P.PNNP_ITS ---
Progress Note: A&P Assessment and Plan (1) Acute kidney injury: Code(s): N17.9 - Acute kidney failure, unspecified Status: Acute Assessment and Plan: * as noted by admission labs * Creatinine was 3.4 on admission. It improved to about 2.8 and has plateaued * evaluation to date noted: * renal u/s normal * urine electrolytes prerenal * urine eosinophils negative * CPK normal * improvement in urine output noted * insult thought to be due to relative hypotension and prerenal factors * Will check a renal scan since things have plateau * (2) Chronic kidney disease, stage 3: Code(s): N18.30 - Chronic kidney disease, stage 3 unspecified Status: Chronic Assessment and Plan: * baseline creatinine runs around 1.1 - 1.3mg/dl * presumably secondary to CHF, vascular disease, DARRICK/pulmonary HTN, and age- related change (3) Hyperkalemia: Code(s): E87.5 - Hyperkalemia Status: Acute Assessment and Plan: * resolved (4) Altered mental status: Code(s): R41.82 - Altered mental status, unspecified Status: Acute Assessment and Plan: * improvement noted but still not completely normal * etiology? * due to drugs/medications (narcotics, muscle relaxants, requip...etc) versus renal dysfunction versus other? * ABG noted for showing stable chronic CO2 retention over the last couple of * holding sedative medications (5) Chronic respiratory failure with hypoxia and hypercapnia: Code(s): J96.11 - Chronic respiratory failure with hypoxia; J96.12 - Chronic respiratory failure with hypercapnia Status: Acute Assessment and Plan: * back to baseline oxygen requirements * secondary to DARRICK/pulmonary hypertension, COPD, and congestive heart failure * elevated D-dimer noted in ER - V/Q scan and lower extremity doppler results noted * follow respiratory status (6) Combined systolic and diastolic congestive heart failure: Qualifiers: Heart failure chronicity: chronic Qualified Code(s): I50.42 - Chronic combined systolic (congestive) and diastolic (congestive) heart failure Code(s): I50.40 - Unspecified combined systolic (congestive) and diastolic (congestive) heart failure Status: Chronic Assessment and Plan: * appears compensated at this time * Recent echo shows EF of only 20-25% bilateral severe atrial enlargement and [id number] tricuspid valve regurgitation among other abnormalities * follow volume status * cautious IVF resuscitation (7) Atrial flutter with rapid ventricular response: Code(s): I48.92 - Unspecified atrial flutter Status: Acute Assessment and Plan: * continue rate control strategy (8) Type 2 diabetes mellitus with hyperglycemia, without long-term current use of insulin: Code(s): E11.65 - Type 2 diabetes mellitus with hyperglycemia Status: Chronic Assessment and Plan: * follow accu-cheks * glycemic control per lining marker/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 She has some nausea but no vomiting. No shortness of breath. She has a little swelling Exam Narrative: General: elderly female in NAD Heart: tachycardic, normal S1 and S2; no rub Lungs: coarse and decreased at bases Abdomen: soft, nontender, nondistended, positive bowel sounds Extremities: no cyanosis or clubbing; trace to 1+ bilateral edema Skin:
--- NOTE | 2024-06-25 07:03 | PM.PNNEP ---
Progress Note: A&P Assessment and Plan (1) Acute kidney injury: Code(s): N17.9 - Acute kidney failure, unspecified Status: Acute Assessment and Plan: as noted by admission labs Creatinine was 3.4 on admission. It improved to about 2.8 and has plateaued evaluation to date noted: renal u/s normal urine electrolytes prerenal urine eosinophils negative CPK normal improvement in urine output noted insult thought to be due to relative hypotension and prerenal factors Will check a renal scan since things have plateau (2) Chronic kidney disease, stage 3: Code(s): N18.30 - Chronic kidney disease, stage 3 unspecified Status: Chronic Assessment and Plan: baseline creatinine runs around 1.1 - 1.3mg/dl presumably secondary to CHF, vascular disease, DARRICK/pulmonary HTN, and age-related change (3) Hyperkalemia: Code(s): E87.5 - Hyperkalemia Status: Acute Assessment and Plan: resolved (4) Altered mental status: Code(s): R41.82 - Altered mental status, unspecified Status: Acute Assessment and Plan: improvement noted but still not completely normal etiology? due to drugs/medications (narcotics, muscle relaxants, requip...etc) versus renal dysfunction versus other? ABG noted for showing stable chronic CO2 retention over the last couple of holding sedative medications (5) Chronic respiratory failure with hypoxia and hypercapnia: Code(s): J96.11 - Chronic respiratory failure with hypoxia; J96.12 - Chronic respiratory failure with hypercapnia Status: Acute Assessment and Plan: back to baseline oxygen requirements secondary to DARRICK/pulmonary hypertension, COPD, and congestive heart failure elevated D-dimer noted in ER - V/Q scan and lower extremity doppler results noted follow respiratory status (6) Combined systolic and diastolic congestive heart failure: Qualifiers: Heart failure chronicity: chronic Qualified Code(s): I50.42 - Chronic combined systolic (congestive) and diastolic (congestive) heart failure Code(s): I50.40 - Unspecified combined systolic (congestive) and diastolic (congestive) heart failure Status: Chronic Assessment and Plan: appears compensated at this time Recent echo shows EF of only 20-25% bilateral severe atrial enlargement and [id number]-[id number] tricuspid valve regurgitation among other abnormalities follow volume status cautious IVF resuscitation (7) Atrial flutter with rapid ventricular response: Code(s): I48.92 - Unspecified atrial flutter Status: Acute Assessment and Plan: continue rate control strategy (8) Type 2 diabetes mellitus with hyperglycemia, without long-term current use of insulin: Code(s): E11.65 - Type 2 diabetes mellitus with hyperglycemia Status: Chronic Assessment and Plan: follow accu-cheks glycemic control per recycler 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 She has some nausea but no vomiting. No shortness of breath. She has a little swelling Exam Narrative: General: elderly female in NAD Heart: tachycardic, normal S1 and S2; no rub Lungs: coarse and decreased at bases Abdomen: soft, nontender, nondistended, positive bowel sounds Extremities: no cyanosis or clubbing; trace to 1+ bilateral edema Skin: no rash Objective Data Vital Signs Vital Signs: Vital Signs - 24 hr 06/24/24 07:30 06/24/24 07:30 06/24/24 07:41 Temperature Pulse Rate 91 93 Respiratory Rate 18 18 Blood Pressure Pulse Oximetry 94 Oxygen Delivery Nasal Cannula Oxygen Flow Rate 3 Fraction of Inspired Oxygen 32 06/24/24 09:06 06/24/24 09:50 06/24/24 13:28 Temperature 97.9 F Pulse Rate 95 91 90 Respiratory Rate 14 16 Blood Pressure 114/54 L Pulse Oximetry 94 Oxygen Delivery Oxyg
[2024-06-25] MEDS: UMECLIDINIUM/VILANTEROL 62.5-25 MCG ELLIPTA 1 PUFF INHALATION (07:33)
[2024-06-25 07:40] LABS: Glucose Point of Care 177 mg/dl (65-105)
--- NOTE | 2024-06-25 08:25 | PM.IMPN ---
Progress Note: A&P Assessment and Plan (1) Combined systolic and diastolic congestive heart failure: Qualifiers: Heart failure chronicity: chronic Qualified Code(s): I50.42 - Chronic combined systolic (congestive) and diastolic (congestive) heart failure Code(s): I50.40 - Unspecified combined systolic (congestive) and diastolic (congestive) heart failure Status: Chronic (2) Toxic metabolic encephalopathy: Code(s): G92.8 - Other toxic encephalopathy Status: Acute (3) Type 2 diabetes mellitus with hyperglycemia, without long-term current use of insulin: Code(s): E11.65 - Type 2 diabetes mellitus with hyperglycemia Status: Chronic (4) Acute hyperkalemia: Code(s): E87.5 - Hyperkalemia Status: Acute (5) Acute on chronic kidney failure: Qualifiers: Acute renal failure type: unspecified Chronic kidney disease stage: stage 3 (moderate) Chronic kidney disease stage 3 subtype: stage 3b (GFR 30-44) Qualified Code(s): N17.9 - Acute kidney failure, unspecified; N18.32 - Chronic kidney disease, stage 3b Code(s): N17.9 - Acute kidney failure, unspecified; N18.9 - Chronic kidney disease, unspecified Status: Inactive (6) COPD (chronic obstructive pulmonary disease): Code(s): J44.9 - Chronic obstructive pulmonary disease, unspecified Status: Acute (7) Coronary artery disease: Qualifiers: Associated angina: without angina Coronary Disease-Associated Artery/Lesion type: circle artery [place] vs. transplanted heart: circle heart Qualified Code(s): I25.10 - Atherosclerotic heart disease of circle coronary artery without angina pectoris Code(s): I25.10 - Atherosclerotic heart disease of circle coronary artery without angina pectoris Status: Acute (8) Atrial flutter with rapid ventricular response: Code(s): I48.92 - Unspecified atrial flutter Status: Acute (9) Chronic respiratory failure with hypoxia and hypercapnia: Code(s): J96.11 - Chronic respiratory failure with hypoxia; J96.12 - Chronic respiratory failure with hypercapnia Status: Acute (10) Sepsis: Code(s): A41.9 - Sepsis, unspecified organism Status: Acute (11) UTI (urinary tract infection): Code(s): N39.0 - Urinary tract infection, site not specified Status: Acute Plan #Elevated D-dimer and Intermediate probability for pulmonary embolism -Doppler of lower extremities was negative. -She was started on empiric anticoagulation on presentation to ICU. She has moderate pretest probability of PE. In light of intermediate V/Q scan results and negative Dopplers of lower extremity Dr. Anaya held further anticoagulation at this time. -Once renal function improves patient can be be evaluated if clinically indicated with CTA. - Patient overall is not a good candidate for chronic anticoagulation due to high risk of fall and anticipation of invasive procedures at this time -CT scan shows:Moderate right pleural effusion.Enlarging 1.6 x 1.1 cm lobulated right upper lobe pulmonary nodule, as above. Neoplasm is consideration. Consider PET/CT and/or tissue sampling. # Atrial flutter with rapid ventricular response -Patient presented with atrial flutter and was given amiodarone and has converted to sinus rhythm -Patient seen by Cardiology and recommend discontinuing further amiodarone at this time due to history of lung disease -Cardiology does not recommend anticoagulation at this time considering brief episode which has converted to sinus rhythm -Started on metoprolol 12.5 mg p.o. q.12 hours # FENG -Cr 3.40<3.30<2.80<2.50>2.80 -Up trend on creatinine. -Patient's baseline creatinine ranges normally in 1.1-1.3. -She presented with creatinine of 3.42 on admission -Due to concerns of CHF patient did not receive any IV fluids and instead was given Lasix -Appreciate nephrology following the patient -Renal ultrasound was unremarkable -
[2024-06-25] MEDS: SULFAMETHOXAZOLE/TRIMETHOPRIM 400/80 MG TABLET 1 TAB PO (08:30)
[2024-06-25] MEDS: ASPIRIN 81 MG CHEWABLE TABLET PO (08:30)
[2024-06-25] MEDS: CYANOCOBALAMIN 1,000 MCG TABLET 1000 MCG PO (08:30)
[2024-06-25] MEDS: DOCUSATE SODIUM 100 MG CAPSULE PO (08:30)
[2024-06-25] MEDS: METOPROLOL SUCCINATE EXT REL 25 MG TABCR PO (08:30)
[2024-06-25] MEDS: FOLIC ACID 1 MG TABLET PO (08:30)
[2024-06-25] MEDS: CLOPIDOGREL BISULFATE 75 MG TABLET PO (08:30)
[2024-06-25] MEDS: ENOXAPARIN 30 MG/0.3 ML SYRINGE SUB-Q (08:31)
[2024-06-25 11:44] LABS: Glucose Point of Care 184 mg/dl (65-105)
--- NOTE | 2024-06-25 11:51 | PM.PNCARD ---
Progress Note: A&P Assessment and Plan (1) Atrial flutter with rapid ventricular response: Code(s): I48.92 - Unspecified atrial flutter Status: Acute Assessment and Plan: She was noted to have a wide QRS tachycardia with an episode of atrial flutter. This was terminated with intravenous amiodarone. She is ill with multiple other comorbidities, she has significant peripheral vascular disease, acute on chronic renal failure as well as severe COPD with a prior smoking history of over 100 pack years. For now we will observe her telemetry. She is a poor candidate for most antiarrhythmic options given her previous infarction, mild LV dysfunction, acute on chronic kidney disease and chronic severe COPD. Will continue Toprol for now. Not a candidate for anticoagulation due to frequent falls. (2) Hyperkalemia: Code(s): E87.5 - Hyperkalemia Status: Acute Assessment and Plan: Improved (3) Toxic metabolic encephalopathy: Code(s): G92.8 - Other toxic encephalopathy Status: Acute Assessment and Plan: Appears to have resolved (4) Combined systolic and diastolic congestive heart failure: Qualifiers: Heart failure chronicity: chronic Qualified Code(s): I50.42 - Chronic combined systolic (congestive) and diastolic (congestive) heart failure Code(s): I50.40 - Unspecified combined systolic (congestive) and diastolic (congestive) heart failure Status: Chronic Assessment and Plan: EF 20-25%. This is a new reduction in LV systolic function Continue Toprol GDMT limited due to renal function. For now, no HARRIS/ARB/ARNI, or spironolactone Can consider jardiance Currently compensated LifeVest ordered, but patient has a nerve stimulator so unsure if this will interfere with the vest. Alice shi is looking into this (5) Acute kidney injury: Code(s): N17.9 - Acute kidney failure, unspecified Status: Acute Assessment and Plan: Nephrology consulted and following along (6) Sepsis: Code(s): A41.9 - Sepsis, unspecified organism Status: Acute Assessment and Plan: Secondary to UTI. Management as per primary team. Subjective Date/time seen: 06/25/24 11:51 Interval history: Reason for visit: Atrial flutter with RVR HPI: This is a 73-year-old woman that I am seeing at the request of the hospitalist because of ventricular tachycardia. Patient is not known to me her chart has been reviewed and she has been seen in room 231. The majority of the history is from the medical record and the who was in the room. The patient is very sleepy and a very poor historian regarding any of her medical history at this time. Apparently she has a history of coronary artery disease, severe peripheral vascular disease and severe chronic lung disease with more than 100 previous pack years of smoking. She was hospitalized yesterday because of shortness of breath. She has had a number of hospitalizations here with dyspnea that have been attributed to hypercarbic respiratory failure repair your with her chronic lung disease. She has echocardiographic evidence in our chart recently showing room mildly reduced left ventricular systolic function. The patient's indicates she has a history of coronary artery disease and was treated at [facility] he estimates 5 or 6 years ago with an acute myocardial infarction. The 's recollection is that 1 of her coronary arteries is chronically occluded and remains so and she had a percutaneous revascularization stenting 3 of her other coronary arteries at that time. She had followed up with a change management administrator who did the intervention for couple of years but then they state that he left the area and rather than following up with anybody else they just all sort of let that go. Up until the last couple of weeks she has been smoking heavily despite this history. She has a history of peripheral vascular disea
[2024-06-25 16:45] LABS: Glucose Point of Care 185 mg/dl (65-105)
[2024-06-25] MEDS: ATORVASTATIN 40 MG TABLET 80 MG PO (17:33)
[2024-06-25 21:19] LABS: Glucose Point of Care 187 mg/dl (65-105)
[2024-06-26] VITALS (25 sets, daily range): BP systolic 92–124; BP diastolic 49–60; PULSE 85–97; RESP 14–20; TEMP 36.3–36.7; O2SAT 94–100
[2024-06-26] MEDS: IPRATROPIUM BR 0.02% INH SOLN 0.5 MG/2.5 ML VIAL INHALATION ×4 (02:24→20:08)
[2024-06-26 04:50] LABS: Basophils Percent Auto 0.3 % (0.2-1.2); Eosinophils Absolute Auto 0.1 K/mm3 (0-0.3); Eosinophils Percent Auto 1.8 % (0-4.4); Hemoglobin 10.4 g/dL (12.0-15.0); Immature Granulocyte Absolute 0.02 K/mm3 (0.00-0.031); Immature Granulocyte Percent A 0.3 % (0-0.5); Lymphocytes Absolute Auto 0.98 K/mm3 (0.9-3.2); Lymphocytes Percent Auto 12.3 % (18.3-44.2); Mean Corpuscular HGB Conc 29.7 g/dl (32-36); Mean Corpuscular Hemoglobin 31.1 pg (26-34); Mean Corpuscular Volume 104.8 fl (80-100); Mean Platelet Volume 12.6 fl (7.4-10.4); Monocytes Percent Auto 12.8 % (2.6-8.5); Neutrophils Absolute Auto 5.8 K/mm3 (1.3-6.7); Neutrophils Percent Auto 72.5 % (45.5-73.1); Platelet Count Result 129 k/mm3 (150-375); Red Blood Count 3.34 M/mm3 (4.2-5.4); Red Cell Distribution Width 15.5 % (11.5-14.5)
[2024-06-26 05:03] LABS: Alanine Aminotransferase 111 U/L (6-35); Albumin Level 3.6 g/dL (3.5-5.1); Alkaline Phosphatase 326 U/L (38-126); Aspartate Amino Transferase 136 U/L (14-36); Bilirubin,Total 0.7 mg/dL (0.2-1.3); Blood Urea Nitrogen 88 mg/dL (7-17); Calcium 8.2 mg/dL (8.4-10.2); Carbon Dioxide > 40 mmol/L (22-30); Chloride 89 mmol/L (98-107); Estimated CRCL calculation 20 ml/min; Estimated Glomerular Filt Rate 19; Glucose 159 mg/dL (65-110); Magnesium 2.1 mg/dL (1.6-2.3); Phosphorus 4.4 mg/dL (2.5-4.5); Potassium 4.1 mmol/L (3.4-5.0); Sodium 137 mmol/L (137-145)
[2024-06-26] MEDS: UMECLIDINIUM/VILANTEROL 62.5-25 MCG ELLIPTA 1 PUFF INHALATION (07:45)
[2024-06-26 07:56] LABS: Glucose Point of Care 149 mg/dl (65-105)
--- NOTE | 2024-06-26 08:22 | P.PNNP_ITS ---
Progress Note: A&P Assessment and Plan (1) Acute kidney injury: Code(s): N17.9 - Acute kidney failure, unspecified Status: Acute Assessment and Plan: * as noted by admission labs * slow improvement noted up until labs today * evaluation to date noted: * renal u/s normal * urine electrolytes prerenal * urine eosinophils negative * CPK normal * Urine output 800cc yesterday and 500cc so far today. * insult thought to be due to relative hypotension and prerenal factors * She was getting IV fluids yesterday but they stopped overnight. * Her creatinine has improved from 2.8-2.5. * Will check another creatinine tomorrow. (2) Chronic kidney disease, stage 3: Code(s): N18.30 - Chronic kidney disease, stage 3 unspecified Status: Chronic Assessment and Plan: * baseline creatinine runs around 1.1 - 1.3mg/dl * presumably secondary to CHF, vascular disease, DARRICK/pulmonary HTN, and age- related change (3) Hyperkalemia: Code(s): E87.5 - Hyperkalemia Status: Acute Assessment and Plan: * resolved (4) Altered mental status: Code(s): R41.82 - Altered mental status, unspecified Status: Acute Assessment and Plan: * improvement noted * etiology? * due to drugs/medications (narcotics, muscle relaxants, requip...etc) versus renal dysfunction versus other? * ABG noted * She seems a little more spontaneous today than she was yesterday. (5) Chronic respiratory failure with hypoxia and hypercapnia: Code(s): J96.11 - Chronic respiratory failure with hypoxia; J96.12 - Chronic respiratory failure with hypercapnia Status: Acute Assessment and Plan: * back to baseline oxygen requirements * secondary to DARRICK/pulmonary hypertension, COPD, and congestive heart failure * elevated D-dimer noted in ER - V/Q scan intermediate probability. And lower extremity doppler negative. * Risk of Contrast nephrotoxicity would be fairly high in this situation. * follow respiratory status (6) Combined systolic and diastolic congestive heart failure: Qualifiers: Heart failure chronicity: chronic Qualified Code(s): I50.42 - Chronic combined systolic (congestive) and diastolic (congestive) heart failure Code(s): I50.40 - Unspecified combined systolic (congestive) and diastolic (congestive) heart failure Status: Chronic Assessment and Plan: * appears compensated at this time. Echo shows an EF of 20-25%. * Volume status looks okay * Chest x-ray did show mild interstitial edema * Discussed with TABATHA Moctezuma concerning Entresto. I hesitate to use this since she still is in the throes of acute kidney injury. We also discussed dobutamine but the patient is not decompensated with regards to her heart failure. So we are holding off on this. (7) Atrial flutter with rapid ventricular response: Code(s): I48.92 - Unspecified atrial flutter Status: Acute Assessment and Plan: * continue rate control strategy (8) Type 2 diabetes mellitus with hyperglycemia, without long-term current use of insulin: Code(s): E11.65 - Type 2 diabetes mellitus with hyperglycemia Status: Chronic Assessment and Plan: * follow accu-cheks * glyceminc control per grease cup filler/hospitalist Subjective Date/time seen: 06/26/24 08:22 Interval history: Patient feels about the same. She ate most of her breakfast. She has no shortness of breath but she is still on oxygen. No urinary complaints. Exam
--- NOTE | 2024-06-26 08:22 | PM.PNNEP ---
Progress Note: A&P Assessment and Plan (1) Acute kidney injury: Code(s): N17.9 - Acute kidney failure, unspecified Status: Acute Assessment and Plan: as noted by admission labs slow improvement noted up until labs today evaluation to date noted: renal u/s normal urine electrolytes prerenal urine eosinophils negative CPK normal Urine output 800cc yesterday and 500cc so far today. insult thought to be due to relative hypotension and prerenal factors She was getting IV fluids yesterday but they stopped overnight. Her creatinine has improved from 2.8-2.5. Will check another creatinine tomorrow. (2) Chronic kidney disease, stage 3: Code(s): N18.30 - Chronic kidney disease, stage 3 unspecified Status: Chronic Assessment and Plan: baseline creatinine runs around 1.1 - 1.3mg/dl presumably secondary to CHF, vascular disease, DARRICK/pulmonary HTN, and age-related change (3) Hyperkalemia: Code(s): E87.5 - Hyperkalemia Status: Acute Assessment and Plan: resolved (4) Altered mental status: Code(s): R41.82 - Altered mental status, unspecified Status: Acute Assessment and Plan: improvement noted etiology? due to drugs/medications (narcotics, muscle relaxants, requip...etc) versus renal dysfunction versus other? ABG noted She seems a little more spontaneous today than she was yesterday. (5) Chronic respiratory failure with hypoxia and hypercapnia: Code(s): J96.11 - Chronic respiratory failure with hypoxia; J96.12 - Chronic respiratory failure with hypercapnia Status: Acute Assessment and Plan: back to baseline oxygen requirements secondary to DARRICK/pulmonary hypertension, COPD, and congestive heart failure elevated D-dimer noted in ER - V/Q scan intermediate probability. And lower extremity doppler negative. Risk of Contrast nephrotoxicity would be fairly high in this situation. follow respiratory status (6) Combined systolic and diastolic congestive heart failure: Qualifiers: Heart failure chronicity: chronic Qualified Code(s): I50.42 - Chronic combined systolic (congestive) and diastolic (congestive) heart failure Code(s): I50.40 - Unspecified combined systolic (congestive) and diastolic (congestive) heart failure Status: Chronic Assessment and Plan: appears compensated at this time. Echo shows an EF of 20-25%. Volume status looks okay Chest x-ray did show mild interstitial edema Discussed with TABATHA Moctezuma concerning Entresto. I hesitate to use this since she still is in the throes of acute kidney injury. We also discussed dobutamine but the patient is not decompensated with regards to her heart failure. So we are holding off on this. (7) Atrial flutter with rapid ventricular response: Code(s): I48.92 - Unspecified atrial flutter Status: Acute Assessment and Plan: continue rate control strategy (8) Type 2 diabetes mellitus with hyperglycemia, without long-term current use of insulin: Code(s): E11.65 - Type 2 diabetes mellitus with hyperglycemia Status: Chronic Assessment and Plan: follow accu-cheks glyceminc control per health data analyst/hospitalist Subjective Date/time seen: 06/26/24 08:22 Interval history: Patient feels about the same. She ate most of her breakfast. She has no shortness of breath but she is still on oxygen. No urinary complaints. Exam Narrative: General: Well-developed well-nourished female in NAD Heart: tachycardic, normal S1 and S2; no rub or gallop Lungs: coarse and decreased at bases Abdomen: soft, nontender, nondistended, positive bowel sounds Extremities: no cyanosis or clubbing; trace edema Skin: no nodules or rash Objective Data Vital Signs Vital Signs: Vital Signs - 24 hr 06/25/24 08:30 06/25/24 10:00 06/25/24 14:21 Temperature 97.2 F L 97.9 F Pulse Rate 99 85 59 L
[2024-06-26] MEDS: ASPIRIN 81 MG CHEWABLE TABLET PO (09:00)
[2024-06-26] MEDS: METOPROLOL SUCCINATE EXT REL 25 MG TABCR PO (09:00)
[2024-06-26] MEDS: CLOPIDOGREL BISULFATE 75 MG TABLET PO (09:00)
[2024-06-26] MEDS: CYANOCOBALAMIN 1,000 MCG TABLET 1000 MCG PO (09:00)
[2024-06-26] MEDS: ENOXAPARIN 30 MG/0.3 ML SYRINGE SUB-Q (09:01)
[2024-06-26] MEDS: HYDROcodone/acetaminophen (*CRX) 5-325 MG TABLET 1 TAB PO ×2 (09:01→20:55)
[2024-06-26] MEDS: FOLIC ACID 1 MG TABLET PO (09:01)
[2024-06-26] MEDS: DOCUSATE SODIUM 100 MG CAPSULE PO (09:01)
--- NOTE | 2024-06-26 11:02 | PM.IMPN ---
Progress Note: A&P Assessment and Plan (1) Combined systolic and diastolic congestive heart failure: Qualifiers: Heart failure chronicity: chronic Qualified Code(s): I50.42 - Chronic combined systolic (congestive) and diastolic (congestive) heart failure Code(s): I50.40 - Unspecified combined systolic (congestive) and diastolic (congestive) heart failure Status: Chronic (2) Toxic metabolic encephalopathy: Code(s): G92.8 - Other toxic encephalopathy Status: Acute (3) Type 2 diabetes mellitus with hyperglycemia, without long-term current use of insulin: Code(s): E11.65 - Type 2 diabetes mellitus with hyperglycemia Status: Chronic (4) Acute hyperkalemia: Code(s): E87.5 - Hyperkalemia Status: Acute (5) Acute on chronic kidney failure: Qualifiers: Acute renal failure type: unspecified Chronic kidney disease stage: stage 3 (moderate) Chronic kidney disease stage 3 subtype: stage 3b (GFR 30-44) Qualified Code(s): N17.9 - Acute kidney failure, unspecified; N18.32 - Chronic kidney disease, stage 3b Code(s): N17.9 - Acute kidney failure, unspecified; N18.9 - Chronic kidney disease, unspecified Status: Inactive (6) COPD (chronic obstructive pulmonary disease): Code(s): J44.9 - Chronic obstructive pulmonary disease, unspecified Status: Acute (7) Coronary artery disease: Qualifiers: Coronary Disease-Associated Artery/Lesion type: [place] artery [place] vs. transplanted heart: [place] heart Associated angina: without angina Qualified Code(s): I25.10 - Atherosclerotic heart disease of [place] coronary artery without angina pectoris Code(s): I25.10 - Atherosclerotic heart disease of [place] coronary artery without angina pectoris Status: Acute (8) Atrial flutter with rapid ventricular response: Code(s): I48.92 - Unspecified atrial flutter Status: Acute (9) Chronic respiratory failure with hypoxia and hypercapnia: Code(s): J96.11 - Chronic respiratory failure with hypoxia; J96.12 - Chronic respiratory failure with hypercapnia Status: Acute (10) Sepsis: Code(s): A41.9 - Sepsis, unspecified organism Status: Acute (11) UTI (urinary tract infection): Code(s): N39.0 - Urinary tract infection, site not specified Status: Acute Plan # Elevated D-dimer and Intermediate probability for pulmonary embolism -Doppler of lower extremities was negative. -She was started on empiric anticoagulation on presentation to ICU. She has moderate pretest probability of PE. In light of intermediate V/Q scan results and negative Dopplers of lower extremity Dr. Anaya held further anticoagulation at this time. -Once renal function improves patient can be be evaluated if clinically indicated with CTA. - Patient overall is not a good candidate for chronic anticoagulation due to high risk of fall and anticipation of invasive procedures at this time -CT scan shows:Moderate right pleural effusion.Enlarging 1.6 x 1.1 cm lobulated right upper lobe pulmonary nodule, as above. Neoplasm is consideration. Consider PET/CT and/or tissue sampling. # Atrial flutter with rapid ventricular response -Patient presented with atrial flutter and was given amiodarone and has converted to sinus rhythm -Patient seen by Cardiology and recommend discontinuing further amiodarone at this time due to history of lung disease -Cardiology does not recommend anticoagulation at this time considering brief episode which has converted to sinus rhythm -Started on metoprolol 12.5 mg p.o. q.12 hours # FENG -Cr 3.40<3.30<2.80<2.50>2.80 -Up trend on creatinine. -Patient's baseline creatinine ranges normally in 1.1-1.3. -She presented with creatinine of 3.42 on admission -Due to concerns of CHF patient did not receive any IV fluids and instead was given Lasix -Appreciate nephrology following the patient -Renal ultrasound was unremarkable
[2024-06-26 11:54] LABS: Glucose Point of Care 175 mg/dl (65-105)
[2024-06-26 16:58] LABS: Glucose Point of Care 194 mg/dl (65-105)
[2024-06-26] MEDS: ATORVASTATIN 40 MG TABLET 80 MG PO (17:22)
[2024-06-26] MEDS: INSULIN ASPART (*BKC) 100 UNITS/ML SUB-Q (20:56)
[2024-06-27] VITALS (24 sets, daily range): BP systolic 96–116; BP diastolic 46–80; PULSE 87–95; RESP 16–22; TEMP 36.2–36.6; O2SAT 93–100
[2024-06-27] MEDS: IPRATROPIUM BR 0.02% INH SOLN 0.5 MG/2.5 ML VIAL INHALATION ×4 (01:51→19:58)
[2024-06-27 03:25] LABS: Glucose Point of Care 296 mg/dl (65-105)
[2024-06-27] MEDS: HYDROcodone/acetaminophen (*CRX) 5-325 MG TABLET 1 TAB PO ×3 (04:32→17:55)
[2024-06-27 05:01] LABS: Hematocrit 33.7 % (37.0-47.0); Mean Corpuscular HGB Conc 29.7 g/dl (32-36); Mean Corpuscular Hemoglobin 31.3 pg (26-34); Mean Corpuscular Volume 105.3 fl (80-100); Mean Platelet Volume 12.7 fl (7.4-10.4); Platelet Count Result 119 k/mm3 (150-375); Red Cell Distribution Width 15.5 % (11.5-14.5); White Blood Count 7.6 K/mm3 (4.5-10.0)
[2024-06-27 05:41] LABS: Blood Urea Nitrogen 81 mg/dL (7-17); Calcium 8.3 mg/dL (8.4-10.2); Carbon Dioxide > 40 mmol/L (22-30); Chloride 89 mmol/L (98-107); Estimated CRCL calculation 20 ml/min; Estimated Glomerular Filt Rate 20; Glucose 278 mg/dL (65-110); Magnesium 2.1 mg/dL (1.6-2.3); Potassium 3.7 mmol/L (3.4-5.0); Sodium 137 mmol/L (137-145)
[2024-06-27] MEDS: UMECLIDINIUM/VILANTEROL 62.5-25 MCG ELLIPTA 1 PUFF INHALATION (07:32)
[2024-06-27 08:30] LABS: Glucose Point of Care 283 mg/dl (65-105)
--- NOTE | 2024-06-27 08:46 | P.PNNP_ITS ---
Progress Note: A&P Assessment and Plan (1) Acute kidney injury: Code(s): N17.9 - Acute kidney failure, unspecified Status: Acute Assessment and Plan: * as noted by admission labs * slow improvement noted up until labs today * evaluation to date noted: * renal u/s normal * urine electrolytes prerenal * urine eosinophils negative * CPK normal * Urine output 1150 cc yesterday and 800cc so far today. * insult thought to be due to relative hypotension and prerenal factors * She is off IV fluids * Her creatinine has improved from 2.8 to 2.5 to 2.4. * Will check another creatinine tomorrow. (2) Chronic kidney disease, stage 3: Code(s): N18.30 - Chronic kidney disease, stage 3 unspecified Status: Chronic Assessment and Plan: * baseline creatinine runs around 1.1 - 1.3mg/dl * presumably secondary to CHF, vascular disease, DARRICK/pulmonary HTN, and age- related change (3) Hyperkalemia: Code(s): E87.5 - Hyperkalemia Status: Acute Assessment and Plan: * resolved (4) Altered mental status: Code(s): R41.82 - Altered mental status, unspecified Status: Acute Assessment and Plan: * improvement noted * etiology? * due to drugs/medications (narcotics, muscle relaxants, requip...etc) versus renal dysfunction versus other? * ABG noted * Mental status seems fairly normal today (5) Chronic respiratory failure with hypoxia and hypercapnia: Code(s): J96.11 - Chronic respiratory failure with hypoxia; J96.12 - Chronic respiratory failure with hypercapnia Status: Acute Assessment and Plan: * back to baseline oxygen requirements * secondary to DARRICK/pulmonary hypertension, COPD, and congestive heart failure * elevated D-dimer noted in ER - V/Q scan intermediate probability. And lower extremity doppler negative. * Risk of Contrast nephrotoxicity would be fairly high in this situation. * follow respiratory status (6) Combined systolic and diastolic congestive heart failure: Qualifiers: Heart failure chronicity: chronic Qualified Code(s): I50.42 - Chronic combined systolic (congestive) and diastolic (congestive) heart failure Code(s): I50.40 - Unspecified combined systolic (congestive) and diastolic (congestive) heart failure Status: Chronic Assessment and Plan: * appears compensated at this time. Echo shows an EF of 20-25%. * Volume status looks okay * Chest x-ray did show mild interstitial edema * Discussed with TABATHA Moctezuma concerning Entresto. I hesitate to use this since she still is in the throes of acute kidney injury. We also discussed dobutamine but the patient is not decompensated with regards to her heart failure. So we are holding off on this. (7) Atrial flutter with rapid ventricular response: Code(s): I48.92 - Unspecified atrial flutter Status: Acute Assessment and Plan: * continue rate control strategy (8) Type 2 diabetes mellitus with hyperglycemia, without long-term current use of insulin: Code(s): E11.65 - Type 2 diabetes mellitus with hyperglycemia Status: Chronic Assessment and Plan: * follow accu-cheks * glycemic control per director community center/hospitalist Subjective Date/time seen: 06/27/24 08:46 Interval history: Patient feels better. She denies shortness of breath. She is eating well. Exam Narrative: General: Well-developed well-nourished female in NAD Heart: tachycardic
--- NOTE | 2024-06-27 08:46 | PM.PNNEP ---
Progress Note: A&P Assessment and Plan (1) Acute kidney injury: Code(s): N17.9 - Acute kidney failure, unspecified Status: Acute Assessment and Plan: as noted by admission labs slow improvement noted up until labs today evaluation to date noted: renal u/s normal urine electrolytes prerenal urine eosinophils negative CPK normal Urine output 1150 cc yesterday and 800cc so far today. insult thought to be due to relative hypotension and prerenal factors She is off IV fluids Her creatinine has improved from 2.8 to 2.5 to 2.4. Will check another creatinine tomorrow. (2) Chronic kidney disease, stage 3: Code(s): N18.30 - Chronic kidney disease, stage 3 unspecified Status: Chronic Assessment and Plan: baseline creatinine runs around 1.1 - 1.3mg/dl presumably secondary to CHF, vascular disease, DARRICK/pulmonary HTN, and age-related change (3) Hyperkalemia: Code(s): E87.5 - Hyperkalemia Status: Acute Assessment and Plan: resolved (4) Altered mental status: Code(s): R41.82 - Altered mental status, unspecified Status: Acute Assessment and Plan: improvement noted etiology? due to drugs/medications (narcotics, muscle relaxants, requip...etc) versus renal dysfunction versus other? ABG noted Mental status seems fairly normal today (5) Chronic respiratory failure with hypoxia and hypercapnia: Code(s): J96.11 - Chronic respiratory failure with hypoxia; J96.12 - Chronic respiratory failure with hypercapnia Status: Acute Assessment and Plan: back to baseline oxygen requirements secondary to DARRICK/pulmonary hypertension, COPD, and congestive heart failure elevated D-dimer noted in ER - V/Q scan intermediate probability. And lower extremity doppler negative. Risk of Contrast nephrotoxicity would be fairly high in this situation. follow respiratory status (6) Combined systolic and diastolic congestive heart failure: Qualifiers: Heart failure chronicity: chronic Qualified Code(s): I50.42 - Chronic combined systolic (congestive) and diastolic (congestive) heart failure Code(s): I50.40 - Unspecified combined systolic (congestive) and diastolic (congestive) heart failure Status: Chronic Assessment and Plan: appears compensated at this time. Echo shows an EF of 20-25%. Volume status looks okay Chest x-ray did show mild interstitial edema Discussed with TABATHA Moctezuma concerning Entresto. I hesitate to use this since she still is in the throes of acute kidney injury. We also discussed dobutamine but the patient is not decompensated with regards to her heart failure. So we are holding off on this. (7) Atrial flutter with rapid ventricular response: Code(s): I48.92 - Unspecified atrial flutter Status: Acute Assessment and Plan: continue rate control strategy (8) Type 2 diabetes mellitus with hyperglycemia, without long-term current use of insulin: Code(s): E11.65 - Type 2 diabetes mellitus with hyperglycemia Status: Chronic Assessment and Plan: follow accu-cheks glycemic control per datapower consultant/hospitalist Subjective Date/time seen: 06/27/24 08:46 Interval history: Patient feels better. She denies shortness of breath. She is eating well. Exam Narrative: General: Well-developed well-nourished female in NAD Heart: tachycardic, normal S1 and S2; no rub or gallop Lungs: Fairly clear breath sounds today. Abdomen: soft, nontender, nondistended, positive bowel sounds Extremities: trace edema Skin: no rash Objective Data Vital Signs Vital Signs: Vital Signs - 24 hr 06/26/24 09:00 06/26/24 09:52 06/26/24 09:01 Temperature 98.0 F Pulse Rate 93 95 Respiratory Rate 16 16 Blood Pressure 109/55 L Pulse Oximetry 98 98 Oxygen Delivery High Flow Nasal Cannula Oxygen Flow Rate 4 06/26/24 12:01 06/26
[2024-06-27] MEDS: INSULIN ASPART (*BKC) 100 UNITS/ML SUB-Q ×3 (09:40→20:47)
[2024-06-27] MEDS: DOCUSATE SODIUM 100 MG CAPSULE PO (09:41)
[2024-06-27] MEDS: CYANOCOBALAMIN 1,000 MCG TABLET 1000 MCG PO (09:41)
[2024-06-27] MEDS: ASPIRIN 81 MG CHEWABLE TABLET PO (09:41)
[2024-06-27] MEDS: FOLIC ACID 1 MG TABLET PO (09:41)
[2024-06-27] MEDS: CLOPIDOGREL BISULFATE 75 MG TABLET PO (09:41)
[2024-06-27] MEDS: ENOXAPARIN 30 MG/0.3 ML SYRINGE SUB-Q (09:42)
[2024-06-27] MEDS: METOPROLOL SUCCINATE EXT REL 25 MG TABCR PO (09:42)
--- NOTE | 2024-06-27 12:07 | PM.IMPN ---
Progress Note: A&P Assessment and Plan (1) Combined systolic and diastolic congestive heart failure: Qualifiers: Heart failure chronicity: chronic Qualified Code(s): I50.42 - Chronic combined systolic (congestive) and diastolic (congestive) heart failure Code(s): I50.40 - Unspecified combined systolic (congestive) and diastolic (congestive) heart failure Status: Chronic (2) Toxic metabolic encephalopathy: Code(s): G92.8 - Other toxic encephalopathy Status: Acute (3) Type 2 diabetes mellitus with hyperglycemia, without long-term current use of insulin: Code(s): E11.65 - Type 2 diabetes mellitus with hyperglycemia Status: Chronic (4) Acute hyperkalemia: Code(s): E87.5 - Hyperkalemia Status: Acute (5) Acute on chronic kidney failure: Qualifiers: Acute renal failure type: unspecified Chronic kidney disease stage: stage 3 (moderate) Chronic kidney disease stage 3 subtype: stage 3b (GFR 30-44) Qualified Code(s): N17.9 - Acute kidney failure, unspecified; N18.32 - Chronic kidney disease, stage 3b Code(s): N17.9 - Acute kidney failure, unspecified; N18.9 - Chronic kidney disease, unspecified Status: Inactive (6) COPD (chronic obstructive pulmonary disease): Code(s): J44.9 - Chronic obstructive pulmonary disease, unspecified Status: Acute (7) Coronary artery disease: Qualifiers: Coronary Disease-Associated Artery/Lesion type: [place] artery [place] vs. transplanted heart: [place] heart Associated angina: without angina Qualified Code(s): I25.10 - Atherosclerotic heart disease of [place] coronary artery without angina pectoris Code(s): I25.10 - Atherosclerotic heart disease of [place] coronary artery without angina pectoris Status: Acute (8) Atrial flutter with rapid ventricular response: Code(s): I48.92 - Unspecified atrial flutter Status: Acute (9) Chronic respiratory failure with hypoxia and hypercapnia: Code(s): J96.11 - Chronic respiratory failure with hypoxia; J96.12 - Chronic respiratory failure with hypercapnia Status: Acute (10) Sepsis: Code(s): A41.9 - Sepsis, unspecified organism Status: Acute (11) UTI (urinary tract infection): Code(s): N39.0 - Urinary tract infection, site not specified Status: Acute Plan # Elevated D-dimer and Intermediate probability for pulmonary embolism -Doppler of lower extremities was negative. -She was started on empiric anticoagulation on presentation to ICU. She has moderate pretest probability of PE. In light of intermediate V/Q scan results and negative Dopplers of lower extremity Dr. Anaya held further anticoagulation at this time. -Once renal function improves patient can be be evaluated if clinically indicated with CTA. - Patient overall is not a good candidate for chronic anticoagulation due to high risk of fall and anticipation of invasive procedures at this time -CT scan shows: Moderate right pleural effusion.Enlarging 1.6 x 1.1 cm lobulated right upper lobe pulmonary nodule, as above. Neoplasm is consideration. Consider PET/CT and/or tissue sampling. # Atrial flutter with rapid ventricular response -Patient presented with atrial flutter and was given amiodarone and has converted to sinus rhythm -Patient seen by Cardiology and recommend discontinuing further amiodarone at this time due to history of lung disease -Cardiology does not recommend anticoagulation at this time considering brief episode which has converted to sinus rhythm -Started on metoprolol 12.5 mg p.o. q.12 hours # FENG -Cr 3.40<3.30<2.80<2.50>2.80 -Up trend on creatinine. -Patient's baseline creatinine ranges normally in 1.1-1.3. -She presented with creatinine of 3.42 on admission -Due to concerns of CHF patient did not receive any IV fluids and instead was given Lasix -Appreciate nephrology following the patient -Renal ultrasound was unremarkable
[2024-06-27 12:19] LABS: Glucose Point of Care 244 mg/dl (65-105)
[2024-06-27 17:18] LABS: Glucose Point of Care 196 mg/dl (65-105)
[2024-06-27] MEDS: ATORVASTATIN 40 MG TABLET 80 MG PO (17:55)
[2024-06-27] MEDS: MELATONIN 3 MG TABLET 6 MG PO (20:46)
[2024-06-27 20:58] LABS: Glucose Point of Care 218 mg/dl (65-105)
[2024-06-28] VITALS (17 sets, daily range): BP systolic 104–118; BP diastolic 50–86; PULSE 85–98; RESP 18–20; TEMP 36.2–36.4; O2SAT 95–100; BMI 33.3
[2024-06-28 05:14] LABS: Basophils Percent Auto 0.4 % (0.2-1.2); Eosinophils Absolute Auto 0.2 K/mm3 (0-0.3); Eosinophils Percent Auto 2.2 % (0-4.4); Hematocrit 34.5 % (37.0-47.0); Hemoglobin 10.1 g/dL (12.0-15.0); Immature Granulocyte Absolute 0.04 K/mm3 (0.00-0.031); Immature Granulocyte Percent A 0.5 % (0-0.5); Lymphocytes Absolute Auto 0.79 K/mm3 (0.9-3.2); Lymphocytes Percent Auto 10.6 % (18.3-44.2); Mean Corpuscular HGB Conc 29.3 g/dl (32-36); Mean Corpuscular Hemoglobin 31.6 pg (26-34); Mean Corpuscular Volume 107.8 fl (80-100); Mean Platelet Volume 12.6 fl (7.4-10.4); Monocytes Absolute Auto 1.1 K/mm3 (0.1-0.6); Monocytes Percent Auto 14.3 % (2.6-8.5); Neutrophils Absolute Auto 5.4 K/mm3 (1.3-6.7); Platelet Count Result 101 k/mm3 (150-375); Red Cell Distribution Width 15.7 % (11.5-14.5); White Blood Count 7.4 K/mm3 (4.5-10.0)
--- NOTE | 2024-06-28 05:34 | PCRCNOTE ---
Patient refused 0200 updraft treatment due to wanting sleep. Treatment to resume at 0800.
[2024-06-28 05:35] LABS: Alanine Aminotransferase 67 U/L (6-35); Albumin Level 3.4 g/dL (3.5-5.1); Alkaline Phosphatase 249 U/L (38-126); Aspartate Amino Transferase 61 U/L (14-36); Bilirubin,Total 0.6 mg/dL (0.2-1.3); Blood Urea Nitrogen 82 mg/dL (7-17); Calcium 8.5 mg/dL (8.4-10.2); Carbon Dioxide > 40 mmol/L (22-30); Chloride 92 mmol/L (98-107); Estimated CRCL calculation 24 ml/min; Estimated Glomerular Filt Rate 25; Glucose 233 mg/dL (65-110); Magnesium 2.2 mg/dL (1.6-2.3); Potassium 3.9 mmol/L (3.4-5.0); Sodium 138 mmol/L (137-145)
[2024-06-28 05:51] LABS: Platelet Estimate Decreased (Adequate)
[2024-06-28 05:52] LABS: Hypochromasia 1+; Schistocytes None Seen; Stomatocytes 1+
[2024-06-28] MEDS: HYDROcodone/acetaminophen (*CRX) 5-325 MG TABLET 1 TAB PO ×3 (05:56→17:55)
[2024-06-28] MEDS: UMECLIDINIUM/VILANTEROL 62.5-25 MCG ELLIPTA 1 PUFF INHALATION (06:55)
[2024-06-28] MEDS: IPRATROPIUM BR 0.02% INH SOLN 0.5 MG/2.5 ML VIAL INHALATION ×3 (06:55→20:53)
[2024-06-28] MEDS: WATER FOR IRRIGATION, STERILE 1,000 ML BOTTLE 1000 ML (07:00)
--- NOTE | 2024-06-28 07:16 | PM.PNCARD ---
Progress Note: A&P Assessment and Plan (1) Atrial flutter with rapid ventricular response: Code(s): I48.92 - Unspecified atrial flutter Status: Acute Plan 73-year-old lady with history of coronary artery disease with previous percutaneous revascularization. She has left ventricular systolic dysfunction as result of this she also has severe COPD with heavy smoking history. Consulted to see this lady because of atrial flutter with rapid response which was initially felt to represent ventricular tachycardia. She is on a modest dose of metoprolol and maintaining sinus rhythm. Will continue to follow as needed but at this point no further cardiac recommendations to make Edil Marcelo MD [facility] Subjective Date/time seen: Date of service: 06/28/24 07:16 Interval history: Reason for visit: Atrial flutter with RVR HPI: This is a 73-year-old woman that I am seeing at the request of the hospitalist because of ventricular tachycardia. Patient is not known to me her chart has been reviewed and she has been seen in room 231. The majority of the history is from the medical record and the who was in the room. The patient is very sleepy and a very poor historian regarding any of her medical history at this time. Apparently she has a history of coronary artery disease, severe peripheral vascular disease and severe chronic lung disease with more than 100 previous pack years of smoking. She was hospitalized yesterday because of shortness of breath. She has had a number of hospitalizations here with dyspnea that have been attributed to hypercarbic respiratory failure repair your with her chronic lung disease. She has echocardiographic evidence in our chart recently showing room mildly reduced left ventricular systolic function. The patient's indicates she has a history of coronary artery disease and was treated at [facility] he estimates 5 or 6 years ago with an acute myocardial infarction. The 's recollection is that 1 of her coronary arteries is chronically occluded and remains so and she had a percutaneous revascularization stenting 3 of her other coronary arteries at that time. She had followed up with a continuous washer operator who did the intervention for couple of years but then they state that he left the area and rather than following up with anybody else they just all sort of let that go. Up until the last couple of weeks she has been smoking heavily despite this history. She has a history of peripheral vascular disease and has undergone percutaneous lower extremity revascularization also at [facility]. The states that procedure per predates her coronary procedure. The patient was sent here from a rehab facility up in [place] because of worsening shortness of breath and hypoxemia. Her blood gases again show evidence of hypercarbic respiratory failure. She appears to be somnolent because of this. He is not having any chest pain pressure or heaviness. The patient's electrocardiogram shows sinus rhythm with a first-degree AV block right bundle branch block and a markedly leftward axis with inferior Q-waves. The electrocardiogram this morning was suddenly noted to show irregular wide QRS tachycardia. The QRS morphology is identical to her normal rhythm and the 12 lead electrocardiogram shows AV synchrony indicating the likely diagnosis of atrial flutter with two-to-one conduction, not ventricular tachycardia. When this occurred this morning she was given a bolus of amiodarone and placed on an infusion shortly after that she converted back to sinus rhythm. Importantly her laboratory data also demonstrates significant acute on chronic renal insufficiency. Date of service 06/21: Ischemic heart disease with mild ischemic LV dysfunction, previous infarction and remote history of percutaneous revascularization. Patient also has severe COPD with many years of smoking in the past. Also has acute on chronic renal insufficienc
[2024-06-28 07:52] LABS: Glucose Point of Care 254 mg/dl (65-105)
[2024-06-28] MEDS: INSULIN ASPART (*BKC) 100 UNITS/ML SUB-Q ×4 (08:05→20:49)
--- NOTE | 2024-06-28 08:22 | PCPTNOTE ---
Attempted to see patient but patient sleeping at this time. Attempted to arouse patient from sleep but patient kept eyes closed and only responded with moving arms and legs to reposition in bed. RN aware. PT will continue to follow.
[2024-06-28] MEDS: CYANOCOBALAMIN 1,000 MCG TABLET 1000 MCG PO (09:27)
[2024-06-28] MEDS: ASPIRIN 81 MG CHEWABLE TABLET PO (09:27)
[2024-06-28] MEDS: ENOXAPARIN 30 MG/0.3 ML SYRINGE SUB-Q (09:27)
[2024-06-28] MEDS: FOLIC ACID 1 MG TABLET PO (09:27)
[2024-06-28] MEDS: METOPROLOL SUCCINATE EXT REL 25 MG TABCR PO (09:28)
[2024-06-28] MEDS: DOCUSATE SODIUM 100 MG CAPSULE PO (09:28)
[2024-06-28] MEDS: CLOPIDOGREL BISULFATE 75 MG TABLET PO (09:28)
--- NOTE | 2024-06-28 10:22 | PCOTNOTE ---
The patient treatment was not able to be completed. Attempted to rouse patient but she did not open her eyes. Just shook her head. Will attempt when patient is more alert. Will plan to continue treatment per plan of care.
--- NOTE | 2024-06-28 10:30 | P.PNNP_ITS ---
Progress Note: A&P Assessment and Plan (1) Acute kidney injury: Code(s): N17.9 - Acute kidney failure, unspecified Status: Acute Assessment and Plan: * as noted by admission labs * slow improvement noted * evaluation to date noted: * renal u/s normal * urine electrolytes prerenal * urine eosinophils negative * CPK normal * good urine output noted * insult thought to be due to relative hypotension and prerenal factors * given her significant cardiomyopathy, she may have a new baseline creatinine.... * follow trend of repeat labs and UOP (2) Chronic kidney disease, stage 3: Code(s): N18.30 - Chronic kidney disease, stage 3 unspecified Status: Chronic Assessment and Plan: * baseline creatinine runs around 1.1 - 1.3mg/dl * presumably secondary to CHF, vascular disease, DARRICK/pulmonary HTN, and age- related change (3) Altered mental status: Code(s): R41.82 - Altered mental status, unspecified Status: Acute Assessment and Plan: * improvement noted * etiology? * due to drugs/medications (narcotics, muscle relaxants, requip...etc) versus renal dysfunction versus other? * ABG noted (4) Chronic respiratory failure with hypoxia and hypercapnia: Code(s): J96.11 - Chronic respiratory failure with hypoxia; J96.12 - Chronic respiratory failure with hypercapnia Status: Acute Assessment and Plan: * back to baseline oxygen requirements * secondary to DARRICK/pulmonary hypertension, COPD, and congestive heart failure * elevated D-dimer noted in ER - V/Q scan intermediate probability and lower extremity doppler negative. * follow respiratory status (5) Combined systolic and diastolic congestive heart failure: Qualifiers: Heart failure chronicity: chronic Qualified Code(s): I50.42 - Chronic combined systolic (congestive) and diastolic (congestive) heart failure Code(s): I50.40 - Unspecified combined systolic (congestive) and diastolic (congestive) heart failure Status: Chronic Assessment and Plan: * appears compensated at this time -- Echo shows an EF of 20-25%. * volume status looks okay * last chest x-ray did show mild interstitial edema * possibly trial of entresto once creatinine stabilizes or continues to improve (6) Type 2 diabetes mellitus with hyperglycemia, without long-term current use of insulin: Code(s): E11.65 - Type 2 diabetes mellitus with hyperglycemia Status: Chronic Assessment and Plan: * follow accu-cheks * glycemic control per hospitalist Will continue to follow. Subjective Date/time seen: 06/28/24 10:30 Interval history: Follow-up for acute kidney injury/acute renal failure on chronic kidney disease. Chart reviewed since last seen -- renal function doing better by trend of labs in association with reasonable urine output; no apparent distress noted at the time of my visit; no issues/events overnight or earlier this morning. Exam 2 Narrative: General: elderly WD/WN female in NAD Heart: normal S1 and S2; no rub Lungs: clear anteriorly Abdomen: soft, nontender, nondistended, positive bowel sounds Extremities: trace edema noted Skin: no nodules Objective Data Vital Signs Vital Signs: Vital Signs Temp Pulse Resp BP Pulse Ox O2 Del Method O2 Flow Rate 06/28/24 09:28 89 18 99 High Flow Nasal Cannula 3
--- NOTE | 2024-06-28 10:30 | PM.PNNEP ---
Progress Note: A&P Assessment and Plan (1) Acute kidney injury: Code(s): N17.9 - Acute kidney failure, unspecified Status: Acute Assessment and Plan: as noted by admission labs slow improvement noted evaluation to date noted: renal u/s normal urine electrolytes prerenal urine eosinophils negative CPK normal good urine output noted insult thought to be due to relative hypotension and prerenal factors given her significant cardiomyopathy, she may have a new baseline creatinine.... follow trend of repeat labs and UOP (2) Chronic kidney disease, stage 3: Code(s): N18.30 - Chronic kidney disease, stage 3 unspecified Status: Chronic Assessment and Plan: baseline creatinine runs around 1.1 - 1.3mg/dl presumably secondary to CHF, vascular disease, DARRICK/pulmonary HTN, and age-related change (3) Altered mental status: Code(s): R41.82 - Altered mental status, unspecified Status: Acute Assessment and Plan: improvement noted etiology? due to drugs/medications (narcotics, muscle relaxants, requip...etc) versus renal dysfunction versus other? ABG noted (4) Chronic respiratory failure with hypoxia and hypercapnia: Code(s): J96.11 - Chronic respiratory failure with hypoxia; J96.12 - Chronic respiratory failure with hypercapnia Status: Acute Assessment and Plan: back to baseline oxygen requirements secondary to DARRICK/pulmonary hypertension, COPD, and congestive heart failure elevated D-dimer noted in ER - V/Q scan intermediate probability and lower extremity doppler negative. follow respiratory status (5) Combined systolic and diastolic congestive heart failure: Qualifiers: Heart failure chronicity: chronic Qualified Code(s): I50.42 - Chronic combined systolic (congestive) and diastolic (congestive) heart failure Code(s): I50.40 - Unspecified combined systolic (congestive) and diastolic (congestive) heart failure Status: Chronic Assessment and Plan: appears compensated at this time -- Echo shows an EF of 20-25%. volume status looks okay last chest x-ray did show mild interstitial edema possibly trial of entresto once creatinine stabilizes or continues to improve (6) Type 2 diabetes mellitus with hyperglycemia, without long-term current use of insulin: Code(s): E11.65 - Type 2 diabetes mellitus with hyperglycemia Status: Chronic Assessment and Plan: follow accu-cheks glycemic control per hospitalist Will continue to follow. Subjective Date/time seen: 06/28/24 10:30 Interval history: Follow-up for acute kidney injury/acute renal failure on chronic kidney disease. Chart reviewed since last seen -- renal function doing better by trend of labs in association with reasonable urine output; no apparent distress noted at the time of my visit; no issues/events overnight or earlier this morning. Exam Narrative: General: elderly WD/WN female in NAD Heart: normal S1 and S2; no rub Lungs: clear anteriorly Abdomen: soft, nontender, nondistended, positive bowel sounds Extremities: trace edema noted Skin: no nodules Objective Data Vital Signs Vital Signs: Vital Signs Temp Pulse Resp BP Pulse Ox O2 Del Method O2 Flow Rate 06/28/24 09:28 89 18 99 High Flow Nasal Cannula 3 06/28/24 09:28 89 06/28/24 08:14 85 06/28/24 08:00 97.1 F L 89 18 104/86 99 06/28/24 07:05 92 18 06/28/24 06:55 90 18 06/28/24 06:55 90 18 98 High Flow Nasal Cannula 3 06/28/24 04:01 91 06/28/24 04:00 97.1 F L 90 20 118/50 L 97 06/28/24 00:04 91 06/27/24 23:28 97.6 F 92 20 108/55 L 97 06/27/24 20:01 94 06/27/24 20:47 97 High Flow Nasal Cannula 3 06/27/24 20:10 91 20 06/27/24 20:02 94 97 High Flow Nasal Cannula 4 06/27/24 19:58 94 20 06/27/24 19:53 97.8 F
[2024-06-28 11:53] LABS: Glucose Point of Care 222 mg/dl (65-105)
--- NOTE | 2024-06-28 12:04 | PM.IMPN ---
Progress Note: A&P Assessment and Plan (1) Combined systolic and diastolic congestive heart failure: Qualifiers: Heart failure chronicity: chronic Qualified Code(s): I50.42 - Chronic combined systolic (congestive) and diastolic (congestive) heart failure Code(s): I50.40 - Unspecified combined systolic (congestive) and diastolic (congestive) heart failure Status: Chronic (2) Toxic metabolic encephalopathy: Code(s): G92.8 - Other toxic encephalopathy Status: Acute (3) Type 2 diabetes mellitus with hyperglycemia, without long-term current use of insulin: Code(s): E11.65 - Type 2 diabetes mellitus with hyperglycemia Status: Chronic (4) Acute hyperkalemia: Code(s): E87.5 - Hyperkalemia Status: Acute (5) Acute on chronic kidney failure: Qualifiers: Acute renal failure type: unspecified Chronic kidney disease stage: stage 3 (moderate) Chronic kidney disease stage 3 subtype: stage 3b (GFR 30-44) Qualified Code(s): N17.9 - Acute kidney failure, unspecified; N18.32 - Chronic kidney disease, stage 3b Code(s): N17.9 - Acute kidney failure, unspecified; N18.9 - Chronic kidney disease, unspecified Status: Inactive (6) COPD (chronic obstructive pulmonary disease): Code(s): J44.9 - Chronic obstructive pulmonary disease, unspecified Status: Acute (7) Coronary artery disease: Qualifiers: Coronary Disease-Associated Artery/Lesion type: [place] artery [place] vs. transplanted heart: [place] heart Associated angina: without angina Qualified Code(s): I25.10 - Atherosclerotic heart disease of [place] coronary artery without angina pectoris Code(s): I25.10 - Atherosclerotic heart disease of [place] coronary artery without angina pectoris Status: Acute (8) Atrial flutter with rapid ventricular response: Code(s): I48.92 - Unspecified atrial flutter Status: Acute (9) Chronic respiratory failure with hypoxia and hypercapnia: Code(s): J96.11 - Chronic respiratory failure with hypoxia; J96.12 - Chronic respiratory failure with hypercapnia Status: Acute (10) Sepsis: Code(s): A41.9 - Sepsis, unspecified organism Status: Acute (11) UTI (urinary tract infection): Code(s): N39.0 - Urinary tract infection, site not specified Status: Acute Plan # Elevated D-dimer and Intermediate probability for pulmonary embolism - Doppler of lower extremities was negative. - She was started on empiric anticoagulation on presentation to ICU. She has moderate pretest probability of PE. In light of intermediate V/Q scan results and negative Dopplers of lower extremity Dr. Anaya held further anticoagulation at this time. - Once renal function improves patient can be be evaluated if clinically indicated with CTA. - Patient overall is not a good candidate for chronic anticoagulation due to high risk of fall and anticipation of invasive procedures at this time - CT scan shows: Moderate right pleural effusion.Enlarging 1.6 x 1.1 cm lobulated right upper lobe pulmonary nodule, as above. Neoplasm is consideration. Consider PET/CT and/or tissue sampling. # Atrial flutter with rapid ventricular response - Patient presented with atrial flutter and was given amiodarone and has converted to sinus rhythm - Patient seen by Cardiology and recommend discontinuing further amiodarone at this time due to history of lung disease - Cardiology does not recommend anticoagulation at this time considering brief episode which has converted to sinus rhythm - Started on metoprolol 12.5 mg p.o. q.12 hours # FENG - Cr 3.40<3.30<2.80<2.50>2.80 - Up trend on creatinine. - Patient's baseline creatinine ranges normally in 1.1-1.3. - She presented with creatinine of 3.42 on admission - Due to concerns of CHF patient did not receive any IV fluids and instead was given Lasix - Appreciate nephrology following the patient - Renal ultrasound wa
[2024-06-28 14:56] LABS: Glucose Point of Care 229 mg/dl (65-105)
[2024-06-28 16:45] LABS: Glucose Point of Care 320 mg/dl (65-105)
[2024-06-28] MEDS: ATORVASTATIN 40 MG TABLET 80 MG PO (17:17)
[2024-06-28 20:34] LABS: Glucose Point of Care 257 mg/dl (65-105)
[2024-06-28] MEDS: BISACODYL 5 MG TABLET EC PO (20:48)
[2024-06-28] MEDS: SENNA/DOCUSATE SODIUM TABLET 1 TAB PO (20:48)
[2024-06-28] MEDS: MELATONIN 3 MG TABLET 6 MG PO (20:48)
[2024-06-29] VITALS (27 sets, daily range): BP systolic 69–134; BP diastolic 39–82; PULSE 82–100; RESP 18–20; TEMP 36–36.8; O2SAT 96–100
[2024-06-29] MEDS: IPRATROPIUM BR 0.02% INH SOLN 0.5 MG/2.5 ML VIAL INHALATION ×4 (01:47→19:29)
[2024-06-29] MEDS: HYDROcodone/acetaminophen (*CRX) 5-325 MG TABLET 1 TAB PO ×2 (03:09→13:25)
[2024-06-29 06:44] LABS: Basophils Percent Auto 0.1 % (0.2-1.2); Eosinophils Absolute Auto 0.2 K/mm3 (0-0.3); Eosinophils Percent Auto 2.7 % (0-4.4); Hematocrit 35.2 % (37.0-47.0); Hemoglobin 9.8 g/dL (12.0-15.0); Immature Granulocyte Absolute 0.04 K/mm3 (0.00-0.031); Immature Granulocyte Percent A 0.6 % (0-0.5); Lymphocytes Absolute Auto 0.97 K/mm3 (0.9-3.2); Mean Corpuscular HGB Conc 27.8 g/dl (32-36); Mean Corpuscular Hemoglobin 30.7 pg (26-34); Mean Corpuscular Volume 110.3 fl (80-100); Mean Platelet Volume 12.7 fl (7.4-10.4); Monocytes Absolute Auto 0.9 K/mm3 (0.1-0.6); Monocytes Percent Auto 13.6 % (2.6-8.5); Neutrophils Absolute Auto 4.8 K/mm3 (1.3-6.7); Platelet Count Result 102 k/mm3 (150-375); Red Blood Count 3.19 M/mm3 (4.2-5.4); Red Cell Distribution Width 15.4 % (11.5-14.5); White Blood Count 6.9 K/mm3 (4.5-10.0)
[2024-06-29 07:02] LABS: Alanine Aminotransferase 55 U/L (6-35); Albumin Level 3.4 g/dL (3.5-5.1); Alkaline Phosphatase 235 U/L (38-126); Aspartate Amino Transferase 53 U/L (14-36); Bilirubin,Total 0.5 mg/dL (0.2-1.3); Blood Urea Nitrogen 83 mg/dL (7-17); Calcium 8.7 mg/dL (8.4-10.2); Carbon Dioxide > 40 mmol/L (22-30); Chloride 92 mmol/L (98-107); Estimated CRCL calculation 26 ml/min; Estimated Glomerular Filt Rate 26; Glucose 232 mg/dL (65-110); Magnesium 2.1 mg/dL (1.6-2.3); Potassium 4.1 mmol/L (3.4-5.0); Sodium 138 mmol/L (137-145)
[2024-06-29 07:14] LABS: Glucose Point of Care 202 mg/dl (65-105)
[2024-06-29] MEDS: INSULIN ASPART (*BKC) 100 UNITS/ML SUB-Q ×4 (07:31→20:29)
[2024-06-29] MEDS: UMECLIDINIUM/VILANTEROL 62.5-25 MCG ELLIPTA 1 PUFF INHALATION (07:35)
[2024-06-29] MEDS: CYANOCOBALAMIN 1,000 MCG TABLET 1000 MCG PO (08:47)
[2024-06-29] MEDS: METOPROLOL SUCCINATE EXT REL 25 MG TABCR PO (08:47)
[2024-06-29] MEDS: CLOPIDOGREL BISULFATE 75 MG TABLET PO (08:48)
[2024-06-29] MEDS: DOCUSATE SODIUM 100 MG CAPSULE PO (08:48)
[2024-06-29] MEDS: ASPIRIN 81 MG CHEWABLE TABLET PO (08:48)
[2024-06-29] MEDS: FOLIC ACID 1 MG TABLET PO (08:48)
[2024-06-29] MEDS: ENOXAPARIN 30 MG/0.3 ML SYRINGE SUB-Q (08:52)
[2024-06-29 09:01] LABS: Hypochromasia 1+; Platelet Estimate Slightly Decreased (Adequate)
[2024-06-29 09:02] LABS: Anisocytosis 1+; Macrocytosis 1+ (NORMAL); Schistocytes None Seen
--- NOTE | 2024-06-29 11:45 | P.PNNP_ITS ---
Progress Note: A&P Assessment and Plan (1) Acute kidney injury: Code(s): N17.9 - Acute kidney failure, unspecified Status: Acute Assessment and Plan: * as noted by admission labs * slow improvement noted * evaluation to date noted: * renal u/s normal * urine electrolytes prerenal * urine eosinophils negative * CPK normal * good urine output noted * insult thought to be due to relative hypotension and prerenal factors * given her significant cardiomyopathy, she may have a new baseline creatinine.... * follow trend of repeat labs and UOP (2) Chronic kidney disease, stage 3: Code(s): N18.30 - Chronic kidney disease, stage 3 unspecified Status: Chronic Assessment and Plan: * baseline creatinine runs around 1.1 - 1.3mg/dl * presumably secondary to CHF, vascular disease, DARRICK/pulmonary HTN, and age- related change (3) Altered mental status: Code(s): R41.82 - Altered mental status, unspecified Status: Acute Assessment and Plan: * improvement noted * etiology? * due to drugs/medications (narcotics, muscle relaxants, requip...etc) versus renal dysfunction versus other? * ABG noted (4) Chronic respiratory failure with hypoxia and hypercapnia: Code(s): J96.11 - Chronic respiratory failure with hypoxia; J96.12 - Chronic respiratory failure with hypercapnia Status: Acute Assessment and Plan: * back to baseline oxygen requirements * secondary to DARRICK/pulmonary hypertension, COPD, and congestive heart failure * elevated D-dimer noted in ER - V/Q scan intermediate probability and lower extremity doppler negative. * follow respiratory status (5) Combined systolic and diastolic congestive heart failure: Qualifiers: Heart failure chronicity: chronic Qualified Code(s): I50.42 - Chronic combined systolic (congestive) and diastolic (congestive) heart failure Code(s): I50.40 - Unspecified combined systolic (congestive) and diastolic (congestive) heart failure Status: Chronic Assessment and Plan: * appears compensated at this time -- Echo shows an EF of 20-25%. * volume status looks okay * last chest x-ray did show mild interstitial edema * possibly trial of entresto once creatinine stabilizes or continues to improve (6) Type 2 diabetes mellitus with hyperglycemia, without long-term current use of insulin: Code(s): E11.65 - Type 2 diabetes mellitus with hyperglycemia Status: Chronic Assessment and Plan: * follow accu-cheks * glycemic control per hospitalist Will continue to follow. Subjective Date/time seen: 06/29/24 11:45 Interval history: Follow-up for acute kidney injury/acute renal failure on chronic kidney disease. Renal function/creatinine continues to slowly improve with reasonable urine output; no other apparent issues or concerns mentioned at this time; breathing/respiratory status seems relatively stable as well; no events overnight or earlier this morning. Exam Narrative: General: elderly WD/WN female in NAD Heart: normal S1 and S2; no rub Lungs: clear anteriorly Abdomen: soft, nontender, nondistended, positive bowel sounds Extremities: trace edema noted Skin: warm and dry Objective Data Vital Signs Vital Signs: Vital Signs Temp Pulse Resp BP Pulse Ox O2 Del Method O2 Flow Rate 06/29/24 11:01 99
--- NOTE | 2024-06-29 11:45 | PM.PNNEP ---
Progress Note: A&P Assessment and Plan (1) Acute kidney injury: Code(s): N17.9 - Acute kidney failure, unspecified Status: Acute Assessment and Plan: as noted by admission labs slow improvement noted evaluation to date noted: renal u/s normal urine electrolytes prerenal urine eosinophils negative CPK normal good urine output noted insult thought to be due to relative hypotension and prerenal factors given her significant cardiomyopathy, she may have a new baseline creatinine.... follow trend of repeat labs and UOP (2) Chronic kidney disease, stage 3: Code(s): N18.30 - Chronic kidney disease, stage 3 unspecified Status: Chronic Assessment and Plan: baseline creatinine runs around 1.1 - 1.3mg/dl presumably secondary to CHF, vascular disease, DARRICK/pulmonary HTN, and age-related change (3) Altered mental status: Code(s): R41.82 - Altered mental status, unspecified Status: Acute Assessment and Plan: improvement noted etiology? due to drugs/medications (narcotics, muscle relaxants, requip...etc) versus renal dysfunction versus other? ABG noted (4) Chronic respiratory failure with hypoxia and hypercapnia: Code(s): J96.11 - Chronic respiratory failure with hypoxia; J96.12 - Chronic respiratory failure with hypercapnia Status: Acute Assessment and Plan: back to baseline oxygen requirements secondary to DARRICK/pulmonary hypertension, COPD, and congestive heart failure elevated D-dimer noted in ER - V/Q scan intermediate probability and lower extremity doppler negative. follow respiratory status (5) Combined systolic and diastolic congestive heart failure: Qualifiers: Heart failure chronicity: chronic Qualified Code(s): I50.42 - Chronic combined systolic (congestive) and diastolic (congestive) heart failure Code(s): I50.40 - Unspecified combined systolic (congestive) and diastolic (congestive) heart failure Status: Chronic Assessment and Plan: appears compensated at this time -- Echo shows an EF of 20-25%. volume status looks okay last chest x-ray did show mild interstitial edema possibly trial of entresto once creatinine stabilizes or continues to improve (6) Type 2 diabetes mellitus with hyperglycemia, without long-term current use of insulin: Code(s): E11.65 - Type 2 diabetes mellitus with hyperglycemia Status: Chronic Assessment and Plan: follow accu-cheks glycemic control per hospitalist Will continue to follow. Subjective Date/time seen: 06/29/24 11:45 Interval history: Follow-up for acute kidney injury/acute renal failure on chronic kidney disease. Renal function/creatinine continues to slowly improve with reasonable urine output; no other apparent issues or concerns mentioned at this time; breathing/respiratory status seems relatively stable as well; no events overnight or earlier this morning. Exam Narrative: General: elderly WD/WN female in NAD Heart: normal S1 and S2; no rub Lungs: clear anteriorly Abdomen: soft, nontender, nondistended, positive bowel sounds Extremities: trace edema noted Skin: warm and dry Objective Data Vital Signs Vital Signs: Vital Signs Temp Pulse Resp BP Pulse Ox O2 Del Method O2 Flow Rate 06/29/24 11:01 99 06/29/24 08:03 99 06/29/24 08:52 20 98 Nasal Cannula 3 06/29/24 08:00 97.4 F L 97 19 112/58 L 98 06/29/24 08:47 100 06/29/24 07:45 97 18 06/29/24 07:37 96 18 06/29/24 07:36 97 Nasal Cannula 3 06/29/24 04:00 97.3 F L 99 20 116/54 L 99 06/29/24 04:00 100 06/29/24 01:54 90 18 06/29/24 01:47 93 18 06/29/24 00:04 92 06/29/24 00:00 96.8 F L 91 20 100/82 99 06/28/24 20:48 95 Nasal Cannula 3 06/28/24 20:00 96 06/28/24 21:03 98 20 06/28/24 20:54 95 20
[2024-06-29 11:52] LABS: Glucose Point of Care 267 mg/dl (65-105)
--- NOTE | 2024-06-29 13:22 | PM.IMPN ---
Progress Note: A&P Assessment and Plan (1) Combined systolic and diastolic congestive heart failure: Qualifiers: Heart failure chronicity: chronic Qualified Code(s): I50.42 - Chronic combined systolic (congestive) and diastolic (congestive) heart failure Code(s): I50.40 - Unspecified combined systolic (congestive) and diastolic (congestive) heart failure Status: Chronic (2) Toxic metabolic encephalopathy: Code(s): G92.8 - Other toxic encephalopathy Status: Acute (3) Type 2 diabetes mellitus with hyperglycemia, without long-term current use of insulin: Code(s): E11.65 - Type 2 diabetes mellitus with hyperglycemia Status: Chronic (4) Acute hyperkalemia: Code(s): E87.5 - Hyperkalemia Status: Acute (5) Acute on chronic kidney failure: Qualifiers: Acute renal failure type: unspecified Chronic kidney disease stage: stage 3 (moderate) Chronic kidney disease stage 3 subtype: stage 3b (GFR 30-44) Qualified Code(s): N17.9 - Acute kidney failure, unspecified; N18.32 - Chronic kidney disease, stage 3b Code(s): N17.9 - Acute kidney failure, unspecified; N18.9 - Chronic kidney disease, unspecified Status: Inactive (6) COPD (chronic obstructive pulmonary disease): Code(s): J44.9 - Chronic obstructive pulmonary disease, unspecified Status: Acute (7) Coronary artery disease: Qualifiers: Associated angina: without angina Coronary Disease-Associated Artery/Lesion type: [place] artery [place] vs. transplanted heart: [place] heart Qualified Code(s): I25.10 - Atherosclerotic heart disease of [place] coronary artery without angina pectoris Code(s): I25.10 - Atherosclerotic heart disease of [place] coronary artery without angina pectoris Status: Acute (8) Atrial flutter with rapid ventricular response: Code(s): I48.92 - Unspecified atrial flutter Status: Acute (9) Chronic respiratory failure with hypoxia and hypercapnia: Code(s): J96.11 - Chronic respiratory failure with hypoxia; J96.12 - Chronic respiratory failure with hypercapnia Status: Acute (10) Sepsis: Code(s): A41.9 - Sepsis, unspecified organism Status: Acute (11) UTI (urinary tract infection): Code(s): N39.0 - Urinary tract infection, site not specified Status: Acute Plan # Elevated D-dimer and Intermediate probability for pulmonary embolism - Doppler of lower extremities was negative. - She was started on empiric anticoagulation on presentation to ICU. She has moderate pretest probability of PE. In light of intermediate V/Q scan results and negative Dopplers of lower extremity Dr. Anaya held further anticoagulation at this time. - Once renal function improves patient can be be evaluated if clinically indicated with CTA. - Patient overall is not a good candidate for chronic anticoagulation due to high risk of fall and anticipation of invasive procedures at this time - CT scan shows: Moderate right pleural effusion.Enlarging 1.6 x 1.1 cm lobulated right upper lobe pulmonary nodule, as above. Neoplasm is consideration. Consider PET/CT and/or tissue sampling. This needs to be followed up as an outpatient basis # Atrial flutter with rapid ventricular response - Patient presented with atrial flutter and was given amiodarone and has converted to sinus rhythm - Patient seen by Cardiology and recommend discontinuing further amiodarone at this time due to history of lung disease - Cardiology does not recommend anticoagulation at this time considering brief episode which has converted to sinus rhythm - Started on metoprolol 12.5 mg p.o. q.12 hours Remains in sinus rhythm since then # FENG - Cr 3.40<3.30<2.80<2.50>2.80 - Up trend on creatinine. - Patient's baseline creatinine ranges normally in 1.1-1.3. - She presented with creatinine of 3.42 on admission - Due to concerns of CHF patient did not receive any IV fluids and ins
--- NOTE | 2024-06-29 13:48 | PM.DS ---
DS: Admitting Diagnosis Discharge Date 06/29/2024 Admitting Diagnosis Altered mental status DS: Discharge Diagnosis Discharge Diagnosis (1) Combined systolic and diastolic congestive heart failure: Qualifiers: Heart failure chronicity: chronic Qualified Code(s): I50.42 - Chronic combined systolic (congestive) and diastolic (congestive) heart failure Code(s): I50.40 - Unspecified combined systolic (congestive) and diastolic (congestive) heart failure Status: Chronic (2) Toxic metabolic encephalopathy: Code(s): G92.8 - Other toxic encephalopathy Status: Acute (3) Type 2 diabetes mellitus with hyperglycemia, without long-term current use of insulin: Code(s): E11.65 - Type 2 diabetes mellitus with hyperglycemia Status: Chronic (4) Acute hyperkalemia: Code(s): E87.5 - Hyperkalemia Status: Acute (5) Acute on chronic kidney failure: Qualifiers: Acute renal failure type: unspecified Chronic kidney disease stage: stage 3 (moderate) Chronic kidney disease stage 3 subtype: stage 3b (GFR 30-44) Qualified Code(s): N17.9 - Acute kidney failure, unspecified; N18.32 - Chronic kidney disease, stage 3b Code(s): N17.9 - Acute kidney failure, unspecified; N18.9 - Chronic kidney disease, unspecified Status: Inactive (6) COPD (chronic obstructive pulmonary disease): Code(s): J44.9 - Chronic obstructive pulmonary disease, unspecified Status: Acute (7) Coronary artery disease: Qualifiers: Coronary Disease-Associated Artery/Lesion type: [place] artery [place] vs. transplanted heart: [place] heart Associated angina: without angina Qualified Code(s): I25.10 - Atherosclerotic heart disease of [place] coronary artery without angina pectoris Code(s): I25.10 - Atherosclerotic heart disease of [place] coronary artery without angina pectoris Status: Acute (8) Atrial flutter with rapid ventricular response: Code(s): I48.92 - Unspecified atrial flutter Status: Acute (9) Chronic respiratory failure with hypoxia and hypercapnia: Code(s): J96.11 - Chronic respiratory failure with hypoxia; J96.12 - Chronic respiratory failure with hypercapnia Status: Acute (10) Sepsis: Code(s): A41.9 - Sepsis, unspecified organism Status: Acute (11) UTI (urinary tract infection): Code(s): N39.0 - Urinary tract infection, site not specified Status: Acute DS: Summary Hospital Course Hospital Course: # Elevated D-dimer and Intermediate probability for pulmonary embolism - Doppler of lower extremities was negative. - She was started on empiric anticoagulation on presentation to ICU. She has moderate pretest probability of PE. In light of intermediate V/Q scan results and negative Dopplers of lower extremity Dr. Anaya held further anticoagulation at this time. - Once renal function improves patient can be be evaluated if clinically indicated with CTA. - Patient overall is not a good candidate for chronic anticoagulation due to high risk of fall and anticipation of invasive procedures at this time - CT scan shows: Moderate right pleural effusion.Enlarging 1.6 x 1.1 cm lobulated right upper lobe pulmonary nodule, as above. Neoplasm is consideration. Consider PET/CT and/or tissue sampling. This needs to be followed up as an outpatient basis # Atrial flutter with rapid ventricular response - Patient presented with atrial flutter and was given amiodarone and has converted to sinus rhythm - Patient seen by Cardiology and recommend discontinuing further amiodarone at this time due to history of lung disease - Cardiology does not recommend anticoagulation at this time considering brief episode which has converted to sinus rhythm - Started on metoprolol 12.5 mg p.o. q.12 hours. -Remains on sinus rhythm throughout the hospital stay # FENG - Cr 3.40<3.30<2.80<2.50>2.80 - Up trend on creatinine. - Patient's baseline cr
--- NOTE | 2024-06-29 14:30 | PC.NURSE ---
Patient up in chair and was working with physical therapy and became dizzy. Patient assisted back to bed with francisco brown and three staff members. Vital signs were taken. Dr Howell was notified of blood pressure and dizziness and said to hold discharge at this time.
[2024-06-29 17:03] LABS: Glucose Point of Care 276 mg/dl (65-105)
[2024-06-29] MEDS: ATORVASTATIN 40 MG TABLET 80 MG PO (17:19)
[2024-06-29] MEDS: MIDODRINE HCL 2.5 MG TABLET 5 MG PO (17:22)
[2024-06-29 20:23] LABS: Glucose Point of Care 283 mg/dl (65-105)
[2024-06-29] MEDS: BISACODYL 5 MG TABLET EC PO (20:28)
[2024-06-29] MEDS: MELATONIN 3 MG TABLET 6 MG PO (20:28)
[2024-06-29] MEDS: SENNA/DOCUSATE SODIUM TABLET 1 TAB PO (20:28)
[2024-06-30] VITALS (17 sets, daily range): BP systolic 107–124; BP diastolic 47–70; PULSE 60–103; RESP 18–20; TEMP 35.9–36.8; O2SAT 96–100
[2024-06-30] MEDS: HYDROcodone/acetaminophen (*CRX) 5-325 MG TABLET 1 TAB PO ×2 (03:46→21:38)
--- NOTE | 2024-06-30 04:35 | PCRCNOTE ---
outside of administration timeframe for scheduled breathing treatment. See next scheduled treatment.
[2024-06-30 06:08] LABS: Basophils Percent Auto 0.1 % (0.2-1.2); Eosinophils Absolute Auto 0.1 K/mm3 (0-0.3); Eosinophils Percent Auto 1.8 % (0-4.4); Hematocrit 35.3 % (37.0-47.0); Immature Granulocyte Absolute 0.03 K/mm3 (0.00-0.031); Immature Granulocyte Percent A 0.4 % (0-0.5); Lymphocytes Absolute Auto 0.86 K/mm3 (0.9-3.2); Lymphocytes Percent Auto 11.6 % (18.3-44.2); Mean Corpuscular HGB Conc 28.3 g/dl (32-36); Mean Corpuscular Hemoglobin 31.2 pg (26-34); Mean Platelet Volume 12.5 fl (7.4-10.4); Monocytes Percent Auto 13.3 % (2.6-8.5); Neutrophils Absolute Auto 5.4 K/mm3 (1.3-6.7); Neutrophils Percent Auto 72.8 % (45.5-73.1); Platelet Count Result 103 k/mm3 (150-375); Red Blood Count 3.21 M/mm3 (4.2-5.4); Red Cell Distribution Width 15.6 % (11.5-14.5); White Blood Count 7.4 K/mm3 (4.5-10.0)
[2024-06-30 06:13] LABS: Alanine Aminotransferase 48 U/L (6-35); Albumin Level 3.6 g/dL (3.5-5.1); Alkaline Phosphatase 183 U/L (38-126); Anion Gap 7 mmol/L (4-12); Aspartate Amino Transferase 46 U/L (14-36); Bilirubin,Total 0.5 mg/dL (0.2-1.3); Blood Urea Nitrogen 84 mg/dL (7-17); Calcium 9.3 mg/dL (8.4-10.2); Carbon Dioxide 37 mmol/L (22-30); Chloride 94 mmol/L (98-107); Estimated CRCL calculation 32 ml/min; Estimated Glomerular Filt Rate 34; Glucose 225 mg/dL (65-110); Magnesium 2.2 mg/dL (1.6-2.3); Potassium 4.4 mmol/L (3.4-5.0); Sodium 138 mmol/L (137-145)
[2024-06-30] MEDS: UMECLIDINIUM/VILANTEROL 62.5-25 MCG ELLIPTA 1 PUFF INHALATION (07:21)
[2024-06-30] MEDS: IPRATROPIUM BR 0.02% INH SOLN 0.5 MG/2.5 ML VIAL INHALATION ×3 (07:22→20:10)
[2024-06-30 07:43] LABS: Anisocytosis 1+; Macrocytosis 1+ (NORMAL); Platelet Estimate Slightly Decreased (Adequate); Schistocytes None Seen
[2024-06-30 08:40] LABS: Glucose Point of Care 216 mg/dl (65-105)
[2024-06-30 08:40] LABS: Glucose Point of Care 234 mg/dl (65-105)
[2024-06-30] MEDS: MIDODRINE HCL 2.5 MG TABLET 5 MG PO ×3 (09:03→17:17)
[2024-06-30] MEDS: INSULIN ASPART (*BKC) 100 UNITS/ML SUB-Q ×4 (09:03→21:42)
[2024-06-30] MEDS: CYANOCOBALAMIN 1,000 MCG TABLET 1000 MCG PO (09:03)
[2024-06-30] MEDS: ASPIRIN 81 MG CHEWABLE TABLET PO (09:03)
[2024-06-30] MEDS: METOPROLOL SUCCINATE EXT REL 25 MG TABCR PO (09:03)
[2024-06-30] MEDS: DOCUSATE SODIUM 100 MG CAPSULE PO (09:03)
[2024-06-30] MEDS: FOLIC ACID 1 MG TABLET PO (09:03)
[2024-06-30] MEDS: CLOPIDOGREL BISULFATE 75 MG TABLET PO (09:03)
[2024-06-30] MEDS: ENOXAPARIN 30 MG/0.3 ML SYRINGE SUB-Q (09:03)
--- NOTE | 2024-06-30 11:32 | ECG_ITS ---
Test Date: 2024-06-30 11:46:16 Measurements Intervals [place] Rate: 101 P: 69 DE: 156 QRS: -70 QRSD: 138 T: 84 QT: 364 QTc: 473 Interpretive Statements SINUS TACHYCARDIA WITH FREQUENT VENTRICULAR PREMATURE COMPLEXES WITH OCCASIONAL SUPRAVENTRICULAR PREMATURE COMPLEXES RIGHT BUNDLE BRANCH BLOCK [120+ ms QRS DURATION, UPRIGHT V1, 40+ ms S IN I/aVL/V4/V5/V6] INFERIOR MYOCARDIAL INFARCTION , OF INDETERMINATE AGE [40+ ms Q WAVE AND/OR ST/T ABNORMALITY IN II/aVF] Compared to ECG 06/22/2024 10:22:17 No significant changes Electronically Signed On 07-01-2024 09:48:14 CDT by Adama Preston M.D.
--- NOTE | 2024-06-30 12:04 | PC.NURSE ---
Per. Dr. Neely Disla catheter may be removed now.
[2024-06-30 12:35] LABS: Troponin I 0.156 ng/mL (0.000-0.034)
[2024-06-30 12:39] LABS: Glucose Point of Care 287 mg/dl (65-105)
--- NOTE | 2024-06-30 13:05 | PM.PNNEP ---
Progress Note: A&P Assessment and Plan (1) Acute kidney injury: Code(s): N17.9 - Acute kidney failure, unspecified Status: Acute Assessment and Plan: as noted by admission labs slow improvement noted evaluation to date noted: renal u/s normal urine electrolytes prerenal urine eosinophils negative CPK normal good urine output noted insult thought to be due to relative hypotension and prerenal factors given her significant cardiomyopathy, she may have a new baseline creatinine.... follow trend of repeat labs and UOP (2) Chronic kidney disease, stage 3: Code(s): N18.30 - Chronic kidney disease, stage 3 unspecified Status: Chronic Assessment and Plan: baseline creatinine runs around 1.1 - 1.3mg/dl presumably secondary to CHF, vascular disease, DARRICK/pulmonary HTN, and age-related change (3) Altered mental status: Code(s): R41.82 - Altered mental status, unspecified Status: Acute Assessment and Plan: improvement noted etiology? due to drugs/medications (narcotics, muscle relaxants, requip...etc) versus renal dysfunction versus other? ABG noted (4) Chronic respiratory failure with hypoxia and hypercapnia: Code(s): J96.11 - Chronic respiratory failure with hypoxia; J96.12 - Chronic respiratory failure with hypercapnia Status: Acute Assessment and Plan: back to baseline oxygen requirements secondary to DARRICK/pulmonary hypertension, COPD, and congestive heart failure elevated D-dimer noted in ER - V/Q scan intermediate probability and lower extremity doppler negative. follow respiratory status (5) Combined systolic and diastolic congestive heart failure: Qualifiers: Heart failure chronicity: chronic Qualified Code(s): I50.42 - Chronic combined systolic (congestive) and diastolic (congestive) heart failure Code(s): I50.40 - Unspecified combined systolic (congestive) and diastolic (congestive) heart failure Status: Chronic Assessment and Plan: appears compensated at this time -- Echo shows an EF of 20-25%. volume status looks okay last chest x-ray did show mild interstitial edema possibly trial of entresto once creatinine stabilizes or continues to improve resumed on diuretic therapy (6) Type 2 diabetes mellitus with hyperglycemia, without long-term current use of insulin: Code(s): E11.65 - Type 2 diabetes mellitus with hyperglycemia Status: Chronic Assessment and Plan: follow accu-cheks glycemic control per hospitalist Will continue to follow. Subjective Date/time seen: 06/30/24 13:05 Interval history: Follow-up for acute kidney injury/acute renal failure on chronic kidney disease. Tentatively planned for discharge yesterday but this was cancelled due to complaints of dizziness; reported chest discomfort earlier today with no change in EKG but CXR did show worsening pulmonary edema; IV lasix x 1 and resumed on oral lasix; remains on baseline oxygen requirements. Exam Narrative: General: elderly but WD/WN female in NAD Heart: normal S1 and S2; no rub Lungs: coarse and decreased at bases Abdomen: soft, nontender, nondistended, positive bowel sounds Extremities: trace edema noted Skin: warm and intact Objective Data Vital Signs Vital Signs: Vital Signs Temp Pulse Resp BP Pulse Ox O2 Del Method O2 Flow Rate 06/30/24 12:00 100 06/30/24 11:43 99 18 111/70 97 06/30/24 08:00 100 Nasal Cannula 3 06/30/24 08:00 97.7 F 85 19 124/70 100 06/30/24 09:03 98 06/30/24 07:27 98 20 06/30/24 07:21 96 20 06/30/24 07:21 96 20 100 Nasal Cannula 4 06/30/24 04:00 100 06/30/24 03:52 98.2 F 74 18 122/54 L 96 06/30/24 00:04 94 06/29/24 20:00 93 06/29/24 20:29 100 Nasal Cannula 4 06/29/24 23:24 98.2 F 93 18 112/53 L 100 06/29/24 19:44 98.2
--- NOTE | 2024-06-30 13:05 | P.PNNP_ITS ---
Progress Note: A&P Assessment and Plan (1) Acute kidney injury: Code(s): N17.9 - Acute kidney failure, unspecified Status: Acute Assessment and Plan: * as noted by admission labs * slow improvement noted * evaluation to date noted: * renal u/s normal * urine electrolytes prerenal * urine eosinophils negative * CPK normal * good urine output noted * insult thought to be due to relative hypotension and prerenal factors * given her significant cardiomyopathy, she may have a new baseline creatinine.... * follow trend of repeat labs and UOP (2) Chronic kidney disease, stage 3: Code(s): N18.30 - Chronic kidney disease, stage 3 unspecified Status: Chronic Assessment and Plan: * baseline creatinine runs around 1.1 - 1.3mg/dl * presumably secondary to CHF, vascular disease, DARRICK/pulmonary HTN, and age- related change (3) Altered mental status: Code(s): R41.82 - Altered mental status, unspecified Status: Acute Assessment and Plan: * improvement noted * etiology? * due to drugs/medications (narcotics, muscle relaxants, requip...etc) versus renal dysfunction versus other? * ABG noted (4) Chronic respiratory failure with hypoxia and hypercapnia: Code(s): J96.11 - Chronic respiratory failure with hypoxia; J96.12 - Chronic respiratory failure with hypercapnia Status: Acute Assessment and Plan: * back to baseline oxygen requirements * secondary to DARRICK/pulmonary hypertension, COPD, and congestive heart failure * elevated D-dimer noted in ER - V/Q scan intermediate probability and lower extremity doppler negative. * follow respiratory status (5) Combined systolic and diastolic congestive heart failure: Qualifiers: Heart failure chronicity: chronic Qualified Code(s): I50.42 - Chronic combined systolic (congestive) and diastolic (congestive) heart failure Code(s): I50.40 - Unspecified combined systolic (congestive) and diastolic (congestive) heart failure Status: Chronic Assessment and Plan: * appears compensated at this time -- Echo shows an EF of 20-25%. * volume status looks okay * last chest x-ray did show mild interstitial edema * possibly trial of entresto once creatinine stabilizes or continues to improve * resumed on diuretic therapy (6) Type 2 diabetes mellitus with hyperglycemia, without long-term current use of insulin: Code(s): E11.65 - Type 2 diabetes mellitus with hyperglycemia Status: Chronic Assessment and Plan: * follow accu-cheks * glycemic control per hospitalist Will continue to follow. Subjective Date/time seen: 06/30/24 13:05 Interval history: Follow-up for acute kidney injury/acute renal failure on chronic kidney disease. Tentatively planned for discharge yesterday but this was cancelled due to complaints of dizziness; reported chest discomfort earlier today with no change in EKG but CXR did show worsening pulmonary edema; IV lasix x 1 and resumed on oral lasix; remains on baseline oxygen requirements. Exam Narrative: General: elderly but WD/WN female in NAD Heart: normal S1 and S2; no rub Lungs: coarse and decreased at bases Abdomen: soft, nontender, nondistended, positive bowel sounds Extremities: trace edema noted Skin: warm and intact Objective Data Vital Signs Vital Signs: Vital Signs Temp Pulse R
[2024-06-30 17:03] LABS: Glucose Point of Care 214 mg/dl (65-105)
--- NOTE | 2024-06-30 17:11 | PM.IMPN ---
Progress Note: A&P Assessment and Plan (1) Combined systolic and diastolic congestive heart failure: Qualifiers: Heart failure chronicity: chronic Qualified Code(s): I50.42 - Chronic combined systolic (congestive) and diastolic (congestive) heart failure Code(s): I50.40 - Unspecified combined systolic (congestive) and diastolic (congestive) heart failure Status: Chronic (2) Toxic metabolic encephalopathy: Code(s): G92.8 - Other toxic encephalopathy Status: Acute (3) Type 2 diabetes mellitus with hyperglycemia, without long-term current use of insulin: Code(s): E11.65 - Type 2 diabetes mellitus with hyperglycemia Status: Chronic (4) Acute hyperkalemia: Code(s): E87.5 - Hyperkalemia Status: Acute (5) Acute on chronic kidney failure: Qualifiers: Acute renal failure type: unspecified Chronic kidney disease stage: stage 3 (moderate) Chronic kidney disease stage 3 subtype: stage 3b (GFR 30-44) Qualified Code(s): N17.9 - Acute kidney failure, unspecified; N18.32 - Chronic kidney disease, stage 3b Code(s): N17.9 - Acute kidney failure, unspecified; N18.9 - Chronic kidney disease, unspecified Status: Inactive (6) COPD (chronic obstructive pulmonary disease): Code(s): J44.9 - Chronic obstructive pulmonary disease, unspecified Status: Acute (7) Coronary artery disease: Qualifiers: Coronary Disease-Associated Artery/Lesion type: [place] artery [place] vs. transplanted heart: [place] heart Associated angina: without angina Qualified Code(s): I25.10 - Atherosclerotic heart disease of [place] coronary artery without angina pectoris Code(s): I25.10 - Atherosclerotic heart disease of [place] coronary artery without angina pectoris Status: Acute (8) Atrial flutter with rapid ventricular response: Code(s): I48.92 - Unspecified atrial flutter Status: Acute (9) Chronic respiratory failure with hypoxia and hypercapnia: Code(s): J96.11 - Chronic respiratory failure with hypoxia; J96.12 - Chronic respiratory failure with hypercapnia Status: Acute (10) Sepsis: Code(s): A41.9 - Sepsis, unspecified organism Status: Acute (11) UTI (urinary tract infection): Code(s): N39.0 - Urinary tract infection, site not specified Status: Acute Plan # Elevated D-dimer and Intermediate probability for pulmonary embolism - Doppler of lower extremities was negative. - She was started on empiric anticoagulation on presentation to ICU. She has moderate pretest probability of PE. In light of intermediate V/Q scan results and negative Dopplers of lower extremity Dr. Anaya held further anticoagulation at this time. - Once renal function improves patient can be be evaluated if clinically indicated with CTA. - Patient overall is not a good candidate for chronic anticoagulation due to high risk of fall and anticipation of invasive procedures at this time - CT scan shows: Moderate right pleural effusion.Enlarging 1.6 x 1.1 cm lobulated right upper lobe pulmonary nodule, as above. Neoplasm is consideration. Consider PET/CT and/or tissue sampling. This needs to be followed up as an outpatient basis # Atrial flutter with rapid ventricular response - Patient presented with atrial flutter and was given amiodarone and has converted to sinus rhythm - Patient seen by Cardiology and recommend discontinuing further amiodarone at this time due to history of lung disease - Cardiology does not recommend anticoagulation at this time considering brief episode which has converted to sinus rhythm - Started on metoprolol 12.5 mg p.o. q.12 hours Remains in sinus rhythm since then # FENG - Cr 3.40<3.30<2.80<2.50>2.80 - Up trend on creatinine. - Patient's baseline creatinine ranges normally in 1.1-1.3. - She presented with creatinine of 3.42 on admission - Due to concerns of CHF patient did not receive any IV fluids and ins
[2024-06-30] MEDS: ATORVASTATIN 40 MG TABLET 80 MG PO (17:17)
[2024-06-30] MEDS: FUROSEMIDE INJ 40 MG/4 ML VIAL IV PUSH (17:22)
[2024-06-30 19:00] LABS: Troponin I 0.161 ng/mL (0.000-0.034)
[2024-06-30] MEDS: MELATONIN 3 MG TABLET 6 MG PO (21:37)
[2024-06-30 22:20] LABS: Glucose Point of Care 242 mg/dl (65-105)
[2024-06-30] MEDS: ACETAMINOPHEN 325 MG TABLET 650 MG PO (23:30)
[2024-07-01] VITALS (27 sets, daily range): BP systolic 68–148; BP diastolic 41–76; PULSE 84–120; RESP 14–30; TEMP 36.2–36.9; O2SAT 90–100
[2024-07-01] MEDS: IPRATROPIUM BR 0.02% INH SOLN 0.5 MG/2.5 ML VIAL INHALATION ×4 (02:23→20:45)
[2024-07-01 05:39] LABS: Basophils Percent Auto 0.3 % (0.2-1.2); Eosinophils Percent Auto 0.4 % (0-4.4); Hematocrit 35.2 % (37.0-47.0); Hemoglobin 9.9 g/dL (12.0-15.0); Immature Granulocyte Absolute 0.03 K/mm3 (0.00-0.031); Immature Granulocyte Percent A 0.4 % (0-0.5); Lymphocytes Absolute Auto 0.39 K/mm3 (0.9-3.2); Lymphocytes Percent Auto 5.2 % (18.3-44.2); Mean Corpuscular HGB Conc 28.1 g/dl (32-36); Mean Corpuscular Volume 110.3 fl (80-100); Mean Platelet Volume 12.8 fl (7.4-10.4); Monocytes Absolute Auto 0.6 K/mm3 (0.1-0.6); Monocytes Percent Auto 7.5 % (2.6-8.5); Neutrophils Absolute Auto 6.4 K/mm3 (1.3-6.7); Neutrophils Percent Auto 86.2 % (45.5-73.1); Platelet Count Result 125 k/mm3 (150-375); Red Blood Count 3.19 M/mm3 (4.2-5.4); Red Cell Distribution Width 15.5 % (11.5-14.5); White Blood Count 7.4 K/mm3 (4.5-10.0)
[2024-07-01 06:09] LABS: Blood Urea Nitrogen 88 mg/dL (7-17); Calcium 9.6 mg/dL (8.4-10.2); Carbon Dioxide > 40 mmol/L (22-30); Chloride 87 mmol/L (98-107); Estimated CRCL calculation 29 ml/min; Estimated Glomerular Filt Rate 30; Glucose 274 mg/dL (65-110); Magnesium 2.2 mg/dL (1.6-2.3); Potassium 4.6 mmol/L (3.4-5.0); Sodium 140 mmol/L (137-145)
[2024-07-01 07:03] LABS: Anisocytosis 1+; Hypochromasia 1+; Platelet Estimate Decreased (Adequate); Schistocytes None Seen; Stomatocytes 2+
[2024-07-01 07:05] LABS: Large Platelets Present
[2024-07-01 08:03] LABS: Glucose Point of Care 288 mg/dl (65-105)
[2024-07-01] MEDS: MIDODRINE HCL 2.5 MG TABLET 5 MG PO ×2 (08:17→21:36)
[2024-07-01] MEDS: CYANOCOBALAMIN 1,000 MCG TABLET 1000 MCG PO (08:17)
[2024-07-01] MEDS: CLOPIDOGREL BISULFATE 75 MG TABLET PO (08:17)
[2024-07-01] MEDS: DOCUSATE SODIUM 100 MG CAPSULE PO (08:17)
[2024-07-01] MEDS: FOLIC ACID 1 MG TABLET PO (08:17)
[2024-07-01] MEDS: acetaZOLAMIDE TAB 250 MG TABLET PO (08:17)
[2024-07-01] MEDS: FUROSEMIDE 20 MG TABLET PO (08:18)
[2024-07-01] MEDS: INSULIN ASPART (*BKC) 100 UNITS/ML SUB-Q ×4 (08:18→21:36)
[2024-07-01] MEDS: METOPROLOL SUCCINATE EXT REL 25 MG TABCR PO (08:18)
[2024-07-01] MEDS: ENOXAPARIN 30 MG/0.3 ML SYRINGE SUB-Q (08:18)
[2024-07-01] MEDS: ASPIRIN 81 MG CHEWABLE TABLET PO (08:18)
[2024-07-01] MEDS: UMECLIDINIUM/VILANTEROL 62.5-25 MCG ELLIPTA 1 PUFF INHALATION (08:25)
--- NOTE | 2024-07-01 11:04 | PCOTNOTE ---
Attempted to see Patient for OT treatment session at this time. Patient very difficult to arouse, does not stay awake or answer questions/commands. Patient having increased congestion with breath sounds and seems to have a decline in condition. RN present and in contact with MD. Patient unable to participate at this time.
[2024-07-01 11:45] LABS: Glucose Point of Care 266 mg/dl (65-105)
[2024-07-01 11:54] LABS: Alveolar/Arterial O2 Gradient 51.4 mmHg; Base Excess ABG 16.4 mEq/l (+/-2.0); Carboxyhemoglobin 1.3 % THb (0-2.0); Fractional Inspired Oxygen 32 %; HCO3 ABG 46.6 mEq/l (22.0-26.0); Methemoglobin ABG 0.3 %THb (0-1.5); Oxygen Content ABG 13.5 %vol (16.0-22.0); Oxyhemoglobin 89.4 % THb (90.0-100.0); PO2 ABG 61.4 mmHg (80.0-100.0); PO2 FiO2 Ratio Arterial Blood 1.92 %; Total Hemoglobin 10.7 g/dL (12.0-18.0)
[2024-07-01 11:56] LABS: Device NASAL CANNULA; Modified Allen's Test Pass; Site Drawn RIGHT RADIAL
[2024-07-01 11:58] LABS: Oxygen Saturation ABG 86.8 % (95.0-100.0); PCO2 ABG 98.6 mmHg (35.0-45.0); pH ABG 7.292 (7.350-7.450)
[2024-07-01] MEDS: FUROSEMIDE INJ 40 MG/4 ML VIAL IV PUSH ×2 (12:09→18:40)
--- NOTE | 2024-07-01 12:45 | PM.PNNEP ---
Progress Note: A&P Assessment and Plan (1) Acute kidney injury: Code(s): N17.9 - Acute kidney failure, unspecified Status: Acute Assessment and Plan: as noted by admission labs was improving up until last 24 - 48 hours this correlates with restarting of diuretic therapy evaluation to date noted: renal u/s normal urine electrolytes prerenal urine eosinophils negative CPK normal insult thought to be due to relative hypotension and prerenal factors in conjunction with new cardiomyopathy given her significant cardiomyopathy, she may have a new baseline creatinine.... follow trend of repeat labs and UOP (2) Chronic kidney disease, stage 3: Code(s): N18.30 - Chronic kidney disease, stage 3 unspecified Status: Chronic Assessment and Plan: baseline creatinine runs around 1.1 - 1.3mg/dl presumably secondary to CHF, vascular disease, DARRICK/pulmonary HTN, and age-related change (3) Altered mental status: Code(s): R41.82 - Altered mental status, unspecified Status: Acute Assessment and Plan: worsening today suspect secondary to CO2 narcosis follow mentation with current interventions noted (4) Acute and chronic respiratory failure with hypercapnia: Code(s): J96.22 - Acute and chronic respiratory failure with hypercapnia Status: Acute Assessment and Plan: as noted by recent ABG today BiPAP initiated follow repeat ABGs code status changed to DNR/DNI (5) Combined systolic and diastolic congestive heart failure: Qualifiers: Heart failure chronicity: chronic Qualified Code(s): I50.42 - Chronic combined systolic (congestive) and diastolic (congestive) heart failure Code(s): I50.40 - Unspecified combined systolic (congestive) and diastolic (congestive) heart failure Status: Chronic Assessment and Plan: Echo shows an EF of 20-25%. volume status worse by recent imaging/CXR resumed on diuretic therapy (6) Type 2 diabetes mellitus with hyperglycemia, without long-term current use of insulin: Code(s): E11.65 - Type 2 diabetes mellitus with hyperglycemia Status: Chronic Assessment and Plan: follow accu-cheks glycemic control per hospitalist Will continue to follow. Subjective Date/time seen: 07/01/24 12:45 Interval history: Follow-up for acute kidney injury/acute renal failure on chronic kidney disease. Events noted earlier today -- slow to respond in the morning but was communicative then became more difficult to arouse and unresponsive; last CXR with moderate pulmonary edema and ABG with CO2 retention; transferred to IMU for BiPAP support and closer monitoring; change in code status noted following discussion with . Exam Narrative: General: elderly but WD/WN female on BiPAP Heart: normal S1 and S2; no rub Lungs: coarse with scattered crackles Abdomen: soft, nontender, nondistended, positive bowel sounds Extremities: trace edema noted Skin: no rash Objective Data Vital Signs Vital Signs: Vital Signs Temp Pulse Resp BP Pulse Ox O2 Del Method O2 Flow Rate 07/01/24 12:46 104 H 30 H 90 BiPAP 07/01/24 12:00 98.4 F 109 H 14 120/64 99 07/01/24 08:00 105 H 07/01/24 08:00 97.9 F 105 H 18 112/45 L 95 07/01/24 08:00 95 Nasal Cannula 3 07/01/24 08:35 112 H 20 07/01/24 08:30 120 H 20 07/01/24 08:30 120 H 20 95 Nasal Cannula 3 07/01/24 08:18 113 H 07/01/24 04:00 98.4 F 113 H 18 110/62 96 07/01/24 04:00 109 H 07/01/24 02:23 115 H 20 07/01/24 00:00 98.2 F 112 H 18 148/76 H 97 07/01/24 00:00 114 H 06/30/24 21:21 97 Nasal Cannula 3 06/30/24 20:00 101 H 06/30/24 20:00 98.2 F 60 18 107/47 L 96 06/30/24 20:18 86 20 06/30/24 20:13 103 H 97 Nasal Cannula 4 06/30/24 20:12 103 H 20 06/30/24
--- NOTE | 2024-07-01 12:45 | P.PNNP_ITS ---
Progress Note: A&P Assessment and Plan (1) Acute kidney injury: Code(s): N17.9 - Acute kidney failure, unspecified Status: Acute Assessment and Plan: * as noted by admission labs * was improving up until last 24 - 48 hours * this correlates with restarting of diuretic therapy * evaluation to date noted: * renal u/s normal * urine electrolytes prerenal * urine eosinophils negative * CPK normal * insult thought to be due to relative hypotension and prerenal factors in conjunction with new cardiomyopathy * given her significant cardiomyopathy, she may have a new baseline creatinine.... * follow trend of repeat labs and UOP (2) Chronic kidney disease, stage 3: Code(s): N18.30 - Chronic kidney disease, stage 3 unspecified Status: Chronic Assessment and Plan: * baseline creatinine runs around 1.1 - 1.3mg/dl * presumably secondary to CHF, vascular disease, DARRICK/pulmonary HTN, and age- related change (3) Altered mental status: Code(s): R41.82 - Altered mental status, unspecified Status: Acute Assessment and Plan: * worsening today * suspect secondary to CO2 narcosis * follow mentation with current interventions noted (4) Acute and chronic respiratory failure with hypercapnia: Code(s): J96.22 - Acute and chronic respiratory failure with hypercapnia Status: Acute Assessment and Plan: * as noted by recent ABG today * BiPAP initiated * follow repeat ABGs * code status changed to DNR/DNI (5) Combined systolic and diastolic congestive heart failure: Qualifiers: Heart failure chronicity: chronic Qualified Code(s): I50.42 - Chronic combined systolic (congestive) and diastolic (congestive) heart failure Code(s): I50.40 - Unspecified combined systolic (congestive) and diastolic (congestive) heart failure Status: Chronic Assessment and Plan: * Echo shows an EF of 20-25%. * volume status worse by recent imaging/CXR * resumed on diuretic therapy (6) Type 2 diabetes mellitus with hyperglycemia, without long-term current use of insulin: Code(s): E11.65 - Type 2 diabetes mellitus with hyperglycemia Status: Chronic Assessment and Plan: * follow accu-cheks * glycemic control per hospitalist Will continue to follow. Subjective Date/time seen: 07/01/24 12:45 Interval history: Follow-up for acute kidney injury/acute renal failure on chronic kidney disease. Events noted earlier today -- slow to respond in the morning but was communicative then became more difficult to arouse and unresponsive; last CXR with moderate pulmonary edema and ABG with CO2 retention; transferred to IMU for BiPAP support and closer monitoring; change in code status noted following discussion with . Exam Narrative: General: elderly but WD/WN female on BiPAP Heart: normal S1 and S2; no rub Lungs: coarse with scattered crackles Abdomen: soft, nontender, nondistended, positive bowel sounds Extremities: trace edema noted Skin: no rash Objective Data Vital Signs Vital Signs: Vital Signs Temp Pulse Resp BP Pulse Ox O2 Del Method O2 Flow Rate 07/01/24 12:46 104 H 30 H 90 BiPAP 07/01/24 12:00 98.4 F 109 H 14 120/64 99 07/01/24 08:00 105 H 07/01/24 08:00 97.9 F 105 H 18 112/45 L 95 07/01/24 08
--- NOTE | 2024-07-01 12:49 | PC.NURSE ---
This patient, Vanita Parker, was transferred to IMU on 07/01/24 at 1249. Personal belongings sent with patient. Report given to Mireya. Appropriate documentation sent with patient.
--- NOTE | 2024-07-01 14:43 | PM.IMPN ---
Progress Note: A&P Assessment and Plan (1) CO2 narcosis: Code(s): R06.89 - Other abnormalities of breathing Status: Acute (2) Acute respiratory failure with hypoxia and hypercapnia: Code(s): J96.01 - Acute respiratory failure with hypoxia; J96.02 - Acute respiratory failure with hypercapnia Status: Acute Plan Ms. Parker is currently having worsening acute on chronic heart failure, she has a severe reduced ejection fraction. She also has acute hypoxic and hypercarbic on chronic respiratory failure. CO2 narcosis and is currently on BiPAP. Her Mr. Abel Parker came to see her and considering her age, chronic comorbidities which have been worsening over the past 6 weeks and prolonged suffering with intubation has decided independently to make the patient DNR/DNI status. Answered all his questions and concerns to satisfaction. Currently, continue BiPAP. Will get another ABG at 3:00 p.m.. Repeat checks x-ray and ABG in the morning. She received 60 mg of Lasix on 06/30, again today and 07/01. Continue daily weights and strict I&Os. Limited prognosis. DNR. Lovenox. Greater than 100 minutes spent on multiple patient evaluations, coordination with nursing team, discussion with family, medical management. Subjective Date/time seen: 07/01/24 14:43 Interval history: Evaluated twice. Worse in the morning, she was slow to respond but participated with exam. Later notified by nursing she was unresponsive. ABG performed. Hypercapnia. Transfer to IMU room 203. came to visit the patient. Long discussion held with the about the patient's medical status and goals of care. Review of Systems Review of Systems: All systems reviewed & are unremarkable except as noted in HPI and below (Subjective) Exam Const: Other: Opens eyes for a few moments. Otherwise unresponsive and comfortable Eyes: Pupils: Equal, round and reactive pupils present Neck: Neck: supple Resp: Other: Decrease breath sounds, coarse breath sounds, crackles diffusely Cardio: Rate: regular rate Rhythm: regular rhythm GI: GI Palp: Yes Soft to palpation and No Tenderness to palpation present (GI) Extrem: General: edema (1+ pitting edema) Objective Data Vital Signs Vital Signs: Vital Signs - 24 hr 06/30/24 16:00 06/30/24 16:06/30/24 20:12 Temperature 96.6 F L Pulse Rate 96 99 103 H Respiratory Rate 19 20 Blood Pressure 115/59 L Pulse Oximetry 97 Oxygen Delivery Oxygen Flow Rate Fraction of Inspired Oxygen 06/30/24 20:13 06/30/24 20:18 06/30/24 20:00 Temperature 98.2 F Pulse Rate 103 H 86 60 Respiratory Rate 20 18 Blood Pressure 107/47 L Pulse Oximetry 97 96 Oxygen Delivery Nasal Cannula Oxygen Flow Rate 4 Fraction of Inspired Oxygen 06/30/24 20:00 06/30/24 21:21 07/01/24 00:00 Temperature Pulse Rate 101 H 114 H Respiratory Rate Blood Pressure Pulse Oximetry 97 Oxygen Delivery Nasal Cannula Oxygen Flow Rate 3 Fraction of Inspired Oxygen 07/01/24 00:00 07/01/24 02:23 07/01/24 04:00 Temperature 98.2 F Pulse Rate 112 H 115 H 109 H Respiratory Rate 18 20 Blood Pressure 148/76 H Pulse Oximetry 97 Oxygen Delivery Oxygen Flow Rate Fraction of Inspired Oxygen 07/01/24 04:00 07/01/24 08:18 07/01/24 08:30 Temperature 98.4 F Pulse Rate 113 H 113 H 120 H Respiratory Rate 18 20 Blood Pressure 110/62 Pulse Oximetry 96 95 Oxygen Delivery Nasal Cannula Oxygen Flow Rate 3 Fraction of Inspired Oxygen 32 07/01/24 08:30 07/01/24 08:35 07/01/24 08:00 Temperature Pulse Rate 120 H 112 H Respiratory Rate 20 20 Blood Pressure Pulse Oximetry 95 Oxygen Delivery Nasal Cannula Oxygen Flow Rate 3 Fraction of Inspired Oxygen 07/01/24 08:00 07/01/24 08:00 07/01/24 12:00 Temperature 97.9 F 98.4 F Pulse Rate 105 H 105 H 109 H Respiratory Rate 18 14 Blood Pressure 112/45 L 120/
[2024-07-01 15:55] LABS: Alveolar/Arterial O2 Gradient 126.6 mmHg; Base Excess ABG 14.8 mEq/l (+/-2.0); Carboxyhemoglobin 1.2 % THb (0-2.0); Fractional Inspired Oxygen 40 %; HCO3 ABG 44.2 mEq/l (22.0-26.0); Methemoglobin ABG 0.3 %THb (0-1.5); Oxygen Content ABG 12.8 %vol (16.0-22.0); PO2 ABG 55.4 mmHg (80.0-100.0); PO2 FiO2 Ratio Arterial Blood 1.38 %; Reduced Hemoglobin 11.4 %THb (0-5.0); Total Hemoglobin 10.4 g/dL (12.0-18.0)
[2024-07-01 15:59] LABS: PCO2 ABG 89.7 mmHg (35.0-45.0)
[2024-07-01 16:00] LABS: Device BIPAP; Modified Allen's Test Pass; Oxygen Saturation ABG 83.8 % (95.0-100.0); Oxyhemoglobin 87.1 % THb (90.0-100.0); Site Drawn RIGHT RADIAL
[2024-07-01 16:05] LABS: Glucose Point of Care 248 mg/dl (65-105)
[2024-07-01 16:26] LABS: Expiratory Pressure 8 cmH2O; Inspiratory Pressure 16 cmH2O
[2024-07-01 18:16] LABS: Alveolar/Arterial O2 Gradient 87.9 mmHg; Base Excess ABG 14.5 mEq/l (+/-2.0); Carboxyhemoglobin 1.5 % THb (0-2.0); Fractional Inspired Oxygen 40 %; HCO3 ABG 44.4 mEq/l (22.0-26.0); Methemoglobin ABG 0.3 %THb (0-1.5); Oxygen Content ABG 15.6 %vol (16.0-22.0); Oxygen Saturation ABG 95.8 % (95.0-100.0); Oxyhemoglobin 95.5 % THb (90.0-100.0); PO2 ABG 92.7 mmHg (80.0-100.0); PO2 FiO2 Ratio Arterial Blood 2.32 %; Reduced Hemoglobin 2.7 %THb (0-5.0); Total Hemoglobin 11.5 g/dL (12.0-18.0); pH ABG 7.306 (7.350-7.450)
[2024-07-01 18:18] LABS: Device BIPAP; Site Drawn RIGHT BRACHIAL
[2024-07-01 18:20] LABS: Expiratory Pressure 8 cmH2O; Inspiratory Pressure 16 cmH2O
--- NOTE | 2024-07-01 20:20 | PC.NURSE ---
Notified Dr. Velazquez of pt's transfer to IMU, bipap settings, and current low BP. Dr. Velazquez coming to IMU to further evaluate pt.
--- NOTE | 2024-07-01 20:27 | PC.NURSE ---
Life Vest removed per family request. States that Life Vest is and pt is now a DNR.
[2024-07-01] MEDS: SODIUM CHLORIDE 0.9% IV 250 ML 999 ML IV CONT (20:30)
[2024-07-01 20:36] LABS: Glucose Point of Care 240 mg/dl (65-105)
--- NOTE | 2024-07-01 20:47 | PC.NURSE ---
Cheetah performed. Pt is not fluid responsive. SVI 6.2%.
[2024-07-01 21:56] LABS: Alveolar/Arterial O2 Gradient 107.4 mmHg; Base Excess ABG 13.6 mEq/l (+/-2.0); Carboxyhemoglobin 1.2 % THb (0-2.0); Fractional Inspired Oxygen 36 %; HCO3 ABG 41.6 mEq/l (22.0-26.0); Methemoglobin ABG 0.3 %THb (0-1.5); Oxygen Content ABG 12.5 %vol (16.0-22.0); Oxygen Saturation ABG 88.7 % (95.0-100.0); Oxyhemoglobin 90.4 % THb (90.0-100.0); PO2 ABG 60.4 mmHg (80.0-100.0); PO2 FiO2 Ratio Arterial Blood 1.68 %; Reduced Hemoglobin 8.1 %THb (0-5.0); Total Hemoglobin 9.8 g/dL (12.0-18.0); pH ABG 7.353 (7.350-7.450)
[2024-07-01 22:03] LABS: Device BIPAP; Expiratory Pressure 8 cmH2O; Inspiratory Pressure 18 cmH2O; Modified Allen's Test Pass; PCO2 ABG 76.6 mmHg (35.0-45.0); Site Drawn RIGHT RADIAL
--- NOTE | 2024-07-01 22:39 | PM.EVENT ---
Event Note Event Note Event Note: 07/01/2024 at 20:00 Nursing staff called to tell me the patient's systolic blood pressures were in the 60s. The patient was lethargic and less responsive. The patient has had a prolonged hospital stay and has been admitted since June 20. Patient has acute on chronic kidney injury and hyperkalemia. Patient had unstable cardiac rhythm and at some point was intubated. She was subsequently extubated and eventually transferred to the medical floor. Earlier today she had worsening respiratory failure and had acute on chronic hypercapnic failure with respiratory acidosis. She was transferred to the IMU on placed on BiPAP. Despite BiPAP changes patient remained hypercapnic. I was contacted when the patient became acutely hypotensive with systolics down into the upper 80s. The patient had missed 2 doses of her midodrine due to her respiratory failure. Patient's had change the patient's code status to DNR/DNI earlier this evening. When I went to evaluate the patient she was actually more responsive than she had been for nursing staff and was yelling at me to leave her alone. However she was not oriented. I did adjust patient's BiPAP increasing the respiratory rate to 20. The patient received 250 mL fluid bolus as she had received 60 mg of Lasix earlier in the day and additional 40 just before shift change. After the fluid bolus patient's blood pressure had improved to 98/43. Her maps remained borderline low at 57. However the patient was again more responsive and was actually fighting to pull off her BiPAP. Repeat ABG demonstrated resolution of acidosis and pCO2 improved from the 90s down to 76. After repeat ABG the patient's blood pressures did drop again down to 78 systolic. I gave a 1 time order for albumin. While the nursing staff contacted the family to update on the patient's clinical course. The patient's states that he wants all efforts performed to maintain her blood pressure including a central line. Subsequently the nail expert was consulted and the patient will be transferred to the ICU for central line placement. Patient will be started on Levophed. GENERAL: Appears older than stated age, acutely ill-appearing HEENT: Mucous membranes are dry, no oral pharyngeal erythema, BiPAP in place CARDIOVASCULAR: Regular rate, regular rhythm, difficult to palpate pulses RESPIRATORY: Mild tachypnea, decreased breath sounds, no crepitus ABDOMEN: The patient yells out in pain if she is touched anywhere, abdomen is otherwise soft, normoactive bowel sounds, nondistended INTEGUMENT: Generalized pallor, no mottling, petechiae across the chest and on the extremities, scattered bruising on the extremities upper greater than lower NEUROLOGIC: Alert oriented to place and person PSYCHIATRIC: Irritable, uncooperative, poor judgment and insight EXTREMITIES: Cool to touch, no pallor, moves all extremities equally, no pitting edema : Pure wick catheter in place without any output Assessment and plan: 1. Hypotension--likely due to flow intervascular volume however could also in part be due to chronic hypotension with miss doses of midodrine. Patient's blood pressure did not improve despite receiving midodrine, 25% albumin and 250 mL fluid bolus. Family requested patient have central line placed and vasopressor started. Levophed has been ordered after right femoral central line was placed. Blood pressures have stabilized. Will check random cortisol level. Patient has been moved to the ICU nail expert has been consulted. The patient's cheetah score demonstrated she was not fluid responsive. 2. Petechiae--patient has petechial rash. Will check DIC panel in a.m.. No evidence of gross hemorrhage or bleeding. Hemoglobin has remained stable since admission. The patient did have about 10-15 mL blood loss during central line placement but patient is on Plavix, 81 mg aspirin and 30 mg of Lovenox (prophylactic dose
[2024-07-01] MEDS: ALBUMIN HUMAN 25% 25 GM/100 ML 100 ML IVPB (23:00)
[2024-07-02] VITALS (37 sets, daily range): BP systolic 82–129; BP diastolic 43–105; PULSE 80–107; RESP 15–23; TEMP 36.3–37.1; O2SAT 93–100
--- NOTE | 2024-07-02 00:24 | WPDPROCEDUR ---
Procedures Central Line Placement Right Femoral: Central Line Date: 07/02/24 Central Line Time: 00:02 Discussed w/ the patient/family/POA,the placement of a central venous catheter, including its clinical necessity/indication & associated potential risks, benifits and alternatives.: Yes The patient/family/POA understand(s) and acknowledge(s) the need to proceed with central venous catheter insertion as an important element of the patient's clinical management.: Yes Consent: I have discussed with the patient and/or surrogate, the non-emergent placement of a central venous catheter, including its clinical necessity/indication and associated potential risks and complications. The patient and/or surrogate understand(s) and acknowledge(s) the need to proceed with central venous catheter insertion as an important element of the patient's clinical management. Time Out Performed: Yes Patient Position: trendelenburg Patient placed on monitor/pulse ox: Yes Provider Prep: mask, sterile gown, sterile gloves, Max. sterile barrier precautions, cap and hand hygiene with conventional soap/water or alcohol based hand rub Central line prep: 2% Chlorhexidine scrub and sterile full body sheet applied Local anesthesia used: lidocaine 1% Amount of anesthesia used (ml): 5 Central line lumen inserted: triple [place]: 7 Length (cm): 16 Depth of Insertion (cm): 15 Post Procedure: sutured in place, good blood return, all ports aspirated, flushed, capped, transparent dressing, hemostatic product and antimicrobial product Patient tolerated procedure: well
--- NOTE | 2024-07-02 00:29 | PC.NURSE ---
This patient, Vanita Parker, was transferred to [ICU 2 ] on 07/02/24 at 0000. Personal belongings sent with patient. Report given to [KIRSTEN Mathis ]. Appropriate documentation sent with patient. Pt's family notified of ICU transfer.
[2024-07-02] MEDS: NOREPINEPHRINE 8 MG/D5W 250 ML 8 MG/250 ML BAG 9.38 MG IV CONT (00:42)
--- NOTE | 2024-07-02 02:19 | ECG_ITS ---
Test Date: 2024-07-02 02:24:59 Measurements Intervals [place] Rate: 91 P: 109 OK: 206 QRS: -61 QRSD: 133 T: 115 QT: 387 QTc: 477 Interpretive Statements SINUS RHYTHM WITH FREQUENT VENTRICULAR PREMATURE COMPLEXES POSSIBLE LEFT ATRIAL ENLARGEMENT [-0.1mV P WAVE IN V1/V2] RIGHT BUNDLE BRANCH BLOCK [120+ ms QRS DURATION, UPRIGHT V1, 40+ ms S IN I/aVL/V4/V5/V6] NONSPECIFIC T-WAVE ABNORMALITY ABNORMAL ECG Compared to ECG 06/30/2024 11:46:16 MORE PVCS ARE NOTED Electronically Signed On 07-02-2024 15:02:15 CDT by Edil Marcelo M.D.
[2024-07-02] MEDS: IPRATROPIUM BR 0.02% INH SOLN 0.5 MG/2.5 ML VIAL INHALATION ×4 (03:10→20:56)
[2024-07-02] MEDS: CENTRAL LINE FLUSH 10 ML IV PUSH ×2 (05:59→20:19)
[2024-07-02] MEDS: methylPREDNISolone SOD SUCC 125 MG VIAL 80 MG IV PUSH (05:59)
[2024-07-02 06:01] LABS: Basophils Percent Auto 0.3 % (0.2-1.2); Eosinophils Absolute Auto 0.2 K/mm3 (0-0.3); Eosinophils Percent Auto 2.2 % (0-4.4); Hematocrit 32.6 % (37.0-47.0); Hemoglobin 9.4 g/dL (12.0-15.0); Immature Granulocyte Absolute 0.03 K/mm3 (0.00-0.031); Immature Granulocyte Percent A 0.3 % (0-0.5); Lymphocytes Percent Auto 12.7 % (18.3-44.2); Mean Corpuscular HGB Conc 28.8 g/dl (32-36); Mean Corpuscular Hemoglobin 31.2 pg (26-34); Mean Corpuscular Volume 108.3 fl (80-100); Mean Platelet Volume 12.3 fl (7.4-10.4); Monocytes Absolute Auto 0.8 K/mm3 (0.1-0.6); Neutrophils Absolute Auto 6.5 K/mm3 (1.3-6.7); Neutrophils Percent Auto 75.5 % (45.5-73.1); Platelet Count Result 127 k/mm3 (150-375); Red Blood Count 3.01 M/mm3 (4.2-5.4); Red Cell Distribution Width 15.5 % (11.5-14.5); White Blood Count 8.7 K/mm3 (4.5-10.0)
[2024-07-02 06:19] LABS: Alanine Aminotransferase 36 U/L (6-35); Albumin Level 3.5 g/dL (3.5-5.1); Alkaline Phosphatase 181 U/L (38-126); Aspartate Amino Transferase 41 U/L (14-36); Bilirubin,Total 0.7 mg/dL (0.2-1.3); Blood Urea Nitrogen 87 mg/dL (7-17); Calcium 9.7 mg/dL (8.4-10.2); Carbon Dioxide > 40 mmol/L (22-30); Chloride 94 mmol/L (98-107); Estimated CRCL calculation 26 ml/min; Estimated Glomerular Filt Rate 26; Glucose 254 mg/dL (65-110); Magnesium 2.1 mg/dL (1.6-2.3); Potassium 4.5 mmol/L (3.4-5.0); Sodium 139 mmol/L (137-145)
[2024-07-02 06:25] LABS: Prothrombin Time 14.1 Seconds (11.1-14.7)
[2024-07-02 06:27] LABS: Fibrinogen 378 mg/dl (215-510); Partial Thromboplastin Time 35.8 Seconds (22.3-36.8)
[2024-07-02 06:50] LABS: Procalcitonin 0.1 ng/mL
[2024-07-02 07:01] LABS: D Dimer 2.14 ug/mL (<0.48)
[2024-07-02 07:48] LABS: Anisocytosis 1+; Hypochromasia 1+; Platelet Estimate Decreased (Adequate); Schistocytes None Seen; Stomatocytes 1+
[2024-07-02 08:37] LABS: Glucose Point of Care 257 mg/dl (65-105)
[2024-07-02 08:47] LABS: Alveolar/Arterial O2 Gradient 125.6 mmHg; Base Excess ABG 9.9 mEq/l (+/-2.0); Carboxyhemoglobin 0.7 % THb (0-2.0); Fractional Inspired Oxygen 40 %; HCO3 ABG 35.5 mEq/l (22.0-26.0); Methemoglobin ABG 0.3 %THb (0-1.5); Oxygen Saturation ABG 97.5 % (95.0-100.0); Oxyhemoglobin 96.8 % THb (90.0-100.0); PO2 ABG 97.5 mmHg (80.0-100.0); PO2 FiO2 Ratio Arterial Blood 2.44 %; Reduced Hemoglobin 2.2 %THb (0-5.0); Total Hemoglobin 10.2 g/dL (12.0-18.0); pH ABG 7.436 (7.350-7.450)
[2024-07-02] MEDS: ENOXAPARIN 30 MG/0.3 ML SYRINGE SUB-Q (08:52)
[2024-07-02 08:53] LABS: Device NON-INVASIVE VENT; Site Drawn LEFT FEMORAL
[2024-07-02] MEDS: INSULIN ASPART (*BKC) 100 UNITS/ML SUB-Q ×4 (08:53→20:18)
[2024-07-02 08:54] LABS: Non-Invasive Expiratory Pressure 8 CMH2O; Non-Invasive Inspiratory Pressure 18 CMH2O; Non-Invasive Vent Rate 20 /MIN
--- NOTE | 2024-07-02 09:41 | WPDINTPN ---
Progress Note: A&P Assessment and Plan (1) Combined systolic and diastolic congestive heart failure: Qualifiers: Heart failure chronicity: chronic Qualified Code(s): I50.42 - Chronic combined systolic (congestive) and diastolic (congestive) heart failure Code(s): I50.40 - Unspecified combined systolic (congestive) and diastolic (congestive) heart failure Status: Chronic Assessment and Plan: Echo 07/10 Summary 1. Technically difficult study with limited views. 2. Left ventricular chamber dimension is moderately enlarged. 3. Left ventricular systolic function is severely reduced, estimated at 20-25%. 4. There is mildly increased left ventricular wall thickness. 5. Right ventricular chamber dimension is moderately enlarged. 6. Right ventricular systolic function is normal. 7. Left atrial chamber dimension is severely enlarged. 8. Right atrial chamber dimension is severely enlarged. 9. There is moderate aortic valve calcification. 10. There is mild aortic valve stenosis. 11. There is mild mitral valve regurgitation. 12. There is mild to moderate tricuspid valve regurgitation. chest x-ray done yesterday showed worsening pulmonary edema which has now improved with Lasix and positive pressure ventilation. Patient is now been weaned off to 2 L hold further diuretics today due to low blood pressure (2) Toxic metabolic encephalopathy: Code(s): G92.8 - Other toxic encephalopathy Status: Acute Assessment and Plan: Patient was initially admitted to ICU with toxic metabolic encephalopathy. She was moving all 4 extremities and wakes up with mild stimulation and is partially oriented. Nurse removed a fentanyl patch from her he is on few medications that can cause sedation specially in the light of renal failure. ammonia was normal Patient responded to Narcan on 06/21 cane transferred to ICU due to encephalopathy which appears to have improved this morning. ABG reviewed and will hold all sedatives Monitor (3) Type 2 diabetes mellitus with hyperglycemia, without long-term current use of insulin: Code(s): E11.65 - Type 2 diabetes mellitus with hyperglycemia Status: Chronic Assessment and Plan: Sliding scale insulin and Accu-Cheks (4) Acute on chronic kidney failure: Qualifiers: Acute renal failure type: unspecified Chronic kidney disease stage: stage 3 (moderate) Chronic kidney disease stage 3 subtype: stage 3b (GFR 30-44) Qualified Code(s): N17.9 - Acute kidney failure, unspecified; N18.32 - Chronic kidney disease, stage 3b Code(s): N17.9 - Acute kidney failure, unspecified; N18.9 - Chronic kidney disease, unspecified Status: Inactive Assessment and Plan: Patient's creatinine ranges normally in 1.1-1.3. She presented with creatinine of 3.42 on admission nephrology following Renal ultrasound was unremarkable Creatinine improving 1.9 this morning monitor urine output electrolytes and creatinine hold Lasix at this time due to improvement of pulmonary edema and soft blood pressure (5) COPD (chronic obstructive pulmonary disease): Code(s): J44.9 - Chronic obstructive pulmonary disease, unspecified Status: Acute Assessment and Plan: Continue supplemental oxygen, bronchodilators BiPAP p.r.n. and q.h.s. (6) Coronary artery disease: Qualifiers: Coronary Disease-Associated Artery/Lesion type: [place] artery [place] vs. transplanted heart: [place] heart Associated angina: without angina Qualified Code(s): I25.10 - Atherosclerotic heart disease of [place] coronary artery without angina pectoris Code(s): I25.10 - Atherosclerotic heart disease of [place] coronary artery without angina pectoris Status: Acute Assessment and Plan: Continue aspirin statin and Plavix (7) Chronic respiratory failure with hypoxia and hypercapnia: Code(s): J96.11 - Chronic respiratory failure with h
--- NOTE | 2024-07-02 10:12 | PCFNICU ---
ICU Rounding Note: Pt current nutrition is Diabetic consistent carb, renal diet. Yesterday 10% breakfast, NPO lunch and dinner. Intakes before that ~50-70%. Glucerna BID for additional 220 kcal and 10 g protein each. Nutrition recommendation: No new nutrition recommendations. Continue current nutrition care plan. Agree with diet orders Last recorded weight is 87.6 kg. Up 2.2 kg since 06/28/24 Bowel Motility: Last BM +1 06/29/24 Labs Reviewed: Hgb 9.4, Hct 32.6, GFR 26, BUN 87, Cre 1.9, Glu 257 Meds Noted: Levophed, lovenox, B12, folic acid, Lasix, novolog Skin: No pressure injuries. Additional Notes: Pt transfer to ICU because of hypotension. PICC/pressors at this time. Following daily in ICU rounds. Monitoring intakes, weights, labs, supplement tolerance, plan of care Follow up in 5 days.
--- NOTE | 2024-07-02 10:17 | PM.PNNEP ---
Progress Note: A&P Assessment and Plan (1) Acute kidney injury: Code(s): N17.9 - Acute kidney failure, unspecified Status: Acute Assessment and Plan: as noted by admission labs was improving up until last 24 - 48 hours worsening creatinine correlates with restart of diuretic therapy and hypotension evaluation to date noted: renal u/s normal urine electrolytes prerenal urine eosinophils negative CPK normal original insult thought to be due to relative hypotension and prerenal factors in conjunction with new cardiomyopathy given her significant cardiomyopathy, she may have a new baseline creatinine.... follow trend of repeat labs and UOP (2) Chronic kidney disease, stage 3: Code(s): N18.30 - Chronic kidney disease, stage 3 unspecified Status: Chronic Assessment and Plan: baseline creatinine runs around 1.1 - 1.3mg/dl presumably secondary to CHF, vascular disease, DARRICK/pulmonary HTN, and age-related change (3) Altered mental status: Code(s): R41.82 - Altered mental status, unspecified Status: Acute Assessment and Plan: better today suspect secondary to CO2 narcosis follow mentation with current interventions noted (4) Acute and chronic respiratory failure with hypercapnia: Code(s): J96.22 - Acute and chronic respiratory failure with hypercapnia Status: Acute Assessment and Plan: clinically better as noted by ABG yesterday BiPAP initiated improvement in ABGs noted back on supplemental oxygen by nasal cannula code status changed to DNR/DNI (5) Combined systolic and diastolic congestive heart failure: Qualifiers: Heart failure chronicity: chronic Qualified Code(s): I50.42 - Chronic combined systolic (congestive) and diastolic (congestive) heart failure Code(s): I50.40 - Unspecified combined systolic (congestive) and diastolic (congestive) heart failure Status: Chronic Assessment and Plan: Echo shows an EF of 20-25%. volume status worse by recent imaging/CXR resumed on diuretic therapy within the limits of hemodynamics (6) Type 2 diabetes mellitus with hyperglycemia, without long-term current use of insulin: Code(s): E11.65 - Type 2 diabetes mellitus with hyperglycemia Status: Chronic Assessment and Plan: follow accu-cheks glycemic control per hospitalist Will continue to follow. Subjective Date/time seen: 07/02/24 10:17 Interval history: Follow-up for acute kidney injury/acute renal failure on chronic kidney disease. Events noted overnight; remained on BiPAP therapy due to CO2 narcosis but then developed issues with hypotension; minimal IVF bolus due to already evidence of pulmonary edema and did not respond; transferred to ICU with subsequent central line placement and initiation of vasopressor therapy; currently, has been weaned off levophed and respiratory status has improved as off BiPAP and on oxygen by nasal cannula. Exam Narrative: General: elderly but WD/WN female in NAD Heart: normal S1 and S2; no rub Lungs: coarse and decreased at bases Abdomen: soft, nontender, nondistended, positive bowel sounds Extremities: trace edema noted Skin: no nodules Objective Data Vital Signs Vital Signs: Vital Signs Temp Pulse Resp BP Pulse Ox O2 Del Method O2 Flow Rate 07/02/24 10:00 98.0 F 92 15 120/67 96 07/02/24 10:00 92 07/02/24 08:00 98.1 F 86 20 129/64 93 07/02/24 08:00 87 07/02/24 09:08 96 Nasal Cannula 2 07/02/24 09:04 94 96 Nasal Cannula 07/02/24 08:55 91 21 H 07/02/24 08:48 90 21 H 97 BiPAP 07/02/24 08:46 97 21 H 07/02/24 06:00 90 07/02/24 04:00 90 20 BiPAP 07/02/24 04:00 98.6 F 90 20 126/58 L 07/02/24 04:00 90 07/02/24 02:00 90 07/02/24 00:00 88 21 H 97 BiPAP 07/02/24 00:00 98.7 F 88 21 H 120
--- NOTE | 2024-07-02 10:17 | P.PNNP_ITS ---
Progress Note: A&P Assessment and Plan (1) Acute kidney injury: Code(s): N17.9 - Acute kidney failure, unspecified Status: Acute Assessment and Plan: * as noted by admission labs * was improving up until last 24 - 48 hours * worsening creatinine correlates with restart of diuretic therapy and hypotension * evaluation to date noted: * renal u/s normal * urine electrolytes prerenal * urine eosinophils negative * CPK normal * original insult thought to be due to relative hypotension and prerenal factors in conjunction with new cardiomyopathy * given her significant cardiomyopathy, she may have a new baseline creatinine.... * follow trend of repeat labs and UOP (2) Chronic kidney disease, stage 3: Code(s): N18.30 - Chronic kidney disease, stage 3 unspecified Status: Chronic Assessment and Plan: * baseline creatinine runs around 1.1 - 1.3mg/dl * presumably secondary to CHF, vascular disease, DARRICK/pulmonary HTN, and age- related change (3) Altered mental status: Code(s): R41.82 - Altered mental status, unspecified Status: Acute Assessment and Plan: * better today * suspect secondary to CO2 narcosis * follow mentation with current interventions noted (4) Acute and chronic respiratory failure with hypercapnia: Code(s): J96.22 - Acute and chronic respiratory failure with hypercapnia Status: Acute Assessment and Plan: * clinically better * as noted by ABG yesterday * BiPAP initiated * improvement in ABGs noted * back on supplemental oxygen by nasal cannula * code status changed to DNR/DNI (5) Combined systolic and diastolic congestive heart failure: Qualifiers: Heart failure chronicity: chronic Qualified Code(s): I50.42 - Chronic combined systolic (congestive) and diastolic (congestive) heart failure Code(s): I50.40 - Unspecified combined systolic (congestive) and diastolic (congestive) heart failure Status: Chronic Assessment and Plan: * Echo shows an EF of 20-25%. * volume status worse by recent imaging/CXR * resumed on diuretic therapy within the limits of hemodynamics (6) Type 2 diabetes mellitus with hyperglycemia, without long-term current use of insulin: Code(s): E11.65 - Type 2 diabetes mellitus with hyperglycemia Status: Chronic Assessment and Plan: * follow accu-cheks * glycemic control per hospitalist Will continue to follow. Subjective Date/time seen: 07/02/24 10:17 Interval history: Follow-up for acute kidney injury/acute renal failure on chronic kidney disease. Events noted overnight; remained on BiPAP therapy due to CO2 narcosis but then developed issues with hypotension; minimal IVF bolus due to already evidence of pulmonary edema and did not respond; transferred to ICU with subsequent central line placement and initiation of vasopressor therapy; currently, has been weaned off levophed and respiratory status has improved as off BiPAP and on oxygen by nasal cannula. Exam Narrative: General: elderly but WD/WN female in NAD Heart: normal S1 and S2; no rub Lungs: coarse and decreased at bases Abdomen: soft, nontender, nondistended, positive bowel sounds Extremities: trace edema noted Skin: no nodules Objective Data Vital Signs Vital Signs: Vital Signs Temp Pulse Resp BP Pulse Ox O2 Del Method O2 Flow Rat
[2024-07-02] MEDS: CLOPIDOGREL BISULFATE 75 MG TABLET PO (10:41)
[2024-07-02] MEDS: ASPIRIN 81 MG CHEWABLE TABLET PO (10:41)
[2024-07-02] MEDS: ACETAMINOPHEN 325 MG TABLET 650 MG PO (10:42)
[2024-07-02] MEDS: CYANOCOBALAMIN 1,000 MCG TABLET 1000 MCG PO (10:42)
[2024-07-02] MEDS: DOCUSATE SODIUM 100 MG CAPSULE PO (10:42)
[2024-07-02] MEDS: FOLIC ACID 1 MG TABLET PO (10:42)
[2024-07-02] MEDS: MIDODRINE HCL 2.5 MG TABLET 5 MG PO ×3 (10:42→16:36)
[2024-07-02 11:10] LABS: Procalcitonin 0.1 ng/mL
[2024-07-02 11:41] LABS: Glucose Point of Care 271 mg/dl (65-105)
[2024-07-02 11:53] LABS: Add Urine Microscopic? YES; Appearance Urine Cloudy (Clear); Bacteria Urine None Seen /hpf; Bilirubin Urine Negative (Negative); Blood Urine 1+ (Negative); Color Urine Yellow (Yellow); Glucose Urine UA Negative (Negative); Hyaline Casts Urine Present /lpf; Ketones Urine Trace mg/dL (Negative); Leukocyte Esterase Ur Negative LEU/UL (Negative); Need Manual Microscopic Reviewed; Nitrate Urine Negative (Negative); Protein Urine Trace mg/dL (Negative); Specific Grav Ur 1.015 (1.001-1.035); Squamous Epithelial Cell Urine Many /hpf (Few); WBC Urine 0-5 /hpf (0-3); pH Urine 5.5 (5.0-9.0)
[2024-07-02] MEDS: INSULIN GLARGINE (*BKC) 100 UNITS/ML 15 UNITS SUB-Q (14:57)
--- NOTE | 2024-07-02 15:49 | PM.IMPN ---
Progress Note: A&P Assessment and Plan (1) Combined systolic and diastolic congestive heart failure: Qualifiers: Heart failure chronicity: chronic Qualified Code(s): I50.42 - Chronic combined systolic (congestive) and diastolic (congestive) heart failure Code(s): I50.40 - Unspecified combined systolic (congestive) and diastolic (congestive) heart failure Status: Chronic Assessment and Plan: Echo 07/10 Summary 1. Technically difficult study with limited views. 2. Left ventricular chamber dimension is moderately enlarged. 3. Left ventricular systolic function is severely reduced, estimated at 20-25%. 4. There is mildly increased left ventricular wall thickness. 5. Right ventricular chamber dimension is moderately enlarged. 6. Right ventricular systolic function is normal. 7. Left atrial chamber dimension is severely enlarged. 8. Right atrial chamber dimension is severely enlarged. 9. There is moderate aortic valve calcification. 10. There is mild aortic valve stenosis. 11. There is mild mitral valve regurgitation. 12. There is mild to moderate tricuspid valve regurgitation. Patient appeared short of breath on 06/30. Repeat chest x-ray showed worsening pulmonary edema. Lasix was started. She also had hypercapnia. Now weaned back down to 2 L nasal cannula. Repeat CT chest without contrast on 07/02/2024 demonstrates moderate size right and small left pleural effusions, 18 mm right upper lobe pulmonary nodule suspicious for primary bronchogenic carcinoma, left lower lobe nodule with improvement from 08/07/2023, probably infection. Mild emphysema. Diuretics now on hold due to low blood pressure on the morning of 07/02/2024. (2) Toxic metabolic encephalopathy: Code(s): G92.8 - Other toxic encephalopathy Status: Acute Assessment and Plan: Patient was initially admitted to ICU with toxic metabolic encephalopathy. She was moving all 4 extremities and wakes up with mild stimulation and is partially oriented. Nurse removed a fentanyl patch from her he is on few medications that can cause sedation specially in the light of renal failure. ammonia was normal Patient responded to Narcan on 06/21 cane transferred to ICU due to encephalopathy which appears to have improved this morning. ABG reviewed and will hold all sedatives Monitor (3) Type 2 diabetes mellitus with hyperglycemia, without long-term current use of insulin: Code(s): E11.65 - Type 2 diabetes mellitus with hyperglycemia Status: Chronic Assessment and Plan: Sliding scale insulin and Accu-Cheks (4) Acute on chronic kidney failure: Qualifiers: Acute renal failure type: unspecified Chronic kidney disease stage: stage 3 (moderate) Chronic kidney disease stage 3 subtype: stage 3b (GFR 30-44) Qualified Code(s): N17.9 - Acute kidney failure, unspecified; N18.32 - Chronic kidney disease, stage 3b Code(s): N17.9 - Acute kidney failure, unspecified; N18.9 - Chronic kidney disease, unspecified Status: Inactive Assessment and Plan: Patient's creatinine ranges normally in 1.1-1.3. She presented with creatinine of 3.42 on admission nephrology following Renal ultrasound was unremarkable Creatinine improving 1.9 this morning monitor urine output electrolytes and creatinine hold Lasix at this time due to improvement of pulmonary edema and soft blood pressure (5) COPD (chronic obstructive pulmonary disease): Code(s): J44.9 - Chronic obstructive pulmonary disease, unspecified Status: Acute Assessment and Plan: Continue supplemental oxygen, bronchodilators BiPAP p.r.n. and q.h.s. (6) Coronary artery disease: Qualifiers: Coronary Disease-Associated Artery/Lesion type: [place] artery [place] vs. transplanted heart: [place] heart Associated angina: without angina Qualified Code(s): I25.10 - Atherosclerotic heart disease of [place] coronary arter
--- NOTE | 2024-07-02 16:00 | PCPTNOTE ---
Pt not medically appropriate to be seen this date for re-evaluation. Will follow.
[2024-07-02 16:02] LABS: Glucose Point of Care 274 mg/dl (65-105)
[2024-07-02] MEDS: ATORVASTATIN 40 MG TABLET 80 MG PO (16:53)
[2024-07-02 19:59] LABS: Glucose Point of Care 285 mg/dl (65-105)
[2024-07-03] VITALS (28 sets, daily range): BP systolic 72–118; BP diastolic 40–70; PULSE 97–110; RESP 16–24; TEMP 36.3–36.8; O2SAT 94–100
[2024-07-03] MEDS: IPRATROPIUM BR 0.02% INH SOLN 0.5 MG/2.5 ML VIAL INHALATION ×4 (02:02→20:57)
[2024-07-03 05:23] LABS: Hematocrit 28.7 % (37.0-47.0); Hemoglobin 8.7 g/dL (12.0-15.0); Mean Corpuscular HGB Conc 30.3 g/dl (32-36); Mean Corpuscular Volume 105.5 fl (80-100); Mean Platelet Volume 12.9 fl (7.4-10.4); Platelet Count Result 126 k/mm3 (150-375); Red Blood Count 2.72 M/mm3 (4.2-5.4); Red Cell Distribution Width 15.7 % (11.5-14.5); White Blood Count 7.6 K/mm3 (4.5-10.0)
[2024-07-03 05:36] LABS: Alanine Aminotransferase 30 U/L (6-35); Albumin Level 3.3 g/dL (3.5-5.1); Alkaline Phosphatase 151 U/L (38-126); Aspartate Amino Transferase 39 U/L (14-36); Bilirubin,Total 0.5 mg/dL (0.2-1.3); Blood Urea Nitrogen 83 mg/dL (7-17); Calcium 9.7 mg/dL (8.4-10.2); Carbon Dioxide > 40 mmol/L (22-30); Chloride 93 mmol/L (98-107); Estimated CRCL calculation 29 ml/min; Estimated Glomerular Filt Rate 30; Glucose 233 mg/dL (65-110); Potassium 4.4 mmol/L (3.4-5.0); Sodium 140 mmol/L (137-145)
[2024-07-03] MEDS: CENTRAL LINE FLUSH 10 ML IV PUSH ×3 (05:44→20:33)
--- NOTE | 2024-07-03 07:40 | PM.IMPN ---
Progress Note: A&P Assessment and Plan (1) Combined systolic and diastolic congestive heart failure: Qualifiers: Heart failure chronicity: chronic Qualified Code(s): I50.42 - Chronic combined systolic (congestive) and diastolic (congestive) heart failure Code(s): I50.40 - Unspecified combined systolic (congestive) and diastolic (congestive) heart failure Status: Chronic Assessment and Plan: Echo 07/10 Summary 1. Technically difficult study with limited views. 2. Left ventricular chamber dimension is moderately enlarged. 3. Left ventricular systolic function is severely reduced, estimated at 20-25%. 4. There is mildly increased left ventricular wall thickness. 5. Right ventricular chamber dimension is moderately enlarged. 6. Right ventricular systolic function is normal. 7. Left atrial chamber dimension is severely enlarged. 8. Right atrial chamber dimension is severely enlarged. 9. There is moderate aortic valve calcification. 10. There is mild aortic valve stenosis. 11. There is mild mitral valve regurgitation. 12. There is mild to moderate tricuspid valve regurgitation. Patient appeared short of breath on 06/30. Repeat chest x-ray showed worsening pulmonary edema. Lasix was started. She also had hypercapnia. Went to the ICU on continuous BiPAP, received albumin, Levophed for short course, Now weaned back down to 2 L nasal cannula. Repeat CT chest without contrast on 07/02/2024 demonstrates moderate size right and small left pleural effusions, 18 mm right upper lobe pulmonary nodule suspicious for primary bronchogenic carcinoma, left lower lobe nodule with improvement from 08/07/2023, probably infection. Mild emphysema. On 07/03/2024: She has 2+ pitting edema bilateral lower extremities but has hypotension which is her usual and breathing is okay. Holding diuretics. (2) Toxic metabolic encephalopathy: Code(s): G92.8 - Other toxic encephalopathy Status: Acute Assessment and Plan: Patient was initially admitted to ICU with toxic metabolic encephalopathy. She was moving all 4 extremities and wakes up with mild stimulation and is partially oriented. Nurse removed a fentanyl patch from her he is on few medications that can cause sedation specially in the light of renal failure. ammonia was normal Patient responded to Narcan on 06/21 Again transferred to ICU on 07/02 due to CO2 narcosis. This has yet again resolved with the use of BiPAP. Hold sedatives. Make sure to apply noninvasive ventilator every night. And p.r.n.. (3) Type 2 diabetes mellitus with hyperglycemia, without long-term current use of insulin: Code(s): E11.65 - Type 2 diabetes mellitus with hyperglycemia Status: Chronic Assessment and Plan: -glucose monitoring ACHS, insulin sliding scale, hypoglycemia protocol -HbA1c 6.9% on 05/16/2024 -does not appear to be on insulin at home. -blood glucose reviewed on 07/03. Uncontrolled. Increase Lantus 15 units q.h.s. to 21 units. (4) Acute on chronic kidney failure: Qualifiers: Acute renal failure type: unspecified Chronic kidney disease stage: stage 3 (moderate) Chronic kidney disease stage 3 subtype: stage 3b (GFR 30-44) Qualified Code(s): N17.9 - Acute kidney failure, unspecified; N18.32 - Chronic kidney disease, stage 3b Code(s): N17.9 - Acute kidney failure, unspecified; N18.9 - Chronic kidney disease, unspecified Status: Inactive Assessment and Plan: -Patient's creatinine ranges normally in 1.1-1.3. She presented with creatinine of 3.42 on admission -Nephrology following -Renal ultrasound was unremarkable -creatinine now between 1.7 and 1.9. Her creatinine tends to bump immediately after Lasix is administered. Gentle diuresis if needed (5) COPD (chronic obstructive pulmonary disease): Code(s): J44.9 - Chronic obstructive pulmonary disease, unspecified Status: Acute Assessment a
[2024-07-03 07:43] LABS: Glucose Point of Care 226 mg/dl (65-105)
[2024-07-03] MEDS: CYANOCOBALAMIN 1,000 MCG TABLET 1000 MCG PO (08:57)
[2024-07-03] MEDS: DOCUSATE SODIUM 100 MG CAPSULE PO (08:57)
[2024-07-03] MEDS: CLOPIDOGREL BISULFATE 75 MG TABLET PO (08:57)
[2024-07-03] MEDS: FOLIC ACID 1 MG TABLET PO (08:57)
[2024-07-03] MEDS: ASPIRIN 81 MG CHEWABLE TABLET PO (08:57)
[2024-07-03] MEDS: MIDODRINE HCL 2.5 MG TABLET 5 MG PO ×4 (08:58→17:10)
[2024-07-03] MEDS: ENOXAPARIN 30 MG/0.3 ML SYRINGE SUB-Q (08:58)
[2024-07-03] MEDS: INSULIN ASPART (*BKC) 100 UNITS/ML SUB-Q ×4 (08:59→20:32)
[2024-07-03] MEDS: UMECLIDINIUM/VILANTEROL 62.5-25 MCG ELLIPTA 1 PUFF INHALATION (09:05)
[2024-07-03] MEDS: ACETAMINOPHEN 325 MG TABLET 650 MG PO (11:23)
[2024-07-03 11:48] LABS: Glucose Point of Care 267 mg/dl (65-105)
--- NOTE | 2024-07-03 12:32 | P.PNNP_ITS ---
Progress Note: A&P Assessment and Plan (1) Acute kidney injury: Code(s): N17.9 - Acute kidney failure, unspecified Status: Acute Assessment and Plan: * as noted by admission labs * was improving up until last 24 - 48 hours * worsening creatinine correlates with restart of diuretic therapy and hypotension * evaluation to date noted: * renal u/s normal * urine electrolytes prerenal * urine eosinophils negative * CPK normal * etiology most likely related to prerenal factors including dehydration and poor cardiac output. * given her significant cardiomyopathy, she may have a new baseline creatinin e.... * creatinine seems to be relatively stable. * Will check another creatinine tomorrow (2) Chronic kidney disease, stage 3: Code(s): N18.30 - Chronic kidney disease, stage 3 unspecified Status: Chronic Assessment and Plan: * baseline creatinine runs around 1.1 - 1.3mg/dl * currently 1.7. This is probably a new baseline as stated above * presumably secondary to CHF, vascular disease, DARRICK/pulmonary HTN, and age- related change (3) Altered mental status: Code(s): R41.82 - Altered mental status, unspecified Status: Acute Assessment and Plan: * still not fully awake but is interacting some. * suspect secondary to CO2 narcosis * follow mentation with current interventions noted (4) Acute and chronic respiratory failure with hypercapnia: Code(s): J96.22 - Acute and chronic respiratory failure with hypercapnia Status: Acute Assessment and Plan: * clinically better * as noted by ABG yesterday * BiPAP initiated * improvement in ABGs noted * The patient does not always use her BiPAP machine * back on supplemental oxygen by nasal cannula * code status changed to DNR/DNI (5) Combined systolic and diastolic congestive heart failure: Qualifiers: Heart failure chronicity: chronic Qualified Code(s): I50.42 - Chronic combined systolic (congestive) and diastolic (congestive) heart failure Code(s): I50.40 - Unspecified combined systolic (congestive) and diastolic (congestive) heart failure Status: Chronic Assessment and Plan: * Echo shows an EF of 20-25%. * chest x-ray on the 16th shows mild pulmonary edema and right pleural effusion along with cardiomegaly and some airspace opacities. * Diuretics still on hold. Her creatinine is bouncing around between 1.5 and 1.9 but mostly 1.7 as it is today. * I think we can resume the diuretics at a low dose. (6) Type 2 diabetes mellitus with hyperglycemia, without long-term current use of insulin: Code(s): E11.65 - Type 2 diabetes mellitus with hyperglycemia Status: Chronic Assessment and Plan: * follow accu-cheks * glycemic control per hospitalist Subjective Date/time seen: 07/03/24 12:32 Interval history: Vanita is lying in bed trying to eat some lunch. Eyes closed but does talk some. She wants to go home. No chest pain or shortness of breath Exam Narrative: General: elderly but WD/WN female in NAD Heart: normal S1 and S2; no rub Or gallop Lungs: coarse and decreased at bases Abdomen: soft, nontender, nondistended, positive bowel sounds Extremities: trace edema noted Skin: no nodules or rash Objective Data Vital Signs Vital Signs: Vital Signs - 24 hr 07/02/24 14:22 07/02/24 1
--- NOTE | 2024-07-03 12:32 | PM.PNNEP ---
Progress Note: A&P Assessment and Plan (1) Acute kidney injury: Code(s): N17.9 - Acute kidney failure, unspecified Status: Acute Assessment and Plan: as noted by admission labs was improving up until last 24 - 48 hours worsening creatinine correlates with restart of diuretic therapy and hypotension evaluation to date noted: renal u/s normal urine electrolytes prerenal urine eosinophils negative CPK normal etiology most likely related to prerenal factors including dehydration and poor cardiac output. given her significant cardiomyopathy, she may have a new baseline creatinine.... creatinine seems to be relatively stable. Will check another creatinine tomorrow (2) Chronic kidney disease, stage 3: Code(s): N18.30 - Chronic kidney disease, stage 3 unspecified Status: Chronic Assessment and Plan: baseline creatinine runs around 1.1 - 1.3mg/dl currently 1.7. This is probably a new baseline as stated above presumably secondary to CHF, vascular disease, DARRICK/pulmonary HTN, and age-related change (3) Altered mental status: Code(s): R41.82 - Altered mental status, unspecified Status: Acute Assessment and Plan: still not fully awake but is interacting some. suspect secondary to CO2 narcosis follow mentation with current interventions noted (4) Acute and chronic respiratory failure with hypercapnia: Code(s): J96.22 - Acute and chronic respiratory failure with hypercapnia Status: Acute Assessment and Plan: clinically better as noted by ABG yesterday BiPAP initiated improvement in ABGs noted The patient does not always use her BiPAP machine back on supplemental oxygen by nasal cannula code status changed to DNR/DNI (5) Combined systolic and diastolic congestive heart failure: Qualifiers: Heart failure chronicity: chronic Qualified Code(s): I50.42 - Chronic combined systolic (congestive) and diastolic (congestive) heart failure Code(s): I50.40 - Unspecified combined systolic (congestive) and diastolic (congestive) heart failure Status: Chronic Assessment and Plan: Echo shows an EF of 20-25%. chest x-ray on the 16th shows mild pulmonary edema and right pleural effusion along with cardiomegaly and some airspace opacities. Diuretics still on hold. Her creatinine is bouncing around between 1.5 and 1.9 but mostly 1.7 as it is today. I think we can resume the diuretics at a low dose. (6) Type 2 diabetes mellitus with hyperglycemia, without long-term current use of insulin: Code(s): E11.65 - Type 2 diabetes mellitus with hyperglycemia Status: Chronic Assessment and Plan: follow accu-cheks glycemic control per hospitalist Subjective Date/time seen: 07/03/24 12:32 Interval history: Vanita is lying in bed trying to eat some lunch. Eyes closed but does talk some. She wants to go home. No chest pain or shortness of breath Exam Narrative: General: elderly but WD/WN female in NAD Heart: normal S1 and S2; no rub Or gallop Lungs: coarse and decreased at bases Abdomen: soft, nontender, nondistended, positive bowel sounds Extremities: trace edema noted Skin: no nodules or rash Objective Data Vital Signs Vital Signs: Vital Signs - 24 hr 07/02/24 14:22 07/02/24 14:22 07/02/24 14:30 Temperature Pulse Rate 95 95 Respiratory Rate 20 20 Blood Pressure Pulse Oximetry 100 Oxygen Delivery Nasal Cannula Oxygen Flow Rate 2 Fraction of Inspired Oxygen 07/02/24 14:00 07/02/24 14:00 07/02/24 16:00 Temperature 98.3 F Pulse Rate 93 93 89 Respiratory Rate 19 Blood Pressure 98/61 L Pulse Oximetry 100 Oxygen Delivery Oxygen Flow Rate Fraction of Inspired Oxygen 07/02/24 16:00 07/02/24 18:00 07/02/24 17:10 Temperature 98.8 F Pulse Rate 99 94 Respiratory Rate 18 Blood Pre
[2024-07-03 15:47] LABS: Glucose Point of Care 261 mg/dl (65-105)
--- NOTE | 2024-07-03 16:03 | PCPTNOTE ---
PT held at this time due to changes in patient's medical condition. Patient currently has a R Femoral Line. PT will resume when patient is medically able to participate.
[2024-07-03] MEDS: ATORVASTATIN 40 MG TABLET 80 MG PO (17:10)
[2024-07-03] MEDS: INSULIN GLARGINE (*BKC) 100 UNITS/ML 21 UNITS SUB-Q (20:33)
[2024-07-03 20:39] LABS: Glucose Point of Care 283 mg/dl (65-105)
[2024-07-04] VITALS (27 sets, daily range): BP systolic 91–124; BP diastolic 48–75; PULSE 92–122; RESP 16–24; TEMP 36.3–36.9; O2SAT 93–100
[2024-07-04 04:14] LABS: Hematocrit 29.7 % (37.0-47.0); Hemoglobin 8.6 g/dL (12.0-15.0); Mean Corpuscular Hemoglobin 30.9 pg (26-34); Mean Corpuscular Volume 106.8 fl (80-100); Platelet Count Result 104 k/mm3 (150-375); Red Blood Count 2.78 M/mm3 (4.2-5.4); Red Cell Distribution Width 15.8 % (11.5-14.5)
[2024-07-04 04:31] LABS: Alanine Aminotransferase 27 U/L (6-35); Albumin Level 3.2 g/dL (3.5-5.1); Alkaline Phosphatase 140 U/L (38-126); Aspartate Amino Transferase 33 U/L (14-36); Bilirubin,Total 0.5 mg/dL (0.2-1.3); Blood Urea Nitrogen 72 mg/dL (7-17); Calcium 9.2 mg/dL (8.4-10.2); Carbon Dioxide > 40 mmol/L (22-30); Chloride 93 mmol/L (98-107); Estimated CRCL calculation 33 ml/min; Estimated Glomerular Filt Rate 34; Glucose 230 mg/dL (65-110); Phosphorus 2.3 mg/dL (2.5-4.5); Potassium 3.9 mmol/L (3.4-5.0); Sodium 140 mmol/L (137-145)
[2024-07-04] MEDS: CENTRAL LINE FLUSH 10 ML IV PUSH ×2 (06:45→12:34)
[2024-07-04 06:55] LABS: Glucose Point of Care 201 mg/dl (65-105)
[2024-07-04] MEDS: ENOXAPARIN 30 MG/0.3 ML SYRINGE SUB-Q (08:18)
[2024-07-04] MEDS: INSULIN ASPART (*BKC) 100 UNITS/ML SUB-Q ×4 (08:19→20:22)
[2024-07-04] MEDS: ASPIRIN 81 MG CHEWABLE TABLET PO (08:19)
[2024-07-04] MEDS: CYANOCOBALAMIN 1,000 MCG TABLET 1000 MCG PO (08:19)
[2024-07-04] MEDS: DOCUSATE SODIUM 100 MG CAPSULE PO (08:19)
[2024-07-04] MEDS: FOLIC ACID 1 MG TABLET PO (08:19)
[2024-07-04] MEDS: CLOPIDOGREL BISULFATE 75 MG TABLET PO (08:19)
[2024-07-04] MEDS: MIDODRINE HCL 2.5 MG TABLET 5 MG PO ×3 (08:19→16:55)
[2024-07-04] MEDS: IPRATROPIUM BR 0.02% INH SOLN 0.5 MG/2.5 ML VIAL INHALATION ×3 (08:28→19:19)
[2024-07-04] MEDS: UMECLIDINIUM/VILANTEROL 62.5-25 MCG ELLIPTA 1 PUFF INHALATION (08:28)
--- NOTE | 2024-07-04 09:01 | PM.IMPN ---
Progress Note: A&P Assessment and Plan (1) Combined systolic and diastolic congestive heart failure: Qualifiers: Heart failure chronicity: chronic Qualified Code(s): I50.42 - Chronic combined systolic (congestive) and diastolic (congestive) heart failure Code(s): I50.40 - Unspecified combined systolic (congestive) and diastolic (congestive) heart failure Status: Chronic Assessment and Plan: Echo 07/10 Summary 1. Technically difficult study with limited views. 2. Left ventricular chamber dimension is moderately enlarged. 3. Left ventricular systolic function is severely reduced, estimated at 20-25%. 4. There is mildly increased left ventricular wall thickness. 5. Right ventricular chamber dimension is moderately enlarged. 6. Right ventricular systolic function is normal. 7. Left atrial chamber dimension is severely enlarged. 8. Right atrial chamber dimension is severely enlarged. 9. There is moderate aortic valve calcification. 10. There is mild aortic valve stenosis. 11. There is mild mitral valve regurgitation. 12. There is mild to moderate tricuspid valve regurgitation. Patient appeared short of breath on 06/30. Repeat chest x-ray showed worsening pulmonary edema. Lasix was started. She also had hypercapnia. Went to the ICU on continuous BiPAP, received albumin, Levophed for short course, Now weaned back down to 2 L nasal cannula. Repeat CT chest without contrast on 07/02/2024 demonstrates moderate size right and small left pleural effusions, 18 mm right upper lobe pulmonary nodule suspicious for primary bronchogenic carcinoma, left lower lobe nodule with improvement from 08/07/2023, probably infection. Mild emphysema. On 07/03/2024: She has 2+ pitting edema bilateral lower extremities but has hypotension which is her usual and breathing is okay. Holding diuretics. On 07/04/2024: Restart Lasix 20 mg p.o. q.day (2) Toxic metabolic encephalopathy: Code(s): G92.8 - Other toxic encephalopathy Status: Acute Assessment and Plan: Patient was initially admitted to ICU with toxic metabolic encephalopathy. She was moving all 4 extremities and wakes up with mild stimulation and is partially oriented. Nurse removed a fentanyl patch from her he is on few medications that can cause sedation specially in the light of renal failure. ammonia was normal Patient responded to Narcan on 06/21 Again transferred to ICU on 07/02 due to CO2 narcosis. This has yet again resolved with the use of BiPAP. Hold sedatives. Make sure to apply noninvasive ventilator every night. And p.r.n.. AVOID SEDATIVES/NARCOTICS (3) Type 2 diabetes mellitus with hyperglycemia, without long-term current use of insulin: Code(s): E11.65 - Type 2 diabetes mellitus with hyperglycemia Status: Chronic Assessment and Plan: -glucose monitoring ACHS, insulin sliding scale, hypoglycemia protocol -HbA1c 6.9% on 05/16/2024 -does not appear to be on insulin at home. -blood glucose reviewed on 07/03. Uncontrolled. Increase Lantus 15 units q.h.s. to 21 units. (4) Acute on chronic kidney failure: Qualifiers: Acute renal failure type: unspecified Chronic kidney disease stage: stage 3 (moderate) Chronic kidney disease stage 3 subtype: stage 3b (GFR 30-44) Qualified Code(s): N17.9 - Acute kidney failure, unspecified; N18.32 - Chronic kidney disease, stage 3b Code(s): N17.9 - Acute kidney failure, unspecified; N18.9 - Chronic kidney disease, unspecified Status: Inactive Assessment and Plan: -Patient's creatinine ranges normally in 1.1-1.3. She presented with creatinine of 3.42 on admission -Nephrology following -Renal ultrasound was unremarkable -creatinine now between 1.7 and 1.9. Her creatinine tends to bump immediately after Lasix is administered. -due to advanced heart failure she may have a new baseline. (5) COPD (chronic obstructive pulmonary disease):
[2024-07-04] MEDS: guaiFENesin 12 HR 600 MG TABCR 1200 MG PO ×2 (09:52→20:16)
[2024-07-04] MEDS: FUROSEMIDE 20 MG TABLET PO (09:52)
[2024-07-04] MEDS: ACETAMINOPHEN 325 MG TABLET 650 MG PO ×2 (10:31→20:55)
--- NOTE | 2024-07-04 10:48 | PCOTNOTE ---
OT held at this time due to changes in patient's medical condition. Patient currently has a R Femoral Line. PT will resume when patient is medically able to participate.
--- NOTE | 2024-07-04 11:20 | P.PNNP_ITS ---
Progress Note: A&P Assessment and Plan (1) Acute kidney injury: Code(s): N17.9 - Acute kidney failure, unspecified Status: Acute Assessment and Plan: * as noted by admission labs * was improving up until last 24 - 48 hours * worsening creatinine correlates with restart of diuretic therapy and hypotension * evaluation to date noted: * renal u/s normal * urine electrolytes prerenal * urine eosinophils negative * CPK normal * etiology most likely related to prerenal factors including dehydration and poor cardiac output. * given her significant cardiomyopathy, she may have a new baseline creatinin e.... * creatinine seems to be relatively stable mostly between 1.5 and 1.7. * Lasix restarted yesterday * Will check another creatinine tomorrow (2) Chronic kidney disease, stage 3: Code(s): N18.30 - Chronic kidney disease, stage 3 unspecified Status: Chronic Assessment and Plan: * baseline creatinine runs around 1.1 - 1.3mg/dl * currently 1.7. This is probably a new baseline as stated above * presumably secondary to CHF, vascular disease, DARRICK/pulmonary HTN, and age- related change (3) Altered mental status: Code(s): R41.82 - Altered mental status, unspecified Status: Acute Assessment and Plan: * still not fully awake but is interacting some at times according to the nurse s * suspect secondary to CO2 narcosis as CO2 has been high in the past. * follow mentation with current interventions noted (4) Acute and chronic respiratory failure with hypercapnia: Code(s): J96.22 - Acute and chronic respiratory failure with hypercapnia Status: Acute Assessment and Plan: * clinically better * as noted by ABG yesterday * BiPAP initiated * improvement in ABGs noted * The patient does not always use her BiPAP machine * back on supplemental oxygen by nasal cannula * code status changed to DNR/DNI (5) Combined systolic and diastolic congestive heart failure: Qualifiers: Heart failure chronicity: chronic Qualified Code(s): I50.42 - Chronic combined systolic (congestive) and diastolic (congestive) heart failure Code(s): I50.40 - Unspecified combined systolic (congestive) and diastolic (congestive) heart failure Status: Chronic Assessment and Plan: * Echo shows an EF of 20-25%. * chest x-ray on the 16th shows mild pulmonary edema and right pleural effusion along with cardiomegaly and some airspace opacities. * Diuretics still on hold. Her creatinine is bouncing around between 1.5 and 1.9 but mostly 1.7 In today dropped even to 1.5. * Getting Lasix 20mg per day (6) Type 2 diabetes mellitus with hyperglycemia, without long-term current use of insulin: Code(s): E11.65 - Type 2 diabetes mellitus with hyperglycemia Status: Chronic Assessment and Plan: * follow accu-cheks * glycemic control per hospitalist Subjective Date/time seen: 07/04/24 11:20 Interval history: This peel is sleepy today. She has been waking up for answering questions and also to eat some. Exam Narrative: General: elderly but WD/WN female in NAD Heart: normal S1 and S2; no rub Or gallop Lungs: coarse and decreased at bases Abdomen: soft, nontender, nondistended, positive bowel sounds Extremities: trace edema bilateral Skin: No rash Objective Data Vital Signs Vital Signs: Vital Signs - 24 hr
--- NOTE | 2024-07-04 11:20 | PM.PNNEP ---
Progress Note: A&P Assessment and Plan (1) Acute kidney injury: Code(s): N17.9 - Acute kidney failure, unspecified Status: Acute Assessment and Plan: as noted by admission labs was improving up until last 24 - 48 hours worsening creatinine correlates with restart of diuretic therapy and hypotension evaluation to date noted: renal u/s normal urine electrolytes prerenal urine eosinophils negative CPK normal etiology most likely related to prerenal factors including dehydration and poor cardiac output. given her significant cardiomyopathy, she may have a new baseline creatinine.... creatinine seems to be relatively stable mostly between 1.5 and 1.7. Lasix restarted yesterday Will check another creatinine tomorrow (2) Chronic kidney disease, stage 3: Code(s): N18.30 - Chronic kidney disease, stage 3 unspecified Status: Chronic Assessment and Plan: baseline creatinine runs around 1.1 - 1.3mg/dl currently 1.7. This is probably a new baseline as stated above presumably secondary to CHF, vascular disease, DARRICK/pulmonary HTN, and age-related change (3) Altered mental status: Code(s): R41.82 - Altered mental status, unspecified Status: Acute Assessment and Plan: still not fully awake but is interacting some at times according to the nurses suspect secondary to CO2 narcosis as CO2 has been high in the past. follow mentation with current interventions noted (4) Acute and chronic respiratory failure with hypercapnia: Code(s): J96.22 - Acute and chronic respiratory failure with hypercapnia Status: Acute Assessment and Plan: clinically better as noted by ABG yesterday BiPAP initiated improvement in ABGs noted The patient does not always use her BiPAP machine back on supplemental oxygen by nasal cannula code status changed to DNR/DNI (5) Combined systolic and diastolic congestive heart failure: Qualifiers: Heart failure chronicity: chronic Qualified Code(s): I50.42 - Chronic combined systolic (congestive) and diastolic (congestive) heart failure Code(s): I50.40 - Unspecified combined systolic (congestive) and diastolic (congestive) heart failure Status: Chronic Assessment and Plan: Echo shows an EF of 20-25%. chest x-ray on the 16th shows mild pulmonary edema and right pleural effusion along with cardiomegaly and some airspace opacities. Diuretics still on hold. Her creatinine is bouncing around between 1.5 and 1.9 but mostly 1.7 In today dropped even to 1.5. Getting Lasix 20mg per day (6) Type 2 diabetes mellitus with hyperglycemia, without long-term current use of insulin: Code(s): E11.65 - Type 2 diabetes mellitus with hyperglycemia Status: Chronic Assessment and Plan: follow accu-cheks glycemic control per hospitalist Subjective Date/time seen: 07/04/24 11:20 Interval history: This peel is sleepy today. She has been waking up for answering questions and also to eat some. Exam Narrative: General: elderly but WD/WN female in NAD Heart: normal S1 and S2; no rub Or gallop Lungs: coarse and decreased at bases Abdomen: soft, nontender, nondistended, positive bowel sounds Extremities: trace edema bilateral Skin: No rash Objective Data Vital Signs Vital Signs: Vital Signs - 24 hr 07/03/24 11:38 07/03/24 13:30 07/03/24 13:40 Temperature 98.0 F Pulse Rate 103 H 105 H 108 H Respiratory Rate 16 20 20 Blood Pressure 77/54 L Pulse Oximetry 99 Oxygen Delivery Oxygen Flow Rate Fraction of Inspired Oxygen 07/03/24 16:00 07/03/24 12:00 07/03/24 16:00 Temperature 98.3 F Pulse Rate 106 H Respiratory Rate 16 Blood Pressure 113/54 L Pulse Oximetry 100 99 100 Oxygen Delivery Nasal Cannula Nasal Cannula Oxygen Flow Rate 2 2 Fraction of Inspired Oxygen 07/03/24 18:00 07/03/24
[2024-07-04 11:55] LABS: Glucose Point of Care 270 mg/dl (65-105)
[2024-07-04 16:56] LABS: Glucose Point of Care 228 mg/dl (65-105)
[2024-07-04] MEDS: ATORVASTATIN 40 MG TABLET 80 MG PO (17:00)
[2024-07-04] MEDS: INSULIN GLARGINE (*BKC) 100 UNITS/ML 21 UNITS SUB-Q (20:53)
[2024-07-04 20:57] LABS: Glucose Point of Care 245 mg/dl (65-105)
[2024-07-05] VITALS (22 sets, daily range): BP systolic 110–122; BP diastolic 48–69; PULSE 98–138; RESP 16–29; TEMP 36.4–36.8; O2SAT 77–100
[2024-07-05] MEDS: CENTRAL LINE FLUSH 10 ML IV PUSH ×2 (00:07→05:23)
[2024-07-05] MEDS: IPRATROPIUM BR 0.02% INH SOLN 0.5 MG/2.5 ML VIAL INHALATION ×3 (01:11→13:23)
--- NOTE | 2024-07-05 01:12 | ECG_ITS ---
Test Date: 2024-07-05 01:19:12 Measurements Intervals [place] Rate: 123 P: 73 MT: 163 QRS: -69 QRSD: 130 T: 101 QT: 322 QTc: 461 Interpretive Statements SINUS TACHYCARDIA WITH OCCASIONAL VENTRICULAR PREMATURE COMPLEXES POSSIBLE RIGHT VENTRICULAR CONDUCTION DELAY [RSR (QR) IN V1/V2] INFERIOR MYOCARDIAL INFARCTION [40+ ms Q WAVE AND/OR ST/T ABNORMALITY IN II/aVF], OF INDETERMINATE AGE RIGHT BUNDLE BRANCH BLOCK ABNORMAL ECG Electronically Signed On 07-05-2024 10:59:39 CDT by Chris Verdugo M.D.
--- NOTE | 2024-07-05 01:12 | PC.NURSE ---
Patient has been yelling this entire shift. Repeatatively asking for the same things...to be positioned for bed. Patient's heart rate sustaining in 130's. spoke to Dr. Velazquez who stated she will look at it. unable to keep sats >90 at this time on nasal cannula after patient had refused bipap all night. At this time, bipap in place and rt giving a nebulizer treatment. Also obtaining an EKG
--- NOTE | 2024-07-05 01:25 | PC.NURSE ---
At this time, patient's heart rate 120, oxygen saturation on bipap 97%, 122/69 bp. Patient remains oriented x 3 although she continues to repeat herself frequently. Spoke with Dr. Velazquez again. NNO.
--- NOTE | 2024-07-05 01:43 | P.PNCROSS_ITS ---
Event Note Event Note Event Note: Nursing called. Patient had been agitated and yelling out wanting pain medicat ions. The patient has a history of narcotic dependence and is not on narcotics during her current hospital stay. The patient was also having increased work of breathing the more upset she got about the pain medications. Nursing staff tried to get patient to wear her BiPAP the patient was refusing. Patient's heart rate was in the 130s to 140s. Nursing staff obtain EKG which demonstrated sinus tachycardia with the patient's baseline abnormalities with bundle-branch block. EKGs were reviewed and interpreted. Nursing staff called back before I could come down to the floor to review the EKGs and to tell me the patient's oxygen saturations had dropped to the 70s. The patient finally consented to being placed on the BiPAP. I went down to evaluate patient the last time I arrived at the patient's room patient was sleeping comfortably in her heart rate had come down to the low 100s which was patient's baseline. I placed an order for x-ray that could be performed in the morning if the patient was resting comfortably or could be placed a stat if the patient developed worsening symptoms. In the field patient's tachycardia was likely due to her increased work of breathing associated with her refusal of BiPAP. Patient's respiratory rate has returned to baseline as well her work of breathing has improved. 20 minutes was spent in chart review and evaluation patient discussion patient's condition with nursing staff.
--- NOTE | 2024-07-05 03:44 | PC.NURSE ---
Reported 21 beat run of [employer] to [facility]. Velazquez. Received order to make sure a mag is included in morning labs.
[2024-07-05 03:57] LABS: Hematocrit 30.4 % (37.0-47.0); Hemoglobin 8.9 g/dL (12.0-15.0); Mean Corpuscular HGB Conc 29.3 g/dl (32-36); Mean Corpuscular Hemoglobin 31.6 pg (26-34); Mean Corpuscular Volume 107.8 fl (80-100); Platelet Count Result 107 k/mm3 (150-375); Red Blood Count 2.82 M/mm3 (4.2-5.4); Red Cell Distribution Width 15.8 % (11.5-14.5)
[2024-07-05 04:10] LABS: Alanine Aminotransferase 27 U/L (6-35); Albumin Level 3.5 g/dL (3.5-5.1); Alkaline Phosphatase 169 U/L (38-126); Aspartate Amino Transferase 45 U/L (14-36); Bilirubin,Total 0.5 mg/dL (0.2-1.3); Blood Urea Nitrogen 64 mg/dL (7-17); Calcium 9.6 mg/dL (8.4-10.2); Carbon Dioxide > 40 mmol/L (22-30); Chloride 92 mmol/L (98-107); Estimated CRCL calculation 35 ml/min; Estimated Glomerular Filt Rate 37; Glucose 299 mg/dL (65-110); Magnesium 1.9 mg/dL (1.6-2.3); Phosphorus 3.1 mg/dL (2.5-4.5); Potassium 4.3 mmol/L (3.4-5.0); Sodium 139 mmol/L (137-145)
[2024-07-05] MEDS: WATER FOR IRRIGATION, STERILE 1,000 ML BOTTLE 1000 ML (04:17)
[2024-07-05 06:48] LABS: Glucose Point of Care 293 mg/dl (65-105)
[2024-07-05] MEDS: UMECLIDINIUM/VILANTEROL 62.5-25 MCG ELLIPTA 1 PUFF INHALATION (07:15)
[2024-07-05] MEDS: INSULIN ASPART (*BKC) 100 UNITS/ML SUB-Q ×3 (07:39→16:48)
[2024-07-05] MEDS: DOCUSATE SODIUM 100 MG CAPSULE PO (08:43)
[2024-07-05] MEDS: guaiFENesin 12 HR 600 MG TABCR 1200 MG PO (08:43)
[2024-07-05] MEDS: CYANOCOBALAMIN 1,000 MCG TABLET 1000 MCG PO (08:43)
[2024-07-05] MEDS: acetaZOLAMIDE TAB 250 MG TABLET PO (08:43)
[2024-07-05] MEDS: FOLIC ACID 1 MG TABLET PO (08:43)
[2024-07-05] MEDS: ASPIRIN 81 MG CHEWABLE TABLET PO (08:43)
[2024-07-05] MEDS: MIDODRINE HCL 2.5 MG TABLET 5 MG PO ×3 (08:44→16:48)
[2024-07-05] MEDS: FUROSEMIDE 20 MG TABLET PO (08:44)
--- NOTE | 2024-07-05 10:01 | PM.PNNEP ---
Progress Note: A&P Assessment and Plan (1) Acute kidney injury: Code(s): N17.9 - Acute kidney failure, unspecified Status: Acute Assessment and Plan: as noted by admission labs improving evaluation to date noted: renal u/s normal urine electrolytes prerenal urine eosinophils negative CPK normal etiology most likely related to prerenal factors including dehydration and poor cardiac output. given her significant cardiomyopathy, she may have a new baseline creatinine.... lasix restarted follow repeat labs and UOP (2) Chronic kidney disease, stage 3: Code(s): N18.30 - Chronic kidney disease, stage 3 unspecified Status: Chronic Assessment and Plan: baseline creatinine runs around 1.1 - 1.3mg/dl currently 1.7. This is probably a new baseline as stated above presumably secondary to CHF, vascular disease, DARRICK/pulmonary HTN, and age-related change (3) Altered mental status: Code(s): R41.82 - Altered mental status, unspecified Status: Acute Assessment and Plan: fluctuates depending on respiratory status suspect secondary to CO2 narcosis as CO2 has been high in the past follow mentation with current interventions noted (4) Acute and chronic respiratory failure with hypercapnia: Code(s): J96.22 - Acute and chronic respiratory failure with hypercapnia Status: Acute Assessment and Plan: clinically better as noted by ABG yesterday BiPAP initiated improvement in ABGs noted however, patient does not always use her BiPAP machine back on supplemental oxygen by nasal cannula code status changed to DNR/DNI (5) Combined systolic and diastolic congestive heart failure: Qualifiers: Heart failure chronicity: chronic Qualified Code(s): I50.42 - Chronic combined systolic (congestive) and diastolic (congestive) heart failure Code(s): I50.40 - Unspecified combined systolic (congestive) and diastolic (congestive) heart failure Status: Chronic Assessment and Plan: Echo shows an EF of 20-25%. last CXR with mild pulmonary edema and right pleural effusion along with cardiomegaly and some airspace opacities. resumed on diuretic therapy (6) Type 2 diabetes mellitus with hyperglycemia, without long-term current use of insulin: Code(s): E11.65 - Type 2 diabetes mellitus with hyperglycemia Status: Chronic Assessment and Plan: follow accu-cheks glycemic control per hospitalist Will continue to follow. Subjective Date/time seen: 07/05/24 10:01 Interval history: Follow-up for acute kidney injury/acute renal failure on chronic kidney disease. Chart reviewed since last seen -- renal function appears to be stabilizing with reasonable urine output; events noted overnight with regard to agitation, hypoxia as well as tachycardia all of which seems to resolve once BiPAP was resumed; no apparent distress at the time of my visit. Exam Narrative: General: elderly but WD/WN female in NAD Heart: normal S1 and S2; no rub Lungs: coarse and decreased at bases Abdomen: soft, nontender, nondistended, positive bowel sounds Extremities: trace edema bilateral Skin: warm and dry Objective Data Vital Signs Vital Signs: Vital Signs Temp Pulse Resp BP Pulse Ox O2 Del Method O2 Flow Rate 07/05/24 10:00 98 07/05/24 08:30 113 H 07/05/24 08:00 97.8 F 112 H 16 122/63 100 07/05/24 07:24 110 H 22 H 07/05/24 07:15 108 H 22 H 07/05/24 07:15 98 Nasal Cannula 4 07/05/24 06:00 108 H 07/05/24 05:14 111 H 22 H 100 BiPAP 07/05/24 04:00 108 H 07/05/24 04:00 97.6 F 114 H 22 H 120/61 100 07/05/24 03:59 112 H 29 H 99 BiPAP 07/05/24 01:00 98.3 F 133 H 28 H 122/69 77 L 07/05/24 01:20 129 H 28 H 07/05/24 01:11 130 H 29 H 07/05/24 01:25 130 H 29 H 99 BiPAP 07/05/24 02:00
--- NOTE | 2024-07-05 10:01 | P.PNNP_ITS ---
Progress Note: A&P Assessment and Plan (1) Acute kidney injury: Code(s): N17.9 - Acute kidney failure, unspecified Status: Acute Assessment and Plan: * as noted by admission labs * improving * evaluation to date noted: * renal u/s normal * urine electrolytes prerenal * urine eosinophils negative * CPK normal * etiology most likely related to prerenal factors including dehydration and poor cardiac output. * given her significant cardiomyopathy, she may have a new baseline creatinine.... * lasix restarted * follow repeat labs and UOP (2) Chronic kidney disease, stage 3: Code(s): N18.30 - Chronic kidney disease, stage 3 unspecified Status: Chronic Assessment and Plan: * baseline creatinine runs around 1.1 - 1.3mg/dl * currently 1.7. This is probably a new baseline as stated above * presumably secondary to CHF, vascular disease, DARRICK/pulmonary HTN, and age- related change (3) Altered mental status: Code(s): R41.82 - Altered mental status, unspecified Status: Acute Assessment and Plan: * fluctuates depending on respiratory status * suspect secondary to CO2 narcosis as CO2 has been high in the past * follow mentation with current interventions noted (4) Acute and chronic respiratory failure with hypercapnia: Code(s): J96.22 - Acute and chronic respiratory failure with hypercapnia Status: Acute Assessment and Plan: * clinically better * as noted by ABG yesterday * BiPAP initiated * improvement in ABGs noted * however, patient does not always use her BiPAP machine * back on supplemental oxygen by nasal cannula * code status changed to DNR/DNI (5) Combined systolic and diastolic congestive heart failure: Qualifiers: Heart failure chronicity: chronic Qualified Code(s): I50.42 - Chronic combined systolic (congestive) and diastolic (congestive) heart failure Code(s): I50.40 - Unspecified combined systolic (congestive) and diastolic (congestive) heart failure Status: Chronic Assessment and Plan: * Echo shows an EF of 20-25%. * last CXR with mild pulmonary edema and right pleural effusion along with cardiomegaly and some airspace opacities. * resumed on diuretic therapy (6) Type 2 diabetes mellitus with hyperglycemia, without long-term current use of insulin: Code(s): E11.65 - Type 2 diabetes mellitus with hyperglycemia Status: Chronic Assessment and Plan: * follow accu-cheks * glycemic control per hospitalist Will continue to follow. Subjective Date/time seen: 07/05/24 10:01 Interval history: Follow-up for acute kidney injury/acute renal failure on chronic kidney disease. Chart reviewed since last seen -- renal function appears to be stabilizing with reasonable urine output; events noted overnight with regard to agitation, hypoxia as well as tachycardia all of which seems to resolve once BiPAP was resumed; no apparent distress at the time of my visit. Exam Narrative: General: elderly but WD/WN female in NAD Heart: normal S1 and S2; no rub Lungs: coarse and decreased at bases Abdomen: soft, nontender, nondistended, positive bowel sounds Extremities: trace edema bilateral Skin: warm and dry Objective Data Vital Signs Vital Signs: Vital Signs Temp Pulse Resp BP Pulse Ox O2 Del Method O2 Flow Rate 07/05/24
[2024-07-05 11:36] LABS: Glucose Point of Care 262 mg/dl (65-105)
[2024-07-05] MEDS: ACETAMINOPHEN 325 MG TABLET 650 MG PO (12:05)
[2024-07-05] MEDS: LIDOCAINE 5% PATCH 1 PATCH TRANSDERM (12:05)
[2024-07-05] MEDS: ENOXAPARIN 40 MG/0.4 ML SYRINGE SUB-Q (12:06)
[2024-07-05 14:32] LABS: Glucose Point of Care 243 mg/dl (65-105)
--- NOTE | 2024-07-05 15:47 | PM.DS ---
DS: Admitting Diagnosis Discharge Date July 05, 2024 Admitting Diagnosis Hypercapnic/hypoxic respiratory failure DS: Discharge Diagnosis Discharge Diagnosis (1) CHF (congestive heart failure): Qualifiers: Heart failure type: unspecified Heart failure chronicity: unspecified Qualified Code(s): I50.9 - Heart failure, unspecified Code(s): I50.9 - Heart failure, unspecified Status: Acute (2) Chronic respiratory failure with hypoxia and hypercapnia: Code(s): J96.11 - Chronic respiratory failure with hypoxia; J96.12 - Chronic respiratory failure with hypercapnia Status: Acute (3) Diabetes mellitus with hyperglycemia, without long-term current use of insulin: Code(s): E11.65 - Type 2 diabetes mellitus with hyperglycemia Status: Chronic (4) Acute hypercapnic respiratory failure: Code(s): J96.02 - Acute respiratory failure with hypercapnia Status: Acute DS: Summary Hospital Course Hospital Course: Ms. Vanita Parker is a 73-year-old female with a history of tobacco dependence, chronic combined systolic/diastolic heart failure, DARRICK on CPAP, pulmonary hypertension, chronic hypoxic/hypercapnic respiratory failure on 4 L oxygen continuously, chronic kidney disease stage 3, CAD, history of DVT, chronic macrocytic anemia with B12 deficiency, chronic pain syndrome/vertebral compression fractures, chronic opiate dependence, restless leg syndrome, peripheral neuropathy, history of medical noncompliance, 2 diabetes mellitus without long-term use of insulin and other comorbidities who presented to [facility] from [facility] due to worsening hypoxia on 06/20/2024. Patient was transferred to [facility] for elevated level of care. She has had an extensive and complicated hospital course. Summarize, the acute events and management are as follows: Acute decompensation of combined systolic-diastolic congestive heart failure: Surface echocardiogram demonstrated EF severely reduced at 20-25%. LifeVest initially placed however patient ultimately decided to be DNR, more below. Patient's decompensation has resolved and she is discharged on Lasix 20 mg p.o. q.day, gentle diuresis due to low blood pressure. Toxic metabolic/hypoxic encephalopathy: The patient has had multiple admissions and has not been home since April of 2024. The Abel Parker she tips easily into altered mental status. On the day of discharge 07/05/2024 the patient is relatively stable to nursing home for rehab however she has a limited prognosis. A lengthy and detailed discussion held with medical perception given from the procedure writer in a compassionate manner, the patient and her have considered her age, severe chronic comorbidities, multiple hospital admissions in the past 3 months and they have independently decided to allow the patient small dose of Buras for pain control of her compression fractures. Was previously on a 50 mcg fentanyl patch and this caused her to be somnolent. They understand the risk of narcotics. In fact, they have already been aware of the patient's proximity to another hospital admission and likely further near end of life experiences. The patient has 5 days left of therapy and they would like her to try again, at this time they do not want to officially pursue hospice however if the patient becomes ill again they will be pursuing hospice. Type 2 diabetes mellitus uncontrolled. Patient's blood sugars are uncontrolled and they have been better on Lantus. Continue that FENG on CKD: Improved. Delicate balance with fluid shifts. COPD: Improved, received noninvasive ventilator, guaifenesin, bronchodilators. CAD: Continue aspirin and Plavix statin Sepsis due to UTI. Receive aztreonam and Bactrim. Lactic acidosis resolved Again, the patient and have independently decided for her to be DNR. They do not want to pursue hospice at this time and would like her to try [facility]
[2024-07-05 16:34] LABS: Glucose Point of Care 209 mg/dl (65-105)
[2024-07-05] MEDS: ATORVASTATIN 40 MG TABLET 80 MG PO (17:40)
--- NOTE | 2024-07-05 18:33 | PC.NURSE ---
1800 - [facility] here- report given- ambulance service obtained SBP 70's, and notified nurse; this nurse went in room to check BP LArm = 77/57 and R Arm 106/56 ; rechecked BP after 5 min and BP R Arm =116/56, pt awake dozing but answers questions- walked into room and stated looks and acting the same- wants to discharge his - stated this is her normal; pt will follow to [facility], called [facility] spoke with Jasmyne - updated on conidtion stated she will notify [facility] the pts nurse [facility]
--- NOTE | 2024-07-05 18:56 | PC.NURSE ---
1814- Josi marx called and updated on BP and but condition unchanged from earlier today. okay to discharge 1824- Discharged
== END 2024-07-05 18:25 | DRG 871 ==
LOC: ANHIMU 05:13 → ANHICU 13:17 → ANH2MED 06-22 18:15 → ANHIMU 07-01 13:10 → ANHICU 07-02 00:31 → ANHIMU 07-02 17:18
PROVIDERS: Internal Medicine; Internal Medicine Nephrology; Admitting Provider Internal Medicine; PCP Family Medicine; Visit Provider General Practice
DX: A41.9 Sepsis, unspecified organism (principal); G92.8 Other toxic encephalopathy; J96.21 Acute and chronic respiratory failure with hypoxia; I50.43 Acute on chronic combined systolic (congestive) and diastolic (congestive) heart failure; I50.42 Chronic combined systolic (congestive) and diastolic (congestive) heart failure; F11.20 Opioid dependence, uncomplicated; N17.9 Acute kidney failure, unspecified; N39.0 Urinary tract infection, site not specified; I48.92 Unspecified atrial flutter; I42.9 Cardiomyopathy, unspecified; J96.12 Chronic respiratory failure with hypercapnia; I25.10 Atherosclerotic heart disease of native coronary artery without angina pectoris; I25.82 Chronic total occlusion of coronary artery; I27.20 Pulmonary hypertension, unspecified; I95.9 Hypotension, unspecified; I73.9 Peripheral vascular disease, unspecified; N18.32 Chronic kidney disease, stage 3b; E87.5 Hyperkalemia; E83.42 Hypomagnesemia; E11.65 Type 2 diabetes mellitus with hyperglycemia; E11.42 Type 2 diabetes mellitus with diabetic polyneuropathy; E53.8 Deficiency of other specified B group vitamins; E78.5 Hyperlipidemia, unspecified; E55.9 Vitamin D deficiency, unspecified; R23.3 Spontaneous ecchymoses; D53.9 Nutritional anemia, unspecified; K21.9 Gastro-esophageal reflux disease without esophagitis; K59.03 Drug induced constipation; T40.2X5A Adverse effect of other opioids, initial encounter; R94.31 Abnormal electrocardiogram [ECG] [EKG]; R79.89 Other specified abnormal findings of blood chemistry; M54.59 Other low back pain; G89.4 Chronic pain syndrome; G25.81 Restless legs syndrome; G47.33 Obstructive sleep apnea (adult) (pediatric); N81.10 Cystocele, unspecified; F41.9 Anxiety disorder, unspecified; Z86.718 Personal history of other venous thrombosis and embolism; Z99.81 Dependence on supplemental oxygen; Z79.02 Long term (current) use of antithrombotics/antiplatelets; Z79.82 Long term (current) use of aspirin; Z95.5 Presence of coronary angioplasty implant and graft; Z91.199 Patient's noncompliance with other medical treatment and regimen due to unspecified reason; Z96.82 Presence of neurostimulator; Z87.891 Personal history of nicotine dependence
CPT/HCPCS: 36415; 36600; 70450; 71045; 71250; 76775; 78582; 78707; 80048; 80053; 80069; 81001; 82140; 82375; 82533; 82550; 82570; 82805; 82948; 83050; 83605; 83735; 84100; 84145; 84146; 84300; 84484; 84540; 85025; 85027; 85380; 85384; 85610; 85730; 85999; 86704; 86706; 87040; 87340; 87641; 92610; 93005; 93970; 94002; 94003; 94640; 94667; 97110; 97161; 97162; 97165; 97530; 97535; A9270; A9540; A9558; A9562; C1751; C8929; J0282; J0457; J0612; J0613; J1650; J1815; J1940; J2310; J2919; J3475; J7030; J7040; P9047; Q9957

== ENCOUNTER 2024-07-07 12:39 | Emergency (ER) | payer MEDICARE, BC, SELFPAY ==
[2024-07-07 12:38] VITALS: BP 141/78; PULSE 101; RESP 25; TEMP 36.3; O2SAT 96
--- NOTE | 2024-07-07 12:52 | ED.AMS ---
HPI - Altered Mental Status General Chief Complaint: Altered Mental Status Stated Complaint: Altered mental status Time Seen by Provider: 07/07/24 12:46 History of Present Illness HPI narrative: 73-year-old female presenting with altered mental status. Patient's is at bedside and states that she is DNR DNI and they have been speaking with hospice companies. He states that he just wants her to be as comfortable as possible. On arrival, patient is altered and minimally responsive. Saturating 52% on room air. Related Data Home Medications Medication Instructions Recorded Confirmed naloxone 4 mg/actuation nasal 4 mg intranasal PRN PRN (Drug) 03/05/23 06/20/24 spray (Narcan) Ingestion sennosides 8.6 mg-docusate sodium 1 tab-cap PO QHS PRN Constipation 03/05/23 06/20/24 50 mg tablet (Senna with Docusate Sodium) docusate sodium 100 mg capsule 100 mg PO DAILY 02/03/24 06/20/24 glucagon 1 mg injection kit 1 mg IM PRN PRN Hypoglycemia 06/01/24 06/20/24 acetaminophen 325 mg tablet 650 mg PO Q4H PRN Mild Pain (1-5) 06/20/24 06/20/24 Or Fever aspirin 81 mg chewable tablet 81 mg PO DAILY 06/20/24 06/20/24 (Children's Aspirin) atorvastatin 80 mg tablet 80 mg PO QPM 06/20/24 06/20/24 dextrose 40 % oral gel (Glucose See Rx Instructions .Route 06/20/24 06/20/24 Gel) .COMPLEX PRN Hypoglycemia furosemide 20 mg tablet 20 mg PO DAILY 06/20/24 06/20/24 umeclidinium 62.5 mcg-vilanterol 1 inh inhalation DAILY 06/20/24 06/20/24 25 mcg/actuation powdr for inhalation Allergies Allergy/AdvReac Type Severity Reaction Status Date / Time cefaclor Allergy Unknown Difficulty Verified 06/11/24 07:43 breathing cephalexin Allergy Unknown Difficulty Verified 06/11/24 07:43 breathing Cephalosporins Allergy Unknown Difficulty Verified 06/11/24 07:43 Breathing clarithromycin Allergy Unknown Difficulty Verified 06/11/24 07:43 Breathing clindamycin Allergy Unknown Difficulty Verified 06/11/24 07:43 Breathing morphine Allergy Unknown Difficulty Verified 06/11/24 07:43 breathing Review of Systems Review of Systems: All systems reviewed & are unremarkable except as noted in HPI and below PMFSH Past Medical History Medical History Acquired female bladder prolapse With pessary in place Anemia Macrocytic with a hemoglobin range of 9 to 10. B12 deficiency Bimalleolar fracture of right ankle (12/2023) Chronic anxiety Chronic bilateral low back pain Chronic kidney disease, stage 3 Chronic respiratory failure with hypoxia and hypercapnia On home O2 4 L COPD mixed type Coronary artery disease involving [place] coronary artery of [place] heart without angina pectoris Gastro-esophageal reflux disease without esophagitis Heart failure with mid-range ejection fraction Echocardiogram in December 2023 showed mild reduced LV systolic function with an EF of 45 to 50% with hypokinesis of the mid and basal inferolateral wall and grade 1 diastolic dysfunction. History of fracture of right ankle Major depression, recurrent, chronic Mixed hyperlipidemia Obstructive sleep apnea Peripheral arterial disease Peripheral neuropathy Restless legs syndrome (07/04/22) Therapeutic opioid induced constipation Tobacco abuse disorder Type 2 diabetes mellitus without complication, without long-term current use of insulin Vitamin D deficiency Surgical History Surgical History History of carpal tunnel surgery of right wrist History of heart artery stent X3 History of repair of right rotator cuff History of tonsillectomy and adenoidectomy History of total hysterectomy with bilateral salpingo-oophorectomy (BSO) Status post insertion of spinal cord stimulator Status post open reduction with internal fixation of fracture Inter medullary nailing 2016 with subsequent revision with hip replacement in June [address] Funk
[2024-07-07 13:00] VITALS: BP 141/78; PULSE 103; RESP 26; O2SAT 100; O2SAT 93
[2024-07-07 13:01] VITALS: O2SAT 94
[2024-07-07 13:07] VITALS: O2SAT 94
[2024-07-07] MEDS: MORPHINE SULFATE (*CRX) 2 MG/ML INJ IV PUSH (13:41)
[2024-07-07] MEDS: LORazepam INJ (*CRX) 2 MG/ML VIAL IV PUSH (13:41)
[2024-07-07 14:00] VITALS: PULSE 91; RESP 30; O2SAT 72
[2024-07-07 15:15] VITALS: PULSE 0; RESP 0
== END 2024-07-07 15:05 | disposition expired ==
PROVIDERS: Emergency Provider Emergency Medicine; PCP Family Medicine
DX: I46.9 Cardiac arrest, cause unspecified (principal); J96.11 Chronic respiratory failure with hypoxia; J96.12 Chronic respiratory failure with hypercapnia; J44.9 Chronic obstructive pulmonary disease, unspecified; I25.10 Atherosclerotic heart disease of native coronary artery without angina pectoris; I50.9 Heart failure, unspecified; E11.22 Type 2 diabetes mellitus with diabetic chronic kidney disease; N18.30 Chronic kidney disease, stage 3 unspecified; E11.51 Type 2 diabetes mellitus with diabetic peripheral angiopathy without gangrene; I73.9 Peripheral vascular disease, unspecified; E11.42 Type 2 diabetes mellitus with diabetic polyneuropathy; E78.2 Mixed hyperlipidemia; E53.8 Deficiency of other specified B group vitamins; E55.9 Vitamin D deficiency, unspecified; K21.9 Gastro-esophageal reflux disease without esophagitis; D53.9 Nutritional anemia, unspecified; Z66 Do not resuscitate; G47.33 Obstructive sleep apnea (adult) (pediatric); F33.9 Major depressive disorder, recurrent, unspecified; Z95.5 Presence of coronary angioplasty implant and graft; Z96.82 Presence of neurostimulator; Z87.891 Personal history of nicotine dependence; Z90.710 Acquired absence of both cervix and uterus; Z90.722 Acquired absence of ovaries, bilateral; Z90.79 Acquired absence of other genital organ(s); Z79.4 Long term (current) use of insulin; Z79.82 Long term (current) use of aspirin; Z79.899 Other long term (current) drug therapy
CPT/HCPCS: 96374; 96375; 99283; J2060; J2270